=== PATIENT | male | born 1940 | race Caucasian/White ===

== ENCOUNTER 2016-05-17 08:47 | Outpatient (RCR) | payer MEDICARE, OTHER | END 2016-06-05 | disposition home or self-care (01) | LOC: ONC 08:47 | PROVIDERS: ATTEND Radiology Radiation Oncology | DX: Z51.0 Encounter for antineoplastic radiation therapy (principal); C61 Malignant neoplasm of prostate | CPT/HCPCS: 77300; 77301; 77307; 77334; 77336; 77338; 77385 ==

== ENCOUNTER 2016-06-28 05:38 | Outpatient (CLI) | payer MEDICARE, OTHER ==
[~2016-06-28] VITALS: Ht 175.3 cm; Wt 127.0 kg
--- OUTSIDE RECORDS SUMMARY | 2016-06-28 05:41 | XMS REPORT | Continuity of Care Document ---
Author Author [facility] Organization [facility] Address Unknown Phone Unavailable Allergies Active Description Code Type Severity Reaction Onset Reported/Identified Relationship to Patient Clinical Status Yes No Allergy Information Available [id number] Drug Allergy Unknown N/A 09/26/2015 Medications Problems Date Dx Coded Attending Type Code Diagnosis Diagnosed By 05/07/2011 Ot 414.00 CORON ATHEROSCLER NOS TYPE VESSEL, NATIV 05/07/2011 Ot V45.82 PERCUTANEOUS TRANSLUM CORON ANGIOPLASTY 05/07/2011 Ot V57.89 REHABILITATION PROC NEC 05/31/2011 Ot 414.01 CORONARY ATHEROSCLEROSIS OF [place] CORON 05/31/2011 Ot V45.82 PERCUTANEOUS TRANSLUM CORON ANGIOPLASTY 05/31/2011 Ot V57.89 REHABILITATION PROC NEC 06/20/2013 KELLY GREENE, NEELA Dixon Ot 789.09 ABDOMINAL PAIN, OTHER SPECIFIED SITE 03/28/2014 Ot 414.00 03/28/2014 Ot V45.82 03/28/2014 Ot V57.89 03/28/2014 KELLY GREENE, NEELA R Ot 441.4 03/28/2014 KELLY GREENE, NEELA R Ot 571.8 03/28/2014 KELLY GREENE, NEELA R Ot 356.9 03/28/2014 KELLY GREENE, NEELA R Ot 722.10 03/28/2014 Ot 789.09 04/27/2014 RICCI ZIMMER DO Ot 608.89 04/27/2014 RICCI ZIMMER DO Ot 788.41 04/27/2014 RICCI ZIMMER DO Ot 788.64 05/06/2014 RICCI ZIMMER DO Ot 608.89 05/06/2014 RICCI ZIMMER DO Ot 788.41 05/06/2014 RICCI ZIMMER DO Ot 788.64 09/26/2015 Ot 414.00 CORON ATHEROSCLER NOS TYPE VESSEL, NATIV 09/26/2015 Ot V45.82 PERCUTANEOUS TRANSLUM CORON ANGIOPLASTY 09/26/2015 Ot V57.89 REHABILITATION PROC NEC 09/26/2015 NEELA MENDOZA MD Ot 441.4 ABDOM AORTIC ANEURYSM 09/26/2015 NEELA MENDOZA MD Ot 571.8 CHRONIC LIVER DIS NEC 09/26/2015 NEELA MENDOZA MD Ot 356.9 IDIO PERIPH NEURPTHY NOS 09/26/2015 NEELA MENDOZA MD Ot 722.10 LUMBAR DISC DISPLACEMENT 09/26/2015 Ot 789.09 ABDOMINAL PAIN, OTHER SPECIFIED SITE 09/26/2015 RICCI ZIMMER DO Ot 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 09/26/2015 RICCI ZIMMER DO Ot 788.41 URINARY FREQUENCY 09/26/2015 RICCI ZIMMER DO Ot 788.64 URINARY HESITANCY 09/26/2015 Ot 414.00 CORON ATHEROSCLER NOS TYPE VESSEL, NATIV 09/26/2015 Ot V45.82 PERCUTANEOUS TRANSLUM CORON ANGIOPLASTY 09/26/2015 Ot V57.89 REHABILITATION PROC NEC 09/26/2015 Ot 789.09 ABDOMINAL PAIN, OTHER SPECIFIED SITE 09/27/2015 RAÚL GREENE, SHARIFA Edwards Ot C61 MALIGNANT NEOPLASM OF PROSTATE 10/02/2015 SHARIFA OLSEN MD A Ot C61 MALIGNANT NEOPLASM OF PROSTATE 10/20/2015 SHARIFA OLSEN MD A Ot C61 MALIGNANT NEOPLASM OF PROSTATE 10/20/2015 SHARIFA OLSEN MD A Ot C61 MALIGNANT NEOPLASM OF PROSTATE 11/16/2015 REMEDIOS LANDIN MD Ot C61 MALIGNANT NEOPLASM OF PROSTATE 11/21/2015 REMEDIOS LANDIN MD Ot C61 MALIGNANT NEOPLASM OF PROSTATE 01/23/2016 REMEDIOS LANDIN MD Ot C61 MALIGNANT NEOPLASM OF PROSTATE 03/08/2016 REMEDIOS LANDIN MD, Ot C61 MALIGNANT NEOPLASM OF PROSTATE 04/25/2016 REMEDIOS LANDIN MD, Ot C61 MALIGNANT NEOPLASM OF PROSTATE 04/25/2016 REMEDIOS LANDIN MD, Ot C61 MALIGNANT NEOPLASM OF PROSTATE 06/05/2016 REMEDIOS LANDIN MD Ot C61 MALIGNANT NEOPLASM OF PROSTATE 06/05/2016 REMEDIOS LANDIN MD Ot Z51.0 ENCOUNTER FOR ANTINEOPLASTIC RADIATION T 06/06/2016 REMEDIOS LANDIN MD, Ot C61 MALIGNANT NEOPLASM OF PROSTATE 06/06/2016 URAVSHI GREENE, REMEDIOS Elizabeth Ot Z51.0 ENCOUNTER FOR ANTINEOPLASTIC RADIATION T Procedures Results Encounters ACCT No. Visit Date/Time Discharge Status Pt. Type Provider Facility Loc./Unit Complaint [id number] 05/17/2016 08:47:00 2016 00:01:00 DIS Outpatient REMEDIOS LANDIN MD [facility] ONC [id number] 10/25/2015 12:42:00 2015 00:01:00 DIS Outpatient REMEDIOS LANDIN MD [facility] ONC [id number] 03/28/2014 09:58:00 2013 23:59:59 CLS Outpatient RICCI ZIMMER DO [facility] RAD [id number] 03/22/2013 10:48:00 2013 00:01:00 DIS Outpatient NEELA MENDOZA MD [facility] LAB [id number] 03/31/2013 08:02:00 2012 23:59:59 CLS Outpatient NEELA MENDOZA MD [facility] RAD [id number] 03/22/2013 14:16:00 2012 23:59:59 CLS Outpatient NEELA MENDOZA MD [facility] RAD [id number] 06/06/2016 00:10:00 PEN Preadmit REMEDIOS LANDIN MD [facility] ONC [id number] 09/26/2015 11:17:00 ACT Outpatient SHARIFA OLSEN MD [facility] RAD [id number] 06/21/2013 00:00:00 Document Registration [id number] 05/31/2011 12:51:00 Document Registration [id number] 05/08/2011 08:00:00 Document Registration [id number] 05/03/2011 11:07:00 Document Registration
[2016-06-28] MEDS ORDERED: ASPI-586 PO (12:46)
[2016-06-28] MEDS ORDERED: ATOR80TA76 PO (12:46)
[2016-06-28] MEDS ORDERED: ISM60TCR PO (12:46)
[2016-06-28] MEDS ORDERED: OMG1KC PO (12:46)
[2016-06-28] MEDS ORDERED: METF1000 PO (12:46)
[2016-06-28] MEDS ORDERED: CARV25TA PO (12:46)
[2016-06-28] MEDS ORDERED: HYDR-3816 PO (12:46)
[2016-06-28] MEDS ORDERED: TAMS0.4C98 PO (12:46)
[2016-06-28] MEDS ORDERED: LISI1TAB10 PO (12:46)
[2016-06-28] MEDS ORDERED: GLIP10TA13 PO (12:46)
[2016-06-28] MEDS ORDERED: INSU100V5 SQ (12:46)
== END 2016-06-28 12:48 ==
LOC: PREOP 05:38
PROVIDERS: ATTEND Urology
DX: Z01.818 Encounter for other preprocedural examination (principal); C61 Malignant neoplasm of prostate

== ENCOUNTER → 2016-06-28 | Outpatient (CLI) | payer MEDICARE, OTHER ==
[~2016-06-28] MED LIST: ASPI-586 PO; ATOR80TA76 PO; CARV25TA PO; CIPR-225 PO; GLIP10TA13 PO; HYDR-3816 PO; INSU100V5 SQ; ISM60TCR PO; LISI1TAB10 PO; METF1000 PO; OMG1KC PO; PHEN-640 PO; TAMS0.4C98 PO
--- OUTSIDE RECORDS SUMMARY | 2016-06-28 10:32 | XMS REPORT | Continuity of Care Document ---
Author Author [facility] Organization [facility] Address Unknown Phone Unavailable Allergies Active Description Code Type Severity Reaction Onset Reported/Identified Relationship to Patient Clinical Status Yes No Allergy Information Available [id number] Drug Allergy Unknown N/A 09/26/2015 Medications Problems Date Dx Coded Attending Type Code Diagnosis Diagnosed By 05/07/2011 Ot 414.00 CORON ATHEROSCLER NOS TYPE VESSEL, NATIV 05/07/2011 Ot V45.82 PERCUTANEOUS TRANSLUM CORON ANGIOPLASTY 05/07/2011 Ot V57.89 REHABILITATION PROC NEC 05/31/2011 Ot 414.01 CORONARY ATHEROSCLEROSIS OF [place] CORON 05/31/2011 Ot V45.82 PERCUTANEOUS TRANSLUM CORON [...] Ot V57.89 REHABILITATION PROC NEC 09/26/2015 NEELA EMNDOZA MD Ot 441.4 ABDOM AORTIC ANEURYSM 09/26/2015 [...] Ot C61 MALIGNANT NEOPLASM OF PROSTATE 06/06/2016 URVASHI GREENE, REMEDIOS Elizabeth Ot Z51.0 ENCOUNTER FOR ANTINEOPLASTIC RADIATION T Procedures Results Encounters ACCT No. Visit Date/Time Discharge Status Pt. Type Provider Facility Loc./Unit Complaint [id number] 05/17/2016 08:47:00 2016 00:01:00 DIS Outpatient REMEDIOS LANDIN MD [facility] ONC [id number] 10/25/2015 12:42:00 2015 00:01:00 DIS Outpatient REMEDIOS LANDIN MD [facility] ONC [id number] 03/28/2014 09:58:00 2013 23:59:59 CLS Outpatient RICCI ZIMMER DO [facility] RAD [id number] 03/22/2013 10:48:00 2013 00:01:00 DIS Outpatient NEELA MENDOZA MD [facility] LAB [id number] 03/31/2013 08:02:00 2012 23:59:59 CLS Outpatient NEELA MENDOZA MD [facility] RAD [id number] 03/22/2013 14:16:00 2012 23:59:59 CLS Outpatient NEELA MENDOZA MD [facility] RAD [id number] 06/06/2016 00:10:00 PEN Preadmit REMEDIOS LANDIN MD [facility] ONC [id number] 09/26/2015 11:17:00 ACT Outpatient SHARIFA OLSEN MD [facility] RAD [id number] 06/21/2013 00:00:00 Document Registration [id number] 05/31/2011 12:51:00 Document Registration [id number] 05/08/2011 08:00:00 Document Registration [id number] 05/03/2011 11:07:00 Document Registration
== END ==
LOC: ONC 10:28
PROVIDERS: ATTEND Radiology Radiation Oncology
DX: C61 Malignant neoplasm of prostate (principal)
CPT/HCPCS: 99213

== ENCOUNTER 2016-07-02 06:17 | Day surgery (SDC) | payer MEDICARE, OTHER ==
[~2016-07-02] VITALS: Ht 175.3 cm; Wt 127.0 kg
[~2016-07-02 06:17] MED LIST changes: -CIPR-225 PO; -PHEN-640 PO
--- OUTSIDE RECORDS SUMMARY | 2016-07-02 06:20 | XMS REPORT | Continuity of Care Document ---
Author Author [facility] Organization [facility] Address Unknown Phone Unavailable Care Team Providers Care Missile Inspector Name Role Phone NEELA MENDOZA MD PCP Insurance Providers Payer Name Policy Number Subscriber Name Relationship [employer] [id number] Abdulaziz Layton Self / Same As Patient [place] [id number] Abdulaziz Layton Self / Same As Patient Problems No problem information available. Medications Current Home Medications Medication Dose Units Route Directions Days/Qty Instructions Start Date Aspirin 81 Mg 81 Mg Oral 06/28/16 Atorvastatin Calcium 80 Mg 80 Mg Oral Daily 06/28/16 Carvedilol 25 Mg 25 Mg Oral Twice A Day 06/28/16 [place] 3 Polyunsat Fatty Acids 1,000 Mg 2,000 Mg Oral Daily 06/28/16 Glipizide 10 Mg 10 Mg Oral Daily 06/28/16 Isosorbide Mononitrate (Imdur) 60 Mg 60 Mg Oral Daily 06/28/16 Hydrocodone/Acetaminophen 1 Each 1 Each Oral As Needed as needed for Pain 06/28/16 Insulin Determir 1,000 Units/10 Ml 25 Units Sub-Q Twice A Day Metformin Hcl 1,000 Mg 1,000 Mg Oral Twice A Day 06/28/16 Lisinopril/Hydrochlorothiazide 1 Each 1 Each Oral Daily 06/28/16 Tamsulosin Hcl 0.4 Mg 0.4 Mg Oral Twice A Day 06/28/16 Social History Social History Problem Response Recorded Date/Time Recent Foreign Travel N [place] 06/28/2016 10:27am Hospital Discharge Instructions Current inpatient/outpatient. Discharge instructions are currently unavailable. Plan of Care Prescriptions Functional Status No functional status results. Allergies, Adverse Reactions, Alerts No known allergies. Immunizations No immunization records. Vital Signs Acute Vital Signs Vital Response Date/Time Height (Feet) 5 feet 06/28/2016 12:25pm Height (Inches) 9.00 inches 06/28/2016 12:25pm Height (Calculated Centimeters) 175.626073 cm 06/28/2016 12:25pm Weight (Pounds) 280 pounds 06/28/2016 12:25pm Weight (Ounces) 0.0 oz 06/28/2016 12:25pm Weight (Calculated Grams) 362854.87 gm 06/28/2016 12:25pm Weight (Calculated Kilograms) 127.404931 kilograms 06/28/2016 12:25pm Calculated BMI 41.4 06/28/2016 12:25pm Results No known relevant diagnostic tests, laboratory data and/or discharge summary. Procedures No known history of procedures. Encounters Encounter Location Arrival/Admit Date Discharge/Depart Date Attending Provider Registered Clinic [facility] 06/28/16 10:28am REMEDIOS LANDIN MD Departed Clinic [facility] 06/28/16 5:38am 06/28/16 12: 48pm SHARIFA OLSEN MD Discharged Recurring [facility] 03/07/16 10:13am 11:59pm REMEDIOS LANDIN MD
--- OUTSIDE RECORDS SUMMARY | 2016-07-02 06:21 | XMS REPORT | Continuity of Care Document ---
Author Author [facility] Organization [facility] Address Unknown Phone Unavailable Care Team Providers Care Virology Teacher Name Role Phone NEELA MENDOZA MD PCP Insurance Providers Payer Name Policy Number Subscriber Name Relationship [employer] [id number] Abdulaziz Layton Self / Same As Patient [place] [employer] [place] [id number] Abdulaziz Layton Self / Same As Patient Problems No problem information available. Medications Current Home Medications Medication Dose Units Route Directions Days/Qty Instructions Start Date Aspirin 81 Mg 81 Mg Oral 06/28/16 Atorvastatin Calcium 80 Mg 80 Mg Oral Daily 06/28/16 Carvedilol 25 Mg 25 Mg Oral Twice A Day 06/28/16 [place] 3 Polyunsat Fatty Acids 1,000 Mg 2,000 [...] 9.00 inches 06/28/2016 12:25pm Height (Calculated Centimeters) 175.594426 cm 06/28/2016 12:25pm Weight (Pounds) 280 pounds 06/28/2016 12:25pm Weight (Ounces) 0.0 oz 06/28/2016 12:25pm Weight (Calculated Grams) 094799.87 gm 06/28/2016 12:25pm Weight (Calculated Kilograms) 127.727007 kilograms 06/28/2016 12:25pm Calculated BMI 41.4 06/28/2016 12:25pm Results No known relevant diagnostic tests, laboratory data and/or discharge summary. Procedures No known history of procedures. Encounters Encounter Location Arrival/Admit Date Discharge/Depart Date Attending Provider Registered Clinic [facility] 06/28/16 10:28am REMEDIOS LANDIN MD Departed Clinic [facility] 06/28/16 5:38am 06/28/16 12: 48pm SHARIFA OLSEN MD Discharged Recurring [facility] 03/07/16 10:13am 11:59pm REMEDIOS LANDIN MD
--- NOTE | 2016-07-02 07:10 | Progress Note-Pre Operative ---
Pre-Operative Progress Note H&P Reviewed The H&P was reviewed, patient examined and no changes noted. Date H&P Reviewed: Jul 02, 2016 Time H&P Reviewed: 07:10 Pre-Operative Diagnosis: Ca Prostate with prostatism SHARIFA OLSEN MD Jul 02, 2016 7:10 am
--- NOTE | 2016-07-02 07:11 | Progress Note-Post Operative ---
Post-Operative Progess Note Pre-Operative Diagnosis Ca Prostate with prostatism Post-Operative Diagnosis SAME Post-Op Procedure Note Date of Procedure: Jul 02, 2016 Name of Procedure: UROLIFT IMPLANT Anesthesia Type GENERAL Estimated blood loss (mL): SHARIFA GARCIA MD Jul 02, 2016 7:11 am
--- NOTE | 2016-07-02 07:13 | Discharge Inst-Urology ---
Discharge Inst-Urology Discharge Medications New, Converted, or Re-newed RX: RX on Chart Patient Instructions/Follow Up Plan Please make appointment to been seen in office in 2 weeks. May resume ASA in one week if no bleeding Keep bowels, soft and moving Increase oral fluids for 48 hours and then as needed. Diet and Activity as tolerated. If questions or concerns contact your physician Or seek help at emergency department. SHARIFA OLSEN MD Jul 02, 2016 7:12 am
[2016-07-02] MEDS ORDERED: LEVOFLOXACIN 500 MG/D5W 100 ML (PRE-MIX) IV ONE (07:15)
[2016-07-02] MEDS ORDERED: LACTATED RINGERS 1,000 ML IV PRN ×2 (07:41)
[2016-07-02] MEDS ORDERED: LIDOCAINE PF 2% 10 ML (XYLOCAINE) AMP ONE (07:57)
[2016-07-02] MEDS ORDERED: proPOfol 200 MG/20 ML (DIPRIVAN) VIAL IV ONE (07:57)
[2016-07-02] MEDS ORDERED: ONDANSETRON 4 MG/2 ML (SDV) Z0FRAN ONE (07:57)
[2016-07-02] MEDS ORDERED: MIDAZOLAM 2 MG/2 ML (VERSED) VIAL ONE (07:57)
[2016-07-02] MEDS ORDERED: fentaNYL INJECTION 100 MCG/2 ML AMP ONE (07:57)
[2016-07-02 08:05] VITALS: BP 148/103
[2016-07-02] MEDS ORDERED: SEVOFLURANE (ULTANE) 15 ML INHAL SOLN ONE (08:41)
[2016-07-02] MEDS ORDERED: morphine INJ 10 MG/ML 1ML (SYR OR VIAL) IV PRN (09:00)
[2016-07-02] MEDS ORDERED: ONDANSETRON 4 MG/2 ML (SDV) Z0FRAN IV PRN (09:00)
[2016-07-02] MEDS ORDERED: PHEN-640 PO (09:40)
[2016-07-02] MEDS ORDERED: CIPR-225 PO (09:40)
[2016-07-02 09:55] VITALS: BP 153/90
[2016-07-02 10:25] VITALS: BP 158/86
[2016-07-02 10:55] VITALS: BP 167/101
[2016-07-02 12:15] VITALS: BP 167/101
--- NOTE | 2016-07-02 14:51 | OPERATIVE REPORT ---
PROCEDURE PHYSICIAN: SHARIFA OLSEN DATE OF PROCEDURE: 07/02/2016 PREOPERATIVE DIAGNOSIS: CA of the prostate with prostatism. POSTOPERATIVE DIAGNOSIS: CA of the prostate with prostatism. OPERATION: UroLift implant. SURGEON: Ida ANESTHESIA: General. COMPLICATIONS: None. PROCEDURE: Under satisfactory general anesthesia, the patient in lithotomy position, the genitalia were prepped and draped in usual sterile fashion. Cystoscope was first performed to confirm the enlargement of the prostate, mostly the left lobe of the patient, so we went ahead and put four UroLift implant using the described technique. Two on each side. There was still some bulging of the lobe on the left side so we put in a 5th implant there to really provide a good anterior channel there was minimal bleeding. The bladder was evacuated. The scope was removed. The patient tolerated the procedure and anesthesia well and was sent to recovery room in stable condition. Estimated blood loss negligible. Job ID: [id number] Dictated Date: 07/02/2016 09:07:34 Regulatory Administrator Date: 07/02/2016 14:44:47 / rosales
== END 2016-07-02 12:15 | disposition home or self-care (01) ==
LOC: SDC 06:17
PROVIDERS: ATTEND Urology
DX: C61 Malignant neoplasm of prostate (principal); N40.0 Benign prostatic hyperplasia without lower urinary tract symptoms; E11.9 Type 2 diabetes mellitus without complications; Z79.4 Long term (current) use of insulin
CPT/HCPCS: 82962; 87081

== ENCOUNTER → 2016-08-07 | Outpatient (CLI) | payer MEDICARE, OTHER ==
[~2016-08-07] MED LIST changes: +CIPR-225 PO; +PHEN-640 PO
== END ==
LOC: CARD 11:17
PROVIDERS: ATTEND Internal Medicine Cardiovascular Disease
DX: I49.3 Ventricular premature depolarization (principal); I49.9 Cardiac arrhythmia, unspecified
CPT/HCPCS: 93225; 93226

== ENCOUNTER → 2017-02-10 | Outpatient (CLI) | payer MEDICARE, OTHER ==
[~2017-02-10] MED LIST changes: +RT-ALBUTEROL SULF 2.5 MG/3 ML PRE-MIX VIAL ONE
== END ==
LOC: RT 14:02
PROVIDERS: ATTEND Internal Medicine Cardiovascular Disease
DX: R06.09 Other forms of dyspnea (principal); I25.5 Ischemic cardiomyopathy
CPT/HCPCS: 94060; 94726; 94729

== ENCOUNTER → 2017-02-10 | Outpatient (CLI) | payer MEDICARE, OTHER ==
[~2017-02-10] MED LIST changes: +RT-ALBUTEROL SULF 2.5 MG/3 ML PRE-MIX VIAL IH ONE; -RT-ALBUTEROL SULF 2.5 MG/3 ML PRE-MIX VIAL ONE
[2017-02-10 15:40] LABS: MEAN PLATELET VOLUME 8.8 FL (7.4-10.4); RED BLOOD COUNT 4.46 10^6/uL (4.35-5.85); RED CELL DISTRIBUTION WIDTH 13.2 % (10.0-14.5); WHITE BLOOD COUNT 6.8 10^3/uL (4.3-11.0)
[2017-02-10 16:03] LABS: CALCIUM 9.1 MG/DL (8.5-10.1); CREATININE SERUM 1.18 MG/DL (0.60-1.30); POTASSIUM 4.3 MMOL/L (3.6-5.0)
--- NOTE | 2017-02-10 16:17 | Diagnostic Imaging Report ---
PA and lateral views of the chest. INDICATION: COPD and hypertension. Shortness of breath. COMPARISON: No prior studies are available for comparison. FINDINGS: There is a minimal focal opacity along the lateral aspect of the left perihilar region. The right lung is clear. The heart size is moderately enlarged. There is pulmonary hyperinflation. The mediastinum and kolton appear unremarkable. IMPRESSION: 1. Cardiomegaly without overt failure. 2. Minimal opacity along the lateral aspect of the left perihilar region could relate to slight focal atelectasis or minimal pneumonitis. Dictated by: Dictated on workstation # [id number]
[2017-02-10 16:24] LABS: THYROID STIMULATING HORMONE 2.12 UIU/ML (0.35-4.94)
== END ==
LOC: RAD 14:05
PROVIDERS: ATTEND Internal Medicine Cardiovascular Disease
DX: I51.7 Cardiomegaly (principal); I10 Essential (primary) hypertension; R06.02 Shortness of breath; I42.9 Cardiomyopathy, unspecified; I25.10 Atherosclerotic heart disease of native coronary artery without angina pectoris
CPT/HCPCS: 36415; 71020; 80048; 83880; 84443; 85027; 94640

== ENCOUNTER → 2017-02-18 | Outpatient (CLI) | payer MEDICARE, OTHER ==
[~2017-02-18] MED LIST changes: -RT-ALBUTEROL SULF 2.5 MG/3 ML PRE-MIX VIAL IH ONE
[2017-02-18 12:25] LABS: ABG BASE EXCESS 2.1 MMOL/L (-2.5-2.5); ABG HCO3 27 MMOL/L (23-27); ABG OXYGEN SATURATION 93 % (94-100); ABG PCO2 43 MMHG (35-45); ABG PO2 60 MMHG (79-93); ABG TCO2 27.9 MMOL/L (21.0-31.0)
[2017-02-18 12:26] LABS: ALLENS TEST YES-POS
[2017-02-18 12:27] LABS: PATIENT TEMP 97.2
== END ==
LOC: LAB 11:42
PROVIDERS: ATTEND Nurse Practitioner Family
DX: G47.10 Hypersomnia, unspecified (principal); G47.50 Parasomnia, unspecified
CPT/HCPCS: 82805

== ENCOUNTER 2017-03-07 20:57 | Outpatient (CLI) | payer MEDICARE, OTHER | END 2017-03-08 05:28 | disposition home or self-care (01) | LOC: SLEEP 20:57 | PROVIDERS: ATTEND Nurse Practitioner Family | DX: G47.33 Obstructive sleep apnea (adult) (pediatric) (principal); G47.10 Hypersomnia, unspecified | CPT/HCPCS: 95810 ==

== ENCOUNTER 2017-05-03 20:45 | Outpatient (CLI) | payer MEDICARE, OTHER | END 2017-05-04 06:15 | disposition home or self-care (01) | LOC: SLEEP 20:45 | PROVIDERS: ATTEND Nurse Practitioner Family | DX: G47.33 Obstructive sleep apnea (adult) (pediatric) (principal); G47.34 Idiopathic sleep related nonobstructive alveolar hypoventilation; G47.50 Parasomnia, unspecified; R06.02 Shortness of breath | CPT/HCPCS: 95811 ==

== ENCOUNTER 2018-01-19 05:33 | Outpatient (CLI) | payer MEDICARE, OTHER ==
[~2018-01-19] VITALS: Ht 175.3 cm; Wt 122.5 kg
[~2018-01-19 05:33] MED LIST changes: +HYDR-34 PO; -HYDR-3816 PO; +METF-399 PO; -METF1000 PO
[2018-01-19] MEDS ORDERED: ASPI-999 PO (14:15)
[2018-01-19] MEDS ORDERED: FURO40TA4 PO (14:15)
[2018-01-19] MEDS ORDERED: POTA20TA8 PO (14:15)
[2018-01-19] MEDS ORDERED: INSU100V5 SQ (14:15)
[2018-01-19] MEDS ORDERED: GABA-488 PO (14:15)
== END 2018-01-19 14:25 | disposition home or self-care (01) ==
LOC: PREOP 05:33
PROVIDERS: ATTEND Specialist
DX: Z01.818 Encounter for other preprocedural examination (principal)

== ENCOUNTER 2018-01-21 07:48 | Day surgery (SDC) | payer MEDICARE, OTHER ==
[~2018-01-21] VITALS: Ht 175.3 cm; Wt 122.5 kg
[~2018-01-21 07:48] MED LIST changes: +ASPI-999 PO; +FURO40TA4 PO; +GABA-488 PO; +POTA20TA8 PO
--- OUTSIDE RECORDS SUMMARY | 2018-01-21 07:52 | XMS REPORT | Continuity of Care Document ---
Author Author [facility] Organization [facility] Address Unknown Phone Unavailable Allergies Active Description Code Type Severity Reaction Onset Reported/Identified Relationship to Patient Clinical Status Yes No Allergy Information Available [id number] Drug Allergy Unknown N/A 2015 Yes No Known Drug Allergies [id number] Drug Allergy Unknown N/A 01/19/2018 Medications There is no data. 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 09/26/2015 RICCI ZIMMER DO Hardik Ot 788.41 URINARY FREQUENCY 09/26/2015 MESHA CHRISTOPHER RICCI Dye Ot 788.64 URINARY HESITANCY 09/26/2015 Ot 414.00 CORON ATHEROSCLER NOS TYPE VESSEL, NATIV 09/26/2015 Ot V45.82 PERCUTANEOUS TRANSLUM CORON ANGIOPLASTY 09/26/2015 Ot V57.89 REHABILITATION PROC NEC 09/26/2015 Ot 789.09 ABDOMINAL PAIN, OTHER SPECIFIED SITE 09/27/2015 RAÚL GREENE, SHARIFA Edwards Ot C61 MALIGNANT NEOPLASM OF PROSTATE 10/02/2015 SHARIFA OLSEN MD A Ot C61 MALIGNANT NEOPLASM OF PROSTATE 10/20/2015 RAÚL GREENE, SHARIFA A Ot C61 MALIGNANT NEOPLASM OF PROSTATE 10/20/2015 SHARIFA OLSEN MD A Ot C61 MALIGNANT NEOPLASM OF PROSTATE 11/16/2015 REMEDIOS LANDIN MD Ot C61 MALIGNANT NEOPLASM OF PROSTATE 11/21/2015 REMEDIOS LANDIN MD Ot C61 MALIGNANT NEOPLASM OF PROSTATE 01/23/2016 REMEDIOS LANDIN MD Ot C61 MALIGNANT NEOPLASM OF PROSTATE 03/08/2016 REMEDIOS LANDIN MD Ot C61 MALIGNANT NEOPLASM OF PROSTATE 04/25/2016 REMEDIOS LANDIN MD Ot C61 MALIGNANT NEOPLASM OF PROSTATE 04/25/2016 REMEDIOS LANDIN MD Ot C61 MALIGNANT NEOPLASM OF PROSTATE 06/05/2016 REMEDIOS LANDIN MD Ot C61 MALIGNANT NEOPLASM OF PROSTATE 06/05/2016 LANDIN MD, REMEDIOS E Ot Z51.0 ENCOUNTER FOR ANTINEOPLASTIC RADIATION T 06/06/2016 URVASHI GREENE, REMEDIOS Elizabeth Ot C61 MALIGNANT NEOPLASM OF PROSTATE 06/06/2016 URVASHI GREENE, REMEDIOS Elizabeth Ot Z51.0 ENCOUNTER FOR ANTINEOPLASTIC RADIATION T 06/28/2016 Ot 414.00 CORON ATHEROSCLER NOS TYPE VESSEL, NATIV 06/28/2016 Ot V45.82 PERCUTANEOUS TRANSLUM CORON ANGIOPLASTY 06/28/2016 Ot V57.89 REHABILITATION PROC NEC 06/28/2016 Ot 789.09 ABDOMINAL PAIN, OTHER SPECIFIED SITE 06/28/2016 REMEDIOS LANDIN MD Ot C61 MALIGNANT NEOPLASM OF PROSTATE 06/28/2016 SHARIFA OLSEN MD Ot C61 MALIGNANT NEOPLASM OF PROSTATE 06/28/2016 SHARIFA OLSEN MD Ot Z01.818 ENCOUNTER FOR OTHER PREPROCEDURAL EXAMIN 07/01/2016 SHARIFA OLSEN MD, Ot C61 MALIGNANT NEOPLASM OF PROSTATE 07/01/2016 SHARIFA OLSEN MD Ot Z01.818 ENCOUNTER FOR OTHER PREPROCEDURAL EXAMIN 07/02/2016 Ot 414.00 CORON ATHEROSCLER NOS TYPE VESSEL, NATIV 07/02/2016 Ot V45.82 PERCUTANEOUS TRANSLUM CORON ANGIOPLASTY 07/02/2016 Ot V57.89 REHABILITATION PROC NEC 07/02/2016 KELLY GREENE, NEELA Dixon Ot 441.4 ABDOM AORTIC ANEURYSM 07/02/2016 KELLY GREENE, NEELA Dixon Ot 571.8 CHRONIC LIVER DIS NEC 07/02/2016 NEELA MENDOZA MD Ot 356.9 IDIO PERIPH NEURPTHY NOS 07/02/2016 NEELA MENDOZA MD Ot 722.10 LUMBAR DISC DISPLACEMENT 07/02/2016 Ot 789.09 ABDOMINAL PAIN, OTHER SPECIFIED SITE 07/02/2016 RICCI ZIMMER DO Ot 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 07/02/2016 RICCI ZIMMER DO Ot 788.41 URINARY FREQUENCY 07/02/2016 RICCI ZIMMER DO Ot 788.64 URINARY HESITANCY 07/02/2016 SHARIFA OLSEN MD Ot C61 MALIGNANT NEOPLASM OF PROSTATE 07/02/2016 REMEDIOS LANDIN MD Ot C61 MALIGNANT NEOPLASM OF PROSTATE 07/02/2016 SHARIFA OLSEN MD Ot C61 MALIGNANT NEOPLASM OF PROSTATE 07/02/2016 SHARIFA OLSEN MD Ot E11.9 TYPE 2 DIABETES MELLITUS WITHOUT COMPLIC 07/02/2016 SHARIFA OLSEN MD Ot N40.0 BENIGN PROSTATIC HYPERPLASIA WITHOUT LOW 07/02/2016 SHARIFA OLSEN MD, Ot Z79.4 FICTION WRITER (CURRENT) USE OF INSULIN 07/03/2016 SHARIFA OLSEN MD Ot C61 MALIGNANT NEOPLASM OF PROSTATE 07/03/2016 SHARIFA OLSEN MD, Ot E11.9 TYPE 2 DIABETES MELLITUS WITHOUT COMPLIC 07/03/2016 SHARIFA LOSEN MD, Ot N40.0 BENIGN PROSTATIC HYPERPLASIA WITHOUT LOW 07/03/2016 SHARIFA OLSEN MD, Ot Z79.4 PRISON (CURRENT) USE OF INSULIN 07/04/2016 SHARIFA OLSEN MD Ot C61 MALIGNANT NEOPLASM OF PROSTATE 07/04/2016 SHARIFA OLSEN MD, Ot Z01.818 ENCOUNTER FOR OTHER PREPROCEDURAL EXAMIN 07/04/2016 URVASHI GREENE, REMEDIOS Elizabeth Ot C61 MALIGNANT NEOPLASM OF PROSTATE 07/25/2016 REMEDIOS LANDIN MD Ot C61 MALIGNANT NEOPLASM OF PROSTATE 07/26/2016 REMEDIOS LANDIN MD Ot C61 MALIGNANT NEOPLASM OF PROSTATE 08/07/2016 NICOLETTE LAURA MD Ot I49.3 VENTRICULAR PREMATURE DEPOLARIZATION 08/07/2016 NICOLETTE LAURA MD Ot I49.3 VENTRICULAR PREMATURE DEPOLARIZATION 08/27/2016 NICOLETTE LAURA MD Ot I49.3 VENTRICULAR PREMATURE DEPOLARIZATION 08/27/2016 NICOLETTE LAURA MD Ot I49.9 CARDIAC ARRHYTHMIA, UNSPECIFIED 09/17/2016 NICOLETTE LAURA MD Ot I49.3 VENTRICULAR PREMATURE DEPOLARIZATION 09/17/2016 NICOLETTE LAURA MD Ot I49.9 CARDIAC ARRHYTHMIA, UNSPECIFIED 09/17/2016 NICOLETTE LAURA MD Ot I49.3 VENTRICULAR PREMATURE DEPOLARIZATION 09/17/2016 NICOLETTE LAURA MD Ot I49.9 CARDIAC ARRHYTHMIA, UNSPECIFIED 09/17/2016 NICOLETTE LAURA MD Ot I49.3 VENTRICULAR PREMATURE DEPOLARIZATION 09/17/2016 NICOLETTE LAURA MD Ot I49.9 CARDIAC ARRHYTHMIA, UNSPECIFIED 12/24/2016 SHARIFA OLSEN MD Ot C61 MALIGNANT NEOPLASM OF PROSTATE 12/24/2016 SHARIFA OLSEN MD Ot E11.9 TYPE 2 DIABETES MELLITUS WITHOUT COMPLIC 12/24/2016 SHARIFA OLSEN MD Ot N40.0 BENIGN PROSTATIC HYPERPLASIA WITHOUT LOW 12/24/2016 SAHRIFA OLSEN MD Ot Z79.4 PRISON (CURRENT) USE OF INSULIN 02/04/2017 KELLY GREENE, NEELA Dixon Ot 441.4 ABDOM AORTIC ANEURYSM 02/04/2017 KELLY GREENE, NEELA R Ot 571.8 CHRONIC LIVER DIS NEC 02/04/2017 KELLY GREENE, NEELA R Ot 356.9 IDIO PERIPH NEURPTHY NOS 02/04/2017 KELLY GREENE, NEELA R Ot 722.10 LUMBAR DISC DISPLACEMENT 02/04/2017 Ot 789.09 ABDOMINAL PAIN, OTHER SPECIFIED SITE 02/04/2017 MESHARICCI DE SOUZA DO Ot 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 02/04/2017 RICCI ZIMMER DO Ot 788.41 URINARY FREQUENCY 02/04/2017 GUNNER ZIMMER DOER Hardik Ot 788.64 URINARY HESITANCY 02/04/2017 RAÚL GREENE, SHARIFA Edwards Ot C61 MALIGNANT NEOPLASM OF PROSTATE 02/04/2017 REMEDIOS LANDIN MD Ot C61 MALIGNANT NEOPLASM OF PROSTATE 02/04/2017 REEMDIOS LANDIN MD Ot C61 MALIGNANT NEOPLASM OF PROSTATE 02/04/2017 NICOLETTE LAURA MD Ot I49.3 VENTRICULAR PREMATURE DEPOLARIZATION 02/04/2017 NICOLETTE LAURA MD Ot I49.9 CARDIAC ARRHYTHMIA, UNSPECIFIED 02/18/2017 CARIE ALAS APRN Ot G47.10 HYPERSOMNIA, UNSPECIFIED 03/05/2017 CARIE ALAS APRN Ot G47.10 HYPERSOMNIA, UNSPECIFIED 03/06/2017 NICOLETTE LAURA MD Ot I10 ESSENTIAL (PRIMARY) HYPERTENSION 03/06/2017 NICOLETTE LAURA MD Ot I25.10 ATHSCL HEART DISEASE OF TORRES MARTINEZ CORONARY 03/06/2017 NICOLETTE LAURA MD Ot I42.9 CARDIOMYOPATHY, UNSPECIFIED 03/06/2017 NICOLETTE LAURA MD Ot I51.7 CARDIOMEGALY 03/06/2017 NICOLETTE LAURA MD Ot R06.02 SHORTNESS OF BREATH 03/07/2017 CARIE ALAS APRN Ot G47.10 HYPERSOMNIA, UNSPECIFIED 03/08/2017 CARIE ALAS APRN Ot G47.10 HYPERSOMNIA, UNSPECIFIED 03/08/2017 CARIE ALAS SELECT BANKER Ot G47.33 OBSTRUCTIVE SLEEP APNEA (ADULT) (PEDIATR 03/10/2017 NICOLETTE LAURA MD Ot I25.5 ISCHEMIC CARDIOMYOPATHY 03/10/2017 NICOLETTE LAURA MD Ot R06.09 OTHER FORMS OF DYSPNEA 03/11/2017 CARIE ALAS [employer] B[employer]ER Ot G47.10 HYPERSOMNIA, UNSPECIFIED 03/11/2017 CARIE ALAS [employer] B[employer]ER Ot G47.33 OBSTRUCTIVE SLEEP APNEA (ADULT) (PEDIATR 03/11/2017 BISHOPCARIE WELLS SELECT BANKER Ot G47.10 HYPERSOMNIA, UNSPECIFIED 03/11/2017 CARIE ALAS SELECT B[employer]ER Ot G47.50 PARASOMNIA, UNSPECIFIED 03/12/2017 NICOLETTE LAURA MD Ot I10 ESSENTIAL (PRIMARY) HYPERTENSION 03/12/2017 NICOLETTE LAURA MD Ot I25.10 ATHSCL HEART DISEASE OF TORRES MARTINEZ CORONARY 03/12/2017 NICOLETTE LAURA MD Ot I42.9 CARDIOMYOPATHY, UNSPECIFIED 03/12/2017 NICOLETTE LAURA MD Ot I51.7 CARDIOMEGALY 03/12/2017 NICOLETTE LAURA MD Ot R06.02 SHORTNESS OF BREATH 03/13/2017 CARIE ALAS SELECT B[employer]ER Ot G47.10 HYPERSOMNIA, UNSPECIFIED 03/13/2017 CARIE ALAS [employer] B[employer]ER Ot G47.33 OBSTRUCTIVE SLEEP APNEA (ADULT) (PEDIATR 03/13/2017 NICOLETTE LAURA MD Ot I25.5 ISCHEMIC CARDIOMYOPATHY 03/13/2017 NICOLETTE LAURA MD Ot R06.09 OTHER FORMS OF DYSPNEA 05/02/2017 CARIE ALAS SELECT B[employer]ER Ot G47.33 OBSTRUCTIVE SLEEP APNEA (ADULT) (PEDIATR 05/02/2017 KELLY GREENE, NEELA Dixon Ot 441.4 ABDOM AORTIC ANEURYSM 05/02/2017 NEELA MENDOZA MD Ot 571.8 CHRONIC LIVER DIS NEC 05/02/2017 NEELA MENDOZA MD Ot 356.9 IDIO PERIPH NEURPTHY NOS 05/02/2017 NEELA MENDOZA MD Ot 722.10 LUMBAR DISC DISPLACEMENT 05/02/2017 Ot 789.09 ABDOMINAL PAIN, OTHER SPECIFIED SITE 05/02/2017 RICCI ZIMMER DO Ot 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09 OTHER FORMS OF DYSPNEA 05/02/2017 NICOLETTE LAURA MD Ot I10 ESSENTIAL (PRIMARY) HYPERTENSION 05/02/2017 NICOLETTE LAURA MD Ot I25.10 ATHSCL HEART DISEASE OF TORRES MARTINEZ CORONARY 05/02/2017 NICOLETTE LAURA MD Ot I42.9 CARDIOMYOPATHY, UNSPECIFIED 05/02/2017 NICOLETTE LAURA MD Ot I51.7 CARDIOMEGALY 05/02/2017 NICOLETTE LAURA MD Ot R06.02 SHORTNESS OF BREATH 05/02/2017 CARIE ALAS SELECT B[employer]ER Ot G47.10 HYPERSOMNIA, UNSPECIFIED 05/02/2017 ANJELICA ALASINE E SELECT B[employer]ER Ot G47.50 PARASOMNIA, UNSPECIFIED 05/02/2017 CARIE ALAS SELECT B[employer]ER Ot G47.33 OBSTRUCTIVE SLEEP APNEA (ADULT) (PEDIATR 05/04/2017 ANJELICA ALASINE E [employer] B[employer]ER Ot G47.33 OBSTRUCTIVE SLEEP APNEA (ADULT) (PEDIATR 05/04/2017 BISHOP CARIE E SELECT B[employer]ER Ot G47.33 OBSTRUCTIVE SLEEP APNEA (ADULT) (PEDIATR 05/04/2017 BISHOP CARIE E [employer] B[employer]ER Ot G47.34 IDIO SLEEP RELATED NONOBSTRUCTIVE ALVEOL 05/04/2017 CARIE ALAS E [employer] B[employer]ER Ot G47.50 PARASOMNIA, UNSPECIFIED 05/04/2017 ANJELICA ALASINE E SELECT B[employer]ER Ot R06.02 SHORTNESS OF BREATH 05/09/2017 ANJELICA ALASINE Clara SELECT BANKER Ot G47.33 OBSTRUCTIVE SLEEP APNEA (ADULT) (PEDIATR 05/09/2017 BISHOPCARIE WELLS APRN Ot G47.34 IDIO SLEEP RELATED NONOBSTRUCTIVE ALVEOL 05/09/2017 CARIE ALAS APRN Ot G47.50 PARASOMNIA, UNSPECIFIED 05/09/2017 CARIE ALAS APRN Ot R06.02 SHORTNESS OF BREATH 01/19/2018 Ot 789.09 ABDOMINAL PAIN, OTHER SPECIFIED SITE 01/19/2018 REMEDIOS LANDIN MD E Ot C61 MALIGNANT NEOPLASM OF PROSTATE Procedures There is no data. Results Test Result Range Capillary blood glucose measurement by glucometer (mass/volume) - 07/02/16 07: 18 Capillary blood glucose measurement by glucometer (mass/volume) 227 mg/dL 70-110 Methicillin resistant Staphylococcus aureus (MRSA) screening culture - 08:00 Methicillin resistant Staphylococcus aureus (MRSA) screening culture NEG NRG Automated blood complete blood count (hemogram) panel - 02/10/17 15:33 Blood leukocytes automated count (number/volume) 6.8 10*3/uL 4.3-11.0 Blood erythrocytes automated count (number/volume) 4.46 10*6/uL 4.35-5.85 Venous blood hemoglobin measurement (mass/volume) 13.6 g/dL 13.3-17.7 Blood hematocrit (volume fraction) 41 % 40-54 Automated erythrocyte mean corpuscular volume 93 [foz_us] 80-99 Automated erythrocyte mean corpuscular hemoglobin (mass per erythrocyte) 31 pg 25-34 Automated erythrocyte mean corpuscular hemoglobin concentration measurement ( mass/volume) 33 g/dL 32-36 Automated erythrocyte distribution width ratio 13.2 % 10.0-14.5 Automated blood platelet count (count/volume) 229 10*3/uL 130-400 Automated blood platelet mean volume measurement 8.8 [foz_us] 7.4-10.4 Whole blood basic metabolic panel - 02/10/17 15:33 Serum or plasma sodium measurement (moles/volume) 134 mmol/L 135-145 Serum or plasma potassium measurement (moles/volume) 4.3 mmol/L 3.6-5.0 Serum or plasma chloride measurement (moles/volume) 97 mmol/L 98-107 Carbon dioxide 27 mmol/L 21-32 Serum or plasma anion gap determination (moles/volume) 10 mmol/L 5-14 Serum or plasma urea nitrogen measurement (mass/volume) 16 mg/dL 7-18 Serum or plasma creatinine measurement (mass/volume) 1.18 mg/dL 0.60-1.30 Serum or plasma urea nitrogen/creatinine mass ratio 14 NRG Serum or plasma creatinine measurement with calculation of estimated glomerular filtration rate 60 NRG Serum or plasma glucose measurement (mass/volume) 271 mg/dL 70-105 Serum or plasma calcium measurement (mass/volume) 9.1 mg/dL 8.5-10.1 Serum or plasma lithium measurement (moles/volume) - 02/10/17 15:33 BNP level 338.0 pg/mL <100.0 THYROID STIMULATING HORMONE - 02/10/17 15:33 THYROID STIMULATING HORMONE 2.12 u[iU]/mL 0.35-4.94 Arterial blood gas measurement - 02/18/17 12:15 Blood pCO2 43 mm[Hg] 35-45 Blood pO2 60 mm[Hg] 79-93 Arterial blood bicarbonate measurement (moles/volume) 27 mmol/L 23-27 Arterial blood base excess by calculation 2.1 mmol/L -2.5 -2.5 Arterial blood oxygen saturation measurement 93 % 94-100 * Inhaled oxygen flow rate RA NRG Arterial blood pH measurement with patient temperature correction 7.40 7.37-7.43 Arterial blood carbon dioxide, total measurement (moles/volume) 27.9 mmol/L 21.0-31.0 Body site LRAD NRG Assessment of wrist artery patency prior to arterial puncture YES- POS NRG Setting of ventilation mode NO NRG Measurement of body temperature 97.2 NRG Encounters ACCT No. Visit Date/Time Discharge Status Pt. Type Provider Facility Loc./Unit Complaint [id number] 01/19/2018 05:33:00 01/19/2018 14:25:00 DIS Outpatient ANI ROY MD [facility] PREOP CATARACT [id number] 05/03/2017 20:45:00 05/04/2017 06:15:00 DIS Outpatient CARIE ALAS APRN [facility] SLEEP G47.33 OBSTRUCTIVE SLEEP APNEA [id number] 03/07/2017 20:57:00 03/08/2017 05:28:00 DIS Outpatient CARIE ALAS APRN [facility] SLEEP HYPERSOMNIA G47.10 [id number] 02/18/2017 11:42:00 02/18/2017 23:59:59 CLS Outpatient CARIE ALAS APRN [facility] LAB G47.50 G47.10 [id number] 02/10/2017 14:05:00 02/10/2017 23:59:59 CLS Outpatient NICOLETTE LAURA MD [facility] RAD I25.10,J44.9,I10,I42.9, R06.02 [id number] 02/10/2017 14:02:00 02/10/2017 23:59:59 CLS Outpatient NICOLETTE LAURA MD [facility] RT R06.09 [id number] 08/07/2016 11:17:00 08/07/2016 23:59:59 CLS Outpatient NICOLETTE LAURA MD [facility] CARD I49.9 [id number] 07/02/2016 06:17:00 07/02/2016 12:15:00 DIS Outpatient SHARIFA OLSEN MD [facility] SDC PROSTATE CA [id number] 06/28/2016 10:28:00 06/28/2016 23:59:59 CLS Outpatient REMEDIOS LANDIN MD [facility] ONC [id number] 06/28/2016 05:38:00 06/28/2016 12:48:00 DIS Outpatient SHARIFA OLSEN MD [facility] PREOP UROLIFT FOR PROSTATE CA [id number] 06/06/2016 00:10:00 06/06/2016 23:59:59 CLS Preadmit REMEDIOS LANDIN MD [facility] ONC [id number] 05/17/2016 08:47:00 06/05/2016 00:01:00 DIS Outpatient REMEDIOS LANDIN MD [facility] ONC [id number] 10/25/2015 12:42:00 01/23/2016 00:01:00 DIS Outpatient REMEDIOS LANDIN MD [facility] ONC [id number] 09/26/2015 11:17:00 09/26/2015 23:59:59 CLS Outpatient SHARIFA OLSEN MD [facility] RAD PROSTATE CANCER [id number] 03/28/2014 09:58:00 03/28/2014 23:59:59 CLS Outpatient MESHA RICCI CHRISTOPHER [facility] RAD LUMP ON RT TESTICLE, FREQUENCY,URGENCY, HX OF STONE [id number] 03/22/2013 10:48:00 06/20/2013 00:01:00 DIS Outpatient NEELA MENDOZA MD [facility] LAB STONES [id number] 03/31/2013 08:02:00 03/31/2013 23:59:59 CLS Outpatient NEELA MENDOZA MD [facility] RAD RADICULOPATHY,NERVE PAIN [id number] 03/22/2013 14:16:00 03/22/2013 23:59:59 CLS Outpatient NEELA MENDOZA MD [facility] RAD STONES [id number] 02/06/2018 08:15:00 PEN ANI Meneses MD [facility] CATARACT LEFT [id number] 01/21/2018 09:00:00 PEN ANI Meneses MD [facility] CATARACT [id number] 06/21/2013 00:00:00 Document Registration [id number] 05/31/2011 12:51:00 Document Registration [id number] 05/08/2011 08:00:00 Document Registration [id number] 05/03/2011 11:07:00 Document Registration [email or web address] 03/28/2014 09:58:42 ACT Document Registration
[2018-01-21 08:00] VITALS: BP 115/76
[2018-01-21] MEDS ORDERED: POVIDONE (BETADINE) OPHTH SOLN 5% 30 ML OP ONE (08:00)
[2018-01-21] MEDS ORDERED: MOXIFLOXACIN OPHTH SOLN 5 MG/ML 0.3 ML SYRINGE OP ONE (08:00)
[2018-01-21] MEDS ORDERED: EPINEPHrine INJECTION 1 MG/ML AMP INJ ONE (08:00)
[2018-01-21] MEDS ORDERED: LIDOCAINE PF 1% 2 ML AMP IR PRN (08:00)
[2018-01-21] MEDS ORDERED: TIMOLOL MALEATE 0.5% 5 ML (TIMOPTIC) BTL OU PRN (08:00)
[2018-01-21] MEDS ORDERED: MIDAZOLAM 2 MG/2 ML (VERSED) VIAL ONE (08:10)
[2018-01-21] MEDS: TETRACAINE 0.5% OPHTH SOLN 4 ML BTL (SINGLE DOSE ONLY) OU PRN ×4 (08:14→08:24)
[2018-01-21] MEDS: CYCLOPENTOLATE 1% (CYCLOGYL) 2 ML DROPS OP SCH ×3 (08:18→08:24)
[2018-01-21] MEDS: PHENYLEPHRINE 10% OPHTH (NEO-SYN) 5 ML BTL OU SCH ×3 (08:18→08:24)
--- NOTE | 2018-01-21 08:23 | Ophthalmologist Pre-Op Note ---
Pre-Operative Progress Note H&P Reviewed The H&P was reviewed, patient examined and no changes noted. Date H&P Reviewed: Jan 21, 2018 Time H&P Reviewed: 08:23 Pre-Op Dx Cataract, Right Eye ANI ROY MD Jan 21, 2018 08:23
--- NOTE | 2018-01-21 09:01 | Ophthalmology Operative Report ---
Cataract removal/placement IOL PREOPERATIVE DIAGNOSIS: Cataract Right Eye POSTOPERATIVE DIAGNOSIS: Cataract Right Eye PROCEDURE: Cataract removal and placement of posterior chamber implant, right eye SURGEON: Kendell Roy ANESTHESIA: Topical with sedation COMPLICATIONS: None ESTIMATED BLOOD LOSS: Minimal DESCRIPTION OF PROCEDURE: After proper informed consent was obtained, the patient, a 77 male, was taken to the Operating Room and the right eye was anesthetized with tetracaine. The right eye was then prepped and draped in the usual manner. A wire lid speculum was placed. A paracentesis was made at the left hand position. Preservative free lidocaine was injected into the anterior chamber followed by viscoelastic. A clear corneal incision was made in the temporal position. A capsulorrhexis was preformed and the central nuclear and cortical material were removed. The posterior capsule was polished and Pratik 24.0 AU00T0 IOL was placed into the capsular bag. The residual viscoelastic was aspirated and balanced saline solution was injected into the anterior chamber. Moxifloxacin was injected into the anterior chamber. The wound was checked and found to be water tight. The patient tolerated the procedure well without complications. KENDELL ROY MD Jan 21, 2018 09:01
[2018-01-21 09:15] VITALS: BP 115/67
--- NOTE | 2018-01-21 11:08 | Anesthesia-General Post-Op ---
MAC Patient Condition Mental Status/LOC: Same as Preop Cardiovascular: Satisfactory Nausea/Vomiting: Absent Respiratory: Satisfactory Pain: Controlled Complications: Absent Post Op Complications Complications None Follow Up Care/Instructions Patient Instructions None needed. Anesthesiology Discharge Order Discharge Order Patient is doing well, no complaints, stable vital signs, no apparent adverse anesthesia problems. No complications reported per nursing. TERRI SANTANA CRNA Jan 21, 2018 11:08
== END 2018-01-21 09:15 | disposition home or self-care (01) ==
LOC: SDC 07:48
PROVIDERS: ATTEND Specialist
DX: H26.9 Unspecified cataract (principal); I10 Essential (primary) hypertension; M19.91 Primary osteoarthritis, unspecified site; E11.36 Type 2 diabetes mellitus with diabetic cataract; E78.00 Pure hypercholesterolemia, unspecified; Z85.46 Personal history of malignant neoplasm of prostate; Z80.0 Family history of malignant neoplasm of digestive organs; E78.5 Hyperlipidemia, unspecified; E66.9 Obesity, unspecified; E11.40 Type 2 diabetes mellitus with diabetic neuropathy, unspecified; Z68.39 Body mass index [BMI] 39.0-39.9, adult; Z95.5 Presence of coronary angioplasty implant and graft; Z79.84 Long term (current) use of oral hypoglycemic drugs; Z79.899 Other long term (current) drug therapy; Z79.82 Long term (current) use of aspirin
CPT/HCPCS: 82962

== ENCOUNTER 2018-02-04 06:04 | Outpatient (CLI) | payer MEDICARE, OTHER ==
[~2018-02-04] VITALS: Ht 175.3 cm; Wt 122.5 kg
== END 2018-02-04 15:26 | disposition home or self-care (01) ==
LOC: PREOP 06:04
PROVIDERS: ATTEND Specialist
DX: Z01.818 Encounter for other preprocedural examination (principal)

== ENCOUNTER 2018-02-06 06:21 | Day surgery (SDC) | payer MEDICARE, OTHER ==
[~2018-02-06] VITALS: Ht 175.3 cm; Wt 122.5 kg
[2018-02-06] MEDS ORDERED: TIMOLOL MALEATE 0.5% 5 ML (TIMOPTIC) BTL OU PRN (06:30)
[2018-02-06] MEDS ORDERED: MOXIFLOXACIN OPHTH SOLN 5 MG/ML 0.3 ML SYRINGE OP ONE (06:30)
[2018-02-06] MEDS ORDERED: BSS 15 ML IR PRN (06:30)
[2018-02-06] MEDS ORDERED: POVIDONE (BETADINE) OPHTH SOLN 5% 30 ML OP ONE (06:30)
[2018-02-06] MEDS ORDERED: EPINEPHrine INJECTION 1 MG/ML AMP INJ ONE (06:30)
[2018-02-06] MEDS ORDERED: LIDOCAINE PF 1% 2 ML AMP IR PRN (06:30)
[2018-02-06] MEDS: TETRACAINE 0.5% OPHTH SOLN 4 ML BTL (SINGLE DOSE ONLY) OU PRN ×4 (06:35→06:53)
[2018-02-06 06:42] VITALS: BP 135/78
[2018-02-06] MEDS: CYCLOPENTOLATE 1% (CYCLOGYL) 2 ML DROPS OP SCH ×3 (06:44→06:54)
[2018-02-06] MEDS: PHENYLEPHRINE 10% OPHTH (NEO-SYN) 5 ML BTL OU SCH ×3 (06:44→06:54)
[2018-02-06] MEDS ORDERED: inSUlin (REGULAR) HUMAN 1 UNIT/0.01 ML (CHARGE PER UNIT) IV ONE (07:00)
--- NOTE | 2018-02-06 07:29 | Ophthalmologist Pre-Op Note ---
Pre-Operative Progress Note H&P Reviewed The H&P was reviewed, patient examined and no changes noted. Date H&P Reviewed: Feb 06, 2018 Time H&P Reviewed: 07:29 Pre-Op Dx Cataract, Left Eye ANI ROY MD Feb 06, 2018 07:29
[2018-02-06] MEDS ORDERED: acetaZOLAMIDE ER 500 MG CAP (DIAMOX SEQUELS) PO ONE (07:30)
[2018-02-06] MEDS ORDERED: MIDAZOLAM 2 MG/2 ML (VERSED) VIAL ONE (07:34)
--- NOTE | 2018-02-06 07:55 | Ophthalmology Operative Report ---
Cataract removal/placement IOL PREOPERATIVE DIAGNOSIS: Cataract Left Eye POSTOPERATIVE DIAGNOSIS: Cataract Left Eye PROCEDURE: Cataract removal and placement of posterior chamber implant, left eye SURGEON: Kendell Roy ANESTHESIA: Topical with sedation COMPLICATIONS: None ESTIMATED BLOOD LOSS: Minimal DESCRIPTION OF PROCEDURE: After proper informed consent was obtained, the patient, a 78 male, was taken to the Operating Room and the left eye was anesthetized with tetracaine. The left eye was then prepped and draped in the usual manner. A wire lid speculum was placed. A paracentesis was made at the left hand position. Preservative free lidocaine was injected into the anterior chamber followed by viscoelastic. A clear corneal incision was made in the temporal position. A capsulorrhexis was preformed and the central nuclear and cortical material were removed. The posterior capsule was polished and an Pratik 24.0 AU00T0 IOL was placed into the capsular bag. The residual viscoelastic was aspirated and balanced saline solution was injected into the anterior chamber. Moxifloxacin was injected into the anterior chamber. The wound was checked and found to be water tight. The patient tolerated the procedure well without complications. KENDELL ROY MD Feb 06, 2018 07:55
[2018-02-06 08:10] VITALS: BP 146/77
== END 2018-02-06 08:10 | disposition home or self-care (01) ==
LOC: SDC 06:21
PROVIDERS: ATTEND Specialist
DX: H25.12 Age-related nuclear cataract, left eye (principal); E11.36 Type 2 diabetes mellitus with diabetic cataract; E11.40 Type 2 diabetes mellitus with diabetic neuropathy, unspecified; I10 Essential (primary) hypertension; E66.9 Obesity, unspecified; Z68.39 Body mass index [BMI] 39.0-39.9, adult; Z95.5 Presence of coronary angioplasty implant and graft; Z79.4 Long term (current) use of insulin; Z79.899 Other long term (current) drug therapy
CPT/HCPCS: 82962

== ENCOUNTER → 2018-11-02 | Outpatient (CLI) | payer MEDICARE, OTHER ==
[2018-11-02 16:34] LABS: BASOPHILS % (AUTO) 0 % (0-10); EOSINOPHILS # (AUTO) 0.3 10^3/uL (0.0-0.3); EOSINOPHILS % (AUTO) 3 % (0-10); HEMATOCRIT 35 % (40-54); HEMOGLOBIN 11.4 G/DL (13.3-17.7); LYMPHOCYTES # (AUTO) 1.8 X 10^3 (1.0-4.0); LYMPHOCYTES % (AUTO) 18 % (12-44); MEAN CORPUSCULAR HEMOGLOBIN 30 PG (25-34); MEAN CORPUSCULAR HGB CONC 33 G/DL (32-36); MEAN CORPUSCULAR VOLUME 90 FL (80-99); MEAN PLATELET VOLUME 8.4 FL (7.4-10.4); MONOCYTES # (AUTO) 0.9 X 10^3 (0.0-1.0); MONOCYTES % (AUTO) 9 % (0-12); NEUTROPHILS # (AUTO) 6.9 X 10^3 (1.8-7.8); NEUTROPHILS % (AUTO) 70 % (42-75); PLATELET COUNT 278 10^3/uL (130-400); RED CELL DISTRIBUTION WIDTH 13.4 % (10.0-14.5); WHITE BLOOD COUNT 9.8 10^3/uL (4.3-11.0)
[2018-11-02 16:50] LABS: CREATININE SERUM 1.76 MG/DL (0.60-1.30); POTASSIUM 4.7 MMOL/L (3.6-5.0)
[2018-11-02 16:51] LABS: ALBUMIN 4.3 GM/DL (3.2-4.5); BILIRUBIN,TOTAL 0.6 MG/DL (0.1-1.0); CALCIUM 9.2 MG/DL (8.5-10.1); TOTAL PROTEIN 7.3 GM/DL (6.4-8.2)
--- NOTE | 2018-11-02 17:46 | Diagnostic Imaging Report ---
INDICATION: Dyspnea. COMPARISON STUDY: Chest from 02/10/2017. FINDINGS: Frontal and lateral views of the chest demonstrate stable mild cardiomegaly. Vascularity is slightly increased. A couple of Keo B-lines are present. IMPRESSION: There is mild congestive failure. Dictated by: Dictated on workstation # [id number]
== END ==
LOC: LAB 16:20
PROVIDERS: ATTEND Family Medicine
DX: I50.9 Heart failure, unspecified (principal)
CPT/HCPCS: 36415; 71046; 80053; 85025

== ENCOUNTER 2018-11-12 11:29 | Outpatient (RCR) | payer MEDICARE, OTHER ==
[2019-01-21] MEDS ORDERED: ATOR80TA76 PO (08:42)
[2019-01-21] MEDS ORDERED: ISM60TCR PO (08:44)
[2019-01-21] MEDS ORDERED: POTA-51 PO (08:49)
[2019-01-21] MEDS ORDERED: CHOL20002 PO (08:49)
[2019-01-21] MEDS ORDERED: ALLO100T PO (08:50)
[2019-01-21] MEDS ORDERED: LISI10TA2 PO (08:50)
[2019-01-21] MEDS ORDERED: APIX5TAB PO (08:50)
[2019-01-21] MEDS ORDERED: TAMS0.4C98 PO (08:51)
[2019-01-21] MEDS ORDERED: OMG1KC PO (08:51)
== END 2019-02-10 | disposition home or self-care (01) ==
LOC: CARD 11:29
PROVIDERS: ATTEND Internal Medicine Interventional Cardiology
DX: I25.5 Ischemic cardiomyopathy (principal); I50.41 Acute combined systolic (congestive) and diastolic (congestive) heart failure; I35.0 Nonrheumatic aortic (valve) stenosis; I48.91 Unspecified atrial fibrillation
CPT/HCPCS: 76775; 93306; 93880

== ENCOUNTER → 2018-12-17 | Outpatient (CLI) | payer MEDICARE, OTHER ==
[~2018-12-17] VITALS: Ht 175.3 cm; Wt 125.2 kg
[~2018-12-17] MED LIST changes: +CATHETER FLUSH 10 ML SYR IV PRN; +REGADENOSON 0.4 MG/5 ML SYR (LEXISCAN) IV ONE
[2018-12-18 10:48] VITALS: BP 128/95
--- NOTE | 2018-12-18 10:48 | Cardiology Stress Test Report ---
Stress Test Report Type of NM Stress Test: Test Type: LEXISCAN 0.4MG/5ML Date of Procedure/Referring: Date of Procedure: Dec 17, 2018 PCP Radha Guillen MD Admitting Physician Harris Carrasco MD Indications: CAD, ischemic cardiomyopathy Baseline Heart Rate: 80 Baseline Blood Pressure: Blood Pressure Systolic: 128 Blood Pressure Diastolic: 95 Baseline EKG: Baseline EKG: sinus rhythm with PVCs Summary & Conclusion: Summary: The patient was brought to the stress lab after informed consent was taken. Stress test was performed according to the Lexiscan protocol. 0.4 mg of IV Lexiscan was given. Low-grade exercise was performed. Baseline EKG showed sinus rhythm at 80 BPM. Initial blood pressure was 128/95 mmHg. Maximum heart rate was 79 bpm and blood pressure 155/95 mmHg. Patient did not have any chest pain, arrhythmias or ST segment changes during the stress test. Multiple PVCs during the stress test. 10.68 mCi of Myoview were given for rest imaging and 29.3 mCi of Myoview given for stress imaging. Transient ischemic dilatation score 1.03, EF 41 percent percent. Inferior hypokinesis. Intermediate sized fixed apical defect. Reversible moderate size inferior apical defect. Conclusion: Pharmacological stress test was negative for ischemia. Reduced LV systolic function with inferior hypokinesis.. 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 Coronary angiography is recommended. Radha GUILLEN MD Dec 18, 2018 10:48
== END ==
LOC: CARD 06:53
PROVIDERS: ATTEND Internal Medicine Interventional Cardiology
DX: I25.10 Atherosclerotic heart disease of native coronary artery without angina pectoris (principal); I50.41 Acute combined systolic (congestive) and diastolic (congestive) heart failure; I25.5 Ischemic cardiomyopathy; E11.22 Type 2 diabetes mellitus with diabetic chronic kidney disease; N18.3 Chronic kidney disease, stage 3 (moderate); E78.49 Other hyperlipidemia; I65.23 Occlusion and stenosis of bilateral carotid arteries; I71.4 Abdominal aortic aneurysm, without rupture; I73.9 Peripheral vascular disease, unspecified; I25.2 Old myocardial infarction
CPT/HCPCS: 78452; 93017

== ENCOUNTER → 2019-01-04 | Outpatient (CLI) | payer MEDICARE, OTHER ==
[~2019-01-04] MED LIST changes: +ALLO100T PO; +APIX5TAB PO; -CATHETER FLUSH 10 ML SYR IV PRN; +CHOL20002 PO; +LISI10TA2 PO; +POTA-51 PO; -REGADENOSON 0.4 MG/5 ML SYR (LEXISCAN) IV ONE
--- NOTE | 2019-02-02 15:25 | RADIOLOGY REPORT ---
NAME: GHASSAN LAYTON [facility] REC#: [id number] PT STATUS: REG RCR : 1940 PHYSICIAN: PALLAVI HERNANDEZ MD ADMIT DATE: 01/04/19 RAD CORRECTED Signed Date of Exam:01/04/19 US CAROTID ALOK COMPLETE [id number] PROCEDURE: US carotid duplex, bilateral. TECHNIQUE: Multiple real-time grayscale images were obtained over the carotid arteries in various projections, bilaterally. Additional spectral analysis and color Doppler duplex images were also obtained. INDICATION: Bilateral carotid artery stenosis. FINDINGS: Moderate plaquing is identified in both distal common carotid arteries and carotid bifurcations with plaque identified in the proximal internal and external carotid arteries. Velocities in the right carotid system are unremarkable. There is some velocity elevation identified in the left internal carotid arteries reaching 150 cm/s. This is consistent with approximately 60-79% diameter stenosis. The right vertebral artery shows antegrade flow. Left vertebral artery cannot be visualized. IMPRESSION: Moderate bilateral carotid plaque. Velocity measurements left internal carotid artery are consistent with 60-79% diameter stenosis. Parameters based on the consensus panel Peacock-Scale and Doppler ultrasound criteria published February 2003, Radiology, Volume 229. DOPPLER (peak systolic velocity M/S Right Left CCA .83 .87 ICA Proximal 1 1.5 ICA Mid 1.1 1 ICA Distal .5 1.4 RATIO 1.4 1.7 ECA 1.3 2.2 VERT .28 NOT SEEN Dictated by: Dictated on workstation # [id number] Dict: 01/04/19 1052 Trans: 01/04/19 1525 [facility] [id number] Interpreted by: SARAH BRAR MD Electronically signed by: SARAH BRAR MD 01/04/19 [facility]25 [facility]
--- NOTE | 2019-02-02 15:27 | RADIOLOGY REPORT ---
NAME: GHASSAN LAYTON [facility] REC#: [id number] PT STATUS: REG RCR : 1940 PHYSICIAN: PALLAVI HERNANDEZ MD ADMIT DATE: 01/04/19 RAD CORRECTED Signed Date of Exam:01/04/19 [place] [id number] Indication: Abdominal aortic aneurysm. Correlation is made with CT study from 09/26/2015. The study is compromised due to patient body habitus and overlying bowel gas. Proximal aorta is approximately 1.9 cm AP diameter by 2.6 transverse. Mid aorta is approximately 1.8 cm AP diameter by 3.4 cm transverse. Distal abdominal aorta is very difficult to visualize. AP dimensions of the sac do appear to be increased approximately 6.4 cm. Transverse dimension is 5.2 cm. These measurements do appear to be increased when compared with the CT study from 2016. Right iliac is 1.8 x 1.1 cm. Left iliac is 1.7 x 1.2 cm. Impression: Significantly compromised study due to patient body habitus. Infrarenal abdominal aortic aneurysm measurements appear increased when compared with the CT study from 2016. Dedicated CT aorta study with and without contrast would be useful for better characterization. Dictated by: Dictated on workstation # [id number] Dict: 01/04/19 1048 Trans: 01/04/19 1523 [facility] [id number] Interpreted by: SARAH BRAR MD Electronically signed by: SARAH BRAR MD 01/04/19 1523 [facility]
== END ==
LOC: RAD 07:48
PROVIDERS: ATTEND Internal Medicine Interventional Cardiology
DX: I65.23 Occlusion and stenosis of bilateral carotid arteries (principal); I71.4 Abdominal aortic aneurysm, without rupture
CPT/HCPCS: 76775; 93880

== ENCOUNTER → 2019-01-12 | Outpatient (CLI) | payer MEDICARE, OTHER ==
[~2019-01-12] MED LIST changes: -ALLO100T PO; -APIX5TAB PO; -CHOL20002 PO; -LISI10TA2 PO; -POTA-51 PO
--- NOTE | 2019-01-12 12:53 | Diagnostic Imaging Report ---
PROCEDURE: US Renal Bilateral. TECHNIQUE: Multiple real-time grayscale images were obtained over the kidneys in various projections bilaterally. INDICATION: Chronic kidney disease stage III. FINDINGS: Right kidney measures 16.0 x 7.3 x 5.9 cm and the left kidney measures 15.4 x 7.6 x 6.8 cm. Cortical echogenicity is normal. There is some mild cortical thinning involving the right kidney. Right kidney does contain an approximately 2.3 cm cyst. Left kidney contains a 1.6 cm cyst. No calculi or hydronephrosis is identified. Bladder is unremarkable. Left ureteral jet was visualized. Right ureteral jet was not visualized IMPRESSION: Mild cortical thinning right kidney. There are bilateral renal cysts. No calculi or hydronephrosis is detected. Dictated by: Dictated on workstation # [id number]
== END ==
LOC: RAD 10:47
PROVIDERS: ATTEND Internal Medicine Nephrology
DX: N18.3 Chronic kidney disease, stage 3 (moderate) (principal); N28.1 Cyst of kidney, acquired
CPT/HCPCS: 76770

== ENCOUNTER 2019-01-21 07:52 | Day surgery (SDC) | payer MEDICARE, OTHER ==
[~2019-01-21] VITALS: Ht 175.3 cm; Wt 123.4 kg
[2019-01-21] VITALS (10 sets, daily range): BP systolic 144–194; BP diastolic 70–151
[2019-01-21] MEDS ORDERED: NS IV 1000 ML 1,000 ML IV SCH ×2 (08:00→11:45)
[2019-01-21] MEDS ORDERED: LIDOCAINE 1% INJ 20 ML 20 ML VIAL ONE (08:01)
[2019-01-21] MEDS ORDERED: HEParin (CATH LAB) 2,000 ML IV ONE (08:01)
[2019-01-21] MEDS ORDERED: NS IV 1000 ML 1,000 ML ONE (08:01)
[2019-01-21 08:26] LABS: HEMOGLOBIN 11.6 G/DL (13.3-17.7); MEAN PLATELET VOLUME 8.5 FL (7.4-10.4); RED CELL DISTRIBUTION WIDTH 13.9 % (10.0-14.5); WHITE BLOOD COUNT 9.7 10^3/uL (4.3-11.0)
[2019-01-21] MEDS ORDERED: ATOR80TA76 PO (08:42)
[2019-01-21] MEDS ORDERED: ISM60TCR PO (08:44)
[2019-01-21 08:45] LABS: PROTHROMBIN TIME PATIENT 13.8 SEC (12.2-14.7)
[2019-01-21] MEDS ORDERED: POTA-51 PO (08:49)
[2019-01-21] MEDS ORDERED: CHOL20002 PO (08:49)
[2019-01-21] MEDS ORDERED: LISI10TA2 PO (08:50)
[2019-01-21] MEDS ORDERED: APIX5TAB PO (08:50)
[2019-01-21] MEDS ORDERED: ALLO100T PO (08:50)
[2019-01-21] MEDS ORDERED: TAMS0.4C98 PO (08:51)
[2019-01-21] MEDS ORDERED: OMG1KC PO (08:51)
--- NOTE | 2019-01-21 08:53 | NUR ---
Spoke to patient he brought in a medication list. Called [facility] to verify his medications. He did not have Metformin 1000mg BID on his list but pharmacy stated he got it filled 12/17/18 for a 90 day supply.
[2019-01-21 08:54] LABS: ALBUMIN 4.4 GM/DL (3.2-4.5); BILIRUBIN,TOTAL 0.5 MG/DL (0.1-1.0); CALCIUM 9.5 MG/DL (8.5-10.1); CREATININE SERUM 1.91 MG/DL (0.60-1.30); POTASSIUM 4.2 MMOL/L (3.6-5.0); TOTAL PROTEIN 8.1 GM/DL (6.4-8.2)
[2019-01-21] MEDS ORDERED: hydrALAZINE (APESOLINE) 20 MG/ML VIAL ONE (09:27)
[2019-01-21] MEDS ORDERED: MIDAZOLAM 5 MG/5 ML (VERSED) VIAL ONE (09:48)
[2019-01-21] MEDS ORDERED: fentaNYL INJECTION 100 MCG/2 ML AMP ONE (09:48)
[2019-01-21] MEDS ORDERED: ADENOSINE 3 MG/1 ML (ADENOSCAN) 30ML VIAL IV ONE ×2 (10:43)
[2019-01-21] MEDS ORDERED: HEParin 1000 UNIT/ML (10ML VIAL) FOR BOLUS ONE (10:46)
[2019-01-21] MEDS ORDERED: PATIENT MAY USE OWN MEDS, ALL PO SCH (11:45)
--- NOTE | 2019-01-21 11:45 | Cardiac Procedure Note-CS/ASA ---
Pre-Procedure Note Pre-Op Procedure Note H&P Reviewed The H&P was reviewed, patient examined and no changes noted. Date H&P Reviewed: Jan 21, 2019 Time H&P Reviewed: 09:00 Conscious Sedation Pre-Proced Time 09:00 ASA Score 3 For ASA 3 and 4: Consider anesthesia and medical clearance. Also, for patients with a history of failed moderate sedation consider anesthesia. Airway Lungs Heart ASA score ASA 1: a normal healthy patient ASA 2: a patient with a mild systemic disease (mid diabetes, controlled hypertension, obesity ASA 3: a patient with a severe systemic disease that limits activity (angina, COPD, prior Myocardial infarction) ASA 4: a patient with an incapacitating disease that is a constant threat to life (CHF, renal failure) ASA 5: a moribund patient not expected to survive 24 hrs. (ruptured aneurysm) ASA 6: a declared brain- patient whose organs are being harvested. For emergent operations, add the letter E after the classification Mallampati Classification Grade 1 Sedation Plan Analgesia, Amnesia, Plan communicated to team members, Discussed options with patient/fam, Discussed risks with patient/fam The patient is an appropriate candidate to undergo the planned procedure, sedation, and anesthesia. The patient immediately re-assessed prior to indication. Radha HERNANDEZ MD Jan 21, 2019 11:45
--- NOTE | 2019-01-21 11:45 | Coronary Angiography Report ---
Coronary Angiography Report DATE OF PROCEDURE: 01/21/19 INDICATION: Chest pain, CAD, PCI, abnormal nuclear stress test, claudication, abnormal MARIA DEL CARMEN. PREOPERATIVE DIAGNOSIS: Chest pain, CAD, PCI, abnormal nuclear stress test, claudication, abnormal MARIA DEL CARMEN. POSTOPERATIVE DIAGNOSIS: HISTORY: This is a 78-year-old gentleman with history of CAD, PCI, abnormal nuclear stress test, claudication, abnormal MARIA DEL CARMEN. Therefore, the patient was scheduled for coronary angiography. PROCEDURES PERFORMED: 1.Coronary angiography. 2.Left heart catheterization. 3. Abdominal aortogram with bilateral nonselective renal angiogram. 4. Selective angiogram of the left lower extremity, selective angiogram of the right lower extremity. 5. FFR of the ostial LAD. COMPLICATIONS: None. SPECIMENS: None. ESTIMATED BLOOD LOSS: 10 mL ANESTHESIA: Conscious sedation ANTICOAGULATION: IV heparin CONTRAST: 126 mL. FLUOROSCOPY: 13.21 minutes. FLOUROSCOPY DOSE:1620 mgy. PROCEDURE DETAILS: The patient is a 78 male and was brought to the paving and surfacing labourer after informed consent was taken. All the risks and complications were explained in detail; this included the risk of bleeding, vascular damage, stroke, [place] and even . The patient was draped and prepped in the usual sterile fashion. Access was gained in the right femoral artery with a 5 [place]an sheath. Coronary angiography and left heart catheterization was done with a JR4 and JL4 catheter. FINDINGS: 1.Left main: Short left main which is patent. 2.LAD: Moderate ostial LAD stenosis of 50 percent. Patent stent in the first diagonal artery. Possible stent in the proximal LAD which is patent. 3.Left circumflex artery: Calcified left circumflex artery with no severe stenosis. 4.RCA: Heavily calcified RCA with stents in the proximal mid and distal segment with mild in-stent restenosis. Ostium of a small PL branch has moderate to severe stenosis. A large PDA does not have any severe focal stenosis. 5.Left heart catheterization: LV pressure 167/19 mmHg. LVEDP 24 mmHg. Aortic pressure 163/92 mmHg. LV gram not done due to chronic renal insufficiency. 6. Abdominal aortogram showed mild diffuse disease with patent bilateral ostium of the renal arteries. There is a stent graft just below the renal arteries with no significant endoleak. 7. A rim catheter was used to place it in the ostium off the left common iliac artery. Left Lower extremity angiogram was done which did not show any severe stenosis in the left common iliac artery, external iliac artery. Moderate to severe calcified disease in the left mid and distal SFA. High-grade stenosis with calcification in the left distal popliteal artery. Single-vessel runoff with a posterior tibial artery. The rim catheter was then pulled back and selective angiogram of the right lower extremity was done which showed no significant stenosis in the right common iliac artery, external iliac artery. Moderate to severe diffusely calcified SFA, popliteal artery disease. Poor visualization below the knee however there is a reasonable flow in the posterior tibial artery as well as a deep peroneal artery. Recommendation: FFR to the ostial LAD is recommended. FFR details: FFR was done through the diagnostic catheter. FFR wire was placed just distal to the lesion in the mid LAD. Adenosine was given at 140 g per KG per minute. Lowest FFR was 0.94. This is acceptable therefore PCI was deferred. The FFR wire was taken out and post-angiographic did not show any complication. CONCLUSIONS: 1. Moderate ostial LAD stenosis with acceptable FFR. No severe focal stenosis is noted. 2. Diffuse abdominal disease with moderate to severe bilateral diffusely calcified SFA and popliteal artery with single-vessel runoff below the knee. 3. Patent distal abdominal and a graft with no endoleak. Kelsey Guillen MD, FACP, FACC, [facility] Interventional Cardiology Radha GUILLEN MD Jan 21, 2019 11:45
--- NOTE | 2019-01-21 11:50 | Discharge Inst-Post CATH ---
Discharge Inst-CATH/EP Problems Reviewed?: Yes Final Diagnosis Moderate CAD, Moderate to severe diffuse PAD. Post Cardiac Cath/EP D/C Inst Follow Up/Plan Follow-up with Dr. Guillen in 2-3 weeks. <b>CARDIAC CATH/EP PROCEDURE DISCHARGE INSTRUCTIONS</b> ACTIVITY * Go Home directly and rest. * Limit activity of the leg (or wrist if it was used) for 7 days including aerobics, swimming, jogging, bicycling, etc. * Restrict stair-climbing for 7 days if possible, if not, climb up with your non-cath leg, then bring together on the same step. * Avoid lifting, pushing, pulling or excessive movement of the affected extremity for 7 days. * Customary sexual activity may be resumed after 2 days-use caution not to use a position that strains or causes pain to the affected extremity. * No driving for 24 hours. * NO SMOKING. * Avoid straining for bowel movements for 7 days. * Gentle walking on level ground is allowed. * Returning to work will depend on the type of procedure and the results. Your doctor will discuss this with you. CALL YOUR DOCTOR FOR ANY OF THE FOLLOWING: *If bleeding from the puncture site occurs- Apply gentle pressure to site with clean cloth and call your doctor or EMS. * If a knot or lump forms under the skin, increases in size, or causes pain. * If bruising appears to be worsening or moving further down your leg instead of disappearing. * Temperature above 101 F. CARE OF YOUR GROIN INCISION; * Bruising or purple discoloration of the skin near the puncture site is common. * You may shower only, no bathtub bathing for 5 days. Be careful to avoid slipping as your leg may feel stiff. * If a closure device was used on your femoral artery, please see the attached guide regarding care of the device and your leg. * Leave dressing on FOR 24 hours. CARE OF YOUR WRIST INCISION; * Bruising or purple discoloration of the skin near the puncture site is common. * You may shower. * DO NOT submerge wrist. * Leave dressing on FOR 24 hours. Radha GUILLEN MD Jan 21, 2019 11:50
--- NOTE | 2019-01-21 11:57 | Cardiology Discharge Summary ---
Diagnosis/Chief Complaint Date of Admission 01/21/2019 Date of Discharge 01/21/2019 Admission Diagnosis CAD, abnormal nuclear stress test, claudication, abnormal MARIA DEL CARMEN Final/Discharge Diagnosis Moderate CAD, Moderate to severe diffuse PAD Chief Complaint/HPI Chief Complaint/HPI This is a 78-year-old gentleman with history of CAD, PCI, abnormal nuclear stress test, claudication, abnormal MARIA DEL CARMEN. Discharge Summary Procedures Coronary angiography showed moderate ostial LAD stenosis. FFR 0.94 which is acceptable therefore PCI deferred. Patent stent in the first diagonal artery and the RCA. Patent stent in the proximal LAD. Abdominal aortogram showed diffuse abdominal aortic disease with no severe renal artery stenosis. Peripheral angiogram on the left showed moderate/severe diffuse calcified disease in the SFA, severe stenosis in the distal SFA. Suboptimal visualization in the popliteal artery however likely severe distal popliteal stenosis. At least one vessel runoff below the knee with a posterior tibial artery. Small diffusely diseased deep peroneal as well as anterior tibial artery. Right lower extremity shows moderate diffuse calcified disease in the SFA in the popliteal artery. Two-vessel runoff with a posterior tibial as well as deep peroneal artery. Heavily diseased small anterior tibial artery. Discharge Physical Examination Unremarkable. Hospital Course Was the Problem List Reviewed?: Yes Stable. Pending Labs Laboratory Tests 01/21/19 08:20: White Blood Count 9.7, Red Blood Count 4.27, Hemoglobin 11.6, Hematocrit 37, Mean Corpuscular Volume 88, Mean Corpuscular Hemoglobin 27, Mean Corpuscular Hemoglobin Concent 31, Red Cell Distribution Width 13.9, Platelet Count 348, Mean Platelet Volume 8.5, Prothrombin Time 13.8, INR Comment 1.0, Activated Partial Thromboplast Time 31, Sodium Level 138, Potassium Level 4.2, Chloride Level 101, Carbon Dioxide Level 26, Anion Gap 11, Blood Urea Nitrogen 16, Creatinine 1.91, Estimat Glomerular Filtration Rate 34, BUN/Creatinine Ratio 8, Glucose Level 261, Calcium Level 9.5, Corrected Calcium 9.2, Total Bilirubin 0.5, Aspartate Amino Transf (AST/SGOT) 14, Alanine Aminotransferase (ALT/SGPT) 16, Alkaline Phosphatase 119, Total Protein 8.1, Albumin 4.4, Triglycerides Level 184, Cholesterol Level 116, LDL Cholesterol Direct 57, VLDL Cholesterol 37, HDL Cholesterol 32 Discussion & Recommendations Discussion Discharge instructions will be discussed with the patient. Follow up appt.: Dr. Guillen in 2-3 weeks. Dicharge Diet: Cardiac Diet Activity as Tolerated: Yes Home Medications Reviewed patient Home Medication Reconciliation performed by pharmacy medication reconciliations glass installer technician and/or nursing. Patients Allergies have been reviewed. Discharge Home Medications: Reviewed and agree with Discharge Medication list on patient's Discharge Instruction sheet Condition at discharge Stable. Instructions to patient/family Follow-up with Dr. Guillen in 2-3 weeks. Radha GUILLEN MD Jan 21, 2019 11:57
== END 2019-01-21 16:10 | disposition home or self-care (01) ==
LOC: CATH 07:52
PROVIDERS: ATTEND Internal Medicine Interventional Cardiology
DX: E11.51 Type 2 diabetes mellitus with diabetic peripheral angiopathy without gangrene (principal); E11.40 Type 2 diabetes mellitus with diabetic neuropathy, unspecified; I71.4 Abdominal aortic aneurysm, without rupture; I13.0 Hypertensive heart and chronic kidney disease with heart failure and stage 1 through stage 4 chronic kidney disease, or unspecified chronic kidney disease; I77.1 Stricture of artery; I35.0 Nonrheumatic aortic (valve) stenosis; I45.10 Unspecified right bundle-branch block; I20.9 Angina pectoris, unspecified; I50.9 Heart failure, unspecified; E11.22 Type 2 diabetes mellitus with diabetic chronic kidney disease; N18.3 Chronic kidney disease, stage 3 (moderate); E78.5 Hyperlipidemia, unspecified; G47.33 Obstructive sleep apnea (adult) (pediatric); M19.90 Unspecified osteoarthritis, unspecified site; Z79.01 Long term (current) use of anticoagulants; Z79.84 Long term (current) use of oral hypoglycemic drugs; Z80.9 Family history of malignant neoplasm, unspecified; Z84.1 Family history of disorders of kidney and ureter
CPT/HCPCS: 36415; 75625; 80053; 80061; 85027; 85610; 85730; 87081

== ENCOUNTER → 2019-03-30 | Outpatient (CLI) | payer MEDICARE, OTHER ==
[~2019-03-30] MED LIST changes: +ALLO100T PO; +APIX5TAB PO; +CHOL20002 PO; +LISI10TA2 PO; -LISI1TAB10 PO; +LISI1TAB26 PO; +POTA-51 PO; -TAMS0.4C98 PO; +TMSL.4C PO
--- NOTE | 2019-03-30 13:27 | Diagnostic Imaging Report ---
PROCEDURE: US Renal Bilateral. TECHNIQUE: Multiple real-time grayscale images were obtained over the kidneys in various projections bilaterally. INDICATION: Decreased renal function. COMPARISON: 01/12/2019. FINDINGS: Right kidney is 14.8 cm with a simple exophytic cyst off the lower pole measuring 2 cm. The left kidney measures 15.2 cm with a simple lower pole cyst measuring 1.5 cm. These findings are stable. The cortical thickness and echotexture are otherwise normal. The urinary bladder itself appears unremarkable. IMPRESSION: Simple bilateral renal cysts stable. Nonfocal bladder. No hydronephrosis. Dictated by: Dictated on workstation # [id number]
== END ==
LOC: RAD 11:39
PROVIDERS: ATTEND Urology
DX: N28.1 Cyst of kidney, acquired (principal)
CPT/HCPCS: 76770

== ENCOUNTER → 2019-12-28 | Outpatient (CLI) | payer MEDICARE, OTHER ==
[2019-12-28 12:27] LABS: CREATININE SERUM 1.7 MG/DL (0.60-1.30)
--- NOTE | 2019-12-28 15:24 | Diagnostic Imaging Report ---
PROCEDURE: CT abdomen without contrast. TECHNIQUE: Multiple contiguous axial images were obtained through the abdomen without the use of intravenous contrast due to elevated creatinine. Auto Exposure Controls were utilized during the CT exam to meet ALARA standards for radiation dose reduction. INDICATION: Abdominal aortic aneurysm repaired 4 years ago. COMPARISON: 09/26/2015. FINDINGS: There is cardiomegaly. There is extensive coronary artery calcification. There is some chronic appearing interstitial scarring in the lung bases. The liver is normal in size. The gallbladder is surgically absent. There are no focal liver lesions. The spleen is normal. The pancreas and adrenal glands are unremarkable. There is a stent graft in the infrarenal abdominal aorta. The maximum aortic sac diameter in the AP dimension is 4.6 cm. There are exophytic cysts of the kidneys bilaterally. Both kidneys demonstrate some renal cortical atrophy. The bowel gas pattern is nonspecific. There is no free air. There is no ascites. There are no focal inflammatory changes. There are degenerative changes in the spine. IMPRESSION: Cardiomegaly and coronary artery calcification with some interstitial scarring in the lung bases. Previously treated abdominal aortic aneurysm. The maximum sac diameter is 4.6 cm. This is essentially unchanged compared to the prior examination from 2016. Bilateral renal atrophy and bilateral renal cysts. No other acute abnormality in the abdomen. Dictated by: Dictated on workstation # [id number]
--- NOTE | 2019-12-28 18:31 | Diagnostic Imaging Report ---
PROCEDURE: US carotid duplex, bilateral. TECHNIQUE: Multiple real-time grayscale images were obtained over the carotid arteries in various projections, bilaterally. Additional spectral analysis and color Doppler duplex images were also obtained. INDICATION: History of carotid artery atherosclerotic disease, follow-up. CORRELATION STUDY: 01/04/2019 FINDINGS: Rather extensive, irregular distribution of atherosclerotic plaque throughout the bilateral common carotid arteries and carotid bifurcations, internal and external carotid arteries. 50% or slightly greater narrowing. On the right, there is significantly increased velocity in the right internal carotid artery at 191 cm/s with an elevated ICA/CCA ratio of 4.3. On the left, slightly elevated velocity of the ICA/CCA ratio at 2.2. The external carotid arteries are patent. Vertebral arteries ___ of flow. IMPRESSION: 1. Rather extensive atherosclerotic plaquing throughout the bilateral carotid arteries. On the right, there does appear to be abnormally elevated ICA/CCA ratio suggestive of likely greater than 70% stenosis. Velocity measurements would be suggested at approximately 50-69% narrowing. On the left, findings suggest a currently approximately 50-69% narrowing. Parameters based on the consensus panel Peacock-Scale and Doppler ultrasound criteria published February 2003, Radiology, Volume 229. DOPPLER (peak systolic velocity M/S Right Left CCA .44 .85 ICA Proximal 1.91 1.87 ICA Mid .55 1.82 ICA Distal .67 1.2 RATIO 4.3 2.2 ECA .78 2.10 VERT .30 1.1 Dictated on workstation # [id number]
== END ==
LOC: RAD 13:00
PROVIDERS: ATTEND Internal Medicine Interventional Cardiology
DX: I65.23 Occlusion and stenosis of bilateral carotid arteries (principal); I71.4 Abdominal aortic aneurysm, without rupture; I51.7 Cardiomegaly; J98.4 Other disorders of lung; N28.1 Cyst of kidney, acquired; N26.1 Atrophy of kidney (terminal)
CPT/HCPCS: 36415; 74150; 82565; 84520; 93880

== ENCOUNTER → 2020-01-18 | Outpatient (CLI) | payer MEDICARE, OTHER ==
[2020-01-18 08:50] LABS: ALBUMIN 3.9 GM/DL (3.2-4.5); BILIRUBIN,TOTAL 0.4 MG/DL (0.1-1.0); CALCIUM 8.7 MG/DL (8.5-10.1); CREATININE SERUM 1.9 MG/DL (0.60-1.30); TOTAL PROTEIN 7.5 GM/DL (6.4-8.2)
== END ==
LOC: RAD 09:15
PROVIDERS: ATTEND Internal Medicine Interventional Cardiology
DX: I65.23 Occlusion and stenosis of bilateral carotid arteries (principal)
CPT/HCPCS: 36415; 80053

== ENCOUNTER 2020-06-07 11:22 | Inpatient (IN) | payer MEDICARE, OTHER ==
[~2020-06-07] VITALS: Ht 175.3 cm; Wt 125.2 kg
[2020-06-07] VITALS (8 sets, daily range): BP systolic 111–141; BP diastolic 54–98
[~2020-06-07 11:22] MED LIST changes: +AMLO-250 PO; +CHOL10002 PO; +DOXY100T2 PO; +GABA-486 PO; +INSU100I29 SQ; -ISM60TCR PO; +ISOS60TA63 PO; -LISI10TA2 PO; +LISI10TA25 PO
--- NOTE | 2020-06-07 11:57 | ED General ---
General Chief Complaint: General Problems/Pain Stated Complaint: ABNORMAL LABS Nursing Triage Note: PT TO RM 7 WITH COMPLAINT OF LOW HGB. STATES HAD BLOOD DRAWN TODAY AND WAS TOLD TO COME TO ER FOR FURTHER EVALUATION. STATES HE WAS TOLD HIS HGB WAS 5. STATES HAS BEEN TRENDING DOWN OVER THE LAST MONTH, UNKNOWN BLOOD LOSS ORIGIN. PT DENIES PAIN. STATES HE HAS BEEN MORE SOA AND WEAK. Nursing Sepsis Screen: No Definite Risk Source of Information: Patient Exam Limitations: No Limitations History of Present Illness Date Seen by Provider: Jun 07, 2020 Time Seen by Provider: 11:54 Initial Comments To ER with reports of anemia. Had outpatient labs drawn today showing hemo globin of 5. He reports dyspnea on exertion and increasing weakness over the past few weeks. He had Covid back in February. History of CHFpEF, CAD, HTN, A. fib, T2 DM insulin-dependent, PAD, gout, CKD stage 3. He wears oxygen at 2 to 3 L/min at home. He is on aspirin and Eliquis. Denies any abdominal pain. Denies any chest pain. Denies any dark stools or bloody urine. Had an outpatient fecal occult blood test that was negative. Timing/Duration: Getting Worse Severity: Moderate Associated Systoms: No Chest Pain, No Fever/Chills; Malaise, Shortness of Air, Weakness Allergies and Home Medications Allergies Coded Allergies: No Known Drug Allergies (Unverified , 01/19/18) Home Medications Allopurinol 100 Mg Tablet, 100 MG PO DAILY, (Reported) Amlodipine Besylate 5 Mg Tablet, 5 MG PO 1300, (Reported) Apixaban 5 Mg Tablet, 5 MG PO 0700,1300, (Reported) Aspirin 81 Mg Tab.chew, 81 MG PO DAILY, (Reported) Atorvastatin Calcium 80 Mg Tablet, 80 MG PO HS, (Reported) Cholecalciferol (Vitamin D3) 25 Mcg Tablet, 25 MCG PO DAILY, (Reported) Doxycycline Hyclate 100 Mg Tablet, 100 MG PO BID, (Reported) FILLED 03-14-2020 #14/7 DAY SUPPLY Furosemide 40 Mg Tablet, 40 MG PO DAILY, (Reported) Gabapentin 100 Mg Capsule, 100 MG PO TID, (Reported) Glipizide 10 Mg Tablet, 10 MG PO BID, (Reported) Insulin Detemir 100 Unit/1 Ml Insuln.pen, 30 UNIT SQ BID, (Reported) Lisinopril 10 Mg Tablet, 10 MG PO DAILY, (Reported) [place] 3 Polyunsat Fatty Acids 1,000 Mg Cap, 2,000 MG PO HS, (Reported) Potassium Chloride 20 Meq Tablet.er, 20 MEQ PO DAILY, (Reported) LAST FILLED 10-15-2019 #90 Tamsulosin HCl 0.4 Mg Cap, 0.4 MG PO 1300, (Reported) Patient Home Medication List Home Medication List Reviewed: Yes Review of Systems Review of Systems Constitutional: see HPI; No chills, No fever; malaise, weakness EENTM: see HPI Respiratory: see HPI, dyspnea on exertion, short of breath Genitourinary: no symptoms reported Musculoskeletal: no symptoms reported Skin: no symptoms reported Psychiatric/Neurological: No Symptoms Reported Hematologic/Lymphatic: No Symptoms Reported Immunological/Allergic: no symptoms reported Past Xbddsrn-Gcubcl-Ywotmz Hx Patient Social History Alcohol Use: Past History Smoking Status: Former Smoker Type Used: Cigarettes Former Smoker, Quit: Jun 29, 2011 Recent Infectious Disease Expo: No Recent Hopitalizations: No Immunizations Up To Date Tetanus Booster (TDap): Unknown Date of Pneumonia Vaccine: Jan 27, 2020 Date of Influenza Vaccine: Jan 27, 2020 Seasonal Allergies Seasonal Allergies: No Past Medical History Surgeries: Yes (AORTIC PATCH, ) Coronary Stent, Gallbladder, Prostatectomy Respiratory: Yes (chronic hypoxia) Sleep Apnea Currently Using CPAP: Yes (WITH OXYGEN AT NIGHT) Cardiac: Yes Atrial Fibrillation, Coronary Artery Disease, Hypertension Neurological: No Reproductive Disorders: No Sexually Transmitted Disease: No HIV/AIDS: No Genitourinary: Yes Prostate Problems, Kidney Stones Gastrointestinal: No Musculoskeletal: Yes Degenerate Disk Disease, Arthritis, Chronic Back Pain Endocrine: Yes Diabetes, Insulin dep Loss of Vision: Bilateral Hearing Impairment: Denies Cancer: Yes Prostate Did You Recieve Any Treatments: Yes What Type of Treatment Did You: Chemotherapy, Surgical Intervention Psychosocial: No Integumentary: Yes (FROM RADIATION) Recent Skin Changes Blood Disorders: No Adverse Reaction/Blood Tranf: No (N/A) Physical Exam Vital Signs Vital Signs - First Documented 06/07/20 11:25 Pulse 83 Resp 16 B/P (MAP) 102/60 (74) Pulse Ox 100 O2 Delivery Nasal Cannula O2 Flow Rate 4.00 Capillary Refill : Less Than 3 Seconds Height, Weight, BMI Height: 5'9.00" Weight: 276lbs. 0.0oz. 125.745386za; 39.00 BMI Method: General Appearance: No Apparent Distress, WD/WN, Other (Alert and oriented very talkative. Vitals are stable heart rate 89 blood pressure 117/67. No pain.) Eyes: Bilateral Eye Normal Inspection, Bilateral Eye PERRL, Bilateral Eye EOMI Neck: Full Range of Motion, Normal Inspection Respiratory: Normal Breath Sounds, No Accessory Muscle Use, No Respiratory Distress Cardiovascular: Normal Peripheral Pulses, Irregularly Irregular Gastrointestinal: Normal Bowel Sounds, Soft Extremity: Pedal Edema (He will be admitted) Neurologic/Psychiatric: Alert, Oriented x3 Skin: Normal Color, Warm/Dry Comments His fecal occult blood test for me is negative Progress/Results/Core Measures Suspected Sepsis Recent Fever Within 48 Hours: No Infection Criteria Present: None New/Unexplained Altered Menta: No Sepsis Screen: No Definite Risk SIRS Temperature: Pulse: 83 Respiratory Rate: 16 Laboratory Tests 06/07/20 11:35: White Blood Count 8.6 Blood Pressure 102 /60 Mean: 74 Laboratory Tests 06/07/20 11:35: Creatinine 2.33H, Platelet Count 328, Total Bilirubin 0.3 Results/Orders Lab Results Laboratory Tests Test 06/07/20 11:35 Range/Units White Blood Count 8.6 4.3-11.0 10^3/uL Red Blood Count 2.43 L 4.30-5.52 10^6/uL Hemoglobin 5.3 *L 13.3-17.7 g/dL Hematocrit 19 *L 40-54 % Mean Corpuscular Volume 78 L 80-99 fL Mean Corpuscular Hemoglobin 22 L 25-34 pg Mean Corpuscular Hemoglobin Concent 28 L 32-36 g/dL Red Cell Distribution Width 17.2 H 10.0-14.5 % Platelet Count 328 130-400 10^3/uL Mean Platelet Volume 9.3 9.0-12.2 fL Immature Granulocyte % (Auto) 0 % Neutrophils (%) (Auto) 68 42-75 % Lymphocytes (%) (Auto) 21 12-44 % Monocytes (%) (Auto) 7 0-12 % Eosinophils (%) (Auto) 3 0-10 % Basophils (%) (Auto) 0 0-10 % Neutrophils # (Auto) 5.8 1.8-7.8 10^3/uL Lymphocytes # (Auto) 1.8 1.0-4.0 10^3/uL Monocytes # (Auto) 0.6 0.0-1.0 10^3/uL Eosinophils # (Auto) 0.3 0.0-0.3 10^3/uL Basophils # (Auto) 0.0 0.0-0.1 10^3/uL Immature Granulocyte # (Auto) 0.0 0.0-0.1 10^3/uL Percent Immature Platelet Fraction 1.9 0.0-7.6 % Absolute Reticulocyte Count 77 24-90 10e9/uL Percent Reticulocyte Count 3.17 H 0.50-2.40 % Sodium Level 132 L 135-145 MMOL/L Potassium Level 4.3 3.6-5.0 MMOL/L Chloride Level 94 L 98-107 MMOL/L Carbon Dioxide Level 25 21-32 MMOL/L Anion Gap 13 5-14 MMOL/L Blood Urea Nitrogen 46 H 7-18 MG/DL Creatinine 2.33 H 0.60-1.30 MG/DL Estimat Glomerular Filtration Rate 27 BUN/Creatinine Ratio 20 Glucose Level 166 H 70-105 MG/DL Calcium Level 7.9 L 8.5-10.1 MG/DL Corrected Calcium 8.2 L 8.5-10.1 MG/DL Total Bilirubin 0.3 0.1-1.0 MG/DL Aspartate Amino Transf (AST/SGOT) 19 5-34 U/L Alanine Aminotransferase (ALT/SGPT) 25 0-55 U/L Alkaline Phosphatase 104 40-136 U/L Total Protein 6.8 6.4-8.2 GM/DL Albumin 3.6 3.2-4.5 GM/DL My Orders Orders - DIANA MORRISON STRAIGHT PIN MAKING MACHINE OPERATOR Red Cells Leukocytes Reduced (06/07/20 11:51) BNP (06/07/20 11:51) Comprehensive Metabolic Panel (06/07/20 11:51) Ed Iv/Invasive Line Start (06/07/20 11:51) Chest 1 View, Ap/Pa Only (06/07/20 11:51) Type And Screen (06/07/20 11:51) Cbc And Manual Diff (06/07/20 11:35) Reticulocyte Count (06/07/20 11:35) Iron Tibc %Sat & Ferritin (06/07/20 12:24) Vital Signs/I&O 06/07/20 11:25 Pulse 83 Resp 16 B/P (MAP) 102/60 (74) Pulse Ox 100 O2 Delivery Nasal Cannula O2 Flow Rate 4.00 Capillary Refill : Less Than 3 Seconds Blood Pressure Mean: 74 Diagnostic Imaging Diagonstic Imaging: Xray Plain Films/CT/US/NM/MRI: chest Comments NAME: GHASSAN LAYTON MED REC#: [id number] PT STATUS: REG ER : 1940 PHYSICIAN: DIANA MORRISON APRN ADMIT DATE: 06/07/20/ER Draft Date of Exam:06/07/20 CHEST 1 VIEW, AP/PA ONLY INDICATION: Shortness of air. TIME OF EXAM: 12:26 PM. COMPARISON: Correlation is made with the prior chest from 03/17/2020. FINDINGS: The heart is enlarged. There is central congestion but no overt failure. No significant infiltrate, effusion, or pneumothorax is identified. IMPRESSION: Cardiomegaly with mild central congestion. Dictated on workstation # [id number] Dict: 06/07/20 1224 Trans: 06/07/20 1226 [id number] Interpreted by: SARAH BRAR MD Electronically signed by: Departure Communication (Admissions) I spoke with Dr. Andre. Will admit, consult surgery and cardiology. Give 3 uni ts of packed red cells and 40 mg of Lasix after the second unit. Impression Primary Impression: Symptomatic anemia Additional Impressions: CHF (congestive heart failure) Afib CKD (chronic kidney disease) Disposition: ADMITTED INPATIENT Condition: Stable Admissions Decision to Admit Reason: Admit from ER (General) Decision to Admit/Date: Jun 07, 2020 Time/Decision to Admit Time: 12:55 Departure-Patient Inst. Referrals: HEATHER ZAIDI (PCP/Family) Primary Care Physician DIANA MORRISON APRN Jun 07, 2020 11:57
[2020-06-07 12:04] LABS: ALBUMIN 3.6 GM/DL (3.2-4.5); POTASSIUM 4.3 MMOL/L (3.6-5.0)
[2020-06-07 12:05] LABS: CALCIUM 7.9 MG/DL (8.5-10.1)
[2020-06-07 12:07] LABS: TOTAL PROTEIN 6.8 GM/DL (6.4-8.2)
[2020-06-07 12:08] LABS: BILIRUBIN,TOTAL 0.3 MG/DL (0.1-1.0)
[2020-06-07 12:10] LABS: CREATININE SERUM 2.33 MG/DL (0.60-1.30)
[2020-06-07 12:13] LABS: ABSOLUTE RETIC # 77 10e9/uL (24-90); BASOPHILS % (AUTO) 0 % (0-10); EOSINOPHILS # (AUTO) 0.3 10^3/uL (0.0-0.3); EOSINOPHILS % (AUTO) 3 % (0-10); LYMPHOCYTES # (AUTO) 1.8 10^3/uL (1.0-4.0); LYMPHOCYTES % (AUTO) 21 % (12-44); MEAN CORPUSCULAR HEMOGLOBIN 22 pg (25-34); MEAN CORPUSCULAR HGB CONC 28 g/dL (32-36); MEAN CORPUSCULAR VOLUME 78 fL (80-99); MEAN PLATELET VOLUME 9.3 fL (9.0-12.2); MONOCYTES # (AUTO) 0.6 10^3/uL (0.0-1.0); MONOCYTES % (AUTO) 7 % (0-12); NEUTROPHILS # (AUTO) 5.8 10^3/uL (1.8-7.8); NEUTROPHILS % (AUTO) 68 % (42-75); PLATELET COUNT 328 10^3/uL (130-400); RETICULOCYTE % 3.17 % (0.50-2.40); WHITE BLOOD COUNT 8.6 10^3/uL (4.3-11.0)
[2020-06-07 12:15] LABS: HEMATOCRIT 19 % (40-54); HEMOGLOBIN 5.3 g/dL (13.3-17.7)
--- NOTE | 2020-06-07 12:26 | Diagnostic Imaging Report ---
INDICATION: Shortness of air. TIME OF EXAM: 12:26 PM. COMPARISON: Correlation is made with the prior chest from 03/17/2020. FINDINGS: The heart is enlarged. There is central congestion but no overt failure. No significant infiltrate, effusion, or pneumothorax is identified. IMPRESSION: Cardiomegaly with mild central congestion. Dictated by: Dictated on workstation # [id number]
[2020-06-07 12:52] LABS: BASOPHILS % (MANUAL) 0 %; EOSINOPHILS % (MANUAL) 3 %; LYMPHOCYTES % (MANUAL) 19 %; MONOCYTES % (MANUAL) 7 %; NEUTROPHILS % (MANUAL) 71 %
[2020-06-07 12:55] LABS: HYPOCHROMASIA SLIGHT; NUCLEATED RED BLOOD CELLS 1; POLYCHROMASIA SLIGHT
[2020-06-07 12:56] LABS: ANISOCYTOSIS SLIGHT; ELLIPT/OVALOCYTES SLIGHT; MICROCYTOSIS SLIGHT; POIKILOCYTOSIS SLIGHT; TEAR DROP CELLS SLIGHT
--- NOTE | 2020-06-07 13:58 | History & Physical-Hospitalist ---
History of Present Illness HPI/Chief Complaint Pt is a 80Cm with a PMH of CKD Stage 3, HTN, HLD, CAD, CHF who presented to the ER due to abnormal labs. He states that he had COVID back in February and ever since then he has not felt well but has been improving with therapy. He describes his symptoms as SOB and fatigue. He was able to walk with a walker but lately has not even been able to stand long enough to shave and has to have a barstool to help. He had blood work done today which showed a hemoglobin in the 5s and he was referred to the ER. His daughter reports that he has been more pale in nature. He states that occasionally he has noted dark stools but they are mostly a light brown color. Source: patient Date Seen 06/07/20 Time Seen by a Provider: 13:58 Attending Physician Gabe Melgoza MD PCP Anny Kemp Referring Physician Date of Admission Jun 07, 2020 at 12:46 Home Medications & Allergies Home Medications Reviewed patient Home Medication Reconciliation performed by pharmacy medication reconciliations hydro plant technician and/or nursing. Patients Allergies have been reviewed. Allergies Allergies Coded Allergies No Known Drug Allergies (Unverified01/19/18) Past Szicjqt-Gfnpbh-Bhoqig Hx Past Med/Social Hx: Reviewed Nursing Past Med/Soc Hx Patient Social History Employed/Student: retired Alcohol Use: Past History Recreational Drug Use: No Smoking Status: Former Smoker Former Smoker, Quit: Jun 29, 2011 Type Used: Cigarettes Recent Foreign Travel: No Contact w/other who traveled: No Recent Hopitalizations: No Recent Infectious Disease Expo: No Immunizations Up To Date Tetanus Booster (TDap): Unknown Date of Pneumonia Vaccine: Jan 27, 2020 Date of Influenza Vaccine: Jan 27, 2020 Seasonal Allergies Seasonal Allergies: No Past Medical History Surgeries: Coronary Stent, Gallbladder, Prostatectomy Respiratory: COPD Currently Using CPAP: Yes (WITH OXYGEN AT NIGHT) Cardiac: Atrial Fibrillation, Coronary Artery Disease, Hypertension Reproductive: No Sexually Transmitted Disease: No HIV/AIDS: No Genitourinary: Prostate Problems, Kidney Stones Musculoskeletal: Degenerate Disk Disease, Arthritis, Chronic Back Pain Endocrine: Diabetes, Insulin dep Loss of Vision: Bilateral Hearing Impairment: Denies Cancer: Prostate Did You Recieve Any Treatments: Yes What Type of Treatment Did You: Chemotherapy, Surgical Intervention Skin/Integumentary: Recent Skin Changes History of Blood Disorders: No Adverse Reaction to Blood Howard: No (N/A) Family History Reviewed Nursing Family Hx No Pertinent Family Hx Review of Systems Constitutional: No chills, No fever; malaise, weakness EENTM: no symptoms reported Respiratory: dyspnea on exertion, short of breath Cardiovascular: No chest pain, No edema Gastrointestinal: No abdominal pain, No constipation, No diarrhea, No loss of appetite; melena (see HPI); No nausea, No vomiting Genitourinary: No discharge, No dysuria Musculoskeletal: see HPI Skin: change in color (pale) Psychiatric/Neurological: No Symptoms Reported Physical Exam Physical Exam Vital Signs Vital Signs - First Documented 06/07/20 11:25 Pulse 83 Resp 16 B/P (MAP) 102/60 (74) Pulse Ox 100 O2 Delivery Nasal Cannula O2 Flow Rate 4.00 Capillary Refill : Less Than 3 Seconds Height, Weight, BMI Height: 5'9.00" Weight: 276lbs. 0.0oz. 125.518319bv; 39.00 BMI Method: General Appearance: No Apparent Distress, Chronically ill, Obese HEENT: PERRL/EOMI, Moist Mucous Membranes; No Scleral Icterus (L), No Scleral Icterus (R) Neck: Normal Inspection, Supple Respiratory: Lungs Clear, No Accessory Muscle Use, Other (on 2lpm NC) Cardiovascular: Regular Rate, Rhythm, No JVD, No Murmur Gastrointestinal: Normal Bowel Sounds, Non Tender, Soft Extremity: Normal Capillary Refill, No Calf Tenderness, No Pedal Edema Neurologic/Psychiatric: Alert, Oriented x3, Normal Mood/Affect Skin: Normal Color, Warm/Dry, Other (venous stasis dermatitis on b/l LE) Results Results/Procedures Labs Laboratory Tests 06/07/20 11:35 Patient resulted labs reviewed. Imaging: Reviewed Imaging Report Imaging [facility] [place], [place] NAME: GHASSAN LAYTON MED REC#: [id number] PT STATUS: REG ER : 1940 PHYSICIAN: DIANA MORRISON APRN ADMIT DATE: 06/07/20/ER Draft Date of Exam:06/07/20 CHEST 1 VIEW, AP/PA ONLY INDICATION: Shortness of air. TIME OF EXAM: 12:26 PM. COMPARISON: Correlation is made with the prior chest from 03/17/2020. FINDINGS: The heart is enlarged. There is central congestion but no overt failure. No significant infiltrate, effusion, or pneumothorax is identified. IMPRESSION: Cardiomegaly with mild central congestion. Dictated on workstation # [id number] Dict: 06/07/20 1224 Trans: 06/07/20 1226 [id number] Interpreted by: SARAH BRAR MD Electronically signed by: Assessment/Plan Admission Diagnosis symptomatic anemia Admission Status: Inpatient Order (span 2 midnights) Reason for Inpatient Admission: see below Assessment and Plan Symptomatic anemia Hgb 5.9 Unclear etiology Last Hgb per his PCP was 8.4 1 month ago transfusion ordered in the ER Goal > 8 due to heart disease Check iron studies CHF, acutely decompensated paroxysmal Atrial fibrillation lasix to be given with blood transfusion Cardiology consulted, appreciate recs Continue home meds when able Continue home oxygen supplementation CAD HTN HLD Continue home meds Hold any anticoagulation due to anemia IDDMII Continue home insulin BPH Continue Flomax DVT ppx: SCDs only due to anemia Diagnosis/Problems Diagnosis/Problems (1) Insulin dependent diabetes mellitus (2) HLD (hyperlipidemia) (3) Essential (primary) hypertension (4) CAD (coronary artery disease) (5) Chronic respiratory failure (6) BPH (benign prostatic hyperplasia) (7) Symptomatic anemia Status: Acute (8) Afib Status: Acute (9) CKD (chronic kidney disease) Status: Acute (10) CHF (congestive heart failure) Status: Acute (11) Generalized weakness Status: Acute GABE MELGOZA MD Jun 07, 2020 13:58
[2020-06-07] MEDS ORDERED: NS IV 1000 ML 1,000 ML IV SCH (14:30)
[2020-06-07] MEDS ORDERED: FUROSEMIDE 40 MG/4 ML INJ (LASIX) IVP ONE (14:30)
[2020-06-07] MEDS ORDERED: NS IV 500 ML 500 ML IV SCH (14:30)
[2020-06-07] MEDS ORDERED: LIDOCAINE UROJET 2% GEL 10 ML PKG ONE (14:48)
--- NOTE | 2020-06-07 14:50 | CONSULTATION REPORT ---
DATE OF SERVICE: 06/07/2020 ATTENDING PRIMARY CARE PHYSICIAN: Dr. Thony Dubon. ADMITTING PHYSICIAN: Dr. Jacy Melgoza. HISTORY OF PRESENT ILLNESS: The patient is a 80-year-old male, who has had shortness of breath as well as weakness since 02/2020. He reports that he did contract SARS CoV-2 at that time; however, he did not have major respiratory issues requiring an admission. He did have an episode of exacerbation of congestive heart failure requiring admission as well as diuretics. He presented today to the emergency department for profound weakness and shortness of breath and was seen by his physician, where lab work was done and his hemoglobin was low at 5.3. He does not report any classic symptoms of gastroesophageal reflux disease nor peptic ulcer disease. He also does not report any red blood per rectum nor any dark tarry stools. He has not had a colonoscopy up to this point in his life. He also does have a first-degree relative with history of colon cancer with his brother having the disease and also does have a personal history of prostate cancer. He is also on Eliquis for atrial fibrillation and coronary artery disease. PAST MEDICAL HISTORY: Hypertension, hypercholesterolemia, peripheral vascular disease, coronary artery disease, sleep apnea, degenerative joint disease, history of prostate cancer, history of nephrolithiasis, and diabetes. PAST SURGICAL HISTORY: Endovascular stent placement 15' and laparoscopic cholecystectomy. ALLERGIES: No known drug allergies. MEDICATIONS: Allopurinol 100 mg daily, amlodipine 5 mg daily, apixaban 5 mg b.i.d., aspirin 81 mg daily, atorvastatin 80 mg daily, doxycycline 100 mg b.i.d., furosemide 40 mg daily, gabapentin 100 mg t.i.d., glipizide 10 mg b.i.d., detemir insulin 30 units b.i.d., lisinopril 10 mg daily, potassium 20 mEq daily, and tamsulosin 0.4 mg daily. SOCIAL HISTORY: Previous smoker, quit 2011. Negative alcohol. FAMILY HISTORY: Mother oropharyngeal cancer. Father, leukemia. Brother, colon cancer. REVIEW OF SYSTEMS: Well-nourished male currently in no acute distress. He is not experiencing any shortness of breath or difficulty in breathing. No chest pain, palpitations or diaphoresis. No nausea, vomiting, no diarrhea, constipation, no red blood per rectum, and no dark tarry stools. No fever, chills, and no recent inadvertent weight loss. All other review of systems negative. PHYSICAL EXAMINATION: VITAL SIGNS: Blood pressure 114/62, pulse 81, respirations 12, pulse ox 99% on 4 liters nasal cannula. CHEST: Scattered wheezes and rhonchi bilaterally. HEART: Regular, no murmurs. EXTREMITIES: +1/3 bilateral lower extremity edema, negative Homans sign. HEENT: No scleral icterus. NECK: No cervical lymphadenopathy. ABDOMEN: Obese and nondistended. No abdominal pain. No hernias. SKIN: Warm and dry. LABORATORY DATA: WBC 8.6, hemoglobin 5.3, hematocrit 19, and platelets 328. BUN 46 and creatinine 2.33. ASSESSMENT AND PLAN: A 80-year-old male with significant symptomatic anemia. He is on anticoagulation with Eliquis for atrial fibrillation as well as coronary artery disease and peripheral vascular disease. He has not had any previous endoscopy done before and also does have a first-degree family history of colon cancer with his brother having the disease. On this admission, we will proceed within an EGD and colonoscopy. Job ID: [id number] DocumentID: [id number] Dictated Date: 06/07/2020 14:36:27 Maintenance Team Member Date: 06/07/2020 14:48:26 Dictated By: MADELIN COX MD [facility]
[2020-06-07] MEDS ORDERED: MELATONIN 3 MG TABLET PO PRN (15:15)
[2020-06-07] MEDS ORDERED: ANTACID SUSP 30 ML UDC (MYLANTA) PO PRN (15:15)
[2020-06-07] MEDS ORDERED: ACETAMINOPHEN 325 MG TABLET PO PRN (15:15)
[2020-06-07] MEDS ORDERED: ONDANSETRON 4 MG/2 ML (SDV) Z0FRAN IV PRN (15:15)
[2020-06-07] MEDS ORDERED: MILK OF MAGNESIA 400 MG/5 ML 30 ML UDC PO PRN (15:15)
[2020-06-07] MEDS ORDERED: BENZONATATE 100 MG (TESSALON) CAPSULE PO PRN (15:15)
[2020-06-07] MEDS: MAGNESIUM CITRATE 300 ML BTL PO ONE ×2 (15:31→15:32)
--- NOTE | 2020-06-07 16:33 | Consultation-Cardiology ---
HPI-Cardiology Cardiology Consultation: Date of Consultation 06/07/20 Time Seen by a Provider: 16:45 Date of Admission 06-07-20 Attending Physician Jacy Melgoza MD Admitting Physician Anny Kemp Consulting Physician Jose R Hall MD HPI: Chief Complaint: Chronic a-fib Anemia Mr. Layton is a 80 yr old male admitted to [facility] from the ED with increasing SOB and profound anemia. He states over the last few weeks he has had progressive dyspnea with even minimal exertion. No c/o CP, palpitations, syncope or near syncope. He reports chronic bilat LE swelling, which has been better recently. He denies any blood in his stools or urine. His son is at the bedside. Review of Systems-Cardiology Review of Systems Constitutional: No chills, No fever; malaise, tiredness Eyes: No vision change Ears/Nose/Throat: No epistaxis, No recent hearing loss Respiratory: As described under HPI Cardiovascular: As described under HPI Gastrointestinal: No constipation, No diarrhea, No nausea, No vomiting Genitourinary: No dysuria, No hematuria Musculoskeletal: no symptoms reported Skin: No rash on exposed areas, No ulcerations on exposed areas Psychiatric/Neurological: No anxiety, No depression, No seizure, No focal weakness, No syncope Hematologic: No bleeding abnormalities PMT-Zyhfah-Fnwveq Hx Patient Social History Employed/Student: retired Smoking Status: Former Smoker Have you traveled recently?: No Alcohol Use?: No Pt feels they are or have been: No Immunizations Up To Date Tetanus Booster (TDap): Unknown Date of Pneumonia Vaccine: Jan 27, 2020 Date of Influenza Vaccine: Jan 27, 2020 Past Medical History PMH As described under Assessment. Allergies and Home Medications Allergies Coded Allergies: No Known Drug Allergies (Unverified , 01/19/18) Home Medications Allopurinol 100 Mg Tablet, 100 MG PO DAILY, (Reported) Amlodipine Besylate 5 Mg Tablet, 5 MG PO 1300, (Reported) Apixaban 5 Mg Tablet, 5 MG PO 0700,1300, (Reported) Aspirin 81 Mg Tab.chew, 81 MG PO DAILY, (Reported) Atorvastatin Calcium 80 Mg Tablet, 80 MG PO HS, (Reported) Cholecalciferol (Vitamin D3) 25 Mcg Tablet, 25 MCG PO DAILY, (Reported) Doxycycline Hyclate 100 Mg Tablet, 100 MG PO BID, (Reported) FILLED 03-14-2020 #14/7 DAY SUPPLY Furosemide 40 Mg Tablet, 40 MG PO DAILY, (Reported) Gabapentin 100 Mg Capsule, 100 MG PO TID, (Reported) Glipizide 10 Mg Tablet, 10 MG PO BID, (Reported) Insulin Detemir 100 Unit/1 Ml Insuln.pen, 30 UNIT SQ BID, (Reported) Lisinopril 10 Mg Tablet, 10 MG PO DAILY, (Reported) [place] 3 Polyunsat Fatty Acids 1,000 Mg Cap, 2,000 MG PO HS, (Reported) Potassium Chloride 20 Meq Tablet.er, 20 MEQ PO DAILY, (Reported) LAST FILLED 10-15-2019 #90 Tamsulosin HCl 0.4 Mg Cap, 0.4 MG PO 1300, (Reported) Physical Exam-Cardiology Physical Exam Vital Signs/I&O 06/07/20 06/08/20 06/08/20 06/08/20 23:00 00:00 01:00 04:00 Temp 36.8 36.4 Pulse 98 96 90 Resp 15 13 B/P (MAP) 141/78 (99) 115/64 (81) Pulse Ox 98 100 O2 Delivery NIV CPAP NIV CPAP Nasal Cannula O2 Flow Rate 2.00 2.00 2.00 06/08/20 06/08/20 06/08/20 07:00 07:45 08:00 Temp 36.5 Pulse 99 100 Resp 12 B/P (MAP) 105/40 (61) Pulse Ox 94 95 O2 Delivery Nasal Cannula Nasal Cannula O2 Flow Rate 2.00 2.00 06/08/20 00:00 Intake Total 300 ml Output Total 950 ml Balance -650 ml Capillary Refill : Less Than 3 Seconds Constitutional: AAO x 3, well-developed, well-nourished HEENT: PERRL, hearing is well preserved, oral hygience is good Neck: No carotid bruit; carotid pulses are 2 + bilaterally Respiratory: No accessory muscle use, No respiratory distress; chest expansion is symmetric, chest is bilaterally symmetric, lungs clear to auscultation, other (dyspneic with conversation) Cardiovascular: irregularly irregular; No JVD; S1 and S2, systolic murmur Gastrointestinal: No tender; round, audible bowel sounds Extremities: no lower extremity edema bilateral Neurologic/Psychiatric: grossly intact (moves all extremities) Skin: No rash on exposed areas, No ulcerations on exposed areas Data Review Labs Laboratory Tests 06/07/20 11:35: White Blood Count 8.6, Red Blood Count 2.43L, Hemoglobin 5.3*L, Hematocrit 19*L, Mean Corpuscular Volume 78L, Mean Corpuscular Hemoglobin 22L, Mean Corpuscular Hemoglobin Concent 28L, Red Cell Distribution Width 17.2H, Platelet Count 328, Mean Platelet Volume 9.3, Immature Granulocyte % (Auto) 0, Neutrophils (%) (Auto) 68, Lymphocytes (%) (Auto) 21, Monocytes (%) (Auto) 7, Eosinophils (%) (Auto) 3, Basophils (%) (Auto) 0, Neutrophils # (Auto) 5.8, Lymphocytes # (Auto) 1.8, Monocytes # (Auto) 0.6, Eosinophils # (Auto) 0.3, Basophils # (Auto) 0.0, Immature Granulocyte # (Auto) 0.0, Neutrophils % (Manual) 71, Lymphocytes % (Manual) 19, Monocytes % (Manual) 7, Eosinophils % (Manual) 3, Basophils % (Manual) 0, Nucleated Red Blood Cells 1, Percent Immature Platelet Fraction 1.9, Polychromasia SLIGHT, Hypochromasia SLIGHT, Poikilocytosis SLIGHT, Basophilic Stippling SLIGHT, Anisocytosis SLIGHT, Microcytosis SLIGHT, Tear Drop Cells SLIGHT, Elliptocytes SLIGHT, Absolute Reticulocyte Count 77, Percent Reticulocyte Count 3.17H, Sodium Level 132L, Potassium Level 4.3, Chloride Level 94L, Carbon Dioxide Level 25, Anion Gap 13, Blood Urea Nitrogen 46H, Creatinine 2.33H, Estimat Glomerular Filtration Rate 27, BUN/Creatinine Ratio 20, Glucose Level 166H, Calcium Level 7.9L, Corrected Calcium 8.2L, Iron Level 21L, Total Iron Binding Capacity 436H, Unsaturated Iron Binding Capacity 415, Transferrin % Saturation 5L, Ferritin 20.3L, Total Bilirubin 0.3, Aspartate Amino Transf (AST/SGOT) 19, Alanine Aminotransferase (ALT/SGPT) 25, Alkaline Phosphatase 104, B-Type Natriuretic Peptide 197.3H, Total Protein 6.8, Albumin 3.6 06/08/20 03:10: White Blood Count 10.8, Red Blood Count 2.99L, Hemoglobin 7.2#L, Hematocrit 24L, Mean Corpuscular Volume 79L, Mean Corpuscular Hemoglobin 24L, Mean Corpuscular Hemoglobin Concent 31L, Red Cell Distribution Width 17.0H, Platelet Count 276, Mean Platelet Volume 9.2, Immature Granulocyte % (Auto) 0, Neutrophils (%) (Auto) 70, Lymphocytes (%) (Auto) 19, Monocytes (%) (Auto) 7, Eosinophils (%) (Auto) 2, Basophils (%) (Auto) 0, Neutrophils # (Auto) 7.6, Lymphocytes # (Auto) 2.1, Monocytes # (Auto) 0.8, Eosinophils # (Auto) 0.3, Basophils # (Auto) 0.0, Immature Granulocyte # (Auto) 0.0, Sodium Level 133L, Potassium Level 4.0, Chloride Level 95L, Carbon Dioxide Level 24, Anion Gap 14, Blood Urea Nitrogen 45H, Creatinine 2.28H, Estimat Glomerular Filtration Rate 28, BUN/Creatinine Ratio 20, Glucose Level 172H, Calcium Level 8.0L, Corrected Calcium 8.4L, Total Bilirubin 0.6, Aspartate Amino Transf (AST/SGOT) 18, Alanine Aminotransferase (ALT/SGPT) 23, Alkaline Phosphatase 100, Total Protein 6.9, Albumin 3.5 Radiology NAME: GHASSAN LAYTON [facility] REC#: [id number] PT STATUS: REG ER : 1940 PHYSICIAN: DIANA MORRISON APRN ADMIT DATE: 06/07/20/ER Draft Date of Exam:06/07/20 CHEST 1 VIEW, AP/PA ONLY INDICATION: Shortness of air. TIME OF EXAM: 12:26 PM. COMPARISON: Correlation is made with the prior chest from 03/17/2020. FINDINGS: The heart is enlarged. There is central congestion but no overt failure. No significant infiltrate, effusion, or pneumothorax is identified. IMPRESSION: Cardiomegaly with mild central congestion. Dictated on workstation # [id number] Dict: 06/07/20 1224 Trans: 06/07/20 1226 [id number] Interpreted by: SARAH BRAR MD Electronically signed by: ECG Impression ECG Initial ECG Impression: Atrial Fibrillation A/P-Cardiology Assessment/Admission Diagnosis Anemia of undetermined etiology Acute on chronic systolic and diastolic CHF - Echocardiogram of Mar 17, [address] Guillen showed concentric hypertrophy. LVEF 45-50%. Mild to MR and AoR. PASP 25-30mmHg CAD - according to the patient his first PTCA was 30 years ago. Likely to the RCA and left circumflex artery. 25 years ago he had laser treatment. In 2010 the patient had 6 stents due to an [place]. In 2011. Further 2 stents due to chest pain but there was no NJ. 12/07/2010 proximal circumflex artery was treated with Promus 4 x 12, mid circumflex with Promus 3.0 x 15, mid RCA 4 x 28 Promus, mid RCA Promus 4 x 12, proximal RCA Promus 4 x 23, proximal RCA Promus 4 x 23. 11/04/2011 proximal RCA treated with Promus element 3.5 x 28 mm stent, mid first diagonal artery treated with Promus element 2.25 x 24 mm stent - Most recent coronary angiography of Dec [address] Guillen: showed moderate ostial LAD stenosis. FFR 0.94 which is acceptable therefore PCI deferred. Patent stent in the first diagonal artery and the RCA. Patent stent in the proximal LAD. PAD - Peripheral angiogram of Dec [address] Guillen: showed on the left showed moderate/severe diffuse calcified disease in the SFA, severe stenosis in the distal SFA. Suboptimal visualization in the popliteal artery however likely severe distal popliteal stenosis. At least one vessel runoff below the knee with a posterior tibial artery. Small diffusely diseased deep peroneal as well as anterior tibial artery. Right lower extremity shows moderate diffuse calcified disease in the SFA in the popliteal artery. Two-vessel runoff with a posterior tibial as well as deep peroneal artery. Heavily diseased small anterior tibial artery. - AAA Repair: 08/10/[address] Stallworth at [place], [place] - Previously treated abdominal aortic aneurysm. The maximum sac diameter is 4.6 cm. This is essentially unchanged compared to the prior examination from [address] of the abdomen without contrast on Dec 28, 2019 Chronic kidney disease stage IV - follows with Dr. Leeann Guillen of nephrology Persistent atrial fibrillation - OAC with Eliquis Carotid arterial dz: On the right, there does appear to be abnormally elevated ICA/CCA ratio suggestive of likely greater than 70% stenosis. Velocity measurements would be suggested at approximately 50-69% narrowing. On the left, findings suggest a currently approximately 50-69% narrowing. per carotid u/s on Dec 28, 2019 HTN HLD VILMA Chronic RBBB DM 2 BPH and chronic dysuria and hesitancy Discussion and Recomendations Profound anemia of undetermined etiology Receiving transfusions with lasix b/t units We advise evaluation for cause of anemia and treatment. If there is no active bleed suspected then we advise resumption of the Eliquis, d/t risk of CVA d/t chronic a-fib. We will leave this decision up to medical/surgical services Monitor lab closely Continue other home medications Replace electrolytes if indicated Further recs will be based on his hospital course We would like to thank Dr. Melgoza for this consult We have discussed plan of care with pt and his son at the bedside DEANNE GUEVARA Jun 07, 2020 16:33
--- NOTE | 2020-06-07 18:34 | Consultation-Cardiology ---
HPI-Cardiology Cardiology Consultation: Date of Consultation 06/07/20 Time Seen by a Provider: 18:00 Date of Admission Attending Physician Jacy Melgoza MD Admitting Physician Anny Kemp Consulting Physician MATT GUPTA MD, MA, FACP, FACC, FSCAI, CCDS HPI: Chief Complaint: Reason for Cardiology consultation: Chronic a-fib, Anemia Physician requesting consult: Dr Melgoza HPI Mr. Cronin is a 80 yr old male admitted to [facility] from the ED with increasing SOB and profound anemia. He states over the last few weeks he has had progressive dyspnea with even minimal exertion. No c/o CP, palpitations, syncope or near syncope. He reports chronic bilat LE swelling, which has been better recently. He denies any blood in his stools or urine. His son is at the bedside. Review of Systems-Cardiology Review of Systems Constitutional: No chills, No fever; malaise, tiredness Eyes: No vision change Ears/Nose/Throat: No epistaxis, No recent hearing loss Respiratory: As described under HPI Cardiovascular: As described under HPI Gastrointestinal: No constipation, No diarrhea, No nausea, No vomiting Genitourinary: No dysuria, No hematuria Musculoskeletal: no symptoms reported Skin: No rash on exposed areas, No ulcerations on exposed areas Psychiatric/Neurological: No anxiety, No depression, No seizure, No focal weakness, No syncope Hematologic: No bleeding abnormalities OVD-[id number]-Cvzptb Hx Patient Social History Employed/Student: retired Smoking Status: Former Smoker Have you traveled recently?: No Alcohol Use?: No Pt feels they are or have been: No Immunizations Up To Date Tetanus Booster (TDap): Unknown Date of Pneumonia Vaccine: Jan 27, 2020 Date of Influenza Vaccine: Jan 27, 2020 Past Medical History PMH As described under Assessment. Allergies and Home Medications Allergies Coded Allergies: No Known Drug Allergies (Unverified , 01/19/18) Home Medications Allopurinol 100 Mg Tablet, 100 MG PO DAILY, (Reported) Amlodipine Besylate 5 Mg Tablet, 5 MG PO 1300, (Reported) Apixaban 5 Mg Tablet, 5 MG PO 0700,1300, (Reported) Aspirin 81 Mg Tab.chew, 81 MG PO DAILY, (Reported) Atorvastatin Calcium 80 Mg Tablet, 80 MG PO HS, (Reported) Cholecalciferol (Vitamin D3) 25 Mcg Tablet, 25 MCG PO DAILY, (Reported) Doxycycline Hyclate 100 Mg Tablet, 100 MG PO BID, (Reported) FILLED 03-14-2020 #14/7 DAY SUPPLY Furosemide 40 Mg Tablet, 40 MG PO DAILY, (Reported) Gabapentin 100 Mg Capsule, 100 MG PO TID, (Reported) Glipizide 10 Mg Tablet, 10 MG PO BID, (Reported) Insulin Detemir 100 Unit/1 Ml Insuln.pen, 30 UNIT SQ BID, (Reported) Lisinopril 10 Mg Tablet, 10 MG PO DAILY, (Reported) [place] 3 Polyunsat Fatty Acids 1,000 Mg Cap, 2,000 MG PO HS, (Reported) Potassium Chloride 20 Meq Tablet.er, 20 MEQ PO DAILY, (Reported) LAST FILLED 10-15-2019 #90 Tamsulosin HCl 0.4 Mg Cap, 0.4 MG PO 1300, (Reported) Patient Home Medication List Home Medication List Reviewed: Yes Physical Exam-Cardiology Physical Exam Vital Signs/I&O 06/07/20 06/07/20 06/07/20 06/07/20 11:25 13:45 14:30 15:11 Temp 36.4 Pulse 83 81 78 80 Resp 16 12 22 B/P (MAP) 102/60 (74) 114/62 160/85 (110) Pulse Ox 100 99 93 O2 Delivery Nasal Cannula Nasal Cannula Nasal Cannula O2 Flow Rate 4.00 4.00 4.00 06/07/20 06/07/20 06/07/20 06/07/20 16:15 16:20 16:25 16:30 Temp 36.1 36.1 36.0 36.1 Pulse 82 84 85 78 Resp 18 20 18 18 B/P (MAP) 122/75 141/81 127/94 124/98 Pulse Ox 96 96 97 96 O2 Delivery Nasal Cannula Nasal Cannula Nasal Cannula Nasal Cannula O2 Flow Rate 2.00 2.00 2.00 2.00 06/07/20 06/07/20 06/07/20 06/07/20 18:10 18:15 18:20 18:25 Temp 36.4 36.4 36.1 36.2 Pulse 87 82 85 85 Resp 18 20 18 20 B/P (MAP) 123/87 136/67 111/54 117/91 Pulse Ox 91 92 92 95 O2 Delivery Nasal Cannula Nasal Cannula Nasal Cannula O2 Flow Rate 2.00 2.00 2.00 2.00 Capillary Refill : Less Than 3 Seconds Constitutional: AAO x 3, well-developed, well-nourished HEENT: PERRL, hearing is well preserved, oral hygience is good Neck: No carotid bruit; carotid pulses are 2 + bilaterally Respiratory: No accessory muscle use, No respiratory distress; chest expansion is symmetric, chest is bilaterally symmetric, lungs clear to auscultation, other (dyspneic with conversation) Cardiovascular: irregularly irregular; No JVD; S1 and S2, systolic murmur Gastrointestinal: No tender; round, audible bowel sounds Extremities: no lower extremity edema bilateral Neurologic/Psychiatric: grossly intact (moves all extremities) Skin: No rash on exposed areas, No ulcerations on exposed areas Data Review Labs Laboratory Tests 06/07/20 11:35: White Blood Count 8.6, Red Blood Count 2.43L, Hemoglobin 5.3*L, Hematocrit 19*L, Mean Corpuscular Volume 78L, Mean Corpuscular Hemoglobin 22L, Mean Corpuscular Hemoglobin Concent 28L, Red Cell Distribution Width 17.2H, Platelet Count 328, Mean Platelet Volume 9.3, Immature Granulocyte % (Auto) 0, Neutrophils (%) (Auto) 68, Lymphocytes (%) (Auto) 21, Monocytes (%) (Auto) 7, Eosinophils (%) (Auto) 3, Basophils (%) (Auto) 0, Neutrophils # (Auto) 5.8, Lymphocytes # (Auto) 1.8, Monocytes # (Auto) 0.6, Eosinophils # (Auto) 0.3, Basophils # (Auto) 0.0, Immature Granulocyte # (Auto) 0.0, Neutrophils % (Manual) 71, Lymphocytes % (Ma nual) 19, Monocytes % (Manual) 7, Eosinophils % (Manual) 3, Basophils % (Manual) 0, Nucleated Red Blood Cells 1, Percent Immature Platelet Fraction 1.9, Polychromasia SLIGHT, Hypochromasia SLIGHT, Poikilocytosis SLIGHT, Basophilic Stippling SLIGHT, Anisocytosis SLIGHT, Microcytosis SLIGHT, Tear Drop Cells SLIGHT, Elliptocytes SLIGHT, Absolute Reticulocyte Count 77, Percent Reticulocyte Count 3.17H, Sodium Level 132L, Potassium Level 4.3, Chloride Level 94L, Carbon Dioxide Level 25, Anion Gap 13, Blood Urea Nitrogen 46H, Creatinine 2.33H, Estimat Glomerular Filtration Rate 27, BUN/Creatinine Ratio 20, Glucose Level 166H, Calcium Level 7.9L, Corrected Calcium 8.2L, Total Bilirubin 0.3, Aspartate Amino Transf (AST/SGOT) 19, Alanine Aminotransferase (ALT/SGPT) 25, Alkaline Phosphatase 104, B-Type Natriuretic Peptide 197.3H, Total Protein 6.8, Albumin 3.6 A/P-Cardiology Assessment/Admission Diagnosis Anemia of undetermined etiology Acute on chronic systolic and diastolic CHF - Echocardiogram of Mar 17, [address] Guillen showed concentric hypertrophy. LVEF 45-50%. Mild to MR and AoR. PASP 25-30mmHg CAD - according to the patient his first PTCA was 30 years ago. Likely to the RCA and left circumflex artery. 25 years ago he had laser treatment. In 2010 the patient had 6 stents due to an [place]. In 2011. Further 2 stents due to chest pain but there was no OR. 12/07/2010 proximal circumflex artery was treated with Promus 4 x 12, mid circumflex with Promus 3.0 x 15, mid RCA 4 x 28 Promus, mid RCA Promus 4 x 12, proximal RCA Promus 4 x 23, proximal RCA Promus 4 x 23. 11/04/2011 proximal RCA treated with Promus element 3.5 x 28 mm stent, mid first diagonal artery treated with Promus element 2.25 x 24 mm stent - Most recent coronary angiography of Dec [address] Guillen: showed moderate ostial LAD stenosis with FFR 0.94, which shows non-obstructive disease. Patent stent in the first diagonal artery and the RCA. Patent stent in the proximal LAD. PAD - Peripheral angiogram of Dec [address] Guillen: showed on the left showed moderate/severe diffuse calcified disease in the SFA, severe stenosis in the distal SFA. Suboptimal visualization in the popliteal artery however likely severe distal popliteal stenosis. At least one vessel runoff below the knee with a posterior tibial artery. Small diffusely diseased deep peroneal as well as anterior tibial artery. Right lower extremity shows moderate diffuse calcified disease in the SFA in the popliteal artery. Two-vessel runoff with a posterior tibial as well as deep peroneal artery. Heavily diseased small anterior tibial artery. - AAA Repair: 08/10/[address] Stallworth at [facility] [place] - CT of the abdomen without contrast on Dec 28, 2019: Previously treated abdominal aortic aneurysm. The maximum sac diameter is 4.6 cm. This is essentially unchanged compared to the prior examination from 2016 per Chronic kidney disease stage IV - follows with Dr. Leeann Guillen of nephrology Persistent atrial fibrillation - OAC with Eliquis Carotid arterial dz: On the right, there does appear to be abnormally elevated ICA/CCA ratio suggestive of likely greater than 70% stenosis. Velocity measurements would be suggested at approximately 50-69% narrowing. On the left, findings suggest a currently approximately 50-69% narrowing. per carotid u/s on Dec 28, 2019 HTN HLD VILMA Chronic RBBB DM 2 BPH and chronic dysuria and hesitancy Discussion and Recomendations * Please investigate and treat the source of anemia * Resume Eliquis if no active bleeding is suspected MATT GUPTA MD FACP FAC CCDS Jun 07, 2020 18:34
[2020-06-07] MEDS ORDERED: FUROSEMIDE 40 MG/4 ML INJ (LASIX) ONE (20:03)
[2020-06-07] MEDS: PANTOPRAZOLE 40 MG (PROTONIX) TAB PO SCH (21:09)
[2020-06-08 03:31] LABS: BASOPHILS % (AUTO) 0 % (0-10); EOSINOPHILS # (AUTO) 0.3 10^3/uL (0.0-0.3); EOSINOPHILS % (AUTO) 2 % (0-10); HEMATOCRIT 24 % (40-54); HEMOGLOBIN 7.2 g/dL (13.3-17.7); LYMPHOCYTES # (AUTO) 2.1 10^3/uL (1.0-4.0); LYMPHOCYTES % (AUTO) 19 % (12-44); MEAN CORPUSCULAR HEMOGLOBIN 24 pg (25-34); MEAN CORPUSCULAR HGB CONC 31 g/dL (32-36); MEAN CORPUSCULAR VOLUME 79 fL (80-99); MEAN PLATELET VOLUME 9.2 fL (9.0-12.2); MONOCYTES # (AUTO) 0.8 10^3/uL (0.0-1.0); MONOCYTES % (AUTO) 7 % (0-12); NEUTROPHILS # (AUTO) 7.6 10^3/uL (1.8-7.8); NEUTROPHILS % (AUTO) 70 % (42-75); PLATELET COUNT 276 10^3/uL (130-400); WHITE BLOOD COUNT 10.8 10^3/uL (4.3-11.0)
[2020-06-08 03:56] LABS: ALBUMIN 3.5 GM/DL (3.2-4.5)
[2020-06-08 03:59] LABS: TOTAL PROTEIN 6.9 GM/DL (6.4-8.2)
[2020-06-08 04:01] LABS: BILIRUBIN,TOTAL 0.6 MG/DL (0.1-1.0)
[2020-06-08 04:02] LABS: CREATININE SERUM 2.28 MG/DL (0.60-1.30)
[2020-06-08] MEDS: PANTOPRAZOLE 40 MG (PROTONIX) TAB PO SCH ×2 (08:22→20:56)
[2020-06-08] MEDS ORDERED: NS IV 500 ML 500 ML IV SCH (08:45)
--- NOTE | 2020-06-08 09:21 | Progress Note - Cardiology ---
Cardiology SOAP Progress Note Subjective: States he feels better this morning No c/o CP or palpitations SOB improved Objective: I&O/Vital Signs 06/08/20 06/09/20 06/09/20 06/09/20 23:46 00:55 01:00 03:53 Temp 36.2 36.3 Pulse 69 85 86 Resp 18 18 B/P (MAP) 156/84 (108) 106/60 (75) Pulse Ox 95 98 96 O2 Delivery Nasal Cannula Nasal Cannula Nasal Cannula O2 Flow Rate 2.00 2.00 2.00 06/09/20 07:00 Pulse 83 06/09/20 00:00 Intake Total 1200 ml Output Total 2350 ml Balance -1150 ml Weight (Pounds): 276 Weight (Ounces): 0.0 Weight (Calculated Kilograms): 125.063544 Constitutional: AAO x 3, well-developed, well-nourished Respiratory: No accessory muscle use, No respiratory distress; chest expansion is symmetric, chest is bilaterally symmetric, lungs clear to auscultation, other (dyspneic with conversation) Cardiovascular: irregularly irregular; No JVD; S1 and S2, systolic murmur Gastrointestional: No tender; round, audible bowel sounds Extremities: no lower extremity edema bilateral Neurologic/Psychiatric: grossly intact (moves all extremities) Skin: No rash on exposed areas, No ulcerations on exposed areas Results/Procedures: Labs Laboratory Tests 06/08/20 19:54: Glucometer 326H 06/09/20 08:00: White Blood Count 10.7, Red Blood Count 3.44L, Hemoglobin 8.3L, Hematocrit 27L, Mean Corpuscular Volume 79L, Mean Corpuscular Hemoglobin 24L, Mean Corpuscular Hemoglobin Concent 31L, Red Cell Distribution Width 17.1H, Platelet Count 267, Mean Platelet Volume 9.4, Sodium Level 131L, Potassium Level 3.9, Chloride Level 91L, Carbon Dioxide Level 26, Anion Gap 14, Blood Urea Nitrogen 33H, Creatinine 1.85H, Estimat Glomerular Filtration Rate 35, BUN/Creatinine Ratio 18, Glucose L evel 220H, Calcium Level 8.5 A/P: Assessment: Anemia of undetermined etiology Acute on chronic systolic and diastolic CHF - Echocardiogram of Mar 17, [address] Guillen showed concentric hypertrophy. LVEF 45-50%. Mild to MR and AoR. PASP 25-30mmHg CAD - according to the patient his first PTCA was 30 years ago. Likely to the RCA and left circumflex artery. 25 years ago he had laser treatment. In 2010 the patient had 6 stents due to an TN. In 2011. Further 2 stents due to chest pain but there was no TN. 12/07/2010 proximal circumflex artery was treated with Promus 4 x 12, mid circumflex with Promus 3.0 x 15, mid RCA 4 x 28 Promus, mid RCA Promus 4 x 12, proximal RCA Promus 4 x 23, proximal RCA Promus 4 x 23. 11/04/2011 proximal RCA treated with Promus element 3.5 x 28 mm stent, mid first diagonal artery treated with Promus element 2.25 x 24 mm stent - Most recent coronary angiography of Dec [address] Guillen: showed moderate ostial LAD stenosis with FFR 0.94, which shows non-obstructive disease. Patent stent in the first diagonal artery and the RCA. Patent stent in the proximal LAD. PAD - Peripheral angiogram of Dec [address] Guillen: showed on the left showed moderate/severe diffuse calcified disease in the SFA, severe stenosis in the distal SFA. Suboptimal visualization in the popliteal artery however likely severe distal popliteal stenosis. At least one vessel runoff below the knee with a posterior tibial artery. Small diffusely diseased deep peroneal as well as anterior tibial artery. Right lower extremity shows moderate diffuse calcified disease in the SFA in the popliteal artery. Two-vessel runoff with a posterior tibial as well as deep peroneal artery. Heavily diseased small anterior tibial artery. - AAA Repair: 08/10/[address] Stallworth at [place], [place] - CT of the abdomen without contrast on Dec 28, 2019: Previously treated abdominal aortic aneurysm. The maximum sac diameter is 4.6 cm. This is essentially unchanged compared to the prior examination from 2016 per Chronic kidney disease stage IV - follows with Dr. Leeann Guillen of nephrology Persistent atrial fibrillation - OAC with Eliquis Carotid arterial dz: On the right, there does appear to be abnormally elevated ICA/CCA ratio suggestive of likely greater than 70% stenosis. Velocity measurements would be suggested at approximately 50-69% narrowing. On the left, findings suggest a currently approximately 50-69% narrowing. per carotid u/s on Dec 28, 2019 HTN HLD VILMA Chronic RBBB DM 2 BPH and chronic dysuria and hesitancy Plan: * Please investigate and treat the source of anemia * Resume Eliquis if no active bleeding is suspected * Advise low dose ASA d/t known h/o CAD if ok with surgical/medical services * Receiving transfusion today * Give IV Lasix following transfusion * Monitor lab closely * Plan is for endoscopy tomorrow * Spoke with Dr. Melgoza this morning DEANNE GUEVARA Jun 08, 2020 09:21
[2020-06-08] MEDS ORDERED: FUROSEMIDE 40 MG/4 ML INJ (LASIX) IVP NR (09:30)
[2020-06-08] MEDS ORDERED: MAGNESIUM CITRATE 300 ML BTL PO ONE (10:00)
[2020-06-08 10:15] VITALS: BP 120/78
[2020-06-08 10:30] VITALS: BP 106/89
--- NOTE | 2020-06-08 11:25 | Physical Therapy Evaluation ---
PT Evaluation-General Medical Diagnosis Admission Date Jun 07, 2020 at 12:46 Medical Diagnosis: anemia/CHF/A-fib Onset Date: Jun 07, 2020 Therapy Diagnosis Therapy Diagnosis: generalized weakness/debility Height/Weight Height (Feet): 5 Height (Inches): 9.00 Weight (Pounds): 276 Weight (Ounces): 0.0 Precautions Precautions/Isolations: Fall Prevention, Standard Precautions Referral Physician: Rhona Reason for Referral: Evaluation/Treatment Medical History Pertinent Medical History: Atrial Fib, CAD, DM, Heart Failure, HTN, Renal Insufficiency Current History ER secondary decreased Hgb/weakness Reviewed History: Yes Social History Home: Single Level Prior Prior Level of Function SCALE: Activities may be completed with or without assistive devices. 7-Dsrtaraifk-nbfulih completes the activity by him/herself with no assistance from a helper. 5-Set-up or Clean-up Assistance-helper sets up or cleans up; patient completes activity. [place] assists only prior to or following the activity. 4-Supervision or Touching Assistance-helper provides verbal cues and/or touching/steadying and/or contact guard assistance as patient completes activity. Assistance may be provided throughout the activity or intermittently. 3-Partial/Moderate Assistance-helper does LESS THAN HALF the effort. [place] lifts, holds or supports trunk or limbs, but provides less than half the effort. 2-Substantial/Maximal Assistance-helper does MORE THAN HALF the effort. [place] lifts or holds trunk or limbs and provides more than half the effort. 5-Mtzwotrkd-llyebq does ALL the effort. Patient does none of the effort to complete the activity. Or, the assistance of 2 or more helpers is required for the patient to complete the activity. If activity was not attempted, code reason: 7-Patient Refused. 9-Not Applicable-not attempted and the patient did not perform the activity before the current illness, exacerbation or injury. 10-Not Attempted due to Environmental Limitations-(lack of equipment, weather restraints, etc.). 88-Not Attempted due to Medical Conditions or Safety Concerns. Bed Mobility: 6 Transfers (B,C,W/C): 6 Gait: 6 Indoor Mobility (Ambulation): Independent Stairs: Not Applicalbe Prior Devices Use: Walker Prior Device Use: 4WW PT Evaluation-Current Subjective Patient agrees to PT. Family present. Objective Patient Orientation: Normal For Age Attachments: Oxygen, Crabtree Catheter ROM/Strength ROM Lower Extremities bilateral LE WFL Strength Lower Extremities 4-/5 grossly bilateral LE Integumentary/Posture Integumentary refer to nursing notes Bladder Incontinence: Crabtree Cath Posture WFL Neuromuscular (Tone, Coordination, Reflexes) grossly intact Sensory Vision: Wears Glasses Hearing: Impaired Transfers Roll Left to Right (QC): 4 Sit to Lying (QC): 4 Lying to Sitting/Side of Bed(Q: 4 Sit to Stand (QC): 4 Chair/Ewk-vs-Tvdgy Xfer(QC): 4 Gait Does the Patient Walk?: Yes Mode of Locomotion: Walk Anticipated Mode of Locomotion: Walk Walk 10 feet (QC): 4 Walk 50 ft with 2 Turns(QC): 4 Walk 150 ft (QC): 4 Distance: 175' Gait Assistive Device: Walker 4 Wheeled Comments/Gait Description safe and functional gait sequence with increase in fatigue Balance Sitting Static: Normal Sitting Dynamic: Normal Standing Static: Fair Standing Dynamic: Fair Picking up an Object (QC): 4 Assessment/Needs 80 y.o. male, will benefit from skilled PT to address functional strength and mobility to improve current LOF to safely return to home with good family support and home health. Rehab Potential: Fair PT Family Resource Management Professor Goals Alf Goals PT Alf Goals Time Frame: Jun 17, 2020 Roll Left & Right (QC): 5 Sit to Lying (QC): 5 Lying-Sitting on Side/Bed(QC): 5 Sit to Stand (QC): 5 Chair/Exc-kg-Uqfxp Xfer(QC): 5 Toilet Transfer (QC): 5 Car Transfer (QC): 5 Does the Patient Walk: Yes Walk 10 feet (QC): 5 Walk 50ft with 2 Turns (QC): 5 Walk 150 ft (QC): 5 PT Plan Problem List Problem List: Activity Tolerance, Functional Strength, Safety, Balance, Gait, Transfer, Bed Mobility Treatment/Plan Treatment Plan: Continue Plan of Care Treatment Plan: Bed Mobility, Education, Functional Activity Jean-Pierre, Functional Strength, Gait, Safety, Therapeutic Exercise, Transfers Treatment Duration: Jun 17, 2020 Frequency: 6 times per week Estimated Hrs Per Day: .25 hour per day Patient and/or Family Agrees t: Yes Discharge Recommendations Therapy Discharge Recommendati: Home & Family Time/GCodes Time In: 940 Time Out: 958 Total Billed Treatment Time: 18 Total Billed Treatment 1 visit EVModC 18 min YASMANI MEAD PT Jun 08, 2020 11:25
[2020-06-08] MEDS ORDERED: SERT50TA2 PO (11:53)
[2020-06-08] MEDS ORDERED: POTA10CA43 PO (11:53)
[2020-06-08] MEDS ORDERED: ATOR40TA70 PO (11:53)
[2020-06-08] MEDS ORDERED: GLIP10TA13 PO (11:53)
[2020-06-08] MEDS ORDERED: METO2.5T PO (11:53)
[2020-06-08] MEDS ORDERED: ASPI-1238 PO (12:11)
[2020-06-08] MEDS ORDERED: GUAI-977 PO (12:14)
[2020-06-08] MEDS ORDERED: MECL-149 PO (12:14)
--- NOTE | 2020-06-08 12:41 | Progress Note - Hospitalist ---
Subjective HPI/CC On Admission Date Seen by Provider: Jun 08, 2020 Time Seen by Provider: 12:36 Pt is a 80Cm with a PMH of CKD Stage 3, HTN, HLD, CAD, CHF who presented to the ER due to abnormal labs. He states that he had COVID back in February and ever since then he has not felt well but has been improving with therapy. He descri bes his symptoms as SOB and fatigue. He was able to walk with a walker but lately has not even been able to stand long enough to shave and has to have a barstool to help. He had blood work done today which showed a hemoglobin in the 5s and he was referred to the ER. His daughter reports that he has been more pale in nature. He states that occasionally he has noted dark stools but they are mostly a light brown color. Subjective/Events-last exam Pt reports feeling better. Was able to walk with therapy and was less winded but still somewhat short of breath with exertion. Plan for EGD/colonoscopy tomorrow. Objective Exam Vital Signs Vital Signs Date Time Temp Pulse Resp B/P (MAP) Pulse Ox O2 Delivery O2 Flow Rate FiO2 06/08/20 11:38 Nasal Cannula 2.00 06/08/20 11:36 36.6 96 21 119/100 (106) 96 Capillary Refill : Less Than 3 Seconds General Appearance: No Apparent Distress, Chronically ill, Obese Respiratory: Lungs Clear, No Respiratory Distress Cardiovascular: Regular Rate, Rhythm, No Murmur Gastrointestinal: Normal Bowel Sounds, Non Tender, Soft Neurologic/Psychiatric: Alert, Oriented x3 Results/Procedures Lab Laboratory Tests 06/08/20 03:10 Patient resulted labs reviewed. Imaging: Reviewed Imaging Report Assessment/Plan Assessment and Plan Assess & Plan/Chief Complaint Symptomatic anemia Hgb up to 7.2 today, transfuse 1 more unit to get to 8 Unclear etiology Last Hgb per his PCP was 8.4 1 month ago Pending iron studies surgery consulted, plans for EGD, colonoscopy tomorrow CHF, acutely decompensated paroxysmal Atrial fibrillation Cardiology consulted, appreciate recs Continue home meds Continue home oxygen supplementation CAD HTN HLD Continue home meds Hold any anticoagulation due to anemia IDDMII Continue home insulin, hold glipizide for now BPH Continue Flomax DVT ppx: SCDs only due to anemia Diagnosis/Problems Diagnosis/Problems (1) Insulin dependent diabetes mellitus (2) HLD (hyperlipidemia) (3) Essential (primary) hypertension (4) CAD (coronary artery disease) (5) Chronic respiratory failure (6) BPH (benign prostatic hyperplasia) (7) Symptomatic anemia Status: Acute (8) Afib Status: Acute (9) CKD (chronic kidney disease) Status: Acute (10) CHF (congestive heart failure) Status: Acute (11) Generalized weakness Status: Acute GABE GUADALUPE MD Jun 08, 2020 12:41
[2020-06-08 12:43] VITALS: BP 154/107
[2020-06-08] MEDS ORDERED: KCL 10 MEQ TAB (MICRO K) PO SCH (12:45)
[2020-06-08] MEDS ORDERED: MECLIZINE 25 MG (ANTIVERT) TAB PO PRN (12:45)
[2020-06-08] MEDS ORDERED: guaiFENesin (MUCINEX) 600 MG TAB PO PRN (12:45)
[2020-06-08] MEDS ORDERED: amLODIPine 5 MG (NORVASC) TAB PO SCH (13:00)
[2020-06-08] MEDS ORDERED: METOLAZONE 2.5 MG (ZAROXOLYN) TAB PO SCH (13:00)
[2020-06-08] MEDS ORDERED: amLODIPine 5 MG (NORVASC) TAB ONE (13:29)
[2020-06-08] MEDS ORDERED: GABAPENTIN 100 MG (NEURONTIN) CAP ONE (13:29)
[2020-06-08] MEDS ORDERED: KCL 10 MEQ TAB (MICRO K) PO ONE (13:29)
--- NOTE | 2020-06-08 13:46 | Progress Note - Cardiology ---
Cardiology SOAP Progress Note Subjective: Gen weakness, modest improvement No cp or palp or syncope Shortness of breath with activity No n/v/d Objective: I&O/Vital Signs 06/08/20 06/08/20 06/08/20 06/08/20 04:00 07:00 07:45 08:00 Temp 36.4 36.5 Pulse 90 99 100 Resp 13 12 B/P (MAP) 115/64 (81) 105/40 (61) Pulse Ox 100 94 95 O2 Delivery Nasal Cannula Nasal Cannula Nasal Cannula O2 Flow Rate 2.00 2.00 2.00 06/08/20 06/08/20 06/08/20 06/08/20 10:15 10:30 11:36 11:38 Temp 36.5 36.4 36.6 Pulse 98 101 96 Resp 20 18 21 B/P (MAP) 120/78 106/89 119/100 (106) Pulse Ox 95 96 96 O2 Delivery Nasal Cannula Nasal Cannula Nasal Cannula O2 Flow Rate 2.00 2.00 2.00 2.00 06/08/20 12:43 Temp 36.6 Pulse 95 Resp 22 B/P (MAP) 154/107 Pulse Ox 95 O2 Delivery Nasal Cannula O2 Flow Rate 2.00 06/08/20 00:00 Intake Total 300 ml Output Total 950 ml Balance -650 ml Weight (Pounds): 276 Weight (Ounces): 0.0 Weight (Calculated Kilograms): 125.001706 Constitutional: AAO x 3, well-developed, well-nourished Respiratory: No accessory muscle use, No respiratory distress; chest expansion is symmetric, chest is bilaterally symmetric, lungs clear to auscultation, other (dyspneic with conversation) Cardiovascular: irregularly irregular; No JVD; S1 and S2, systolic murmur Gastrointestional: No tender; round, audible bowel sounds Extremities: no lower extremity edema bilateral Neurologic/Psychiatric: grossly intact (moves all extremities) Skin: No rash on exposed areas, No ulcerations on exposed areas Results/Procedures: Labs Laboratory Tests 06/08/20 03:10: White Blood Count 10.8, Red Blood Count 2.99L, Hemoglobin 7.2#L, Hematocrit 24L, Mean Corpuscular Volume 79L, Mean Corpuscular Hemoglobin 24L, Mean Corpuscular Hemoglobin Concent 31L, Red Cell Distribution Width 17.0H, Platelet Count 276, Mean Platelet Volume 9.2, Immature Granulocyte % (Auto) 0, Neutrophils (%) (Auto) 70, Lymphocytes (%) (Auto) 19, Monocytes (%) (Auto) 7, Eosinophils (%) (Auto) 2, Basophils (%) (Auto) 0, Neutrophils # (Auto) 7.6, Lymphocytes # (Auto) 2.1, Monocytes # (Auto) 0.8, Eosinophils # (Auto) 0.3, Basophils # (Auto) 0.0, Immature Granulocyte # (Auto) 0.0, Sodium Level 133L, Potassium Level 4.0, Chloride Level 95L, Carbon Dioxide Level 24, Anion Gap 14, Blood Urea Nitrogen 45H, Creatinine 2.28H, Estimat Glomerular Filtration Rate 28, BUN/Creatinine Ratio 20, Glucose Level 172H, Calcium Level 8.0L, Corrected Calcium 8.4L, Total Bilirubin 0.6, Aspartate Amino Transf (AST/SGOT) 18, Alanine Aminotransferase (ALT/SGPT) 23, Alkaline Phosphatase 100, Total Protein 6.9, Albumin 3.5 Laboratory Tests 06/07/20 11:35 06/08/20 03:10 A/P: Assessment: Anemia of undetermined etiology Acute on chronic systolic and diastolic CHF - Echocardiogram of Mar 17, [address] Guillen showed concentric hypertrophy. LVEF 45-50%. Mild to MR and AoR. PASP 25-30mmHg CAD - according to the patient his first PTCA was 30 years ago. Likely to the RCA and left circumflex artery. 25 years ago he had laser treatment. In 2010 the patient had 6 stents due to an DC. In 2011. Further 2 stents due to chest pain but there was no DC. 12/07/2010 proximal circumflex artery was treated with Promus 4 x 12, mid circumflex with Promus 3.0 x 15, mid RCA 4 x 28 Promus, mid RCA Promus 4 x 12, proximal RCA Promus 4 x 23, proximal RCA Promus 4 x 23. 11/04/2011 proximal RCA treated with Promus element 3.5 x 28 mm stent, mid first diagonal artery treated with Promus element 2.25 x 24 mm stent - Most recent coronary angiography of Dec [address] Guillen: showed moderate ostial LAD stenosis with FFR 0.94, which shows non-obstructive disease. Patent stent in the first diagonal artery and the RCA. Patent stent in the proximal LAD. PAD - Peripheral angiogram of Dec [address] Guillen: showed on the left showed moderate/severe diffuse calcified disease in the SFA, severe stenosis in the distal SFA. Suboptimal visualization in the popliteal artery however likely severe distal popliteal stenosis. At least one vessel runoff below the knee with a posterior tibial artery. Small diffusely diseased deep peroneal as well as anterior tibial artery. Right lower extremity shows moderate diffuse calcified disease in the SFA in the popliteal artery. Two-vessel runoff with a posterior tibial as well as deep peroneal artery. Heavily diseased small anterior tibial artery. - AAA Repair: 08/10/[address] Stallworth at [place], [place] - CT of the abdomen without contrast on Dec 28, 2019: Previously treated abdominal aortic aneurysm. The maximum sac diameter is 4.6 cm. This is essentially unchanged compared to the prior examination from 2016 per Chronic kidney disease stage IV - follows with Dr. Leeann Guillen of nephrology Persistent atrial fibrillation - OAC with Eliquis Carotid arterial dz: On the right, there does appear to be abnormally elevated ICA/CCA ratio suggestive of likely greater than 70% stenosis. Velocity measurements would be suggested at approximately 50-69% narrowing. On the left, findings suggest a currently approximately 50-69% narrowing. per carotid u/s on Dec 28, 2019 HTN HLD VILMA Chronic RBBB DM 2 BPH and chronic dysuria and hesitancy Plan: * Please investigate and treat the source of anemia * Resume Eliquis if no active bleeding is suspected * Advise low dose ASA d/t known h/o CAD if ok with surgical/medical services * Receiving transfusion today. Give IV Lasix following transfusion * Monitor lab closely MATT GUPTA MD FACP FAC CCDS Jun 08, 2020 13:46
[2020-06-08] MEDS: GABAPENTIN 100 MG (NEURONTIN) CAP PO SCH ×2 (13:47→22:44)
--- NOTE | 2020-06-08 14:09 | Occupational Therapy Eval ---
OT Evaluation-General/PLF Medical Diagnosis Admission Date Jun 07, 2020 at 12:46 Medical Diagnosis: anemia/CHF/A-fib Onset Date: Jun 07, 2020 Therapy Diagnosis Therapy Diagnosis: Weakness Height/Weight Height (Feet): 5 Height (Inches): 9.00 Weight (Pounds): 276 Weight (Ounces): 0.0 Precautions Precautions/Isolations: Fall Prevention, Standard Precautions Weight Bear Status Weight Bearing Restriction: Weight Bearing/Tolerated Referral Physician: Rhona Referral Reason: Activity Tolerance, Self Care, Evaluation/Treatment, Strengthening/ROM Medical History Pertinent Medical History: Atrial Fib, CAD, DM, Heart Failure, HTN, Renal Insufficiency Reviewed History: Yes Social History Home: Single Level Current Living Status: Children Entry Into Home: Stairs With Railing Steps Into Home: 2 ADL-Prior Level of Function SCALE: Activities may be completed with or without assistive devices. 4-Iaqnioxcad-yuqadsp completes the activity by him/herself with no assistance from a helper. 5-Set-up or Clean-up Assistance-helper sets up or cleans up; patient completes activity. [place] assists only prior to or following the activity. 4-Supervision or Touching Assistance-helper provides verbal cues and/or touching/steadying and/or contact guard assistance as patient completes activity. Assistance may be provided throughout the activity or intermittently. 3-Partial/Moderate Assistance-helper does LESS THAN HALF the effort. [place] lifts, holds or supports trunk or limbs, but provides less than half the effort. 2-Substantial/Maximal Assistance-helper does MORE THAN HALF the effort. [place] lifts or holds trunk or limbs and provides more than half the effort. 5-Zjqgeylpv-spfnmm does ALL the effort. Patient does none of the effort to complete the activity. Or, the assistance of 2 or more helpers is required for the patient to complete the activity. If activity was not attempted, code reason: 7-Patient Refused. 9-Not Applicable-not attempted and the patient did not perform the activity before the current illness, exacerbation or injury. 10-Not Attempted due to Environmental Limitations-(lack of equipment, weather restraints, etc.). 88-Not Attempted due to Medical Conditions or Safety Concerns. ADL PLOF Comments Pt.'s daughter and 14 year old grandson lives with him. He is able to clean himself up and dress while sitting on side of bed. His daughter cooks and cleans. He does not get into his shower because he is afraid of falling. Self Care: Needed Some Help Functional Cognition: Unknown DME/Equipment: Tub/Shower DME/Equipment Comments Pt. has several [address] Self: Yes OT Current Status Subjective No pain reported. Pt. does state that he has just been "wore out." Appearance Pt. up in chair. Daughter in room. Mental Status/Objective Patient Orientation: Person, Place, Time, Situation Attachments: Crabtree Catheter, IV, Oxygen, Telemetry ADL-Treatment Eating (QC): 5 (Liquid diet) On/Off Footwear (QC): 2 (Pt. explains how he is able to do this sitting on side of bed. In current sitting situation, (on seat of walker), pt. is unable to reach feet.) Toileting Hygiene (QC): 3 (Per pt, he only needed "a little help" on toilet.) Other Treatments Pt. stands with min assist due to multiple lines and because of sitting on rolling walker. Pt. requires cues to stay on task at times. Pt. stood with min assist and turns around to stand at walker. Transfers to bed with CGA. All needs met. Education OT Patient Education: Correct positioning, Modified ADL techniques, Progress toward Goal/Update tx plan, Purpose of tx/functional activities, Reviewed precautions, Rehab process, Transfer techniques Teaching Recipient: Patient Teaching Methods: Demonstration, Discussion Response to Teaching: Verbalize Understanding, Return Demonstration OT Short Term Goals Short Term Goals Time Frame: Jun 15, 2020 Eatin Oral hygiene: 4 Toileting hygiene: 3 Shower/bathe self: 3 Upper body dressin Lower body dressin Putting on/taking off footwear: 3 OT [facility] Goals Car Detailer Goals Time Frame: Jun 22, 2020 Eating (QC): 6 Oral Hygiene (QC): 5 Toileting Hygiene (QC): 6 Shower/Bathe Self (QC): 4 Upper Body Dressing (QC): 5 Lower Body Dressing (QC): 4 On/Off Footwear (QC): 4 Additional Goals: 1-Demonstrate ADL Tasks, 2-Verbalize Understanding, 3- ImproveStrength/Jean-Pierre 1=Demonstrate adherence to instructed precautions during ADL tasks. 2=Patient will verbalize/demonstrate understanding of assistive devices/modifications for ADL. 3=Patient will improve strength/tolerance for activity to enable patient to perform ADL's. OT Education/Plan Problem List/Assessment Assessment: Decreased Activ Tolerance, Dependent Transfers, Impaired Funct Ba marge, Impaired I ADL's, Impaired Self-Care Skills Discharge Recommendations Plan/Recommendations: Continue POC Therapy Discharge Recommendati: Post Acute OT Treatment Plan/Plan of Care Treatment,Training & Education: Yes Patient would benefit from OT for education, treatment and training to promote independence in ADL's, mobility, safety and/or upper extremity function for ADL's. Plan of Care: ADL Retraining, Functional Mobility, UE Funct Exercise/Act Treatment Duration: Jun 22, 2020 Frequency: 5 times per week Estimated Hrs Per Day: .25 hour per day Agreement: Yes Rehab Potential: Fair Time/GCodes Start Time: 13:30 Stop Time: 14:00 Total Time Billed (hr/min): 30 Billed Treatment Time 1, EVH x 15minutes, FA x 15minutes FAZAL ARIAS OT Jun 08, 2020 14:09
[2020-06-08] MEDS ORDERED: MAGNESIUM CITRATE 300 ML BTL PO NR (14:30)
--- NOTE | 2020-06-08 14:59 | Progress Note ---
Subjective Date Seen by a Provider: Jun 08, 2020 Time Seen by a Provider: 14:30 Subjective/Events-last exam doing well. no signs clinical bleed. hb elevation appropriate per PRBC. Objective Exam Vital Signs Date Time Temp Pulse Resp B/P (MAP) Pulse Ox O2 Delivery O2 Flow Rate FiO2 06/08/20 13:00 96 06/08/20 12:43 36.6 95 22 154/107 95 Nasal Cannula 2.00 06/08/20 11:38 Nasal Cannula 2.00 06/08/20 11:36 36.6 96 21 119/100 (106) 96 Nasal Cannula 2.00 06/08/20 10:30 36.4 101 18 106/89 96 2.00 06/08/20 10:15 36.5 98 20 120/78 95 Nasal Cannula 2.00 06/08/20 08:00 95 Nasal Cannula 2.00 06/08/20 07:45 36.5 100 12 105/40 (61) 94 Nasal Cannula 2.00 06/08/20 07:00 99 06/08/20 04:00 36.4 90 13 115/64 (81) 100 Nasal Cannula 2.00 06/08/20 01:00 96 06/08/20 00:00 36.8 98 15 141/78 (99) 98 NIV CPAP 2.00 06/07/20 23:00 NIV CPAP 2.00 06/07/20 21:00 95 Nasal Cannula 2.00 06/07/20 20:00 36.7 87 18 174/76 (108) 93 Nasal Cannula 2.00 06/07/20 19:00 Nasal Cannula 2.00 06/07/20 19:00 82 06/07/20 18:25 36.2 85 20 117/91 95 Nasal Cannula 2.00 06/07/20 18:20 36.1 85 18 111/54 92 Nasal Cannula 2.00 06/07/20 18:15 36.4 82 20 136/67 92 Nasal Cannula 2.00 06/07/20 18:10 36.4 87 18 123/87 91 2.00 06/07/20 16:30 36.1 78 18 124/98 96 Nasal Cannula 2.00 06/07/20 16:25 36.0 85 18 127/94 97 Nasal Cannula 2.00 06/07/20 16:20 36.1 84 20 141/81 96 Nasal Cannula 2.00 06/07/20 16:15 36.1 82 18 122/75 96 Nasal Cannula 2.00 06/07/20 15:30 Nasal Cannula 2.00 06/07/20 15:11 80 I & O 06/08/20 07:00 Intake Total 675 ml Output Total 2850 ml Balance -2175 ml Capillary Refill : Less Than 3 Seconds General Appearance: No Apparent Distress HEENT: PERRL/EOMI Neck: Full Range of Motion Respiratory: Chest Non Tender, Decreased Breath Sounds, Wheezing Cardiovascular: Regular Rate, Rhythm Gastrointestinal: normal bowel sounds, non tender, soft Extremity: Normal Capillary Refill Neurologic/Psychiatric: Alert, Oriented x3 Skin: Normal Color Lymphatic: No Adenopathy Results Lab Laboratory Tests 06/08/20 03:10: White Blood Count 10.8, Red Blood Count 2.99L, Hemoglobin 7.2#L, Hematocrit 24L, Mean Corpuscular Volume 79L, Mean Corpuscular Hemoglobin 24L, Mean Corpuscular Hemoglobin Concent 31L, Red Cell Distribution Width 17.0H, Platelet Count 276, Mean Platelet Volume 9.2, Immature Granulocyte % (Auto) 0, Neutrophils (%) (Auto) 70, Lymphocytes (%) (Auto) 19, Monocytes (%) (Auto) 7, Eosinophils (%) (Auto) 2, Basophils (%) (Auto) 0, Neutrophils # (Auto) 7.6, Lymphocytes # (Auto) 2.1, Monocytes # (Auto) 0.8, Eosinophils # (Auto) 0.3, Basophils # (Auto) 0.0, Immature Granulocyte # (Auto) 0.0, Sodium Level 133L, Potassium Level 4.0, Chloride Level 95L, Carbon Dioxide Level 24, Anion Gap 14, Blood Urea Nitrogen 45H, Creatinine 2.28H, Estimat Glomerular Filtration Rate 28, BUN/Creatinine Ratio 20, Glucose Level 172H, Calcium Level 8.0L, Corrected Calcium 8.4L, Total Bilirubin 0.6, Aspartate Amino Transf (AST/SGOT) 18, Alanine Aminotransferase (ALT/SGPT) 23, Alkaline Phosphatase 100, Total Protein 6.9, Albumin 3.5 Assessment/Plan Assessment/Plan Assess & Plan/Chief Complaint sx anemia with hx GERD. scheduled for EGD and colonoscopy in am. MADELIN COX MD Jun 08, 2020 14:59
--- NOTE | 2020-06-08 15:01 | Progress Note-Pre Operative ---
Pre-Operative Progress Note H&P Reviewed The H&P was reviewed, patient examined and no changes noted. Date Seen by Provider: Jun 08, 2020 Time Seen by Provider: 15:00 Date H&P Reviewed: Jun 08, 2020 Time H&P Reviewed: 15:00 Pre-Operative Diagnosis: sx anemia with hx GERD and family hx colon ca MADELIN COX MD Jun 08, 2020 15:01
[2020-06-08] MEDS: TAMSULOSIN 0.4 MG (FLOMAX) CAP PO SCH (20:56)
[2020-06-08] MEDS ORDERED: SERTRALINE 50 MG (ZOLOFT) TABLET PO SCH (21:00)
[2020-06-09] MEDS: GABAPENTIN 100 MG (NEURONTIN) CAP PO SCH (05:38)
--- NOTE | 2020-06-09 08:41 | Progress Note - Hospitalist ---
Subjective HPI/CC On Admission Date Seen by Provider: Jun 09, 2020 Time Seen by Provider: 08:36 Pt is a 80Cm with a PMH of CKD Stage 3, HTN, HLD, CAD, CHF who presented to the ER due to abnormal labs. He states that he had COVID back in February and ever since then he has not felt well but has been improving with therapy. He describes his symptoms as SOB and fatigue. He was able to walk with a walker but lately has not even been able to stand long enough to shave and has to have a barstool to help. He had blood work done today which showed a hemoglobin in the 5s and he was referred to the ER. His daughter reports that he has been more pale in nature. He states that occasionally he has noted dark stools but they are mostly a light brown color. Subjective/Events-last exam Pt reports doing well. Still sleeping and CPAP in place but not complaints. Daughter at bedside. Plan for colonoscopy and EGD today too. Objective Exam Vital Signs Vital Signs Date Time Temp Pulse Resp B/P (MAP) Pulse Ox O2 Delivery O2 Flow Rate FiO2 06/09/20 07:00 83 06/09/20 03:53 36.3 18 106/60 (75) 96 Nasal Cannula 2.00 Capillary Refill : Less Than 3 Seconds General Appearance: No Apparent Distress, Chronically ill, Obese Respiratory: Lungs Clear, No Respiratory Distress Cardiovascular: Regular Rate, Rhythm, No Murmur Gastrointestinal: Non Tender, Soft Neurologic/Psychiatric: Alert, Oriented x3 Results/Procedures Lab Patient resulted labs reviewed. Imaging: Reviewed Imaging Report Assessment/Plan Assessment and Plan Assess & Plan/Chief Complaint Symptomatic anemia Hgb pending today, s/p 3 units of pRBCs Last Hgb per his PCP was 8.4 1 month ago Pending iron studies surgery consulted, plans for EGD, colonoscopy today CHF, acutely decompensated paroxysmal Atrial fibrillation Cardiology consulted, appreciate recs Continue home meds Continue home oxygen supplementation CAD HTN HLD Continue home meds Hold any anticoagulation due to anemia IDDMII Continue home insulin, hold glipizide for now BPH Continue Flomax DVT ppx: SCDs only due to anemia Diagnosis/Problems Diagnosis/Problems (1) Insulin dependent diabetes mellitus (2) HLD (hyperlipidemia) (3) Essential (primary) hypertension (4) CAD (coronary artery disease) (5) Chronic respiratory failure (6) BPH (benign prostatic hyperplasia) (7) Symptomatic anemia Status: Acute (8) Afib Status: Acute (9) CKD (chronic kidney disease) Status: Acute (10) CHF (congestive heart failure) Status: Acute (11) Generalized weakness Status: Acute GABE GUADALUPE MD Jun 09, 2020 08:41
[2020-06-09] MEDS ORDERED: LIDOCAINE JELLY 2% 6 ML SYRINGE ONE (08:53)
[2020-06-09] MEDS ORDERED: LACTATED RINGERS 1,000 ML IV ONE (08:54)
[2020-06-09] MEDS: PANTOPRAZOLE 40 MG (PROTONIX) TAB PO SCH (09:00)
[2020-06-09] MEDS ORDERED: VITAMIN D3 25 MCG (1,000 UNITS) TABLET PO SCH (09:00)
[2020-06-09] MEDS: TAMSULOSIN 0.4 MG (FLOMAX) CAP PO SCH (09:00)
[2020-06-09] MEDS ORDERED: ALLOPURINOL 100 MG (ZYLOPRIM) TAB PO SCH (09:00)
[2020-06-09] MEDS ORDERED: FUROSEMIDE 40 MG (LASIX) TAB PO SCH (09:00)
[2020-06-09 09:04] LABS: HEMOGLOBIN 8.3 g/dL (13.3-17.7); MEAN PLATELET VOLUME 9.4 fL (9.0-12.2); WHITE BLOOD COUNT 10.7 10^3/uL (4.3-11.0)
[2020-06-09 09:19] LABS: CALCIUM 8.5 MG/DL (8.5-10.1); CREATININE SERUM 1.85 MG/DL (0.60-1.30); POTASSIUM 3.9 MMOL/L (3.6-5.0)
[2020-06-09] MEDS ORDERED: proPOfol 200 MG/20 ML (DIPRIVAN) VIAL IV ONE (09:54)
[2020-06-09] MEDS ORDERED: MAGNESIUM CITRATE 300 ML BTL PO NR (10:00)
[2020-06-09] MEDS ORDERED: LACTATED RINGERS 1,000 ML IV STA (10:08)
[2020-06-09] MEDS ORDERED: HURRICAINE EXT TUBE (BENZOCAINE) XX PRN (10:15)
[2020-06-09] MEDS ORDERED: LIDOCAINE JELLY 2% 6 ML SYRINGE MM PRN (10:15)
[2020-06-09 10:40] VITALS: BP 153/70
[2020-06-09 10:45] VITALS: BP 144/79
--- NOTE | 2020-06-09 11:07 | Anesthesia-General Post-Op ---
MAC Patient Condition Mental Status/LOC: Same as Preop Cardiovascular: Satisfactory Nausea/Vomiting: Absent Respiratory: Satisfactory Pain: Controlled Complications: Absent Post Op Complications Complications None Follow Up Care/Instructions Patient Instructions None needed. Anesthesiology Discharge Order Discharge Order Patient is doing well, no complaints, stable vital signs, no apparent adverse anesthesia problems. ROBERTO WALL DO Jun 09, 2020 11:07
--- NOTE | 2020-06-09 11:49 | Physical Therapy Progress Note ---
Therapy Progress Note Patient having procedure on this date. PT to resume in YASMANI Merino PT Jun 09, 2020 11:49
--- NOTE | 2020-06-09 11:50 | Discharge Summary ---
Diagnosis/Chief Complaint Date of Admission Jun 07, 2020 at 12:46 Date of Discharge Admission Diagnosis symptomatic anemia Primary Care Heather Kemp Discharge Diagnosis (1) Insulin dependent diabetes mellitus (2) HLD (hyperlipidemia) (3) Essential (primary) hypertension (4) CAD (coronary artery disease) (5) Chronic respiratory failure (6) BPH (benign prostatic hyperplasia) (7) Symptomatic anemia Status: Acute (8) Afib Status: Acute (9) CKD (chronic kidney disease) Status: Acute (10) CHF (congestive heart failure) Status: Acute (11) Generalized weakness Status: Acute Discharge Summary Procedures/Consulations Dr. Hall- Cardiology Dr Rushing- Surgery Discharge Physical Exam Allergies: Coded Allergies: No Known Drug Allergies (Unverified , 01/19/18) Vitals & I&Os Vital Signs Date Time Temp Pulse Resp B/P (MAP) Pulse Ox O2 Delivery O2 Flow Rate FiO2 06/09/20 13:34 06/09/20 13:08 Nasal Cannula 2.00 06/09/20 12:00 36.3 81 18 96 General Appearance: No Apparent Distress, WD/WN Respiratory: Lungs Clear, No Respiratory Distress Cardiovascular: Regular Rate, Rhythm, No Murmur Neurologic/Psychiatric: Alert, Oriented x3 Hospital Course Pt was admitted to the hospital for symptomatic anemia. He was found to have a Hgb of 5.3 on arrival down from ~8.5 around 1 month ago. He was transfused 3 units total and felt much better. He underwent EGD and colonoscopy and was found to have reflux esophagitis and gastritis on EGD and sigmoid diverticulosis and a polyp on colonoscopy that was removed. His hemoglobin remained stable and he was discharged home at his request in stable condition to follow up with KENA Randolph with Dr Dubon his PCP. I did call and update Heather on this hospitalization and she will have lab work done next week to ensure he's doing well still. Labs (last 24 hrs) Patient resulted labs reviewed. Pending Labs Imaging: Reviewed Imaging Report Discussion & Recommendations Discharge Planning: >30 minutes discharge planning Discharge Home Medications: Active Scripts Active Pantoprazole Sodium 40 Mg Tablet. 40 Mg PO BID Reported Mucus Relief (Guaifenesin) 600 Mg Tab.er.12h 600 Mg PO Q12H PRN Meclizine HCl 25 Mg Tablet 25 Mg PO Q6H PRN Aspirin EC (Aspirin) 81 Mg Tablet.dr 81 Mg PO DAILY Zoloft (Sertraline HCl) 50 Mg Tablet 50 Mg PO HS Atorvastatin Calcium 40 Mg Tablet 40 Mg PO HS Metolazone 2.5 Mg Tablet 2.5 Mg PO 1300 Glipizide 10 Mg Tablet 5 Mg PO HS TAKES OF A 10MG Potassium Chloride 10 Meq Capsule.er 10 Meq PO Q48H Amlodipine Besylate 5 Mg Tablet 5 Mg PO 1300 Gabapentin 100 Mg Capsule 100 Mg PO 0700,1300,2300 Levemir Flextouch (Insulin Detemir) 100 Unit/1 Ml Insuln.pen 42 Unit SQ BID Vitamin D3 (Cholecalciferol (Vitamin D3)) 25 Mcg Tablet 25 Mcg PO DAILY Fish Oil 1,000 mg Capsule ([place] 3 Polyunsat Fatty Acids) 1,000 Mg Cap 2,000 Mg PO HS Flomax (Tamsulosin HCl) 0.4 Mg Cap 0.4 Mg PO BID Eliquis (Apixaban) 5 Mg Tablet 5 Mg PO 0700,1300 Lisinopril 10 Mg Tablet 10 Mg PO DAILY Allopurinol 100 Mg Tablet 100 Mg PO DAILY Furosemide 40 Mg Tablet 40 Mg PO DAILY Glipizide 10 Mg Tablet 10 Mg PO DAILY Instructions to patient/family Please see electronic discharge instructions given to patient. Copy Copies To 1: HEATHER KEMP KATELYN M MD Jun 09, 2020 11:50
[2020-06-09] MEDS ORDERED: PANT40TA52 PO (11:52)
--- NOTE | 2020-06-09 11:58 | Progress Note-Post Operative ---
Post-Operative Progess Note Surgeon (s)/Engineer Technical Staff (s) Surgeon MADELIN COX MD Engineer Technical Staff: none Pre-Operative Diagnosis sx anemia with hx GERD and family hx colon ca Post-Operative Diagnosis reflux eosphagitis(stage 2-3), small HH(2.5cm), mild-mod gastritis. chronic stage 2 ext and int hemorrhoids, mild sigmoid diverticulosis, small transvere polyp Procedure & Operative Findings Date of Procedure 06/09/20 Procedure Performed/Findings EGD with bx. Colonoscopy with bx. Anesthesia Type mac Estimated Blood Loss Estimated blood loss (mL): minimal Specimens/Packing Specimens Removed ge jxn, antrum, polyp colon MADELIN COX MD Jun 09, 2020 11:57
--- NOTE | 2020-06-09 11:59 | D/C HH Face to Face Order ---
D/C Face to Face Orders Instructions for Patient Via [facility], Patient Instructions/FollowUp: Please continue Physician to follow Patient: Anny Kemp Discharge Diet for Home: Cardiac Diet Patient Data-Allergies,Ht & Wt Patient Allergies: Coded Allergies: No Known Drug Allergies (Unverified , 01/19/18) Height (Feet): 5 Height (Inches): 9.00 Weight (Pounds): 276 Weight (Ounces): 0.0 Home Health Need/Face to Face Date of Face to Face: Jun 09, 2020 Clinical Findings: Generalized weakness and fatigue, Shortness of breath I have seen Pt [id number]: Yes Discharged To: Home Diagnosis/Conditions: Heart disease, Anemia Patient is Homebound due to: Sheryl fall risk due to instabilty, Shortness of breath/distress Homebound Status Due to the above stated illness, injury or surgical procedure (medical condition or diagnosis) and associated clinical findings, the patient is homebound because of his/her inability to leave home except with aid of a supportive device and/or person AND leaving the home requires a considerable and taxing effort or is medically contraindicated. Pt req the following assistanc: Aid of another person, Walker Home Health Nursing Orders Home Health Services Order: Nursing Services, Lead Retail Sales Associate-Evaluate & Treat, Physical Therapy-Evaluate & Treat Home Health Infusion Therapy Line Start Date: Jun 07, 2020 Therapy Orders Therapy Orders: OT (must have SN or PT order), Physical Therapy Therapy Specific Orders: Eval assistive deivces, Teach enviro modifications/safety, Increase strength/endurance Certify Stmt I certify that this patient is under my care and that I, a nurse practitioner or a physician; a ssn/ssbn assistant navigator working with me, had a face to face encounter that - meets the physician face to face encounter requirements with this patient as dated. GABE GUADALUPE MD Jun 09, 2020 11:58
--- NOTE | 2020-06-09 16:38 | OPERATIVE REPORT ---
DATE OF SERVICE: 06/09/2020 ATTENDING PRIMARY CARE PHYSICIAN: Dr. Thony Dubon. ADMITTING PHYSICIAN: Dr. Melgoza. PREOPERATIVE DIAGNOSIS: Symptomatic anemia with gastrointestinal bleed. POSTOPERATIVE DIAGNOSES: Reflux esophagitis between stage II and III. A small to moderate size hiatal hernia approximately 2.5 cm in size, moderate gastritis. No formal ulcerations or any active bleeding. Chronic stage II external and internal hemorrhoids, mild sigmoid diverticulosis. Transverse colonic polyp approximately 3 mm in size. PROCEDURE: EGD with biopsy, colonoscopy with biopsy. SURGEON: Madelin Rushing MD ANESTHESIA: Monitored anesthesia care. ESTIMATED BLOOD LOSS: Minimal. FINDINGS: Reflux esophagitis between stage II and III. A small to moderate size hiatal hernia approximately 2.5 cm in size, moderate gastritis. No formal ulcerations or any active bleeding. Chronic stage II external and internal hemorrhoids, mild sigmoid diverticulosis. Transverse colonic polyp approximately 3 mm in size. DISPOSITION: The patient tolerated the procedure well. INDICATIONS: The patient is a 80-year-old male who presented with weakness and shortness of breath and was found to be profoundly anemic with a hemoglobin in the 5 range. He has had 3 units of packed red blood cells transfusion and his hemoglobin has increased appropriately. He reports having dark tarry stools on an intermittent basis for the past few weeks. He also has never had a colonoscopy up to this point in his life. DESCRIPTION OF PROCEDURE: The patient was brought to the endoscopy suite, laid in the left lateral decubitus position. After adequate IV pain and sedative medications and monitored anesthesia care, the mouthpiece was applied. The endoscope was placed in the mouth, visualizing the pharynx and hypopharyngeal region. Vocal cords, epiglottis and vallecula identified and appeared to be normal. Endoscope was then intubated into the esophageal opening and esophagus insufflated. The endoscope was then advanced through the first, second and third portions of esophagus at the level of the GE junction, a reflux esophagitis between stage II and III identified. There were no ulcers or any bleeding identified. A biopsy was taken with forceps with visualization of good hemostasis. The endoscope was then advanced into the stomach and endoscope retroflexed, visualizing a small to moderate size hiatal hernia approximately 2.5 cm in size. There was a moderate severity gastritis. No formal ulcerations, polyps, or any neoplasms as well as no active bleeding. A biopsy was taken of the antrum to rule out H. pylori with visualization of good hemostasis. The endoscope was then advanced to the pylorus and the first and second portion of the duodenum, which appeared normal with no ulcerations. The endoscope was then slowly withdrawn while taking a second look and suctioning of residual air with no additional findings. We then proceeded with the colonoscopy and a digital rectal examination was performed, which revealed chronic stage II external and internal hemorrhoids, not actively edematous nor inflamed and no bleeding. Normal sphincter tone was felt and there were no palpable masses. Prostate gland was palpable and appeared normal. The endoscope was then intubated to the anus and rectum gently insufflated. The endoscope was then advanced to the valves of [place] of the rectum with no polyps or any neoplasms identified. Through the sigmoid colon, mild sigmoid diverticulosis identified with no signs of active bleeding. The endoscope was then advanced through the descending colon to the distal transverse colon where a small polyp approximately 3 mm in size was identified. This was biopsied and destroyed using forceps and electrocautery with visualization of good hemostasis. The endoscope was then advanced through the remainder of the transverse and ascending colon to the cecum. These segments were normal. No active bleeding sources identified. The endoscope was then slowly withdrawn while taking a second look and suctioning of residual air with no additional findings. The patient tolerated the procedure well. We feel that he likely had an upper gastrointestinal bleed from reflux esophagitis as well as a hiatal hernia along with being on anticoagulation with Eliquis. At this time, he does not appear to have any signs of ongoing bleeding and we will continue with medical management with a PPI acid logistics management specialist as well as Carafate and monitoring his hemoglobin. If he is stable and does not have any signs of gastrointestinal bleeding and tolerating a regular diet, he may be discharged home. We will recommend continue PPI acid logistics management specialist as well as Carafate q.i.d. for 2 weeks then p.r.n. Job ID: [id number] DocumentID: [id number] Dictated Date: 06/09/2020 10:51:23 Kitchen Food Assembler Date: 06/09/2020 16:36:46 Dictated By: MADELIN RUSHING MD
== END 2020-06-09 13:34 | disposition home or self-care (01) | DRG 368 ==
LOC: EDUNIT# 11:22 → ER 11:23 → CSD 12:46
PROVIDERS: ADMIT Family Medicine; ATTEND Family Medicine
PROC: 0DBL8ZZ Excision of Transverse Colon, Via Natural or Artificial Opening Endoscopic (ICD-10-PCS; 2020-06-09)
PROC: 0DB48ZX Excision of Esophagogastric Junction, Via Natural or Artificial Opening Endoscopic, Diagnostic (ICD-10-PCS; principal; 2020-06-09 10:01)
PROC: 0DB68ZX Excision of Stomach, Via Natural or Artificial Opening Endoscopic, Diagnostic (ICD-10-PCS; 2020-06-09 10:01)
DX: K21.01 Gastro-esophageal reflux disease with esophagitis, with bleeding (principal); K29.71 Gastritis, unspecified, with bleeding; K57.31 Diverticulosis of large intestine without perforation or abscess with bleeding; I50.43 Acute on chronic combined systolic (congestive) and diastolic (congestive) heart failure; I13.0 Hypertensive heart and chronic kidney disease with heart failure and stage 1 through stage 4 chronic kidney disease, or unspecified chronic kidney disease; N18.4 Chronic kidney disease, stage 4 (severe); I48.19 Other persistent atrial fibrillation; E11.51 Type 2 diabetes mellitus with diabetic peripheral angiopathy without gangrene; M10.9 Gout, unspecified; Z87.891 Personal history of nicotine dependence; I25.10 Atherosclerotic heart disease of native coronary artery without angina pectoris; M19.90 Unspecified osteoarthritis, unspecified site; G89.29 Other chronic pain; M54.9 Dorsalgia, unspecified; I48.0 Paroxysmal atrial fibrillation; E78.00 Pure hypercholesterolemia, unspecified; K64.4 Residual hemorrhoidal skin tags; K63.5 Polyp of colon; N40.1 Benign prostatic hyperplasia with lower urinary tract symptoms; R39.11 Hesitancy of micturition; G47.33 Obstructive sleep apnea (adult) (pediatric); Z79.01 Long term (current) use of anticoagulants; D64.9 Anemia, unspecified; Z79.82 Long term (current) use of aspirin
CPT/HCPCS: 36415; 71045; 80048; 80053; 82274; 82728; 82962; 83540; 83880; 85007; 85025; 85027; 85045; 85055; 86850; 86900; 86901; 86920; 93005

== ENCOUNTER → 2021-01-25 | Outpatient (CLI) | payer MEDICARE, OTHER ==
[~2021-01-25] MED LIST changes: +ASPI-1238 PO; +ATOR40TA70 PO; +CHOL-34 PO; -CHOL10002 PO; +GUAI-977 PO; +MECL-149 PO; +METO2.5T PO; +PANT40TA52 PO; +POTA10CA43 PO; +SERT50TA2 PO
--- NOTE | 2021-01-25 16:34 | Diagnostic Imaging Report ---
PROCEDURE: US Renal Bilateral. TECHNIQUE: Multiple real-time grayscale images were obtained over the kidneys in various projections bilaterally. INDICATION: Chronic kidney disease and proteinuria. Right kidney measures 12.8 x 4 0.3 to 6.9 cm and left kidney measures 15.6 x 7.1 x 7.7 cm. Right kidney does show some cortical thinning. There is a cyst upper pole right kidney measuring approximately 2 cm in size. No calculi or hydronephrosis is seen. Left kidney does show fairly normal cortical thickness and echogenicity. There is a cyst measuring approximately 15 mm. No hydronephrosis or calculi are identified. Images of the urinary bladder unremarkable. Right ureteral jet was not visualized. IMPRESSION: Cortical thinning on the right. There is bilateral renal cyst. No calculi or hydronephrosis is detected. Dictated by: Dictated on workstation # [id number]
== END ==
LOC: RAD 12:41
PROVIDERS: ATTEND Internal Medicine Nephrology
DX: I12.9 Hypertensive chronic kidney disease with stage 1 through stage 4 chronic kidney disease, or unspecified chronic kidney disease (principal); N18.32 Chronic kidney disease, stage 3b; D63.1 Anemia in chronic kidney disease; E11.65 Type 2 diabetes mellitus with hyperglycemia; E11.22 Type 2 diabetes mellitus with diabetic chronic kidney disease; E21.1 Secondary hyperparathyroidism, not elsewhere classified; N17.8 Other acute kidney failure; R60.0 Localized edema; N28.1 Cyst of kidney, acquired
CPT/HCPCS: 76770

== ENCOUNTER → 2021-03-19 | Outpatient (CLI) | payer MEDICARE, OTHER ==
--- NOTE | 2021-03-19 08:51 | Diagnostic Imaging Report ---
INDICATION: Surveillance of known abdominal aortic aneurysm. Comparison with 12/28/2019. The proximal and mid aorta were visualized measuring just under 3 cm in diameter. The distal aorta and iliac arteries are not seen due to considerable bowel gas and body habitus. The endoluminal stent graft is not well visualized due to body habitus. IMPRESSION: Quite limited exam. No evidence of aneurysm in the mid and apical aorta. Would consider followup CT scan for further evaluation. Dictated by: Dictated on workstation # [id number]
== END ==
LOC: RAD 08:15
PROVIDERS: ATTEND Internal Medicine Cardiovascular Disease
DX: I71.4 Abdominal aortic aneurysm, without rupture (principal)
CPT/HCPCS: 76775

== ENCOUNTER → 2021-07-10 | Outpatient (CLI) | payer MEDICARE, OTHER ==
[~2021-07-10] MED LIST changes: -LISI1TAB26 PO; +LISI1TAB48 PO; +POTA-169 PO; -POTA20TA8 PO
--- NOTE | 2021-07-10 16:13 | Diagnostic Imaging Report ---
EXAMINATION: CHEST (PA AND LATERAL). CLINICAL INDICATION: 81-year-old male, cough, shortness of breath. COMPARISON: November 02, 2018. FINDINGS: The heart size and mediastinal contours are unchanged. There is no identified pneumothorax. There are small bilateral pleural effusions. There are interstitial opacities which are an interval change. There is graft material at the level of the abdomen. IMPRESSION: 1. Small bilateral pleural effusions. 2. Bilateral predominantly interstitial opacities, most likely relating to interstitial edema. Atypical infectious etiology and pneumonitis are also considered. Dictated by: Dictated on workstation # [id number]
== END ==
LOC: RAD 15:29
PROVIDERS: ATTEND Nurse Practitioner Family
DX: J90 Pleural effusion, not elsewhere classified (principal); R91.8 Other nonspecific abnormal finding of lung field
CPT/HCPCS: 71046

== ENCOUNTER 2022-01-23 07:41 | Inpatient (IN) | payer MEDICARE, OTHER ==
[~2022-01-23] VITALS: Ht 175 cm; Wt 125.6 kg
[2022-01-23] MEDS ORDERED: ONDANSETRON 4 MG/2 ML (SDV) Z0FRAN ONE (07:45)
[2022-01-23 08:00] LABS: BASOPHILS % (AUTO) 0 % (0-10); EOSINOPHILS # (AUTO) 0.3 10^3/uL (0.0-0.3); EOSINOPHILS % (AUTO) 2 % (0-10); HEMATOCRIT 47 % (40-54); HEMOGLOBIN 14.8 g/dL (13.3-17.7); LYMPHOCYTES # (AUTO) 1.7 10^3/uL (1.0-4.0); LYMPHOCYTES % (AUTO) 16 % (12-44); MEAN CORPUSCULAR HEMOGLOBIN 30 pg (25-34); MEAN CORPUSCULAR HGB CONC 31 g/dL (32-36); MEAN CORPUSCULAR VOLUME 95 fL (80-99); MEAN PLATELET VOLUME 9.6 fL (9.0-12.2); MONOCYTES # (AUTO) 0.7 10^3/uL (0.0-1.0); MONOCYTES % (AUTO) 7 % (0-12); NEUTROPHILS # (AUTO) 8.2 10^3/uL (1.8-7.8); NEUTROPHILS % (AUTO) 75 % (42-75); PLATELET COUNT 254 10^3/uL (130-400)
[2022-01-23] MEDS ORDERED: AMIODARONE FOR BOLUS 150 MG in NS (IVPB) 100 ML IV ONE (08:00)
[2022-01-23] MEDS ORDERED: AMIODARONE 150 MG/3 ML (CORDARONE) VIAL IV ONE (08:01)
[2022-01-23 08:09] LABS: ALBUMIN 3.6 GM/DL (3.2-4.5); POTASSIUM 4.2 MMOL/L (3.6-5.0)
[2022-01-23 08:11] LABS: CALCIUM 9.9 MG/DL (8.5-10.1)
[2022-01-23 08:12] LABS: TOTAL PROTEIN 7.3 GM/DL (6.4-8.2)
[2022-01-23 08:14] LABS: BILIRUBIN,TOTAL 0.8 MG/DL (0.1-1.0)
[2022-01-23 08:15] LABS: CREATININE SERUM 2.32 MG/DL (0.60-1.30)
[2022-01-23 08:16] LABS: INR 1.1 (0.8-1.4); PROTHROMBIN TIME PATIENT 15.1 SEC (12.2-14.7)
[2022-01-23 08:18] LABS: MAGNESIUM 1.6 MG/DL (1.6-2.4)
--- NOTE | 2022-01-23 08:24 | Diagnostic Imaging Report ---
INDICATION: Chest pain Portable chest 8:19 AM Heart size and pulmonary vascularity are within normal limits. There are no infiltrates, effusions or pneumothoraces. IMPRESSION: No acute abnormalities in the chest Dictated by: Dictated on workstation # [id number]
[2022-01-23] MEDS: AMIODARONE INJECTION 450 MG in NORMAL SALINE 250 ML IV SCH ×2 (08:44→16:14)
--- NOTE | 2022-01-23 08:46 | ED Cardiac General ---
History of Present Illness General Chief Complaint: Cardiac/General Problems Stated Complaint: IRR HEART RATE Nursing Triage Note: brought in by [facility] for stable vtach. 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 Source: patient Exam Limitations: no limitations History of Present Illness Date Seen by Provider: Jan 23, 2022 Time Seen by Provider: 07:42 Initial Comments This 81-year-old gentleman presents to the emergency room via EMS from home where he was found on the floor by his daughter this morning. EMS reports he was in sustained ventricular tachycardia. This converted to atrial fibrillation upon arrival to the emergency room before patient was roomed. Patient denied any chest pain or increased shortness of breath. He does have significant health history including chronic atrial fibrillation, coronary artery disease with stenting, recent left carotid endarterectomy, AAA with graft repair, CKD, CHF, and diabetes. He is anticoagulated on Eliquis. He has not taken any of his medications yet this morning. During initial assessments he was noted to have brief runs of ventricular tachycardia including 1 run of sustained ventricular tachycardia. Patient reports suspected loss of consciousness at home although he has been alert ever since being found by his daughter including during the sustained ventricular tachycardia observed by both EMS and nursing staff. He is quite nauseous on arrival to the ER. Allergies and Home Medications Allergies Coded Allergies: No Known Drug Allergies (Unverified , 01/19/18) Patient Home Medication List Home Medication List Reviewed: Yes Allopurinol (Allopurinol) 100 Mg Tablet, 100 MG PO DAILY, (Reported) Entered as Reported by: TAB LOPEZ on 01/21/19 0850 Amlodipine Besylate (Amlodipine Besylate) 5 Mg Tablet, 5 MG PO 1300, (Reported) Entered as Reported by: LIZBETH MUIR on 03/17/20 1444 Apixaban (Eliquis) 5 Mg Tablet, 5 MG PO 0700,1300, (Reported) Entered as Reported by: TAB LOPEZ on 01/21/19 0850 Aspirin (Aspirin EC) 81 Mg Tablet.dr, 81 MG PO DAILY, (Reported) Entered as Reported by: LIZBETH MUIR on 06/08/20 1211 Atorvastatin Calcium (Atorvastatin Calcium) 40 Mg Tablet, 40 MG PO HS, (Reported) Entered as Reported by: LIZBETH MUIR on 06/08/20 1153 Cholecalciferol (Vitamin D3) (Vitamin D3) 25 Mcg Tablet, 25 MCG PO DAILY, (Reported) Entered as Reported by: LIZBETH MUIR on 03/17/20 1444 Furosemide (Furosemide) 40 Mg Tablet, 40 MG PO DAILY, (Reported) Entered as Reported by: RULA CRAMER on 01/19/18 1415 Gabapentin (Gabapentin) 100 Mg Capsule, 100 MG PO 0700,1300,2300, (Reported) Entered as Reported by: LIZBETH MUIR on 03/17/20 1444 Glipizide (Glipizide) 10 Mg Tablet, 10 MG PO DAILY, (Reported) Entered as Reported by: RULA CRAMER on 06/28/16 1246 Glipizide (Glipizide) 10 Mg Tablet, 5 MG PO HS, (Reported) Entered as Reported by: LIZBETH MUIR on 06/08/20 1153 Guaifenesin (Mucus Relief) 600 Mg Tab.er.12h, 600 MG PO Q12H PRN for CONGESTION, (Reported) Entered as Reported by: LIZBETH MUIR on 06/08/20 1214 Insulin Detemir (Levemir Flextouch) 100 Unit/1 Ml Insuln.pen, 42 UNIT SQ BID, (Reported) Entered as Reported by: LIZBETH MUIR on 03/17/20 1444 Lisinopril (Lisinopril) 10 Mg Tablet, 10 MG PO DAILY, (Reported) Entered as Reported by: TAB LOPEZ on 01/21/19 0850 Meclizine HCl (Meclizine HCl) 25 Mg Tablet, 25 MG PO Q6H PRN for BLURRY VISION/DIZZINESS, (Reported) Entered as Reported by: LIZBETH MUIR on 06/08/20 1214 Metolazone (Metolazone) 2.5 Mg Tablet, 2.5 MG PO 1300, (Reported) Entered as Reported by: LIZBETH MUIR on 06/08/20 1153 [place] 3 Polyunsat Fatty Acids (Fish Oil 1,000 mg Capsule) 1,000 Mg Cap, 2,000 MG PO HS, (Reported) Entered as Reported by: TAB LOPEZ on 01/21/19 0851 Pantoprazole Sodium (Pantoprazole Sodium) 40 Mg Tablet.dr, 40 MG PO BID Prescribed by: GABE GUADALUPE on 06/09/20 1152 Potassium Chloride (Potassium Chloride) 10 Meq Capsule.er, 10 MEQ PO Q48H, (Reported) Entered as Reported by: LIZBETH MUIR on 06/08/20 1153 Sertraline HCl (Zoloft) 50 Mg Tablet, 50 MG PO HS, (Reported) Entered as Reported by: LIZBETH MUIR on 06/08/20 1153 Tamsulosin HCl (Flomax) 0.4 Mg Cap, 0.4 MG PO BID, (Reported) Entered as Reported by: TAB LOPEZ on 01/21/19 0851 Review of Systems Review of Systems Constitutional: no symptoms reported EENTM: No Symptoms Reported Respiratory: No Symptoms Reported Cardiovascular: See HPI Gastrointestinal: See HPI Genitourinary: No Symptoms Reported Musculoskeletal: no symptoms reported Skin: no symptoms reported Psychiatric/Neurological: No Symptoms Reported Endocrine: No Symptoms Reported Hematologic/Lymphatic: No Symptoms Reported Past Sldbmts-Ngboea-Floegq Hx Patient Social History Tobacco Use?: No Smoking Status: Former Smoker Substance use?: No Alcohol Use?: No Pt feels they are or have been: No Immunizations Up To Date Tetanus Booster (TDap): Unknown First/Initial COVID19 Vaccinat: na Seasonal Allergies Seasonal Allergies: No Past Medical History Surgery/Hospitalization HX: cardiac stent, cholecystectomy, prostatectomy, ckd st 3, copd, afib, cad, htn, iddm, prostate ca, cardiomyopathy. Surgeries: Yes (AORTIC PATCH, ) Coronary Stent, Gallbladder, Prostatectomy, Vascular Surgery (AAA graft repair and left carotid endarterectomy) Respiratory: Yes (chronic hypoxia) Sleep Apnea, COPD Currently Using CPAP: Yes (WITH OXYGEN AT NIGHT) Cardiac: Yes Atrial Fibrillation, Coronary Artery Disease, High Cholesterol, Hypertension, Peripheral Vascular Neurological: Yes Neuropathy Reproductive Disorders: No Sexually Transmitted Disease: No HIV/AIDS: No Genitourinary: Yes Prostate Problems, Kidney Stones, Renal Failure (Chronic kidney disease) Gastrointestinal: No Musculoskeletal: Yes Degenerate Disk Disease, Arthritis, Chronic Back Pain Endocrine: Yes Diabetes, Insulin dep Loss of Vision: Bilateral Hearing Impairment: Denies Cancer: Yes Prostate Did You Recieve Any Treatments: Yes What Type of Treatment Did You: Chemotherapy, Surgical Intervention Psychosocial: No Integumentary: Yes (FROM RADIATION) Recent Skin Changes Blood Disorders: No Adverse Reaction/Blood Tranf: No (N/A) Family Medical History No Pertinent Family Hx Physical Exam Vital Signs Vital Signs - First Documented 01/23/22 07:41 Temp 36.5 Pulse 92 Resp 19 B/P (MAP) 115/66 (82) Pulse Ox 85 O2 Delivery Nasal Cannula O2 Flow Rate 5.00 Capillary Refill : Less Than 3 Seconds Height, Weight, BMI Height: 5'9.00" Weight: 276lbs. 0.0oz. 125.755472ws; 40.00 BMI Method: General Appearance: WD/WN, Mild Distress (From nausea) HEENT: PERRL/EOMI, Normal ENT Inspection Neck: Normal Inspection Respiratory: Lungs Clear, Normal Breath Sounds, No Accessory Muscle Use Cardiovascular: No Murmur, Irregularly Irregular Gastrointestinal: Non Tender, Soft Extremity: Non Tender, Pedal Edema, Other (Chronic skin sores and skin changes) Neurologic/Psychiatric: Alert, Oriented x3, No Motor/Sensory Deficits, Normal Mood/Affect Skin: Normal Color, Warm/Dry, Other (Chronic skin changes to lower extremities) Progress/Results/Core Measures Results/Orders Lab Results Laboratory Tests Test 01/23/22 07:45 01/23/22 08:29 Range/Units White Blood Count 11.0 4.3-11.0 10^3/uL Red Blood Count 4.97 4.30-5.52 10^6/uL Hemoglobin 14.8 13.3-17.7 g/dL Hematocrit 47 40-54 % Mean Corpuscular Volume 95 80-99 fL Mean Corpuscular Hemoglobin 30 25-34 pg Mean Corpuscular Hemoglobin Concent 31 L 32-36 g/dL Red Cell Distribution Width 15.6 H 10.0-14.5 % Platelet Count 254 130-400 10^3/uL Mean Platelet Volume 9.6 9.0-12.2 fL Immature Granulocyte % (Auto) 0 % Neutrophils (%) (Auto) 75 42-75 % Lymphocytes (%) (Auto) 16 12-44 % Monocytes (%) (Auto) 7 0-12 % Eosinophils (%) (Auto) 2 0-10 % Basophils (%) (Auto) 0 0-10 % Neutrophils # (Auto) 8.2 H 1.8-7.8 10^3/uL Lymphocytes # (Auto) 1.7 1.0-4.0 10^3/uL Monocytes # (Auto) 0.7 0.0-1.0 10^3/uL Eosinophils # (Auto) 0.3 0.0-0.3 10^3/uL Basophils # (Auto) 0.0 0.0-0.1 10^3/uL Immature Granulocyte # (Auto) 0.0 0.0-0.1 10^3/uL Prothrombin Time 15.1 H 12.2-14.7 SEC INR Comment 1.1 0.8-1.4 Activated Partial Thromboplast Time 34 24-35 SEC Sodium Level 138 135-145 MMOL/L Potassium Level 4.2 3.6-5.0 MMOL/L Chloride Level 89 L 98-107 MMOL/L Carbon Dioxide Level 33 H 21-32 MMOL/L Anion Gap 16 H 5-14 MMOL/L Blood Urea Nitrogen 44 H 7-18 MG/DL Creatinine 2.32 H 0.60-1.30 MG/DL Estimat Glomerular Filtration Rate 28 BUN/Creatinine Ratio 19 Glucose Level 376 H 70-105 MG/DL Calcium Level 9.9 8.5-10.1 MG/DL Corrected Calcium 10.2 H 8.5-10.1 MG/DL Magnesium Level 1.6 1.6-2.4 MG/DL Total Bilirubin 0.8 0.1-1.0 MG/DL Aspartate Amino Transf (AST/SGOT) 20 5-34 U/L Alanine Aminotransferase (ALT/SGPT) 16 0-55 U/L Alkaline Phosphatase 152 H 40-136 U/L Myoglobin 223.9 H 10.0-92.0 NG/ML Troponin I 0.052 H <0.028 NG/ML B-Type Natriuretic Peptide 626.5 H <100.0 PG/ML Total Protein 7.3 6.4-8.2 GM/DL Albumin 3.6 3.2-4.5 GM/DL Blood Gas Puncture Site R WRIST Blood Gas Patient Temperature 36.5 Arterial Blood pH 7.36 L 7.37-7.43 Arterial Blood Partial Pressure CO2 63 H 35-45 MMHG Arterial Blood Partial Pressure O2 114 H 79-93 MMHG Arterial Blood HCO3 35 H 23-27 MMOL/L Arterial Blood Total CO2 37.2 H 21.0-31.0 MMOL/L Arterial Blood Oxygen Saturation 98 94-100 % Arterial Blood Base Excess 9.5 H -2.5-2.5 MMOL/L Dat Test YES-POS Blood Gas Ventilator Setting NO Blood Gas Inspired Oxygen 10L My Orders Orders - ALEX ALFRED MD Ondansetron Injection (Zofran Injectio (01/23/22 07:45) Cbc With Automated Diff (01/23/22 07:49) Magnesium (01/23/22 07:49) Chest 1 View, Ap/Pa Only (01/23/22 07:49) Ekg Tracing (01/23/22 07:49) Comprehensive Metabolic Panel (01/23/22 07:49) Myoglobin Serum (01/23/22 07:49) Protime With Inr (01/23/22 07:49) Partial Thromboplastin Time (01/23/22 07:49) O2 (01/23/22 07:49) Monitor-Rhythm Ecg Trace Only (01/23/22 07:49) Lipid Panel (01/24/22 06:00) Ed Iv/Invasive Line Start (01/23/22 07:49) Bnp [place] (01/23/22 07:49) Troponin I [place] (01/23/22 07:49) Amiodarone For Bolus (Cordarone Bolus) (01/23/22 08:00) Amiodarone Injection (Cordarone Injectio (01/23/22 08:00) Ekg Tracing (01/23/22 08:01) Code/Resuscitation (01/23/22 09:05) Arterial Blood Gas (01/23/22 09:05) Apixaban Tablet (Eliquis Tablet) (01/23/22 09:15) Medications Given in ED Current Medications Medications Dose Ordered Sig/Rajendra Route Start Time Stop Time Status Last Admin Dose Admin Amiodarone HCl 150 mg/Sodium Chloride 103 ml @ 600 mls/hr ONCE ONCE IV 01/23/22 08:00 01/23/22 08:10 DC 01/23/22 08:24 600 MLS/HR Ondansetron HCl 4 mg STK-MED ONCE .ROUTE 01/23/22 07:45 01/23/22 07:49 DC 01/23/22 07:50 8 MG Vital Signs/I&O 01/23/22 01/23/22 07:41 08:24 Temp 36.5 Pulse 92 80 Resp 19 B/P (MAP) 115/66 (82) 134/86 Pulse Ox 85 O2 Delivery Nasal Cannula O2 Flow Rate 5.00 Blood Pressure Mean: 102 Progress Progress Note : Time: 09:07 Progress Note Patient converted to atrial fibrillation with lidocaine administered by EMS. He did subsequently have at least 1 run of sustained ventricular tachycardia prior to receiving the amiodarone bolus. This was captured on telemetry and will be scanned in the chart. Amiodarone bolus was administered and drip is now infusing. Dr. Tapia was initially consulted and consult was later transferred to Dr. Hall as the primary rehab rn. Case was discussed with Dr. Berumen who accepts admission. He will be placed in the ICU to complete his amiodarone infusion and be monitored closely. I had a very specific and clear discussion with patient and his daughter, Lynn, about his CODE STATUS. Patient does not want any resuscitation efforts that include intubation, defibrillator shock, or chest compressions. Rhythm controlling medications such as the amiodarone may be administered. If he has a sustained unstable arrhythmia, he does not want to be shocked or receive chest compressions. Daughter was witness to this conversation and did not contest his wishes. Patient designates his daughter, Lynn, as his surrogate decision-maker if he becomes incapacitated. Patient additionally received Zofran 8 mg IV for his nausea and a liter of IV fluid as his blood pressures were soft. He also received his morning dose of Eliquis before admission. EKG #1: EKG Time: 07:36 Rate: 91 Rhythm: A Fib/Flutter Comment Atrial fibrillation with no ST elevation or depression to suggest acute ischemia. Right bundle branch block. No axis deviation. EKG #2: EKG Time: 07:48 Rate: 116 Rhythm: A Fib/Flutter ECG Impression: Atrial Fibrillation w/RVR Comment Atrial fibrillation with mild tachycardia. Nonsustained run of 5 beats of ventricular tachycardia. Subtle ST changes. Right bundle branch block. No axis deviation. Diagnostic Imaging Diagonstic Imaging: Xray Plain Films/CT/US/NM/MRI: chest Comments NAME: GHASSAN LAYTON MED REC#: [id number] PT STATUS: REG ER : 1940 PHYSICIAN: ALEX ALFRED MD ADMIT DATE: 01/23/22/ER Signed Date of Exam:01/23/22 CHEST 1 VIEW, AP/PA ONLY INDICATION: Chest pain Portable chest 8:19 AM Heart size and pulmonary vascularity are within normal limits. There are no infiltrates, effusions or pneumothoraces. IMPRESSION: No acute abnormalities in the chest Dictated by: Dictated on workstation # [id number] Dict: 01/23/22 0820 Trans: 01/23/22 0850 [facility] [id number] Interpreted by: MICKIE BEASLEY MD Electronically signed by: MICKIE BEASLEY MD 01/23/22 0850 Departure Communication (Admissions) Time/Spoke to Admitting Phy: 08:55 Dr. Berumen Time/Spoke to Consulting Phy: 08:02 Initial cardiology consult to Dr. Tapia as rehab rn on-call. This will transition to Dr. Hall as the primary rehab rn. I spoke with Dr. Hall at 0900. Impression Primary Impression: Ventricular tachycardia Additional Impressions: Atrial fibrillation Qualified Codes: I48.19 - Other persistent atrial fibrillation Elevated troponin Disposition: ADMITTED INPATIENT Condition: Improved Admissions Decision to Admit Reason: Admit from ER (General) Decision to Admit/Date: Jan 23, 2022 Time/Decision to Admit Time: 08:02 Departure-Patient Inst. Referrals: HEATHER ZAIDI (PCP/Family) Primary Care Physician Copy Copies To 1: LORENA VILLARREAL MD Copies To 2: [facility] ALEX ALFRED MD Jan 23, 2022 08:46
[2022-01-23 09:10] LABS: ABG BASE EXCESS 9.5 MMOL/L (-2.5-2.5); ABG OXYGEN SATURATION 98 % (94-100); ABG PCO2 63 MMHG (35-45); ABG PH 7.36 (7.37-7.43); ABG PO2 114 MMHG (79-93); ABG TCO2 37.2 MMOL/L (21.0-31.0)
[2022-01-23 09:11] LABS: ALLENS TEST YES-POS; INSPIRED O2 10L; PATIENT TEMP 36.5; VENTILATOR NO
[2022-01-23] MEDS ORDERED: APIXABAN 2.5 MG (ELIQUIS) TABLET PO ONE (09:15)
--- NOTE | 2022-01-23 09:37 | Consultation-Cardiology ---
HPI-Cardiology Cardiology Consultation: Date of Consultation 01/23/22 Time Seen by a Provider: 10:45 Date of Admission 01-23-22 Attending Physician Anny Kemp Admitting Physician Admitting Physician: Catarina Berumen MD Attending Physician: Catarina Berumen MD Consulting Physician Jose R Hall MD HPI: Chief Complaint: NSVT Mr. Layton is an 81 yr old male admitted to ICU 7 from the ED. He reports he was restless at home overnight. He states around 4 a.m. he woke up and went to sit in his lift chair. He reports after a few minutes he felt the urge to urinate and went to the BR. He reports the next thing he recalls he had passed out and was on the floor with his daughter beside him (she lives with him). He reports he was unable to get up on his own. He reports feeling nauseated after he came to. He does not know how long he was out for. He does not report any palpitations, CP or change in his chronic SOB prior to the event. He states his daughter convinced him to let her call EMS. He reports when they arrived he still felt nauseated and weak, but denies any other symptoms. He reports he was awake and alert when EMS arrived. He states he feels "good" at this time. He has chronic bilat LE swelling with multiple skin abrasion and scabbing wounds. He denies any fever or chills. No c/o diarrhea. Review of Systems-Cardiology Review of Systems Constitutional: As described under HPI, chills, fever Eyes: No vision change Ears/Nose/Throat: No epistaxis, No recent hearing loss Respiratory: As described under HPI Cardiovascular: As described under HPI Gastrointestinal: As described under HPI Genitourinary: No dysuria, No hematuria Musculoskeletal: no symptoms reported Skin: As described under HPI Psychiatric/Neurological: As described under HPI, syncope; No anxiety, No depression, No seizure Hematologic: No bleeding abnormalities OEX-Jrdpsa-Knugqv Hx Patient Social History Smoking Status: Former Smoker Have you traveled recently?: No Alcohol Use?: No Pt feels they are or have been: No Immunizations Up To Date Tetanus Booster (TDap): Unknown Date of Pneumonia Vaccine: Jan 27, 2020 Date of Influenza Vaccine: Jan 27, 2020 Past Medical History PMH As described under Assessment. Family Medical History Family Medical History: No reported family h/o CAD Allergies and Home Medications Allergies Coded Allergies: No Known Drug Allergies (Unverified , 01/19/18) Patient Home Medication List Allopurinol (Allopurinol) 100 Mg Tablet, 100 MG PO DAILY, (Reported) Entered as Reported by: TAB LOPEZ on 01/21/19 0850 Last Action: Reviewed Apixaban (Eliquis) 5 Mg Tablet, 5 MG PO BID, (Reported) Entered as Reported by: TAB LOPEZ on 01/21/19 0850 Last Action: Reviewed Aspirin (Aspirin EC) 81 Mg Tablet.dr, 81 MG PO DAILY, (Reported) Entered as Reported by: LIZBETH MUIR on 06/08/20 1211 Last Action: Reviewed Atorvastatin Calcium (Atorvastatin Calcium) 40 Mg Tablet, 40 MG PO HS, (Reported) Entered as Reported by: LIZBETH MUIR on 06/08/20 1153 Last Action: Reviewed Calcitriol (Calcitriol) 0.25 Mcg Capsule, 0.25 MCG PO DAILY, (Reported) Entered as Reported by: LIZBETH MUIR on 01/23/22 1411 Last Action: Reviewed Carvedilol (Carvedilol) 12.5 Mg Tablet, 12.5 MG PO BID, (Reported) Entered as Reported by: LIZBETH MUIR on 01/23/22 141 Last Action: Reviewed Cholecalciferol (Vitamin D3) (Vitamin D3) 25 Mcg Tablet, 25 MCG PO DAILY, (Reported) Entered as Reported by: LIZBETH MUIR on 03/17/20 1444 Last Action: Reviewed Ferrous Sulfate (Ferrous Sulfate) 325 Mg (65 Mg Iron) Tablet, 325 MG PO DAILY, (Reported) Entered as Reported by: LIZBETH MUIR on 01/23/22 1411 Last Action: Reviewed Furosemide (Furosemide) 40 Mg Tablet, 80 MG PO DAILY, (Reported) Entered as Reported by: RULA CRAMER on 01/19/18 1415 Last Action: Reviewed Gabapentin (Gabapentin) 100 Mg Capsule, 300 MG PO BID, (Reported) Entered as Reported by: LIZBETH MUIR on 03/17/20 1444 Last Action: Reviewed Glipizide (Glipizide) 10 Mg Tablet, 10 MG PO DAILY, (Reported) Entered as Reported by: RULA CRAMER on 06/28/16 1246 Last Action: Reviewed Glipizide (Glipizide) 10 Mg Tablet, 5 MG PO HS, (Reported) Entered as Reported by: LIZBETH MUIR on 06/08/20 1153 Last Action: Reviewed Insulin Aspart (Novolog) 100 Unit/Ml Cartridge, UNITS SQ AC PRN for HYPERGLYCEMIA, (Reported) Entered as Reported by: LIZBETH MUIR on 01/23/22 1418 Last Action: Reviewed Insulin Detemir (Levemir Flextouch) 100 Unit/Ml (3 Ml) Insuln.pen, 50 UNIT SQ BID, (Reported) Entered as Reported by: LIZBETH MUIR on 03/17/20 1444 Last Action: Reviewed Metolazone (Metolazone) 5 Mg Tablet, 5 MG PO MO,WE,FR, (Reported) Entered as Reported by: LIZBETH MUIR on 01/23/22 1411 Last Action: Reviewed [place] 3 Polyunsat Fatty Acids (Fish Oil 1,000 mg Capsule) 1,000 Mg Cap, 2,000 MG PO HS, (Reported) Entered as Reported by: TAB LOPEZ on 01/21/19 0851 Last Action: Reviewed Potassium Chloride (Potassium Chloride) 20 Meq Tablet.er, 20 MEQ PO DAILY, (Reported) Entered as Reported by: LIZBETH MUIR on 01/23/22 1411 Last Action: Reviewed Tamsulosin HCl (Flomax) 0.4 Mg Cap, 0.4 MG PO BID, (Reported) Entered as Reported by: TAB LOPEZ on 01/21/19 0851 Last Action: Reviewed Discontinued Medications Amlodipine Besylate (Amlodipine Besylate) 5 Mg Tablet, 5 MG PO 1300, (Reported) Discontinued Reason: No Longer Taking Entered as Reported by: LIZBETH MUIR on 03/17/20 1444 Last Action: Discontinued Guaifenesin (Mucus Relief) 600 Mg Tab.er.12h, 600 MG PO Q12H PRN for CONGESTION, (Reported) Discontinued Reason: No Longer Taking Entered as Reported by: LIZBETH MUIR on 06/08/20 1214 Last Action: Discontinued Lisinopril (Lisinopril) 10 Mg Tablet, 10 MG PO DAILY, (Reported) Discontinued Reason: No Longer Taking Entered as Reported by: TAB LOPEZ on 01/21/19 0850 Last Action: Discontinued Meclizine HCl (Meclizine HCl) 25 Mg Tablet, 25 MG PO Q6H PRN for BLURRY VISION/DIZZINESS, (Reported) Discontinued Reason: No Longer Taking Entered as Reported by: LIZBETH MUIR on 06/08/20 1214 Last Action: Discontinued Metolazone (Metolazone) 2.5 Mg Tablet, 2.5 MG PO 1300, (Reported) Discontinued Reason: Duplicate Order Entered as Reported by: LIZBETH MUIR on 06/08/20 1153 Last Action: Discontinued Pantoprazole Sodium (Pantoprazole Sodium) 40 Mg Tablet.dr, 40 MG PO BID Discontinued Reason: No Longer Taking Prescribed by: GABE GUADALUPE on 06/09/20 1152 Last Action: Discontinued Pantoprazole Sodium (Pantoprazole Sodium) 40 Mg Tablet.dr, 40 MG PO DAILY, (Reported) Discontinued Reason: No Longer Taking Entered as Reported by: LIZBETH MUIR on 01/23/22 1411 Last Action: Discontinued Potassium Chloride (Potassium Chloride) 10 Meq Capsule.er, 10 MEQ PO Q48H, (Reported) Discontinued Reason: Prescription changed Entered as Reported by: LIZBETH MUIR on 06/08/20 1153 Sertraline HCl (Zoloft) 50 Mg Tablet, 50 MG PO HS, (Reported) Discontinued Reason: No Longer Taking Entered as Reported by: LIZBETH MUIR on 06/08/20 1153 Last Action: Discontinued Physical Exam-Cardiology Physical Exam Vital Signs/I&O 01/23/22 01/23/22 01/23/22 01/23/22 07:41 08:24 08:44 09:45 Temp 36.5 Pulse 92 80 72 75 Resp 19 18 B/P (MAP) 115/66 (82) 134/86 135/88 120/93 (102) Pulse Ox 85 O2 Delivery Nasal Cannula OxyMask O2 Flow Rate 5.00 10.00 01/23/22 01/23/22 01/23/22 01/23/22 09:54 10:01 10:16 10:30 Pulse 81 78 73 Resp 18 17 B/P (MAP) 160/88 106/73 (84) Pulse Ox 95 95 96 O2 Delivery OxyMask Simple Mask OxyMask O2 Flow Rate 10.00 10.00 10.00 01/23/22 01/23/22 01/23/22 01/23/22 10:45 11:00 11:15 12:00 Pulse 76 74 68 Resp 19 7 10 B/P (MAP) 130/81 (97) 139/82 (101) 150/86 (107) Pulse Ox 92 95 96 95 O2 Delivery OxyMask OxyMask High Flow N/C High Flow N/C O2 Flow Rate 10.00 10.00 10.00 10.00 01/23/22 01/23/22 01/23/22 01/23/22 12:00 12:00 12:26 13:00 Temp 36.0 Pulse 73 79 70 Resp 26 12 B/P (MAP) 130/100 (110) 127/91 (103) Pulse Ox 95 92 O2 Delivery High Flow N/C High Flow N/C O2 Flow Rate 10.00 10.00 01/23/22 01/23/22 01/23/22 01/23/22 14:00 15:00 15:35 16:00 Temp 36.2 Pulse 65 70 81 Resp 13 17 13 B/P (MAP) 134/93 (107) 114/81 (92) 124/71 (88) Pulse Ox 100 90 100 O2 Delivery High Flow N/C High Flow N/C High Flow N/C O2 Flow Rate 10.00 10.00 10.00 Capillary Refill : Less Than 3 Seconds Constitutional: AAO x 3, well-developed, well-nourished HEENT: PERRL, hearing is well preserved, oral hygience is good Neck: No carotid bruit; carotid pulses are 2 + bilaterally Respiratory: No accessory muscle use, No respiratory distress; chest expansion is symmetric, chest is bilaterally symmetric, lungs clear to auscultation Cardiovascular: irregularly irregular; No JVD; S1 and S2 Gastrointestinal: No tender; soft, round, audible bowel sounds Extremities: other (mod bilat LE swelling) Neurologic/Psychiatric: grossly intact (moves all extremities) Skin: other (multiple abrasions to LE bilat, some abrasions to toes and legs with scabbing) Data Review Labs Laboratory Tests 01/23/22 07:45: White Blood Count 11.0, Red Blood Count 4.97, Hemoglobin 14.8, Hematocrit 47, Mean Corpuscular Volume 95, Mean Corpuscular Hemoglobin 30, Mean Corpuscular Hemoglobin Concent 31L, Red Cell Distribution Width 15.6H, Platelet Count 254, Mean Platelet Volume 9.6, Immature Granulocyte % (Auto) 0, Neutrophils (%) (Auto) 75, Lymphocytes (%) (Auto) 16, Monocytes (%) (Auto) 7, Eosinophils (%) (Auto) 2, Basophils (%) (Auto) 0, Neutrophils # (Auto) 8.2H, Lymphocytes # (Auto) 1.7, Monocytes # (Auto) 0.7, Eosinophils # (Auto) 0.3, Basophils # (Auto) 0.0, Immature Granulocyte # (Auto) 0.0, Prothrombin Time 15.1H, INR Comment 1.1, Activated Partial Thromboplast Time 34, Sodium Level 138, Potassium Level 4.2, Chloride Level 89L, Carbon Dioxide Level 33H, Anion Gap 16H, Blood Urea Nitrogen 44H, Creatinine 2.32H, Estimat Glomerular Filtration Rate 28, BUN/Creatinine Ratio 19, Glucose Level 376H, Calcium Level 9.9, Corrected Calcium 10.2H, Magnesium Level 1.6, Total Bilirubin 0.8, Aspartate Amino Transf (AST/SGOT) 20, Alanine Aminotransferase (ALT/SGPT) 16, Alkaline Phosphatase 152H, Myoglobin 223.9H, Troponin I 0.052H, B-Type Natriuretic Peptide 626.5H, Total Protein 7.3, Albumin 3.6 01/23/22 08:29: Blood Gas Puncture Site R WRIST, Blood Gas Patient Temperature 36.5, Arterial Blood pH 7.36L, Arterial Blood Partial Pressure CO2 63H, Arterial Blood Partial Pressure O2 114H, Arterial Blood HCO3 35H, Arterial Blood Total CO2 37.2H, Arterial Blood Oxygen Saturation 98, Arterial Blood Base Excess 9.5H, Dat Test YES-POS, Blood Gas Ventilator Setting NO, Blood Gas Inspired Oxygen 10L 01/23/22 15:14: Glucometer 289H Radiology NAME: [facility] REC#: [id number] PT STATUS: REG ER : 1940 PHYSICIAN: ALEX ALFRED MD ADMIT DATE: 01/23/22/ER Signed Date of Exam:01/23/22 CHEST 1 VIEW, AP/PA ONLY INDICATION: Chest pain Portable chest 8:19 AM Heart size and pulmonary vascularity are within normal limits. There are no infiltrates, effusions or pneumothoraces. IMPRESSION: No acute abnormalities in the chest Dictated by: Dictated on workstation # [id number] Dict: 01/23/22819 Trans: 01/23/22 0850 ELVIS [id number] Interpreted by: MICKIE BEASLEY MD Electronically signed by: MICKIE BEASLEY MD 01/23/22 0850 ECG Impression ECG Initial ECG Impression: Atrial Fibrillation A/P-Cardiology Assessment/Admission Diagnosis Syncope - likely d/t NSVT Reported NSVT by EMS which was treated with Lidocaine - No strips available - Episode of 4 beat run of WCT seen on ECG in the ED on 01-23-22 at 0748 - Amiodarone initiated Chronic systolic and diastolic CHF, NYHA Class III - Echocardiogram of Mar 17, [address] Guillen showed concentric hypertrophy. LVEF 45-50%. Mild to MR and AoR. PASP 25-30mmHg CAD - Report coronary PCI beginning in the (doesn't know details). 12/07/2010: proximal circumflex artery was treated with Promus 4 x 12, mid circumflex with Promus 3.0 x 15, mid RCA 4 x 28 Promus, mid RCA Promus 4 x 12, proximal RCA Prom us 4 x 23, proximal RCA Promus 4 x 23. 11/04/2011: proximal RCA treated with Promus element 3.5 x 28 mm stent, mid first diagonal artery treated with Promus element 2.25 x 24 mm stent. - Most recent coronary angiography of Dec [address] Guillen: showed moderate ostial LAD stenosis with FFR 0.94, which shows non-obstructive disease. Patent stent in the first diagonal artery and the RCA. Patent stent in the proximal LAD. PAD - Peripheral angiogram of Dec [address] Guillen: showed on the left showed moderate/severe diffuse calcified disease in the SFA, severe stenosis in the distal SFA. Suboptimal visualization in the popliteal artery however likely severe distal popliteal stenosis. At least one vessel runoff below the knee with a posterior tibial artery. Small diffusely diseased deep peroneal as well as anterior tibial artery. Right lower extremity shows moderate diffuse calcified d isease in the SFA in the popliteal artery. Two-vessel runoff with a posterior tibial as well as deep peroneal artery. Heavily diseased small anterior tibial artery. - AAA Repair: 08/10/[address] Stallworth at [facility] [place] - CT of the abdomen without contrast on Dec 28, 2019: Previously treated abdominal aortic aneurysm. The maximum sac diameter is 4.6 cm. This is essentially unchanged compared to the prior examination from 2016 per Chronic kidney disease stage IV - follows with [place] [facility] Intolerant to RENU-inhib/ARB due to hypotension Persistent atrial fibrillation - OAC with Eliquis Carotid arterial dz: - s/p L CEA in October [address] Reddy at [facility]. Carotid art disease is being followed at the same office HTN - controlled HLD - statin - managed by PCP VILMA Abnormal ECG - Chronic RBBB DM 2 - managed by PCP BPH and chronic dysuria and hesitancy H/O GI bleed and acute anemia in early 2020 - s/p endoscopy by Dr. Rushing (May 2020) - GERD, gastritis, hiatal hernia, internal/external hemorrhoids - followed by Dr Dubon and Dr Rushing Pt requests DNR status Discussion and Recomendations Syncope likely d/t NSVT - continue Amiodarone infusion, then change to oral NSTEMI with NSVT - patient desire conservative and empiric tx at this time, seems reasonable d/t CKD 3 - start BB - start Plavix d/t CAD with NSTEMI and recent L CEA Chronic a-fib - continue OAC with Eliquis for stroke prophylaxis Monitor lab closely - replace electrolytes as indicated Further recs will be based on his hospital course We would like to thank medical services for this consult DEANNE GUEVARA Jan 23, 2022 09:37
[2022-01-23 10:01] VITALS: BP 160/88
--- NOTE | 2022-01-23 10:08 | Tele-ICU Progress Note ---
Subjective Date Seen by a Provider: Jan 23, 2022 Subjective/Events-last exam This virtual visit was conducted using real time audio/video. Thank you for asking us to see this patient for respiratory insufficiency due toCOPD. Admitted w v tach w a pulse. Repeat v tach in ER documented. PMH: CAD/stents, AAA repair, CEA, CHF, chronic Afib SH: smoking history: former FH: Non-contributory ROS: as in HPI. PE: VSS. O2 sat 94% on 10 L Oxymask. HEENT: Comfortable on camera. No obvious masses, adenopathy or JVD. Chest: clear to auscultation. CV: Irreg. S1 S2 No murmur or added sounds. Abd: Non-tender. Bowel sounds Y. : Unremarkable. [place] [employer]/psychiatric: Grossly intact. No obvious focal findings. Extremities: 1-2+ edema. Capillary refill < 3 seconds. Skin: unremarkable. Results: Elevated BUN 44, Creat 2.32, Trop 0.052, BNP 626.5. B.36/63/114 on 10 LPM. CXR: Hyperinflated, clear.. Available chart/ vitals / labs / images reviewed. Video assessment done using teleICU camera, rest of exam as per RN. A/P: Respiratory insufficiency: Continue present management with Oxy mask Monitor for increasing oxygenation needs. Refuses intubation. Critical Care: critically ill patient. Cont.amiodarone per Cardiology Discussed with RN Jante and ER .. Asked RN to reach out to eICU if any questions or concerns later. Time spent with patient/coordination of care with other health professionals (mins): 30 Sepsis Event Evaluation Height, Weight, BMI Height: 5'9.00" Weight: 276lbs. 0.0oz. 125.573571qw; 40.00 BMI Method: Exam Exam Patient acknowledged, consented, and participated in this virtual visit which was conducted using real time audio/video Vital Signs Date Time Temp Pulse Resp B/P (MAP) Pulse Ox O2 Delivery O2 Flow Rate FiO2 01/23/22 09:54 81 01/23/22 09:45 75 18 120/93 (102) High Flow N/C 10.00 01/23/22 08:44 72 135/88 01/23/22 08:24 80 134/86 01/23/22 07:41 36.5 92 19 115/66 (82) 85 Nasal Cannula 5.00 Height & Weight Height: 5'9.00" Weight: 276lbs. 0.0oz. 125.202120ha; 40.00 BMI Method: General Appearance: WD/WN, Mild Distress (From nausea) HEENT: PERRL/EOMI, Normal ENT Inspection Neck: Normal Inspection Respiratory: Lungs Clear, Normal Breath Sounds, No Accessory Muscle Use Cardiovascular: No Murmur, Irregularly Irregular Capillary Refill: Less Than 3 Seconds Extremity: Non Tender, Pedal Edema, Other (Chronic skin sores and skin changes) Neurologic/Psychiatric: Alert, Oriented x3, No Motor/Sensory Deficits, Normal Mood/Affect Skin: Normal Color, Warm/Dry, Other (Chronic skin changes to lower extremities) Results Lab Laboratory Tests 01/23/22 07:45 Assessment/Plan Assessment/Plan See free text. Critical Care: Critically Ill Patient CADEN CASTRO MD Jan 23, 2022 10:08
[2022-01-23] MEDS ORDERED: ONDANSETRON 4 MG/2 ML (SDV) Z0FRAN IVP PRN (11:00)
[2022-01-23] MEDS ORDERED: CLOPIDOGREL 75 MG (PLAVIX) TABLET PO NR (11:30)
--- NOTE | 2022-01-23 13:33 | Consultation-Cardiology ---
HPI-Cardiology Cardiology Consultation: Date of Consultation 01/23/22 Time Seen by a Provider: 11:30 Date of Admission Attending Physician Anny Kemp Admitting Physician Admitting Physician: Catarina Berumen MD Attending Physician: Catarina Berumen MD Consulting Physician MATT GUPTA MD, MA, FACP, FACC, [facility] [place], CCDS HPI: Chief Complaint: NSVT Mr. Cronin is an 81 yr old male admitted to ICU 7 from the ED. He reports he was restless at home overnight. He states around 4 a.m. he woke up and went to sit in his lift chair. He reports after a few minutes he felt the urge to urinate and went to the BR. He reports the next thing he recalls he had passed out and was on the floor with his daughter beside him (she lives with him). He reports he was unable to get up on his own. He reports feeling nauseated after he came to. He does not know how long he was out for. He does not report any palpitations, CP or change in his chronic SOB prior to the event. He states his daughter convinced him to let her call EMS. He reports when they arrived he still felt nauseated and weak, but denies any other symptoms. He reports he was awake and alert when EMS arrived. He states he feels "good" at this time. He has chronic bilat LE swelling with multiple skin abrasion and scabbing wounds. He denies any fever or chills. No c/o diarrhea. Review of Systems-Cardiology Review of Systems Constitutional: As described under HPI, chills, fever Eyes: No vision change Ears/Nose/Throat: No epistaxis, No recent hearing loss Respiratory: As described under HPI Cardiovascular: As described under HPI Gastrointestinal: As described under HPI Genitourinary: No dysuria, No hematuria Musculoskeletal: no symptoms reported Skin: As described under HPI Psychiatric/Neurological: As described under HPI, syncope; No anxiety, No depression, No seizure Hematologic: No bleeding abnormalities GSG-[id number]-[id number] Hx Patient Social History Smoking Status: Former Smoker Have you traveled recently?: No Alcohol Use?: No Pt feels they are or have been: No Immunizations Up To Date Tetanus Booster (TDap): Unknown Date of Pneumonia Vaccine: Jan 27, 2020 Date of Influenza Vaccine: Jan 27, 2020 Past Medical History PMH As described under Assessment. Family Medical History Family Medical History: No reported family h/o CAD Allergies and Home Medications Allergies Coded Allergies: No Known Drug Allergies (Unverified , 01/19/18) Patient Home Medication List Home Medication List Reviewed: Yes Allopurinol (Allopurinol) 100 Mg Tablet, 100 MG PO DAILY, (Reported) Entered as Reported by: TAB LOPEZ on 01/21/19 0850 Amlodipine Besylate (Amlodipine Besylate) 5 Mg Tablet, 5 MG PO 1300, (Reported) Entered as Reported by: LIZBETH MUIR on 03/17/20 1444 Apixaban (Eliquis) 5 Mg Tablet, 5 MG PO 0700,1300, (Reported) Entered as Reported by: TAB LOPEZ on 01/21/19 0850 Aspirin (Aspirin EC) 81 Mg Tablet.dr, 81 MG PO DAILY, (Reported) Entered as Reported by: LIZBETH MUIR on 06/08/20 1211 Atorvastatin Calcium (Atorvastatin Calcium) 40 Mg Tablet, 40 MG PO HS, (Reported) Entered as Reported by: LIZBETH MUIR on 06/08/20 1153 Cholecalciferol (Vitamin D3) (Vitamin D3) 25 Mcg Tablet, 25 MCG PO DAILY, (Reported) Entered as Reported by: LIZBETH MUIR on 03/17/20 1444 Furosemide (Furosemide) 40 Mg Tablet, 40 MG PO DAILY, (Reported) Entered as Reported by: RULA CRAMER on 01/19/18 1415 Gabapentin (Gabapentin) 100 Mg Capsule, 100 MG PO 0700,1300,2300, (Reported) Entered as Reported by: LIZBETH MUIR on 03/17/20 1444 Glipizide (Glipizide) 10 Mg Tablet, 10 MG PO DAILY, (Reported) Entered as Reported by: RULA CRAMER on 06/28/16 1246 Glipizide (Glipizide) 10 Mg Tablet, 5 MG PO HS, (Reported) Entered as Reported by: LIZBETH MUIR on 06/08/20 1153 Guaifenesin (Mucus Relief) 600 Mg Tab.er.12h, 600 MG PO Q12H PRN for CONGESTION, (Reported) Entered as Reported by: LIZBETH MUIR on 06/08/20 1214 Insulin Detemir (Levemir Flextouch) 100 Unit/1 Ml Insuln.pen, 42 UNIT SQ BID, (Reported) Entered as Reported by: LIZBETH MUIR on 03/17/20 1444 Lisinopril (Lisinopril) 10 Mg Tablet, 10 MG PO DAILY, (Reported) Entered as Reported by: TAB LOPEZ on 01/21/19 0850 Meclizine HCl (Meclizine HCl) 25 Mg Tablet, 25 MG PO Q6H PRN for BLURRY VISION/DIZZINESS, (Reported) Entered as Reported by: LIZBETH MUIR on 06/08/20 1214 Metolazone (Metolazone) 2.5 Mg Tablet, 2.5 MG PO 1300, (Reported) Entered as Reported by: LIZBETH MUIR on 06/08/20 1153 Springer 3 Polyunsat Fatty Acids (Fish Oil 1,000 mg Capsule) 1,000 Mg Cap, 2,000 MG PO HS, (Reported) Entered as Reported by: TAB LOPEZ on 01/21/19 0851 Pantoprazole Sodium (Pantoprazole Sodium) 40 Mg Tablet.dr, 40 MG PO BID Prescribed by: GABE GUADALUPE on 06/09/20 1152 Potassium Chloride (Potassium Chloride) 10 Meq Capsule.er, 10 MEQ PO Q48H, (Reported) Entered as Reported by: LIZBETH MUIR on 06/08/20 1153 Sertraline HCl (Zoloft) 50 Mg Tablet, 50 MG PO HS, (Reported) Entered as Reported by: LIZBETH MUIR on 06/08/20 1153 Tamsulosin HCl (Flomax) 0.4 Mg Cap, 0.4 MG PO BID, (Reported) Entered as Reported by: TAB LOPEZ on 01/21/19 0851 Physical Exam-Cardiology Physical Exam Vital Signs/I&O 01/23/22 01/23/22 01/23/22 01/23/22 07:41 08:24 08:44 09:45 Temp 36.5 Pulse 92 80 72 75 Resp 19 18 B/P (MAP) 115/66 (82) 134/86 135/88 120/93 (102) Pulse Ox 85 O2 Delivery Nasal Cannula OxyMask O2 Flow Rate 5.00 10.00 9/28/01/23/22 01/23/22 01/23/22 09:54 10:01 10:16 10:30 Pulse 81 78 73 Resp 18 17 B/P (MAP) 160/88 106/73 (84) Pulse Ox 95 95 96 O2 Delivery OxyMask Simple Mask OxyMask O2 Flow Rate 10.00 10.00 10.00 01/23/22 01/23/22 01/23/22 01/23/22 10:45 11:00 11:15 12:00 Pulse 76 74 68 73 Resp 19 7 10 26 B/P (MAP) 130/81 (97) 139/82 (101) 150/86 (107) 130/100 (110) Pulse Ox 92 95 96 95 O2 Delivery OxyMask OxyMask High Flow N/C High Flow N/C O2 Flow Rate 10.00 10.00 10.00 10.00 01/23/22 01/23/22 01/23/22 12:00 12:26 13:00 Temp 36.0 Pulse 79 70 Resp 12 B/P (MAP) 127/91 (103) Pulse Ox 92 O2 Delivery High Flow N/C O2 Flow Rate 10.00 Capillary Refill : Less Than 3 Seconds Constitutional: AAO x 3, well-developed, well-nourished HEENT: PERRL, hearing is well preserved, oral hygience is good Neck: No carotid bruit; carotid pulses are 2 + bilaterally Respiratory: No accessory muscle use, No respiratory distress; chest expansion is symmetric, chest is bilaterally symmetric, lungs clear to auscultation Cardiovascular: irregularly irregular; No JVD; S1 and S2 Gastrointestinal: No tender; soft, round, audible bowel sounds Extremities: other (mod bilat LE swelling) Neurologic/Psychiatric: grossly intact (moves all extremities) Skin: other (multiple abrasions to LE bilat, some abrasions to toes and legs with scabbing) Data Review Labs Laboratory Tests 01/23/22 07:45: White Blood Count 11.0, Red Blood Count 4.97, Hemoglobin 14.8, Hematocrit 47, Mean Corpuscular Volume 95, Mean Corpuscular Hemoglobin 30, Mean Corpuscular Hemoglobin Concent 31L, Red Cell Distribution Width 15.6H, Platelet Count 254, Mean Platelet Volume 9.6, Immature Granulocyte % (Auto) 0, Neutrophils (%) (Auto) 75, Lymphocytes (%) (Auto) 16, Monocytes (%) (Auto) 7, Eosinophils (%) (Auto) 2, Basophils (%) (Auto) 0, Neutrophils # (Auto) 8.2H, Lymphocytes # (Auto) 1.7, Monocytes # (Auto) 0.7, Eosinophils # (Auto) 0.3, Basophils # (Auto) 0.0, Immature Granulocyte # (Auto) 0.0, Prothrombin Time 15.1H, INR Comment 1.1, Activated Partial Thromboplast Time 34, Sodium Level 138, Potassium Level 4.2, Chloride Level 89L, Carbon Dioxide Level 33H, Anion Gap 16H, Blood Urea Nitrogen 44H, Creatinine 2.32H, Estimat Glomerular Filtration Rate 28, BUN/Creatinine Ratio 19, Glucose Level 376H, Calcium Level 9.9, Corrected Calcium 10.2H, Magnesium Level 1.6, Total Bilirubin 0.8, Aspartate Amino Transf (AST/SGOT) 20, Alanine Aminotransferase (ALT/SGPT) 16, Alkaline Phosphatase 152H, Myoglobin 223.9H, Troponin I 0.052H, B-Type Natriuretic Peptide 626.5H, Total Protein 7.3, Albumin 3.6 01/23/22 08:29: Blood Gas Puncture Site R WRIST, Blood Gas Patient Temperature 36.5, Arterial Blood pH 7.36L, Arterial Blood Partial Pressure CO2 63H, Arterial Blood Partial Pressure O2 114H, Arterial Blood HCO3 35H, Arterial Blood Total CO2 37.2H, Arterial Blood Oxygen Saturation 98, Arterial Blood Base Excess 9.5H, Dat Test YES-POS, Blood Gas Ventilator Setting NO, Blood Gas Inspired Oxygen 10L A/P-Cardiology Assessment/Admission Diagnosis Syncope - likely d/t NSVT Reported NSVT by EMS which was treated with Lidocaine - No strips available - Episode of 4 beat run of WCT seen on ECG in the ED on 01-23-22 at 0748 - Amiodarone initiated Chronic systolic and diastolic CHF, NYHA Class III - Echocardiogram of Mar 17, [address] Guillen showed concentric hypertrophy. LVEF 45-50%. Mild to MR and AoR. PASP 25-30mmHg CAD - Report coronary PCI beginning in the 90s (doesn't know details). 12/07/2010: proximal circumflex artery was treated with Promus 4 x 12, mid circumflex with Promus 3.0 x 15, mid RCA 4 x 28 Promus, mid RCA Promus 4 x 12, proximal RCA Promus 4 x 23, proximal RCA Promus 4 x 23. 11/04/2011: proximal RCA treated with Promus element 3.5 x 28 mm stent, mid first diagonal artery treated with Promus element 2.25 x 24 mm stent. - Most recent coronary angiography of Dec [address] Guillen: showed moderate ostial LAD stenosis with FFR 0.94, which shows non-obstructive disease. Patent stent in the first diagonal artery and the RCA. Patent stent in the proximal LAD. PAD - Peripheral angiogram of Dec [address] Guillen: showed on the left showed moderate/severe diffuse calcified disease in the SFA, severe stenosis in the distal SFA. Suboptimal visualization in the popliteal artery however likely severe distal popliteal stenosis. At least one vessel runoff below the knee with a posterior tibial artery. Small diffusely diseased deep peroneal as well as anterior tibial artery. Right lower extremity shows moderate diffuse calcified disease in the SFA in the popliteal artery. Two-vessel runoff with a posterior tibial as well as deep peroneal artery. Heavily diseased small anterior tibial artery. - AAA Repair: 08/10/[address] Stallworth at [facility], [place] - CT of the abdomen without contrast on Dec 28, 2019: Previously treated abdominal aortic aneurysm. The maximum sac diameter is 4.6 cm. This is essentially unchanged compared to the prior examination from 2016 per Chronic kidney disease stage IV - follows with [place] [facility] Intolerant to RENU-inhib/ARB due to hypotension Persistent atrial fibrillation - OAC with Eliquis Carotid arterial dz: - s/p L CEA in October [address] Reddy at [facility]. Carotid art disease is being followed at the same office HTN - controlled HLD - statin - managed by PCP VILMA Abnormal ECG - Chronic RBBB DM 2 - managed by PCP BPH and chronic dysuria and hesitancy H/O GI bleed and acute anemia in early 2020 - s/p endoscopy by Dr. Rushing (May 2020) - GERD, gastritis, hiatal hernia, i nternal/external hemorrhoids - followed by Dr Dubon and Dr Rushing Pt requests DNR status Discussion and Recomendations Complex management. I have discussed his CV issues with him and his daughter. He wishes to be managed conservatively only (appears reasonable, given multiple comorbidities including CKD-4) Syncope likely d/t NSVT - continue Amiodarone infusion, then change to oral NSTEMI with NSVT - conservative management per patient request - start BB - start Plavix d/t CAD with NSTEMI and recent L CEA Chronic a-fib - continue OAC with Eliquis for stroke prophylaxis Monitor lab closely - replace electrolytes as indicated Further recs will be based on his hospital course We would like to thank Medical services for this consult MATT GUPTA MD FACP FACC CCDS Jan 23, 2022 13:33
[2022-01-23] MEDS ORDERED: CALC0.253 PO (14:11)
[2022-01-23] MEDS ORDERED: METO5TAB6 PO (14:11)
[2022-01-23] MEDS ORDERED: POTA-51 PO (14:11)
[2022-01-23] MEDS ORDERED: FERR-74 PO (14:11)
[2022-01-23] MEDS ORDERED: CARV12.53 PO (14:11)
[2022-01-23] MEDS ORDERED: PANT40TA52 PO (14:11)
[2022-01-23] MEDS ORDERED: INSU100C3 SQ (14:18)
[2022-01-23] MEDS: inSUlin ASPART (NovoLOG) 1 UNIT/0.01 ML (CHARGE PER UNIT) SC SCH ×2 (15:50→21:10)
[2022-01-23] MEDS: TAMSULOSIN 0.4 MG (FLOMAX) CAP PO SCH (17:48)
--- NOTE | 2022-01-23 18:09 | History & Physical-Hospitalist ---
History of Present Illness HPI/Chief Complaint Nicole Cronin is an 81 year old male with PMH HTN, T2DM, HLD, CAD, PAD, carotid stenosis s/p recent CEA, AFib, CKD 4, HFpEF, BPH, VILMA, morbid obesity, who presented after a syncopal episode. He had gotten up in the night to go to the bathroom and was found on the ground by his daughter. He does not remember what happened. He had nausea. He denies chest pain and palpitations. He denies shortness of breath and cough. He denies fevers and chills. He denies abdominal pain and diarrhea. He is a former smoker but quit many years ago. Source: patient Exam Limitations: no limitations Date Seen 01/23/22 Time Seen by a Provider: 10:00 Attending Physician Anny Kemp PCP Admitting Physician: Blake Russell MD Attending Physician: Blake Russell MD Referring Physician Date of Admission Jan 23, 2022 at 09:09 Home Medications & Allergies Home Medications Reviewed patient Home Medication Reconciliation performed by pharmacy medication reconciliations medical supply technician and/or nursing. Patients Allergies have been reviewed. Allergies Allergies Coded Allergies No Known Drug Allergies (Unverified01/19/18) Past Umdiwlu-Tohiyd-Cvufxe Hx Patient Social History Tobacco Use?: No Smoking Status: Former Smoker Smokeless Tobacco Frequency: Never a User Use of E-Cig and/or Vaping dev: No Substance use?: No Alcohol Use?: No Pt feels they are or have been: No Immunizations Up To Date Date of Influenza Vaccine: Jan 27, 2020 First/Initial COVID19 Vaccinat: na Tetanus Booster (TDap): Unknown Hepatitis A: No Hepatitis B: No Date of Pneumonia Vaccine: Jan 27, 2020 Seasonal Allergies Seasonal Allergies: No Current Status Advance Directives: No Advance Directive Location: dnr per pt Communicates: Verbally Primary Language: Slovak Preferred Spoken Language: Slovak Is interpretation needed?: No Past Medical History Surgeries: Coronary Stent, Gallbladder, Prostatectomy, Vascular Surgery (AAA graft repair and left carotid endarterectomy) Sleep Apnea, COPD Currently Using CPAP: Yes (WITH OXYGEN AT NIGHT) Atrial Fibrillation, Coronary Artery Disease, High Cholesterol, Hypertension, Peripheral Vascular Neuropathy Sexually Transmitted Disease: No HIV/AIDS: No Prostate Problems, Kidney Stones, Renal Failure (Chronic kidney disease) Degenerate Disk Disease, Arthritis, Chronic Back Pain Diabetes, Insulin dep Loss of Vision: Bilateral Hearing Impairment: Denies Prostate Did You Recieve Any Treatments: Yes What Type of Treatment Did You: Chemotherapy, Surgical Intervention Recent Skin Changes Blood Disorders: No Adverse Reaction/Blood Tranf: No (N/A) Family Medical History No Pertinent Family Hx Review of Systems Constitutional: see HPI Respiratory: no symptoms reported Cardiovascular: no symptoms reported Gastrointestinal: no symptoms reported Physical Exam Physical Exam Vital Signs Vital Signs - First Documented 01/23/22 07:41 Temp 36.5 Pulse 92 Resp 19 B/P (MAP) 115/66 (82) Pulse Ox 85 O2 Delivery Nasal Cannula O2 Flow Rate 5.00 Capillary Refill : Less Than 3 Seconds Height, Weight, BMI Height: 5'9.00" Weight: 276lbs. 0.0oz. 125.565279gm; 40.81 BMI Method: General Appearance: No Apparent Distress, Obese HEENT: PERRL/EOMI, Pharynx Normal Neck: Normal Inspection, Supple Respiratory: No Respiratory Distress, Decreased Breath Sounds Cardiovascular: No Murmur, Irregularly Irregular Gastrointestinal: Normal Bowel Sounds, Non Tender, Soft, Distended Extremity: Non Tender, Inflammation, Pedal Edema Neurologic/Psychiatric: Alert, Normal Mood/Affect Skin: Warm/Dry, Erythema (bilateral lower extremities, venous stasis dermatitis) Results Results/Procedures Labs Laboratory Tests 01/23/22 07:45 Patient resulted labs reviewed. Imaging: Reviewed Imaging Films, Reviewed Imaging Report Assessment/Plan Admission Diagnosis Ventricular tachycardia Admission Status: Inpatient Order (span 2 midnights) Reason for Inpatient Admission: NSTEMI AHRF Assessment and Plan Ventricular tachycardia NSTEMI Acute on chronic HFpEF Acute respiratory failure with hypoxia Given Lidocaine by EMS and converted to AFib Had short runs of NSVT in ER and was started on Amiodarone Cardiology consulted Continue Eliquis Supplemental oxygen as needed TeleICU consulted Consider Lasix CKD 4 Near baseline Monitor T2DM Decreased dose Levemir Sliding scale insulin HTN HLD CAD PAD Carotid stenosis AFib BPH VILMA Continue home meds as able Critical Care Critically Ill Patient Diagnosis/Problems Diagnosis/Problems (1) Ventricular tachycardia Status: Acute (2) Acute respiratory failure with hypoxia Status: Acute (3) CKD (chronic kidney disease) Status: Chronic Qualifiers: Chronic kidney disease stage: stage 4 (severe) Qualified Codes: N18.4 - Chronic kidney disease, stage 4 (severe) (4) Atrial fibrillation Status: Chronic Qualifiers: Atrial fibrillation type: persistent (not longstanding) Qualified Codes: I48.19 - Other persistent atrial fibrillation (5) Insulin dependent diabetes mellitus Status: Chronic BLAKE RUSSELL MD Jan 23, 2022 18:09
[2022-01-23] MEDS ORDERED: METOLAZONE 5 MG (ZAROXOLYN) TAB PO NR (18:30)
[2022-01-23] MEDS: APIXABAN 2.5 MG (ELIQUIS) TABLET PO SCH (21:09)
[2022-01-23] MEDS: GABAPENTIN 300 MG (NEURONTIN) CAP PO SCH (21:09)
[2022-01-24 05:18] LABS: BASOPHILS % (AUTO) 1 % (0-10); EOSINOPHILS # (AUTO) 0.3 10^3/uL (0.0-0.3); EOSINOPHILS % (AUTO) 3 % (0-10); HEMATOCRIT 43 % (40-54); HEMOGLOBIN 13.7 g/dL (13.3-17.7); LYMPHOCYTES # (AUTO) 1.7 10^3/uL (1.0-4.0); LYMPHOCYTES % (AUTO) 19 % (12-44); MEAN CORPUSCULAR HEMOGLOBIN 30 pg (25-34); MEAN CORPUSCULAR HGB CONC 32 g/dL (32-36); MEAN CORPUSCULAR VOLUME 95 fL (80-99); MEAN PLATELET VOLUME 9.4 fL (9.0-12.2); MONOCYTES # (AUTO) 0.7 10^3/uL (0.0-1.0); MONOCYTES % (AUTO) 7 % (0-12); NEUTROPHILS # (AUTO) 6.1 10^3/uL (1.8-7.8); NEUTROPHILS % (AUTO) 69 % (42-75); PLATELET COUNT 220 10^3/uL (130-400); WHITE BLOOD COUNT 8.8 10^3/uL (4.3-11.0)
[2022-01-24 05:28] LABS: POTASSIUM 3.5 MMOL/L (3.6-5.0); TRIGLYCERIDES 117 MG/DL (<150)
[2022-01-24 05:29] LABS: VLDL CHOLESTEROL 23 MG/DL (5-40)
[2022-01-24 05:30] LABS: CALCIUM 9.3 MG/DL (8.5-10.1)
[2022-01-24 05:34] LABS: CHOLESTEROL 112 MG/DL (< 200); CREATININE SERUM 2.3 MG/DL (0.60-1.30); HDL CHOLESTEROL 29 MG/DL (40-60)
[2022-01-24 05:36] LABS: MAGNESIUM 1.6 MG/DL (1.6-2.4)
[2022-01-24] MEDS ORDERED: KCL 20 MEQ TAB (K-DUR) PO SCH (06:00)
[2022-01-24] MEDS ORDERED: MAGNESIUM 1 GM/100 ML IVPB 100 ML IV SCH (06:00)
[2022-01-24] MEDS ORDERED: POTASSIUM CL 10MEQ/50ML IVPB 50 ML IV SCH (06:00)
[2022-01-24] MEDS ORDERED: NS IV 500 ML 500 ML IV PRN (06:15)
[2022-01-24] MEDS ORDERED: KCL 20 MEQ TAB (K-DUR) PO ONE (06:30)
[2022-01-24] MEDS ORDERED: NS IV 500 ML 500 ML IV SCH (06:30)
[2022-01-24] MEDS ORDERED: MAGNESIUM 1 GM/100 ML IVPB 300 ML IV ONE (06:56)
[2022-01-24] MEDS: inSUlin ASPART (NovoLOG) 1 UNIT/0.01 ML (CHARGE PER UNIT) SC SCH ×4 (06:58→21:00)
[2022-01-24] MEDS: MAGNESIUM 1 GM/100 ML IVPB 100 ML IV SCH ×3 (06:59→09:19)
[2022-01-24] MEDS ORDERED: KCL 20 MEQ TAB (K-DUR) PO NR (07:00)
--- NOTE | 2022-01-24 08:37 | Progress Note - Cardiology ---
Cardiology SOAP Progress Note Subjective: Sitting up on the side of the bed States he feels "good" No c/o CP, palpitations, syncope, near syncope No c/o n/v/d Reports chronic SOB, but feels he's at his baseline Reports chronic bilat LE swelling which is unchanged from his baselin Objective: I&O/Vital Signs 01/24/22 01/24/22 01/24/22 01/24/22 05:00 06:00 07:00 07:00 Pulse 56 64 60 68 Resp 13 28 14 B/P (MAP) 112/60 (77) 121/99 (106) 119/75 (90) Pulse Ox 94 95 94 O2 Delivery High Flow N/C High Flow N/C High Flow N/C O2 Flow Rate 10.00 10.00 10.00 01/24/22 01/24/22 01/24/22 01/24/22 07:41 08:00 08:00 08:30 Temp 35.8 Pulse 58 Resp 10 B/P (MAP) 120/74 (89) Pulse Ox 100 100 O2 Delivery High Flow N/C High Flow N/C High Flow N/C O2 Flow Rate 8.00 10.00 8.00 01/24/22 01/24/22 01/24/22 01/24/22 09:00 09:25 09:33 10:00 Pulse 61 56 Resp 12 22 B/P (MAP) 88/76 (80) 110/68 (82) Pulse Ox 96 95 O2 Delivery High Flow N/C High Flow N/C High Flow N/C High Flow N/C O2 Flow Rate 8.00 4.00 2.00 2.00 01/24/22 01/24/22 01/24/22 01/24/22 11:00 12:00 12:00 12:03 Temp 35.6 Pulse 64 65 Resp 16 19 B/P (MAP) 119/83 (95) 139/93 (108) Pulse Ox 90 100 O2 Delivery High Flow N/C High Flow N/C High Flow N/C O2 Flow Rate 2.00 8.00 2.00 01/24/22 01/24/22 01/24/22 01/24/22 13:00 13:00 14:00 15:00 Pulse 63 65 61 65 Resp 24 21 12 B/P (MAP) 125/86 (99) 143/76 (98) 113/70 (84) O2 Delivery High Flow N/C High Flow N/C High Flow N/C O2 Flow Rate 2.00 2.00 2.00 01/24/22 16:00 Temp 35.9 01/24/22 00:00 Intake Total 1030 ml Output Total 175 ml Balance 855 ml Weight (Pounds): 276 Weight (Ounces): 0.0 Weight (Calculated Kilograms): 125.740087 Constitutional: AAO x 3, well-developed, well-nourished Respiratory: No accessory muscle use, No respiratory distress; chest expansion is symmetric, chest is bilaterally symmetric, lungs clear to auscultation Cardiovascular: irregularly irregular; No JVD; S1 and S2 Gastrointestional: No tender; soft, round, audible bowel sounds Extremities: other (mod bilat LE swelling) Neurologic/Psychiatric: grossly intact (moves all extremities) Skin: other (multiple abrasions to LE bilat, some abrasions to toes and legs with scabbing) Results/Procedures: Labs Laboratory Tests 01/23/22 20:09: Glucometer 309H 01/24/22 04:50: White Blood Count 8.8, Red Blood Count 4.56, Hemoglobin 13.7, Hematocrit 43, Mean Corpuscular Volume 95, Mean Corpuscular Hemoglobin 30, Mean Corpuscular Hemoglobin Concent 32, Red Cell Distribution Width 15.4H, Platelet Count 220, Mean Platelet Volume 9.4, Immature Granulocyte % (Auto) 1, Neutrophils (%) (Auto) 69, Lymphocytes (%) (Auto) 19, Monocytes (%) (Auto) 7, Eosinophils (%) (Auto) 3, Basophils (%) (Auto) 1, Neutrophils # (Auto) 6.1, Lymphocytes # (Auto) 1.7, Monocytes # (Auto) 0.7, Eosinophils # (Auto) 0.3, Basophils # (Auto) 0.0, Immature Granulocyte # (Auto) 0.0, Sodium Level 139, Potassium Level 3.5L, Chloride Level 94L, Carbon Dioxide Level 28, Anion Gap 17H, Blood Urea Nitrogen 51H, Creatinine 2.30H, Estimat Glomerular Filtration Rate 28, BUN/Creatinine Ratio 22, Glucose Level 233H, Calcium Level 9.3, Magnesium Level 1.6, Triglycerides Level 117, Cholesterol Level 112, LDL Cholesterol Direct 59, VLDL Cholesterol 23, HDL Cholesterol 29L, Thyroid Stimulating Hormone (TSH) 0.14L 01/24/22 10:40: Glucometer 239H 01/24/22 15:33: Glucometer 222H Microbiology 01/23/22 MRSA Screen - Final, Complete MRSA not isolated A/P: Assessment: Syncope - likely d/t NSVT Reported NSVT by EMS which was treated with Lidocaine - No strips available - Episode of 4 beat run of WCT seen on ECG in the ED on 01-23-22 at 0748 - Amiodarone initiated NSTEMI - He wishes to be managed conservatively only (appears reasonable, given multiple comorbidities including CKD-4) Chronic systolic and diastolic CHF, NYHA Class III - Echocardiogram of Mar 17, [address] Guillen showed concentric hypertrophy. LVEF 45-50%. Mild to MR and AoR. PASP 25-30mmHg CAD - Report coronary PCI beginning in the (doesn't know details). 12/07/2010: proximal circumflex artery was treated with Promus 4 x 12, mid circumflex with Promus 3.0 x 15, mid RCA 4 x 28 Promus, mid RCA Promus 4 x 12, proximal RCA Promus 4 x 23, proximal RCA Promus 4 x 23. 11/04/2011: proximal RCA treated with Promus element 3.5 x 28 mm stent, mid first diagonal artery treated with Promus element 2.25 x 24 mm stent. - Most recent coronary angiography of Dec [address] Guillen: showed moderate ostial LAD stenosis with FFR 0.94, which shows non-obstructive disease. Patent stent in the first diagonal artery and the RCA. Patent stent in the proximal LAD. PAD - Peripheral angiogram of Dec [address] Guillen: showed on the left showed moderate/severe diffuse calcified disease in the SFA, severe stenosis in the distal SFA. Suboptimal visualization in the popliteal artery however likely severe distal popliteal stenosis. At least one vessel runoff below the knee with a posterior tibial artery. Small diffusely diseased deep peroneal as well as anterior tibial artery. Right lower extremity shows moderate diffuse calcified disease in the SFA in the popliteal artery. Two-vessel runoff with a posterior tibial as well as deep peroneal artery. Heavily diseased small anterior tibial artery. - AAA Repair: 08/10/[address] Stallworth at [facility] - CT of the abdomen without contrast on Dec 28, 2019: Previously treated abdominal aortic aneurysm. The maximum sac diameter is 4.6 cm. This is essenti ally unchanged compared to the prior examination from 2016 per Chronic kidney disease stage IV - follows with [place] [facility] Intolerant to RENU-inhib/ARB due to hypotension Persistent atrial fibrillation - OAC with Eliquis Carotid arterial dz: - s/p L CEA in October [address] Reddy at [facility]. Carotid art disease is being followed at the same office HTN - controlled HLD - statin - managed by PCP VILMA Abnormal ECG - Chronic RBBB DM 2 - managed by PCP BPH and chronic dysuria and hesitancy H/O GI bleed and acute anemia in early 2020 - s/p endoscopy by Dr. Rushing (May 2020) - GERD, gastritis, hiatal hernia, internal/external hemorrhoids - followed by Dr Dubon and Dr Rushing Pt requests DNR status Plan: Complex management. Echocardiogram today Syncope likely d/t NSVT - IV Amiodarone completed this morning - start oral NSTEMI with NSVT - continue conservative management per patient request - continue BB - continue Plavix d/t CAD with NSTEMI and recent L CEA Chronic a-fib - continue OAC with Eliquis for stroke prophylaxis Monitor lab closely - replace electrolytes as indicated We have discussed his CV issues with him and his daughter. DEANNE GUEVARA Jan 24, 2022 08:37
--- NOTE | 2022-01-24 08:58 | Tele-ICU Progress Note ---
Subjective Date Seen by a Provider: Jan 24, 2022 Time Seen by a Provider: 08:52 Subjective/Events-last exam eICU progress note 81 yo M with AECOPD-on high lucila oxgyen-was on 10 lpm, now 8. Not c/o SOB with SpO2 100 5 Admiited also for V tach with a pulse, started on amiadarone, was on IV, now on po, Hx of CAD with stents, on DPT, AAA repair, CEA, CHF, A fib on Eliquis, Lasix- will hold lasix due to rising Cr I reviewed CXR shows enlarged heart and mild congestion Sepsis Event Evaluation Height, Weight, BMI Height: 5'9.00" Weight: 276lbs. 0.0oz. [id number]; 40.81 BMI Method: Exam Exam Patient acknowledged, consented, and participated in this virtual visit which was conducted using real time audio/video Vital Signs Date Time Temp Pulse Resp B/P (MAP) Pulse Ox O2 Delivery O2 Flow Rate FiO2 01/24/22 08:00 58 10 120/74 (89) 100 High Flow N/C 10.00 01/24/22 07:41 35.8 01/24/22 07:00 68 01/24/22 07:00 60 14 119/75 (90) 94 High Flow N/C 10.00 01/24/22 06:00 64 28 121/99 (106) 95 High Flow N/C 10.00 01/24/22 05:00 56 13 112/60 (77) 94 High Flow N/C 10.00 01/24/22 04:06 94 High Flow N/C 10.00 01/24/22 04:00 57 10 101/55 (70) 92 High Flow N/C 10.00 01/24/22 03:59 35.9 01/24/22 03:00 62 13 101/75 (84) 96 High Flow N/C 10.00 01/24/22 02:00 63 13 110/67 (81) 95 High Flow N/C 10.00 01/24/22 01:00 75 14 119/70 (86) 92 High Flow N/C 10.00 01/24/22 00:56 64 01/24/22 00:07 35.6 01/24/22 00:02 95 High Flow N/C 10.00 01/24/22 00:00 65 11 122/77 (92) 94 High Flow N/C 10.00 01/23/22 23:00 70 11 125/72 (89) 96 High Flow N/C 10.00 01/23/22 22:00 67 22 120/75 (90) 96 High Flow N/C 10.00 01/23/22 21:00 64 30 121/106 (111) 100 High Flow N/C 10.00 01/23/22 20:00 71 15 135/93 (107) High Flow N/C 10.00 01/23/22 20:00 98 High Flow N/C 10.00 01/23/22 19:51 36.1 01/23/22 19:00 79 27 132/109 (117) 83 High Flow N/C 10.00 01/23/22 18:35 76 01/23/22 18:00 66 17 123/99 (107) 91 High Flow N/C 10.00 01/23/22 17:00 67 15 120/90 (100) 99 High Flow N/C 10.00 01/23/22 16:00 100 High Flow N/C 10.00 01/23/22 16:00 81 13 124/71 (88) 100 High Flow N/C 10.00 01/23/22 15:35 36.2 01/23/22 15:00 70 17 114/81 (92) 90 High Flow N/C 10.00 01/23/22 14:00 65 13 134/93 (107) 100 High Flow N/C 10.00 01/23/22 13:00 70 12 127/91 (103) 92 High Flow N/C 10.00 01/23/22 12:26 79 01/23/22 12:00 36.0 01/23/22 12:00 73 26 130/100 (110) 95 High Flow N/C 10.00 01/23/22 12:00 95 High Flow N/C 10.00 01/23/22 11:15 68 10 150/86 (107) 96 High Flow N/C 10.00 01/23/22 11:00 74 7 139/82 (101) 95 OxyMask 10.00 01/23/22 10:45 76 19 130/81 (97) 92 OxyMask 10.00 01/23/22 10:30 73 17 106/73 (84) 96 OxyMask 10.00 01/23/22 10:16 95 Simple Mask 10.00 01/23/22 10:01 78 18 160/88 95 OxyMask 10.00 01/23/22 09:54 81 01/23/22 09:45 75 18 120/93 (102) OxyMask 10.00 I & O 01/24/22 07:00 Intake Total 1483 ml Output Total 225 ml Balance 1258 ml Height & Weight Height: 5'9.00" Weight: 276lbs. 0.0oz. [id number]; 40.81 BMI Method: General Appearance: No Apparent Distress, Obese HEENT: PERRL/EOMI, Pharynx Normal Neck: Normal Inspection, Supple Respiratory: No Respiratory Distress, Decreased Breath Sounds, Other (some crackles at both base) Cardiovascular: No Murmur, Irregularly Irregular, Other (chornic a fib) Capillary Refill: Less Than 3 Seconds Gastrointestinal: normal bowel sounds, non tender, soft Extremity: Non Tender, Inflammation, Pedal Edema, Other (+1 bilteral leg edema) Neurologic/Psychiatric: Alert, Normal Mood/Affect Skin: Warm/Dry, Erythema (bilateral lower extremities, venous stasis dermatitis) Results Lab Laboratory Tests 01/23/22 07:45 01/24/22 04:50 Assessment/Plan Assessment/Plan AECOPD, continue BD's, oxygen, now @ 8, will continue on amiodarone po, might go home tomorrow if no further NSVT Pt is DNR/DNI Critical Care: Critically Ill Patient Time spent with patient (mins): 30 TIARRA VARGAS MD Jan 24, 2022 08:58
[2022-01-24] MEDS ORDERED: FUROSEMIDE 40 MG (LASIX) TAB PO SCH (09:00)
[2022-01-24] MEDS: KCL 20 MEQ TAB (K-DUR) PO SCH (09:18)
[2022-01-24] MEDS: APIXABAN 2.5 MG (ELIQUIS) TABLET PO SCH ×2 (09:18→20:50)
[2022-01-24] MEDS: CLOPIDOGREL 75 MG (PLAVIX) TABLET PO SCH (09:18)
[2022-01-24] MEDS: AMIODARONE 200 MG (CORDARONE) TAB PO SCH ×2 (09:18→20:50)
[2022-01-24] MEDS: GABAPENTIN 300 MG (NEURONTIN) CAP PO SCH ×2 (09:18→20:50)
--- NOTE | 2022-01-24 11:55 | Progress Note - Cardiology ---
Cardiology SOAP Progress Note Subjective: No cp or palp or syncope No shortness of breath at rest No n/v/d No gen weakness Objective: I&O/Vital Signs 01/24/22 01/24/22 01/24/22 01/24/22 00:00 00:02 00:07 00:56 Temp 35.6 Pulse 65 64 Resp 11 B/P (MAP) 122/77 (92) Pulse Ox 94 95 O2 Delivery High Flow N/C High Flow N/C O2 Flow Rate 10.00 10.00 01/24/22 01/24/22 01/24/22 01/24/22 01:00 02:00 03:00 03:59 Temp 35.9 Pulse 75 63 62 Resp 14 13 13 B/P (MAP) 119/70 (86) 110/67 (81) 101/75 (84) Pulse Ox 92 95 96 O2 Delivery High Flow N/C High Flow N/C High Flow N/C O2 Flow Rate 10.00 10.00 10.00 01/24/22 01/24/22 01/24/22 01/24/22 04:00 04:06 05:00 06:00 Pulse 57 56 64 Resp 10 13 28 B/P (MAP) 101/55 (70) 112/60 (77) 121/99 (106) Pulse Ox 92 94 94 95 O2 Delivery High Flow N/C High Flow N/C High Flow N/C High Flow N/C O2 Flow Rate 10.00 10.00 10.00 10.00 01/24/22 01/24/22 01/24/22 01/24/22 07:00 07:00 07:41 08:00 Temp 35.8 Pulse 60 68 Resp 14 B/P (MAP) 119/75 (90) Pulse Ox 94 O2 Delivery High Flow N/C High Flow N/C O2 Flow Rate 10.00 8.00 01/24/22 01/24/22 01/24/22 01/24/22 08:00 08:30 09:00 09:25 Pulse 58 61 Resp 10 12 B/P (MAP) 120/74 (89) 88/76 (80) Pulse Ox 100 100 96 O2 Delivery High Flow N/C High Flow N/C High Flow N/C High Flow N/C O2 Flow Rate 10.00 8.00 8.00 4.00 01/24/22 01/24/22 09:33 10:00 Pulse 56 Resp 22 B/P (MAP) 110/68 (82) Pulse Ox 95 O2 Delivery High Flow N/C High Flow N/C O2 Flow Rate 2.00 2.00 01/24/22 00:00 Intake Total 1030 ml Output Total 175 ml Balance 855 ml Weight (Pounds): 276 Weight (Ounces): 0.0 Weight (Calculated Kilograms): 125.329269 Constitutional: AAO x 3, well-developed, well-nourished Respiratory: No accessory muscle use, No respiratory distress; chest expansion is symmetric, chest is bilaterally symmetric, lungs clear to auscultation Cardiovascular: irregularly irregular; No JVD; S1 and S2 Gastrointestional: No tender; soft, round, audible bowel sounds Extremities: other (mod bilat LE swelling) Neurologic/Psychiatric: grossly intact (moves all extremities) Skin: other (multiple abrasions to LE bilat, some abrasions to toes and legs with scabbing) Results/Procedures: Labs Laboratory Tests 01/23/22 15:14: Glucometer 289H 01/23/22 20:09: Glucometer 309H 01/24/22 04:50: White Blood Count 8.8, Red Blood Count 4.56, Hemoglobin 13.7, Hematocrit 43, Mean Corpuscular Volume 95, Mean Corpuscular Hemoglobin 30, Mean Corpuscular Hemoglobin Concent 32, Red Cell Distribution Width 15.4H, Platelet Count 220, Mean Platelet Volume 9.4, Immature Granulocyte % (Auto) 1, Neutrophils (%) (Auto) 69, Lymphocytes (%) (Auto) 19, Monocytes (%) (Auto) 7, Eosinophils (%) (Auto) 3, Basophils (%) (Auto) 1, Neutrophils # (Auto) 6.1, Lymphocytes # (Auto) 1.7, Monocytes # (Auto) 0.7, Eosinophils # (Auto) 0.3, Basophils # (Auto) 0.0, Immature Granulocyte # (Auto) 0.0, Sodium Level 139, Potassium Level 3.5L, Chloride Level 94L, Carbon Dioxide Level 28, Anion Gap 17H, Blood Urea Nitrogen 51H, Creatinine 2.30H, Estimat Glomerular Filtration Rate 28, BUN/Creatinine Ratio 22, Glucose Level 233H, Calcium Level 9.3, Magnesium Level 1.6, Triglycerides Level 117, Cholesterol Level 112, LDL Cholesterol Direct 59, VLDL Cholesterol 23, HDL Cholesterol 29L, Thyroid Stimulating Hormone (TSH) 0.14L 01/24/22 10:40: Glucometer 239H Microbiology 01/23/22 MRSA Screen - Final, Complete MRSA not isolated Laboratory Tests 01/23/22 07:45 01/24/22 04:50 A/P: Assessment: Syncope - likely d/t NSVT Reported NSVT by EMS which was treated with Lidocaine - No strips available - Episode of 4 beat run of WCT seen on ECG in the ED on 01-23-22 at 0748 - Amiodarone initiated NSTEMI - He wishes to be managed conservatively only (appears reasonable, given multiple comorbidities including CKD-4) Chronic systolic and diastolic CHF, NYHA Class III - Echocardiogram of Mar 17, [address] Guillen showed concentric hypertrophy. LVEF 45-50%. Mild to MR and AoR. PASP 25-30mmHg CAD - Report coronary PCI beginning in the (doesn't know details). 12/07/2010: proximal circumflex artery was treated with Promus 4 x 12, mid circumflex with Promus 3.0 x 15, mid RCA 4 x 28 Promus, mid RCA Promus 4 x 12, proximal RCA Promus 4 x 23, proximal RCA Promus 4 x 23. 11/04/2011: proximal RCA treated with Promus element 3.5 x 28 mm stent, mid first diagonal artery treated with Promus element 2.25 x 24 mm stent. - Most recent coronary angiography of Dec [address] Guillen: showed moderate ostial LAD stenosis with FFR 0.94, which shows non-obstructive disease. Patent stent in the first diagonal artery and the RCA. Patent stent in the proximal LAD. PAD - Peripheral angiogram of Dec [address] Guillen: showed on the left showed moderate/severe diffuse calcified disease in the SFA, severe stenosis in the distal SFA. Suboptimal visualization in the popliteal artery however likely s evere distal popliteal stenosis. At least one vessel runoff below the knee with a posterior tibial artery. Small diffusely diseased deep peroneal as well as anterior tibial artery. Right lower extremity shows moderate diffuse calcified disease in the SFA in the popliteal artery. Two-vessel runoff with a posterior tibial as well as deep peroneal artery. Heavily diseased small anterior tibial artery. - AAA Repair: 08/10/[address] Stallworth at [facility] - CT of the abdomen without contrast on Dec 28, 2019: Previously treated abdominal aortic aneurysm. The maximum sac diameter is 4.6 cm. This is essentially unchanged compared to the prior examination from 2016 per Chronic kidney disease stage IV - follows with [place] nephrology Intolerant to RENU-inhib/ARB due to hypotension Persistent atrial fibrillation - OAC with Eliquis Carotid arterial dz: - s/p L CEA in October [address] eRddy at [facility]. Carotid art disease is being followed at the same office HTN - controlled HLD - statin - managed by PCP VILMA Abnormal ECG - Chronic RBBB DM 2 - managed by PCP BPH and chronic dysuria and hesitancy H/O GI bleed and acute anemia in early 2020 - s/p endoscopy by Dr. Rushing (May 2020) - GERD, gastritis, hiatal hernia, internal/external hemorrhoids - followed by Dr Dubon and Dr Rushing Pt requests DNR status Plan: Complex management. Echocardiogram today Syncope likely d/t NSVT - IV Amiodarone completed this morning - start oral NSTEMI with NSVT - continue conservative management per patient request - continue BB - continue Plavix d/t CAD with NSTEMI and recent L CEA Chronic a-fib - continue OAC with Eliquis for stroke prophylaxis Monitor lab closely - replace electrolytes as indicated Reduce diuretics MATT GUPTA MD FACP FAC CCDS Jan 24, 2022 11:55
[2022-01-24] MEDS: TAMSULOSIN 0.4 MG (FLOMAX) CAP PO SCH (17:57)
--- NOTE | 2022-01-24 18:26 | Progress Note - Hospitalist ---
Subjective HPI/CC On Admission Date Seen by Provider: Jan 24, 2022 Time Seen by Provider: 09:25 Nicole Cronin is an 81 year old male with PMH HTN, T2DM, HLD, CAD, PAD, carotid stenosis s/p recent CEA, AFib, CKD 4, HFpEF, BPH, VILMA, morbid obesity, who presented after a syncopal episode. He had gotten up in the night to go to the bathroom and was found on the ground by his daughter. He does not remember what happened. He had nausea. He denies chest pain and palpitations. He denies shortness of breath and cough. He denies fevers and chills. He denies abdominal pain and diarrhea. He is a former smoker but quit many years ago. Subjective/Events-last exam He is feeling well. He denies chest pain and palpitations. He has no complaints. Objective Exam Vital Signs Vital Signs Date Time Temp Pulse Resp B/P (MAP) Pulse Ox O2 Delivery O2 Flow Rate FiO2 01/24/22 16:00 35.9 01/24/22 16:00 100 High Flow N/C 8.00 01/24/22 15:00 65 12 113/70 (84) Capillary Refill : Less Than 3 Seconds General Appearance: No Apparent Distress, Obese Respiratory: Lungs Clear, No Respiratory Distress Cardiovascular: No Murmur, Irregularly Irregular Gastrointestinal: Normal Bowel Sounds, Soft Extremity: Normal Inspection, Pedal Edema Neurologic/Psychiatric: Alert, Normal Mood/Affect Skin: Normal Color, Warm/Dry Results/Procedures Lab Laboratory Tests 01/24/22 04:50 Patient resulted labs reviewed. Imaging: Reviewed Imaging Films, Reviewed Imaging Report Assessment/Plan Assessment and Plan Assess & Plan/Chief Complaint Ventricular tachycardia NSTEMI Acute on chronic HFpEF Acute respiratory failure with hypoxia Cardiology following Transitioned to oral Amiodarone Continue Coreg Continue Eliquis Supplemental oxygen as needed, weaning as able TeleICU following CKD 4 Near baseline Monitor T2DM Decreased dose Levemir Sliding scale insulin HTN HLD CAD PAD Carotid stenosis AFib BPH VILMA Continue home meds as able Diagnosis/Problems Diagnosis/Problems (1) Ventricular tachycardia Status: Acute (2) Acute respiratory failure with hypoxia Status: Acute (3) CKD (chronic kidney disease) Status: Chronic Qualifiers: Chronic kidney disease stage: stage 4 (severe) Qualified Codes: N18.4 - Chronic kidney disease, stage 4 (severe) (4) Atrial fibrillation Status: Chronic Qualifiers: Atrial fibrillation type: persistent (not longstanding) Qualified Codes: I48.19 - Other persistent atrial fibrillation (5) Insulin dependent diabetes mellitus Status: Chronic BLAKE RUSSELL MD Jan 24, 2022 18:26
[2022-01-25 05:25] LABS: CALCIUM 9.2 MG/DL (8.5-10.1); CREATININE SERUM 2.05 MG/DL (0.60-1.30); MAGNESIUM 2.1 MG/DL (1.6-2.4); POTASSIUM 3.8 MMOL/L (3.6-5.0)
[2022-01-25] MEDS ORDERED: MAGNESIUM 1 GM/100 ML IVPB 100 ML IV SCH (06:00)
[2022-01-25] MEDS ORDERED: POTASSIUM CL 10MEQ/50ML IVPB 50 ML IV SCH (06:00)
[2022-01-25] MEDS ORDERED: KCL 20 MEQ TAB (K-DUR) PO SCH (06:00)
[2022-01-25] MEDS: KCL 20 MEQ TAB (K-DUR) PO SCH (06:19)
[2022-01-25] MEDS: inSUlin ASPART (NovoLOG) 1 UNIT/0.01 ML (CHARGE PER UNIT) SC SCH ×2 (06:25→11:22)
[2022-01-25] MEDS: APIXABAN 2.5 MG (ELIQUIS) TABLET PO SCH (08:09)
[2022-01-25] MEDS: AMIODARONE 200 MG (CORDARONE) TAB PO SCH (08:09)
[2022-01-25] MEDS: GABAPENTIN 300 MG (NEURONTIN) CAP PO SCH (08:09)
[2022-01-25] MEDS: CLOPIDOGREL 75 MG (PLAVIX) TABLET PO SCH (08:10)
--- NOTE | 2022-01-25 08:20 | Progress Note - Cardiology ---
Cardiology SOAP Progress Note Subjective: Sitting up in recliner at the bedside States he feels good today and wants to go home No c/o CP, SOB, palpitations, syncope or near syncope No c/o n/v/d Chronic mild exertional dyspnea which is unchanged Objective: I&O/Vital Signs 01/25/22 01/25/22 01/25/22 01/25/22 04:00 04:00 07:00 07:15 Pulse 62 66 Resp 14 B/P (MAP) 139/91 (107) Pulse Ox 94 94 O2 Delivery High Flow N/C High Flow N/C Nasal Cannula O2 Flow Rate 2.00 2.00 2.00 01/25/22 01/25/22 01/25/22 01/25/22 07:56 08:00 11:57 12:26 Temp 35.7 35.9 Pulse 63 Resp 14 B/P (MAP) 102/78 (86) Pulse Ox 95 97 94 O2 Delivery High Flow N/C High Flow N/C O2 Flow Rate 2.00 2.00 01/25/22 00:00 Intake Total 1150 ml Output Total 1025 ml Balance 125 ml Weight (Pounds): 276 Weight (Ounces): 0.0 Weight (Calculated Kilograms): 125.574734 Constitutional: AAO x 3, well-developed, well-nourished Respiratory: No accessory muscle use, No respiratory distress; chest expansion is symmetric, chest is bilaterally symmetric, lungs clear to auscultation Cardiovascular: irregularly irregular; No JVD; S1 and S2 Gastrointestional: No tender; soft, round, audible bowel sounds Extremities: other (mod bilat LE swelling) Neurologic/Psychiatric: grossly intact (moves all extremities) Skin: other (multiple abrasions to LE bilat, some abrasions to toes and legs with scabbing) Results/Procedures: Labs Laboratory Tests 01/24/22 15:33: Glucometer 222H 01/24/22 20:49: Glucometer 277H 01/25/22 04:50: Sodium Level 137, Potassium Level 3.8, Chloride Level 95L, Carbon Dioxide Level 27, Anion Gap 15H, Blood Urea Nitrogen 54H, Creatinine 2.05H, Estimat Glomerular Filtration Rate 32, BUN/Creatinine Ratio 26, Glucose Level 207H, Calcium Level 9.2, Magnesium Level 2.1 01/25/22 06:21: Glucometer 188H 01/25/22 10:46: Glucometer 232H Microbiology 01/23/22 MRSA Screen - Final, Complete MRSA not isolated A/P: Assessment: Syncope - likely d/t NSVT Reported NSVT by EMS which was treated with Lidocaine - No strips available - Episode of 4 beat run of WCT seen on ECG in the ED on 01-23-22 at 0748 - Amiodarone initiated NSTEMI - He wishes to be managed conservatively only (appears reasonable, given multiple comorbidities including CKD-4) Chronic systolic and diastolic CHF, NYHA Class III - Echocardiogram of Mar 17, [address] Guillen showed concentric hypertrophy. LVEF 45-50%. Mild to MR and AoR. PASP 25-30mmHg CAD - Report coronary PCI beginning in the (doesn't know details). 12/07/2010: proximal circumflex artery was treated with Promus 4 x 12, mid circumflex with Promus 3.0 x 15, mid RCA 4 x 28 Promus, mid RCA Promus 4 x 12, proximal RCA Promus 4 x 23, proximal RCA Promus 4 x 23. 11/04/2011: proximal RCA treated with Promus element 3.5 x 28 mm stent, mid first diagonal artery treated with Promus element 2.25 x 24 mm stent. - Most recent coronary angiography of Dec [address] Guillen: showed moderate ostial LAD stenosis with FFR 0.94, which shows non-obstructive disease. Patent stent in the first diagonal artery and the RCA. Patent stent in the proximal LAD. PAD - Peripheral angiogram of Dec [address] Guillen: showed on the left showed mo derate/severe diffuse calcified disease in the SFA, severe stenosis in the distal SFA. Suboptimal visualization in the popliteal artery however likely severe distal popliteal stenosis. At least one vessel runoff below the knee with a posterior tibial artery. Small diffusely diseased deep peroneal as well as anterior tibial artery. Right lower extremity shows moderate diffuse calcified disease in the SFA in the popliteal artery. Two-vessel runoff with a posterior tibial as well as deep peroneal artery. Heavily diseased small anterior tibial artery. - AAA Repair: 08/10/[address] Stallworth at [facility] [place], [place] - CT of the abdomen without contrast on Dec 28, 2019: Previously treated abdominal aortic aneurysm. The maximum sac diameter is 4.6 cm. This is essentially unchanged compared to the prior examination from 2016 per Chronic kidney disease stage IV - follows with [place] nephrology Intolerant to RENU-inhib/ARB due to hypotension Persistent atrial fibrillation - OAC with Eliquis Carotid arterial dz: - s/p L CEA in October [address] Reddy at [facility]. Carotid art disease is being followed at the same office HTN - controlled HLD - statin - managed by PCP VILMA Abnormal ECG - Chronic RBBB DM 2 - managed by PCP BPH and chronic dysuria and hesitancy H/O GI bleed and acute anemia in early 2020 - s/p endoscopy by Dr. Rushing (May 2020) - GERD, gastritis, hiatal hernia, internal/external hemorrhoids - followed by Dr Dubon and Dr Rushing Pt requests DNR status Plan: Complex management. Syncope likely d/t NSVT No further episodes of NSVT - continue oral amiodarone NSTEMI with NSVT - continue conservative management per patient request - continue current medication regimen including, Plavix and BB Chronic a-fib - continue OAC with Eliquis for stroke prophylaxis (reduced dose d/t CKD 4) Monitor lab closely - replace electrolytes as indicated Cr improved with reduction in diuretic regimen DEANNE GUEVARA Jan 25, 2022 08:20
[2022-01-25] MEDS ORDERED: FUROSEMIDE 40 MG (LASIX) TAB PO SCH (09:00)
[2022-01-25] MEDS ORDERED: FURO40TA4 PO (10:22)
[2022-01-25] MEDS ORDERED: APIX2.5T PO (10:22)
[2022-01-25] MEDS ORDERED: AMIO400T5 PO (10:22)
[2022-01-25] MEDS ORDERED: CLOP75TA28 PO (10:22)
[2022-01-25] MEDS ORDERED: RIVA15TA PO (11:58)
--- NOTE | 2022-01-25 12:55 | Progress Note - Cardiology ---
Cardiology SOAP Progress Note Subjective: He says he feels great and does not wish to be in the hospital ("caged") any longer Wishes to be managed conservatively only Denies cp or palp or shortness of breath No syncope since admission No n/v/d Objective: I&O/Vital Signs 01/25/22 01/25/22 01/25/22 01/25/22 01:00 04:00 04:00 07:00 Pulse 62 62 66 Resp 14 B/P (MAP) 139/91 (107) Pulse Ox 94 O2 Delivery High Flow N/C High Flow N/C O2 Flow Rate 2.00 2.00 01/25/22 01/25/22 01/25/22 01/25/22 07:15 07:56 08:00 11:57 Temp 35.7 35.9 Pulse 63 Resp 14 B/P (MAP) 102/78 (86) Pulse Ox 94 95 97 O2 Delivery Nasal Cannula High Flow N/C O2 Flow Rate 2.00 2.00 01/25/22 12:26 Pulse Ox 94 O2 Delivery High Flow N/C O2 Flow Rate 2.00 01/25/22 00:00 Intake Total 1150 ml Output Total 1025 ml Balance 125 ml Weight (Pounds): 276 Weight (Ounces): 0.0 Weight (Calculated Kilograms): 125.715938 Constitutional: AAO x 3, well-developed, well-nourished Respiratory: No accessory muscle use, No respiratory distress; chest expansion is symmetric, chest is bilaterally symmetric, lungs clear to auscultation Cardiovascular: irregularly irregular; No JVD; S1 and S2 Gastrointestional: No tender; soft, round, audible bowel sounds Extremities: other (mod bilat LE swelling) Neurologic/Psychiatric: grossly intact (moves all extremities) Skin: other (multiple abrasions to LE bilat, some abrasions to toes and legs with scabbing) Results/Procedures: Labs Laboratory Tests 01/24/22 15:33: Glucometer 222H 01/24/22 20:49: Glucometer 277H 01/25/22 04:50: Sodium Level 137, Potassium Level 3.8, Chloride Level 95L, Carbon Dioxide Level 27, Anion Gap 15H, Blood Urea Nitrogen 54H, Creatinine 2.05H, Estimat Glomerular Filtration Rate 32, BUN/Creatinine Ratio 26, Glucose Level 207H, Calcium Level 9.2, Magnesium Level 2.1 01/25/22 06:21: Glucometer 188H 01/25/22 10:46: Glucometer 232H Microbiology 01/23/22 MRSA Screen - Final, Complete MRSA not isolated Laboratory Tests 01/24/22 04:50 01/25/22 04:50 A/P: Assessment: Syncope - likely d/t NSVT (documented during this admission) for which he wishes to be treated conservativley nly NSTEMI - He wishes to be managed conservatively only Chronic systolic and diastolic CHF, NYHA Class III - Echo of 01/24/22: moderate concentric LVH, mod to sev diff hypokinesis, LVEF 30-35%, grade 3 arango dysfunction, mod biatrial enlargement, mild MR, mild AI, PASP 50-55 mmHg - pt wishes to be managed conservatively only CAD - Report coronary PCI beginning in the (doesn't know details). 12/07/2010: proximal circumflex artery was treated with Promus 4 x 12, mid circumflex with Promus 3.0 x 15, mid RCA 4 x 28 Promus, mid RCA Promus 4 x 12, proximal RCA Promus 4 x 23, proximal RCA Promus 4 x 23. 11/04/2011: proximal RCA treated with Promus element 3.5 x 28 mm stent, mid first diagonal artery treated with Promus element 2.25 x 24 mm stent. - Most recent coronary angiography of Dec [address] Guillen: showed moderate ostial LAD stenosis with FFR 0.94, which shows non-obstructive disease. Patent stent in the first diagonal artery and the RCA. Patent stent in the proximal LAD. PAD - Peripheral angiogram of Dec [address] Guillen: showed on the left showed moderate/severe diffuse calcified disease in the SFA, severe stenosis in the distal SFA. Suboptimal visualization in the popliteal artery however likely severe distal popliteal stenosis. At least one vessel runoff below the knee with a posterior tibial artery. Small diffusely diseased deep peroneal as well as anterior tibial artery. Right lower extremity shows moderate diffuse calcified disease in the SFA in the popliteal artery. Two-vessel runoff with a posterior tibial as well as deep peroneal artery. Heavily diseased small anterior tibial artery. - AAA Repair: 08/10/[address] Stallworth at [facility] - CT of the abdomen without contrast on Dec 28, 2019: Previously treated abdominal aortic aneurysm. The maximum sac diameter is 4.6 cm. This is essentially unchanged compared to the prior examination from 2016 per Chronic kidney disease stage IV - follows with [place] nephrology Intolerant to RENU-inhib/ARB due to hypotension Persistent atrial fibrillation - OAC with Eliquis Carotid arterial dz: - s/p L CEA in October [address] Reddy at [facility]. Carotid art disease is being followed at the same office HTN - controlled HLD - statin - managed by PCP VILMA Abnormal ECG - Chronic RBBB DM 2 - managed by PCP BPH and chronic dysuria and hesitancy H/O GI bleed and acute anemia in early 2020 - s/p endoscopy by Dr. Rushing (May 2020) - GERD, gastritis, hiatal hernia, internal/external hemorrhoids - followed by Dr Dubon and Dr Rushing Pt requests DNR status Plan: * Complex management due to multiple comorbidities (see above) * He is adamant that he wishes to be managed conservatively and empirically only . Refuses any invasive procedures. Does not wish to stay in the hosp any longer * No recurrence of VT in greater than 24 hrs. Amiodarone appears to have resolved VT. Continue amiodarone * Advised not to drive or operate machinery. Advised to avoid any situations were syncope may result in injury to self or others. He understands and states he will comply * Outpt f/u advised. Questions answered MATT GUPTA MD FACP FAC CCDS Jan 25, 2022 12:54
--- NOTE | 2022-01-25 14:16 | D/C HH Face to Face Order ---
D/C Face to Face Orders Reconcile Patient Problems Problems Reviewed?: Yes Instructions for Patient Via Radha Zakada, Patient Instructions/FollowUp: See instructions Physician to follow Patient: Justo Discharge Diet for Home: ADA Diet, Low Sodium Diet Patient Data-Allergies,Ht & Wt Patient Allergies: Coded Allergies: No Known Drug Allergies (Unverified , 01/19/18) Height (Feet): 5 Height (Inches): 9.00 Weight (Pounds): 276 Weight (Ounces): 0.0 Home Health Need/Face to Face Date of Face to Face: Jan 25, 2022 Clinical Findings: Generalized weakness and fatigue, Instability, Muscle weakness, Shortness of breath, Unsteady gait I have seen Pt [id number]: Yes Discharged To: Home Diagnosis/Conditions: Ventricular tachycardia Atrial fibrillation CAD HTN T2DM Morbid obesity Problems/Diagnosis/Condition: (1) Ventricular tachycardia (2) Afib (3) CAD (coronary artery disease) (4) Essential (primary) hypertension (5) Insulin dependent diabetes mellitus (6) Morbid obesity Patient is Homebound due to: Sheryl fall risk due to instabilty, Muscle weakness, Shortness of breath/distress Homebound Status Due to the above stated illness, injury or surgical procedure (medical condition or diagnosis) and associated clinical findings, the patient is homebound because of his/her inability to leave home except with aid of a supportive device and/or person AND leaving the home requires a considerable and taxing effort or is medically contraindicated. Pt req the following assistanc: Aid of another person, Walker Home Health Nursing Orders Home Health Services Order: Nursing Services, Engagement Engineer-Evaluate & Treat, Physical Therapy-Evaluate & Treat Therapy Orders Therapy Orders: OT (must have SN or PT order), Physical Therapy Therapy Specific Orders: Eval assistive deivces, Teach enviro modifications/safety, Gait training, Increase strength/endurance Certify Stmt I certify that this patient is under my care and that I, a nurse practitioner or a physician; a event sales assistant working with me, had a face to face encounter that - meets the physician face to face encounter requirements with this patient as dated. BLAKE RUSSELL MD Jan 25, 2022 14:16
--- NOTE | 2022-01-25 14:18 | Physical Therapy Evaluation ---
PT Evaluation-General Medical Diagnosis Admission Date Jan 23, 2022 at 09:09 Medical Diagnosis: syncope Onset Date: Feb 01, 2022 Therapy Diagnosis Therapy Diagnosis: impaired mobility Height/Weight Height (Feet): 5 Height (Inches): 9.00 Weight (Pounds): 276 Weight (Ounces): 0.0 Precautions Precautions/Isolations: Fall Prevention, Standard Precautions Referral Physician: Ata Reason for Referral: Evaluation/Treatment Medical History Pertinent Medical History: Atrial Fib, CAD, DM, Heart Failure, HTN, Renal Insufficiency History of Falls (past yr): Unknown Prior Surgery (last 100 days): Unknown Additional Medical History Past Medical History Surgeries: Coronary Stent, Gallbladder, Prostatectomy, Vascular Surgery (AAA graft repair and left carotid endarterectomy) Sleep Apnea, COPD Currently Using CPAP: Yes (WITH OXYGEN AT NIGHT) Atrial Fibrillation, Coronary Artery Disease, High Cholesterol, Hypertension, Peripheral Vascular Neuropathy Sexually Transmitted Disease: No HIV/AIDS: No Prostate Problems, Kidney Stones, Renal Failure (Chronic kidney disease) Degenerate Disk Disease, Arthritis, Chronic Back Pain Diabetes, Insulin dep Loss of Vision: Bilateral Hearing Impairment: Denies Prostate Did You Recieve Any Treatments: Yes What Type of Treatment Did You: Chemotherapy, Surgical Intervention Recent Skin Changes Blood Disorders: No Adverse Reaction/Blood Tranf: No (N/A) Social History Current Living Status: Children Prior Prior Level of Function SCALE: Activities may be completed with or without assistive devices. 8-Wqpgmoocvq-esaojwb completes the activity by him/herself with no assistance from a helper. 5-Set-up or Clean-up Assistance-helper sets up or cleans up; patient completes activity. [place] assists only prior to or following the activity. 4-Supervision or Touching Assistance-helper provides verbal cues and/or touching/steadying and/or contact guard assistance as patient completes activity. Assistance may be provided throughout the activity or intermittently. 3-Partial/Moderate Assistance-helper does LESS THAN HALF the effort. [place] lifts, holds or supports trunk or limbs, but provides less than half the effort. 2-Substantial/Maximal Assistance-helper does MORE THAN HALF the effort. [place] lifts or holds trunk or limbs and provides more than half the effort. 8-Hxrriagog-ytabqw does ALL the effort. Patient does none of the effort to complete the activity. Or, the assistance of 2 or more helpers is required for the patient to complete the activity. If activity was not attempted, code reason: 7-Patient Refused. 9-Not Applicable-not attempted and the patient did not perform the activity before the current illness, exacerbation or injury. 10-Not Attempted due to Environmental Limitations-(lack of equipment, weather restraints, etc.). 88-Not Attempted due to Medical Conditions or Safety Concerns. Bed Mobility: 6 Transfers (B,C,W/C): 6 Gait: 6 Stairs: 6 Indoor Mobility (Ambulation): Independent Stairs: Independent Prior Devices Use: Walker PT Evaluation-Current Subjective Patient in recliner pre tx, agrees to PT, has no complaints of pain. Pt/Family Goals to be independent at home Objective Patient Orientation: Person, Place, Situation Attachments: Oxygen ROM/Strength ROM Lower Extremities WNL Strength Lower Extremities BLE grossly 4+/5 Sensory Vision: Functional Hearing: Functional Sensation Right Lower Extremit: Impaired Sensation Left Lower Extremity: Impaired Transfers Sit to Stand (QC): 4 Chair/Cyi-pv-Bpbfv Xfer(QC): 4 CGA, some unsteadiness immediately upon standing, recovers after a few seconds Gait Does the Patient Walk?: Yes Mode of Locomotion: Walk Anticipated Mode of Locomotion: Walk Walk 10 feet (QC): 4 Distance: 120' Gait Assistive Device: FWW Comments/Gait Description Patient slightly unsteady but no LOB, patient is very fatigued after ambulating this length but is not SOB, couldn't get a reading on O2 sats but he was not SOB or in any distress Balance Sitting Static: Normal Sitting Dynamic: Normal Standing Static: Fair Standing Dynamic: Fair Treatment BLE seated exercises x20 (AP, LAQ) Assessment/Needs Patient in recliner post tx with nurse call, phone, tray, all needs met. Rehab Potential: Fair PT Mcfp Goals [place] Operator Goals PT Mcfp Goals Time Frame: Feb 01, 2022 Roll Left & Right (QC): 4 Sit to Lying (QC): 4 Lying-Sitting on Side/Bed(QC): 4 (SBA) Sit to Stand (QC): 4 (SBA) Chair/Mmp-nv-Iivrl Xfer(QC): 4 (SBA) Walk 10 feet (QC): 4 (SBA) Walk 50ft with 2 Turns (QC): 4 (SBA) Walk 150 ft (QC): 4 (SBA) PT Plan Problem List Problem List: Activity Tolerance, Functional Strength, Safety, Balance, Gait, Transfer, Bed Mobility, ROM Treatment/Plan Treatment Plan: Continue Plan of Care Treatment Plan: Bed Mobility, Education, Functional Activity Jean-Pierre, Functional Strength, Gait, Safety, Therapeutic Exercise, Transfers Treatment Duration: Feb 01, 2022 Frequency: 6 times per week Estimated Hrs Per Day: .25 hour per day Patient and/or Family Agrees t: Yes Safety Risks/Education Patient Education: Gait Training, Transfer Techniques, Correct Positioning, Saf ety Issues Teaching Recipient: Patient Teaching Methods: Demonstration, Discussion Response to Teaching: Reinforcement Needed Discharge Recommendations Plan Patient will perform bed mobility and transfer training, balance and endurance training, functional strengthening, stair training, gait training, and education, to improve functional mobility and independence at home. Therapy Discharge Recommendati: Scheduled Assistance, Home & Family, Post Acute PT Time/GCodes Time In: 1342 Time Out: 1355 Total Billed Treatment Time: 13 Total Billed Treatment 1 visit EFRAIN MIRANDA PT Jan 25, 2022 14:18
--- NOTE | 2022-01-25 17:51 | Discharge Summary ---
Discharge Summary Hospital Course Was the Problem List Reviewed?: Yes Problems/Dx: (1) Ventricular tachycardia Status: Acute (2) Acute respiratory failure with hypoxia Status: Acute (3) CKD (chronic kidney disease) Status: Chronic Qualifiers: Qualified Codes: N18.4 - Chronic kidney disease, stage 4 (severe) (4) Atrial fibrillation Status: Chronic Qualifiers: Qualified Codes: I48.19 - Other persistent atrial fibrillation (5) Insulin dependent diabetes mellitus Status: Chronic (6) Debility Status: Acute (7) Respiratory failure with hypoxia Status: Acute (8) NSTEMI (non-ST elevated myocardial infarction) Status: Acute (9) Morbid obesity Hospital Course Date of Admission: Jan 23, 2022 at 09:09 Admission Diagnosis : Ventricular tachycardia Family Physician/Provider: Heather Kemp Date of Discharge: 01/25/22 Discharge Diagnosis: Ventricular tachycardia Hospital Course: Nicole Cronin is an 81 year old male with PMH HTN, T2DM, HLD, CAD, PAD, carotid stenosis, AFib, CKD, VILMA, BPH, morbid obesity, who presented with syncope and was admitted with ventricular tachycardia. He was given Lidocaine en route and converted to AFib. He had ongoing runs of NSVT and was started on Amiodarone gtt and then transitioned to oral Amiodarone. He also had an elevated troponin and was thought to have a type II NSTEMI. Cardiology was consulted and assisted with his care. They recommended conservative management. He did not want to pursue a defibrillator. He was requiring some supplemental oxygen and was set up with home oxygen 3 L continuously. He was also set up with home health care. He was discharged home in stable condition. He should follow up with his PCP and Cardiology as scheduled. Labs and Pending Lab Test: Laboratory Tests 01/24/22 20:49: Glucometer 277H 01/25/22 04:50: Sodium Level 137, Potassium Level 3.8, Chloride Level 95L, Carbon Dioxide Level 27, Anion Gap 15H, Blood Urea Nitrogen 54H, Creatinine 2.05H, Estimat Glomerular Filtration Rate 32, BUN/Creatinine Ratio 26, Glucose Level 207H, Calcium Level 9.2, Magnesium Level 2.1 01/25/22 06:21: Glucometer 188H 01/25/22 10:46: Glucometer 232H Microbiology 01/23/22 MRSA Screen - Final, Complete MRSA not isolated Home Meds Active Xarelto (Rivaroxaban) 15 Mg Tablet 15 Mg PO DAILY 340 B Program Furosemide 40 Mg Tablet 40 Mg PO DAILY Amiodarone HCl 400 Mg Tablet 400 Mg PO BID Clopidogrel (Clopidogrel Bisulfate) 75 Mg Tablet 75 Mg PO DAILY Reported Novolog (Insulin Aspart) 100 Unit/Ml Cartridge Units SQ AC PRN USES PER SLIDING SCALE Ferrous Sulfate 325 Mg (65 Mg Iron) Tablet 325 Mg PO DAILY Calcitriol 0.25 Mcg Capsule 0.25 Mcg PO DAILY Carvedilol 12.5 Mg Tablet 12.5 Mg PO BID Metolazone 5 Mg Tablet 5 Mg PO MO,WE,FR Potassium Chloride 20 Meq Tablet.er 20 Meq PO DAILY Atorvastatin Calcium 40 Mg Tablet 40 Mg PO HS Glipizide 10 Mg Tablet 5 Mg PO HS TAKES OF A 10MG Gabapentin 100 Mg Capsule 300 Mg PO BID TAKES 3 (100MG) CAPS Levemir Flextouch (Insulin Detemir) 100 Unit/Ml (3 Ml) Insuln.pen 50 Unit SQ BID Vitamin D3 (Cholecalciferol (Vitamin D3)) 25 Mcg Tablet 25 Mcg PO DAILY Fish Oil 1,000 mg Capsule ([place] 3 Polyunsat Fatty Acids) 1,000 Mg Cap 2,000 Mg PO HS Flomax (Tamsulosin HCl) 0.4 Mg Cap 0.4 Mg PO BID Allopurinol 100 Mg Tablet 100 Mg PO DAILY Glipizide 10 Mg Tablet 10 Mg PO DAILY Assessment/Pt Instructions See instructions Discharge Planning: >30 minutes discharge planning Discharge Instructions Discharge Diet: Low Sodium Diet Activity as Tolerated: Yes Consultations Cardiology Discharge Physical Examination Vital Signs Vital Signs Date Time Temp Pulse Resp B/P (MAP) Pulse Ox O2 Delivery O2 Flow Rate FiO2 01/25/22 12:26 94 High Flow N/C 2.00 01/25/22 11:57 35.9 63 14 102/78 (86) Allergies: Coded Allergies: No Known Drug Allergies (Unverified , 01/19/18) Copy Copies To 1: HEATHER KEMP Discharge Summary Date of Admission Jan 23, 2022 at 09:09 Date of Discharge Jan 25, 2022 at 14:45 Discharge Date: Jan 25, 2022 Discharge Time: 14:45 Admission Diagnosis Ventricular tachycardia Consults/Procedures Consulations Cardiology Discharge Diagnosis Ventricular tachycardia NSTEMI Acute on chronic HFpEF Acute respiratory failure with hypoxia CKD 4 T2DM HTN HLD CAD PAD Carotid stenosis AFib BPH VILMA (1) Ventricular tachycardia Status: Acute (2) Acute respiratory failure with hypoxia Status: Acute (3) CKD (chronic kidney disease) Status: Chronic Qualifiers: Qualified Codes: N18.4 - Chronic kidney disease, stage 4 (severe) (4) Atrial fibrillation Status: Chronic Qualifiers: Qualified Codes: I48.19 - Other persistent atrial fibrillation (5) Insulin dependent diabetes mellitus Status: Chronic BLAKE RUSSELL MD Jan 25, 2022 17:50
== END 2022-01-25 14:45 | disposition home or self-care (01) | DRG 280 ==
LOC: EDUNIT# 07:41 → ER 07:42 → ICU 09:09
PROVIDERS: ADMIT Internal Medicine; ATTEND Internal Medicine
PROC: 5A0935A Assistance with Respiratory Ventilation, Less than 24 Consecutive Hours, High Flow/Velocity Cannula (ICD-10-PCS; principal; 2022-01-23)
DX: I47.2 Ventricular tachycardia (principal); J96.01 Acute respiratory failure with hypoxia; I21.A1 Myocardial infarction type 2; I50.33 Acute on chronic diastolic (congestive) heart failure; N18.4 Chronic kidney disease, stage 4 (severe); J44.1 Chronic obstructive pulmonary disease with (acute) exacerbation; I13.0 Hypertensive heart and chronic kidney disease with heart failure and stage 1 through stage 4 chronic kidney disease, or unspecified chronic kidney disease; I42.9 Cardiomyopathy, unspecified; Z68.41 Body mass index [BMI] 40.0-44.9, adult; I48.19 Other persistent atrial fibrillation; E11.22 Type 2 diabetes mellitus with diabetic chronic kidney disease; R53.81 Other malaise; E66.01 Morbid (severe) obesity due to excess calories; E11.51 Type 2 diabetes mellitus with diabetic peripheral angiopathy without gangrene; I25.10 Atherosclerotic heart disease of native coronary artery without angina pectoris; I65.29 Occlusion and stenosis of unspecified carotid artery; G47.33 Obstructive sleep apnea (adult) (pediatric); Z66 Do not resuscitate; Z79.82 Long term (current) use of aspirin; Z79.4 Long term (current) use of insulin; Z79.899 Other long term (current) drug therapy; Z87.891 Personal history of nicotine dependence; Z95.5 Presence of coronary angioplasty implant and graft; Z90.79 Acquired absence of other genital organ(s); E78.00 Pure hypercholesterolemia, unspecified; E11.40 Type 2 diabetes mellitus with diabetic neuropathy, unspecified; M19.90 Unspecified osteoarthritis, unspecified site; G89.29 Other chronic pain; M54.9 Dorsalgia, unspecified; Z85.46 Personal history of malignant neoplasm of prostate; Z92.21 Personal history of antineoplastic chemotherapy; N40.1 Benign prostatic hyperplasia with lower urinary tract symptoms; R39.11 Hesitancy of micturition; I95.9 Hypotension, unspecified
CPT/HCPCS: 36415; 71045; 80048; 80053; 80061; 82805; 82947; 83735; 83874; 83880; 84443; 84484; 85025; 85610; 85730; 87081; 93005; 93041; 93306; 94761; 99291

== ENCOUNTER → 2022-02-08 | Outpatient (CLI) | payer MEDICARE, OTHER ==
[~2022-02-08] MED LIST changes: +AMIO400T5 PO; +APIX2.5T PO; +CALC0.253 PO; +CARV12.53 PO; +CLOP75TA28 PO; +FERR-74 PO; +INSU100C3 SQ; +METO5TAB6 PO; +RIVA15TA PO
--- NOTE | 2022-02-08 11:09 | Diagnostic Imaging Report ---
INDICATION: Fall. Back pain. COMPARISON: None FINDINGS: Frontal and lateral views of the lumbar spine were obtained. Alignment and vertebral heights are maintained. There is no fracture or destructive process. Moderate multilevel degenerative disease is noted in the lumbar spine. Limited views of the abdomen demonstrate nonobstructive bowel gas pattern. IMPRESSION: 1. No acute fracture or dislocation of the lumbar spine. 2. Moderate multilevel degenerative changes. Dictated by: Dictated on workstation # [id number]
--- NOTE | 2022-02-08 11:19 | Diagnostic Imaging Report ---
INDICATION: Fall. Hip pain. COMPARISON: None. FINDINGS: AP view of the pelvis and 2 dedicated radiographic views of the left hip were obtained. There is no fracture, dislocation, bone destruction, or radiopaque foreign body. The visualized pelvic osseous structures and the SI joints demonstrate no acute fracture or dislocation. There is no bone destruction or radiopaque foreign body. The surrounding soft tissue structures are unremarkable. Advanced calcified atherosclerotic disease is noted IMPRESSION: 1. No acute fracture or dislocation in the pelvis or left hip. Dictated by: Dictated on workstation # [id number]
== END ==
LOC: RAD 09:44
PROVIDERS: ATTEND Physician Assistant
DX: M47.816 Spondylosis without myelopathy or radiculopathy, lumbar region (principal)
CPT/HCPCS: 72100

== ENCOUNTER 2022-02-13 12:07 | Inpatient (IN) | payer MEDICARE, OTHER ==
[~2022-02-13] VITALS: Ht 175.3 cm; Wt 122.4 kg
[2022-02-13] MEDS ORDERED: NITROGLYCERIN 2% OINT 1 GM UNIT DOSE PACKET TOP ONE (12:30)
--- NOTE | 2022-02-13 12:35 | ED Chest Pain ---
General Chief Complaint: Chest Pain Stated Complaint: CHEST PAIN Nursing Triage Note: PT TO RM 6 BY WC WITH COMPLAINT OF CP AND SOA. STATES STARTED DURING THE NIGHT. PT WAS ADMITTED TO HOSPITAL END OF DEC. PT STATES HE TOOK NITRO THIS MORNING THAT IMPROVED HIS CP. IS NOT HAVING CP AT TIME OF TRIAGE. Source: patient, family, old records Exam Limitations: no limitations History of Present Illness Date Seen by Provider: Feb 13, 2022 Time Seen by Provider: 12:25 Initial Comments This is a 82 yo male with history of DM, CHF, CKD, A-fib who presented to the ER with daughter for c/o intermittent chest pain and shortness of breath. Has history of Angina, but symptoms will typically resolve with Nitro tab. Since 0100 this morning he has taken 4-5 nitro tabs through the night. Describes as pressure sensation, center of chest, will radiate into left arm. He is oxygen dependent on 3 LPM via [place]. Allergies and Home Medications Allergies Coded Allergies: No Known Drug Allergies (Unverified , 01/19/18) Patient Home Medication List Home Medication List Reviewed: Yes Allopurinol (Allopurinol) 100 Mg Tablet, 100 MG PO DAILY, (Reported) Entered as Reported by: TAB LOPEZ on 01/21/19 0850 Last Action: Continued Amiodarone HCl (Amiodarone HCl) 400 Mg Tablet, 400 MG PO DAILY Prescribed by: DEANNE GUEVARA on 02/15/22 1020 Last Action: Held Atorvastatin Calcium (Atorvastatin Calcium) 40 Mg Tablet, 40 MG PO HS, (Reported) Entered as Reported by: LIZBETH MUIR on 06/08/20 1153 Last Action: Continued Calcitriol (Calcitriol) 0.25 Mcg Capsule, 0.25 MCG PO DAILY, (Reported) Entered as Reported by: LIZBETH MUIR on 01/23/22 1411 Last Action: Continued Carvedilol (Carvedilol) 12.5 Mg Tablet, 12.5 MG PO BID, (Reported) Entered as Reported by: LIZBETH MUIR on 01/23/22 1411 Last Action: Continued Cholecalciferol (Vitamin D3) (Vitamin D3) 25 Mcg Tablet, 25 MCG PO DAILY, (Reported) Entered as Reported by: LIZBETH MUIR on 03/17/20 1444 Last Action: Continued Clopidogrel Bisulfate (Clopidogrel) 75 Mg Tablet, 75 MG PO DAILY, (Reported) Entered as Reported by: LIZBETH MUIR on 02/14/22 1515 Last Action: Continued Ferrous Sulfate (Ferrous Sulfate) 325 Mg (65 Mg Iron) Tablet, 325 MG PO DAILY, (Reported) Entered as Reported by: LIZBETH MUIR on 01/23/22 1411 Last Action: Continued Furosemide (Lasix) 80 Mg Tablet, 80 MG PO DAILY Prescribed by: DEANNE GUEVARA on 02/15/22 1020 Last Action: Held Gabapentin (Gabapentin) 100 Mg Capsule, 300 MG PO BID, (Reported) Entered as Reported by: LIZBETH MIUR on 03/17/20 144 Last Action: Continued Insulin Aspart (Insulin Aspart) 100 Unit/Ml Vial, UNIT SQ AC PRN for HYPERGLYCEMIA, (Reported) Entered as Reported by: LIZBETH MUIR on 02/14/22 151 Last Action: Held Insulin Detemir (Levemir Flextouch) 100 Unit/Ml (3 Ml) Insuln.pen, 50 UNIT SQ BID, (Reported) Entered as Reported by: LIZBETH MUIR on 03/17/20 144 Last Action: Converted Magnesium Oxide (Magnesium Oxide) 400 Mg Magnesium Tablet, 400 MG PO DAILY, (Reported) Entered as Reported by: LIZBETH MUIR on 02/14/22 152 Last Action: Converted Metolazone (Metolazone) 5 Mg Tablet, 5 MG PO DAILY Prescribed by: DEANNE GUEVARA on 02/15/22 1020 Last Action: Held Knifley-3 Fatty Acids/Fish Oil (Knifley 3 1,000 mg Softgel) 300 Mg-1,000 Mg Capsule, 2 EACH PO HS, (Reported) Entered as Reported by: LIZBETH MUIR on 02/14/22 151 Last Action: Held Potassium Chloride (Potassium Chloride) 20 Meq Tablet.er, 20 MEQ PO TID Prescribed by: DEANNE GUEVARA on 02/15/22 1020 Last Action: Held Rivaroxaban (Xarelto) 15 Mg Tablet, 15 MG PO DAILY, (Reported) Entered as Reported by: LIZBETH MUIR on 02/14/22 151 Last Action: Held Tamsulosin HCl (Flomax) 0.4 Mg Cap, 0.4 MG PO BID, (Reported) Entered as Reported by: TAB LOPEZ on 01/21/19 0851 Last Action: Continued Discontinued Medications Amiodarone HCl (Amiodarone HCl) 400 Mg Tablet, 400 MG PO BID Discontinued Reason: Duplicate Order Prescribed by: DEANNE GUEVARA on 01/25/22 1022 Last Action: Discontinued Amiodarone HCl (Amiodarone HCl) 200 Mg Tablet, 400 MG PO BID, (Reported) Entered as Reported by: LIZBETH MUIR on 02/14/22 1515 Last Action: Held Clopidogrel Bisulfate (Clopidogrel) 75 Mg Tablet, 75 MG PO DAILY Discontinued Reason: Duplicate Order Prescribed by: DEANNE GUEVARA on 01/25/22 1022 Last Action: Discontinued Furosemide (Furosemide) 40 Mg Tablet, 40 MG PO DAILY Discontinued Reason: Duplicate Order Prescribed by: DEANNE GUEVARA on 01/25/22 102 Last Action: Discontinued Furosemide (Furosemide) 40 Mg Tablet, 40 MG PO DAILY, (Reported) Entered as Reported by: LIZBETH MUIR on 02/14/22 1515 Last Action: Held Glipizide (Glipizide) 10 Mg Tablet, 10 MG PO DAILY, (Reported) Entered as Reported by: RULA CRAMER on 06/28/16 1246 Last Action: Held Glipizide (Glipizide) 10 Mg Tablet, 5 MG PO HS, (Reported) Entered as Reported by: LIZBETH MUIR on 06/08/20 1153 Last Action: Held Insulin Aspart (Novolog) 100 Unit/Ml Cartridge, UNITS SQ AC PRN for HYPERGLYCEMIA, (Reported) Discontinued Reason: Prescription changed Entered as Reported by: LIZBETH MUIR on 01/23/22 1418 Last Action: Last Taken Edited Metolazone (Metolazone) 5 Mg Tablet, 5 MG PO MO,WE,FR,SA, (Reported) Entered as Reported by: LIZBETH MUIR on 01/23/22 141 Last Action: Continued Knifley 3 Polyunsat Fatty Acids (Fish Oil 1,000 mg Capsule) 1,000 Mg Cap, 2,000 MG PO HS, (Reported) Discontinued Reason: Prescription changed Entered as Reported by: TAB LOPEZ on 01/21/19 0851 Potassium Chloride (Potassium Chloride) 20 Meq Tablet.er, 20 MEQ PO DAILY, (Reported) Entered as Reported by: LIZBETH MUIR on 01/23/22 141 Last Action: Held Rivaroxaban (Xarelto) 15 Mg Tablet, 15 MG PO DAILY Discontinued Reason: Duplicate Order Prescribed by: DEANNE GUEVARA on 01/25/22 1158 Last Action: Discontinued Review of Systems Review of Systems Constitutional: see HPI Past Oaizdla-Qpzugo-Jvrotw Hx Patient Social History Tobacco Use?: No Use of E-Cig and/or Vaping dev: No Substance use?: No Alcohol Use?: No Pt feels they are or have been: No Immunizations Up To Date Tetanus Booster (TDap): Unknown First/Initial COVID19 Vaccinat: na Second COVID19 Vaccination Edward: na Third COVID19 Vaccination Date: na Seasonal Allergies Seasonal Allergies: No Past Medical History Surgery/Hospitalization HX: cardiac stent, cholecystectomy, prostatectomy, ckd st 3, copd, afib, cad, htn, iddm, prostate ca, cardiomyopathy. Surgeries: Yes (AORTIC PATCH, ) Coronary Stent, Gallbladder, Prostatectomy, Vascular Surgery Respiratory: Yes (chronic hypoxia) Sleep Apnea, COPD Currently Using CPAP: Yes (WITH OXYGEN AT NIGHT) Cardiac: Yes Atrial Fibrillation, Coronary Artery Disease, High Cholesterol, Hypertension, Peripheral Vascular Neurological: Yes Neuropathy Reproductive Disorders: No Sexually Transmitted Disease: No HIV/AIDS: No Genitourinary: Yes Prostate Problems, Kidney Stones, Renal Failure Gastrointestinal: No Musculoskeletal: Yes Degenerate Disk Disease, Arthritis, Chronic Back Pain Endocrine: Yes Diabetes, Insulin dep Loss of Vision: Bilateral Hearing Impairment: Denies Cancer: Yes Prostate Did You Recieve Any Treatments: Yes What Type of Treatment Did You: Chemotherapy, Surgical Intervention Psychosocial: No Integumentary: Yes (FROM RADIATION) Recent Skin Changes Blood Disorders: No Adverse Reaction/Blood Tranf: No (N/A) Family Medical History No Pertinent Family Hx Physical Exam Vital Signs Vital Signs - First Documented 02/13/22 12:07 Temp 36.7 Pulse 62 Resp 20 B/P (MAP) 158/130 (139) Pulse Ox 92 O2 Delivery Nasal Cannula O2 Flow Rate 3.00 Capillary Refill : Less Than 3 Seconds Height, Weight, BMI Height: 5'9.00" Weight: 276lbs. 0.0oz. 125.382217dv; BMI Method: General Appearance: No Apparent Distress, WD/WN, Chronically ill HEENT: PERRL/EOMI, Normal ENT Inspection, Moist Mucous Membranes Neck: Full Range of Motion, Normal Inspection, Supple Respiratory: Chest Non Tender, No Accessory Muscle Use, No Respiratory Distress Cardiovascular: Systolic Murmur, Irregularly Irregular Extremity: Normal Capillary Refill, Normal Inspection, Normal Range of Motion Neurologic/Psychiatric: Alert, Oriented x3, No Motor/Sensory Deficits, Normal Mood/Affect Skin: Normal Color, Warm/Dry Progress/Results/Core Measures Results/Orders Lab Results Laboratory Tests Test 02/13/22 12:12 02/13/22 13:05 02/13/22 14:16 Range/Units White Blood Count 9.1 4.3-11.0 10^3/uL Red Blood Count 4.59 4.30-5.52 10^6/uL Hemoglobin 13.9 13.3-17.7 g/dL Hematocrit 44 40-54 % Mean Corpuscular Volume 97 80-99 fL Mean Corpuscular Hemoglobin 30 25-34 pg Mean Corpuscular Hemoglobin Concent 31 L 32-36 g/dL Red Cell Distribution Width 15.9 H 10.0-14.5 % Platelet Count 198 130-400 10^3/uL Mean Platelet Volume 9.4 9.0-12.2 fL Immature Granulocyte % (Auto) 0 % Neutrophils (%) (Auto) 75 42-75 % Lymphocytes (%) (Auto) 15 12-44 % Monocytes (%) (Auto) 7 0-12 % Eosinophils (%) (Auto) 3 0-10 % Basophils (%) (Auto) 0 0-10 % Neutrophils # (Auto) 6.8 1.8-7.8 10^3/uL Lymphocytes # (Auto) 1.4 1.0-4.0 10^3/uL Monocytes # (Auto) 0.6 0.0-1.0 10^3/uL Eosinophils # (Auto) 0.3 0.0-0.3 10^3/uL Basophils # (Auto) 0.0 0.0-0.1 10^3/uL Immature Granulocyte # (Auto) 0.0 0.0-0.1 10^3/uL Prothrombin Time 30.9 H 12.2-14.7 SEC INR Comment 2.9 H 0.8-1.4 Activated Partial Thromboplast Time 51 H 24-35 SEC Sodium Level 139 135-145 MMOL/L Potassium Level 3.7 3.6-5.0 MMOL/L Chloride Level 94 L 98-107 MMOL/L Carbon Dioxide Level 35 H 21-32 MMOL/L Anion Gap 10 5-14 MMOL/L Blood Urea Nitrogen 36 H 7-18 MG/DL Creatinine 1.81 H 0.60-1.30 MG/DL Estimat Glomerular Filtration Rate 37 BUN/Creatinine Ratio 20 Glucose Level 139 H 70-105 MG/DL Calcium Level 9.2 8.5-10.1 MG/DL Corrected Calcium 9.6 8.5-10.1 MG/DL Magnesium Level 1.7 1.6-2.4 MG/DL Total Bilirubin 0.8 0.1-1.0 MG/DL Aspartate Amino Transf (AST/SGOT) 16 5-34 U/L Alanine Aminotransferase (ALT/SGPT) 16 0-55 U/L Alkaline Phosphatase 124 40-136 U/L Total Creatine Kinase 70 30-200 U/L Creatine Kinase MB 2.5 <6.6 NG/ML Myoglobin 174.9 H 10.0-92.0 NG/ML Troponin I < 0.028 <0.028 NG/ML B-Type Natriuretic Peptide 471.0 H <100.0 PG/ML Total Protein 7.1 6.4-8.2 GM/DL Albumin 3.5 3.2-4.5 GM/DL Lipase 19 8-78 U/L Influenza Type A (RT-PCR) Not Detected Not Detecte Influenza Type B (RT-PCR) Not Detected Not Detecte SARS-CoV-2 RNA (RT-PCR) Not Detected Not Detecte Blood Gas Puncture Site R WRIST Blood Gas Patient Temperature 35.6 Arterial Blood pH 7.38 7.37-7.43 Arterial Blood Partial Pressure CO2 69 H 35-45 MMHG Arterial Blood Partial Pressure O2 47 L 79-93 MMHG Arterial Blood HCO3 41 *H 23-27 MMOL/L Arterial Blood Total CO2 42.9 *H 21.0-31.0 MMOL/L Arterial Blood Oxygen Saturation 79 L 94-100 % Arterial Blood Base Excess 14.7 H -2.5-2.5 MMOL/L Dat Test YES-POS Blood Gas Ventilator Setting NO Blood Gas Inspired Oxygen 31 L My Orders Orders - TEREZA LOBO APRN Nitroglycerin Ointment (Nitrobid Ointme (02/13/22 12:30) Cbc With Automated Diff (02/13/22 12:28) Magnesium (02/13/22 12:28) Chest 1 View, Ap/Pa Only (02/13/22 12:28) Comprehensive Metabolic Panel (02/13/22 12:28) Myoglobin Serum (02/13/22 12:28) Protime With Inr (02/13/22 12:28) Partial Thromboplastin Time (02/13/22 12:28) O2 (02/13/22 12:28) Monitor-Rhythm Ecg Trace Only (02/13/22 12:28) Ed Iv/Invasive Line Start (02/13/22 12:28) Creatine Kinase (02/13/22 12:28) Creatine Kinase Mb (02/13/22 12:28) Lipase (02/13/22 12:28) Bnp Adalid (02/13/22 12:28) Troponin I Adalid (02/13/22 12:28) [place] Cath (02/13/22 13:05) Covid 19 Inhouse Test (02/13/22 13:05) Influenza A And B By Pcr (02/13/22 13:05) Lidocaine 2% (Urojet) (Xylocaine Urojet) (02/13/22 13:45) Arterial Blood Gas (02/13/22 14:20) Furosemide Injection (Lasix Injection) (02/13/22 14:24) Arterial Blood Draw - Obtain (02/13/22 ) Furosemide Injection (Lasix Injection) (02/13/22 14:30) Medications Given in ED Vital Signs/I&O 02/13/22 12:07 Temp 36.7 Pulse 62 Resp 20 B/P (MAP) 158/130 (139) Pulse Ox 92 O2 Delivery Nasal Cannula O2 Flow Rate 3.00 Blood Pressure Mean: 139 Progress Progress Note : Progress Note Placed nitro paste 1' to chest, improvement of CP and SOA. No acute ischemic changes on EKG or cardiac enzymes. Reviewed case with Dr. Hall with cardiology, will admit for IV lasix and acute on chronic CHG. Case reviewed with Dr. Barber, CRIS pending. Will admit inpatient medical. Plan discussed with patient and daughter, they are agreeable with plan. Initial ECG Impression Date: Feb 13, 2022 Initial ECG Impression Time: 12:17 Initial ECG Rate: 61 Initial ECG Rhythm: A Fib/Flutter Initial ECG Impression: Atrial Fibrillation Diagnostic Imaging Diagonstic Imaging: Xray Plain Films/CT/US/NM/MRI: chest Comments [facility], [facility]. [place], [place] NAME: GHASSAN LAYTON [facility] REC#: [id number] PT STATUS: ADM IN : 1940 PHYSICIAN: TEREZA LOBO ARBOR PRESS OPERATOR ADMIT DATE: 02/13/22/ICU Signed Date of Exam:02/13/22 CHEST 1 VIEW, AP/PA ONLY Indication: Chest pain, shortness of air Cardiomegaly, vascular congestion and probable pulmonary edema have progressed . There is left greater than right pleural effusions increased. IMPRESSION: Findings suggest worsened failure pattern when compared to 01/23/2022. Dictated by: Dictated on workstation # [id number] Dict: 02/13/22 1237 Trans: 02/13/224 [facility] [id number] Interpreted by: NICOLETTE MORA Electronically signed by: NICOLETTE MORA 02/13/224 Departure Communication (Admissions) Time/Spoke to Admitting Phy: 14:12 Dr. Barber Time/Spoke to Consulting Phy: 14:08 Dr. Hall Impression Primary Impression: Acute on chronic heart failure Disposition: ADMITTED INPATIENT Condition: Stable Admissions Decision to Admit Reason: Admit from ER (General) Decision to Admit/Date: Feb 13, 2022 Time/Decision to Admit Time: 13:07 Departure-Patient Inst. Referrals: HEATHER ZAIDI (PCP/Family) Primary Care Physician Scripts Potassium Chloride (Potassium Chloride) 20 Meq Tablet.er 20 MEQ PO TID, #90 TAB 3 Refills Prov: DEANNE GUEVARA [employer] 02/15/22 Amiodarone HCl (Amiodarone HCl) 400 Mg Tablet 400 MG PO DAILY, #30 TAB 3 Refills Prov: DEANNE GUEVARA [employer] FARMER 02/15/22 Furosemide (Lasix) 80 Mg Tablet 80 MG PO DAILY, #30 TAB Prov: DEANNE GUEVARA G[employer] B[employer] FARMER 02/15/22 Metolazone (Metolazone) 5 Mg Tablet 5 MG PO DAILY, #30 TAB 5 Refills Prov: DEANNE GUEVARA G[employer] FARMER 02/15/22 TEREZA LOBO ARBOR PRESS OPERATOR Feb 13, 2022 12:35
[2022-02-13 12:42] LABS: ALBUMIN 3.5 GM/DL (3.2-4.5); POTASSIUM 3.7 MMOL/L (3.6-5.0)
--- NOTE | 2022-02-13 12:42 | Diagnostic Imaging Report ---
Indication: Chest pain, shortness of air Cardiomegaly, vascular congestion and probable pulmonary edema have progressed . There is left greater than right pleural effusions increased. IMPRESSION: Findings suggest worsened failure pattern when compared to 01/23/2022. Dictated by: Dictated on workstation # [id number]
[2022-02-13 12:43] LABS: BASOPHILS % (AUTO) 0 % (0-10); CALCIUM 9.2 MG/DL (8.5-10.1); EOSINOPHILS # (AUTO) 0.3 10^3/uL (0.0-0.3); EOSINOPHILS % (AUTO) 3 % (0-10); HEMATOCRIT 44 % (40-54); HEMOGLOBIN 13.9 g/dL (13.3-17.7); LYMPHOCYTES # (AUTO) 1.4 10^3/uL (1.0-4.0); LYMPHOCYTES % (AUTO) 15 % (12-44); MEAN CORPUSCULAR HEMOGLOBIN 30 pg (25-34); MEAN CORPUSCULAR HGB CONC 31 g/dL (32-36); MEAN CORPUSCULAR VOLUME 97 fL (80-99); MEAN PLATELET VOLUME 9.4 fL (9.0-12.2); MONOCYTES # (AUTO) 0.6 10^3/uL (0.0-1.0); MONOCYTES % (AUTO) 7 % (0-12); NEUTROPHILS # (AUTO) 6.8 10^3/uL (1.8-7.8); NEUTROPHILS % (AUTO) 75 % (42-75); PLATELET COUNT 198 10^3/uL (130-400); WHITE BLOOD COUNT 9.1 10^3/uL (4.3-11.0)
[2022-02-13 12:45] LABS: TOTAL PROTEIN 7.1 GM/DL (6.4-8.2)
[2022-02-13 12:46] LABS: BILIRUBIN,TOTAL 0.8 MG/DL (0.1-1.0)
[2022-02-13 12:47] LABS: INR 2.9 (0.8-1.4); PROTHROMBIN TIME PATIENT 30.9 SEC (12.2-14.7)
[2022-02-13 12:48] LABS: CREATININE SERUM 1.81 MG/DL (0.60-1.30)
[2022-02-13 12:51] LABS: MAGNESIUM 1.7 MG/DL (1.6-2.4)
[2022-02-13 13:00] LABS: CREATINE KINASE MB 2.5 NG/ML (<6.6)
[2022-02-13] MEDS ORDERED: LIDOCAINE UROJET 2% GEL 10 ML PKG TOP ONE ×2 (13:45→15:15)
--- NOTE | 2022-02-13 14:02 | Consultation-Cardiology ---
HPI-Cardiology Cardiology Consultation: Date of Consultation 02/13/22 Time Seen by a Provider: 14:30 Date of Admission 02-13-22 Attending Physician Anny Kemp Admitting Physician Admitting Physician: Attending Physician: Consulting Physician Jose R Hall MD HPI: Chief Complaint: Acute on chronic systolic CHF Mr. Layton is an 82 yr old male who is being admitted to [facility] from the ED. I have seen him in the ED. He is accompanied by his daughter. He reports he has had had increasing SOB and LE swelling for the last few days. He reports he was awakened from sleep at approx 1:00 this morning with L ACW pain radiating under his arm and into his left shoulder. He reports increasing SOB and weakness this morning. He states he would take a nitro sublingual which would ease the chest pain, but would not make it go away completely. He reports he has taken approx 4 nitro this morning. He reports a feeling of fullness in his chest. He repor ts he feels he could not eat or drink this morning d/t feeling full in his chest. He reports he has had a few episodes of palpitations, but they have been short lived and not r/t activity. He reports open weeping wounds to his lower legs bilat. He reports he has had constipation. No fever or chills. Review of Systems-Cardiology Review of Systems Constitutional: No chills, No fever; malaise Eyes: No vision change Ears/Nose/Throat: No epistaxis, No recent hearing loss Respiratory: As described under HPI Cardiovascular: As described under HPI Gastrointestinal: As described under HPI Genitourinary: No dysuria, No hematuria Skin: other (open wounds to legs bilat with blistering) Psychiatric/Neurological: No anxiety, No depression, No seizure, No focal weakness, No syncope Hematologic: No bleeding abnormalities LLN-Fmbiah-Minsee Hx Patient Social History Have you traveled recently?: No Alcohol Use?: No Pt feels they are or have been: No Immunizations Up To Date Tetanus Booster (TDap): Unknown Date of Pneumonia Vaccine: Jan 27, 2020 Date of Influenza Vaccine: Jan 27, 2020 Past Medical History PMH As described under Assessment. Family Medical History Family Medical History: No reported family h/o CAD Allergies and Home Medications Allergies Coded Allergies: No Known Drug Allergies (Unverified , 01/19/18) Patient Home Medication List Allopurinol (Allopurinol) 100 Mg Tablet, 100 MG PO DAILY, (Reported) Entered as Reported by: TAB LOPEZ on 01/21/19 0850 Amiodarone HCl (Amiodarone HCl) 400 Mg Tablet, 400 MG PO BID Prescribed by: DEANNE GUEVARA on 01/25/22 1022 Atorvastatin Calcium (Atorvastatin Calcium) 40 Mg Tablet, 40 MG PO HS, (Report ed) Entered as Reported by: LIZBETH MUIR on 06/08/20 1153 Calcitriol (Calcitriol) 0.25 Mcg Capsule, 0.25 MCG PO DAILY, (Reported) Entered as Reported by: LIZBETH MUIR on 01/23/22 1411 Carvedilol (Carvedilol) 12.5 Mg Tablet, 12.5 MG PO BID, (Reported) Entered as Reported by: LIZBETH MUIR on 01/23/22 1411 Cholecalciferol (Vitamin D3) (Vitamin D3) 25 Mcg Tablet, 25 MCG PO DAILY, (Reported) Entered as Reported by: LIZBETH MUIR on 03/17/20 1444 Clopidogrel Bisulfate (Clopidogrel) 75 Mg Tablet, 75 MG PO DAILY Prescribed by: DEANNE GUEVARA on 01/25/22 1022 Ferrous Sulfate (Ferrous Sulfate) 325 Mg (65 Mg Iron) Tablet, 325 MG PO DAILY, (Reported) Entered as Reported by: LIZBETH MUIR on 01/23/22 1411 Furosemide (Furosemide) 40 Mg Tablet, 40 MG PO DAILY Prescribed by: DEANNE GUEVARA on 01/25/22 1022 Gabapentin (Gabapentin) 100 Mg Capsule, 300 MG PO BID, (Reported) Entered as Reported by: LIZBETH MUIR on 03/17/20 1444 Glipizide (Glipizide) 10 Mg Tablet, 10 MG PO DAILY, (Reported) Entered as Reported by: RULA CRAMER on 06/28/16 1246 Glipizide (Glipizide) 10 Mg Tablet, 5 MG PO HS, (Reported) Entered as Reported by: LIZBETH MUIR on 06/08/20 1153 Insulin Aspart (Novolog) 100 Unit/Ml Cartridge, UNITS SQ AC PRN for HYPERGLYCEMIA, (Reported) Entered as Reported by: LIZBETH MUIR on 01/23/22 1418 Insulin Detemir (Levemir Flextouch) 100 Unit/Ml (3 Ml) Insuln.pen, 50 UNIT SQ BID, (Reported) Entered as Reported by: LIZBETH MUIR on 03/17/20 1444 Metolazone (Metolazone) 5 Mg Tablet, 5 MG PO MO,WE,FR, (Reported) Entered as Reported by: LIZBETH MUIR on 01/23/22 1411 [place] 3 Polyunsat Fatty Acids (Fish Oil 1,000 mg Capsule) 1,000 Mg Cap, 2,000 MG PO HS, (Reported) Entered as Reported by: TAB LOPEZ on 01/21/19 0851 Potassium Chloride (Potassium Chloride) 20 Meq Tablet.er, 20 MEQ PO DAILY, (Reported) Entered as Reported by: LIZBETH MUIR on 01/23/22 1411 Rivaroxaban (Xarelto) 15 Mg Tablet, 15 MG PO DAILY Prescribed by: DEANNE GUEVARA on 01/25/22 1158 Tamsulosin HCl (Flomax) 0.4 Mg Cap, 0.4 MG PO BID, (Reported) Entered as Reported by: TAB LOPEZ on 01/21/19 0851 Physical Exam-Cardiology Physical Exam Vital Signs/I&O 02/13/22 02/13/22 02/13/22 02/13/22 20:00 20:00 20:06 20:52 Temp 36.2 Pulse 67 Resp 17 B/P (MAP) 160/100 (120) Pulse Ox 93 95 O2 Delivery Nasal Cannula NIV Bilevel NIV Bilevel O2 Flow Rate 3.00 50.00 FiO2 50 02/13/22 02/13/22 02/13/22 02/13/22 21:00 21:34 22:00 23:00 Pulse 73 112 67 70 Resp 15 15 33 12 B/P (MAP) 160/93 (115) 140/89 (106) 146/104 (118) Pulse Ox 99 99 100 99 O2 Delivery NIV Bilevel NIV Bilevel NIV Bilevel O2 Flow Rate 50.00 50.00 50.00 50.00 3.00 02/14/22 02/14/22 02/14/22 02/14/22 00:00 00:00 00:23 01:00 Temp 36.6 Pulse 73 55 Resp 17 B/P (MAP) 150/78 (102) Pulse Ox 99 99 O2 Delivery NIV Bilevel NIV Bilevel O2 Flow Rate 50.00 FiO2 50 02/14/22 02/14/22 02/14/22 02/14/22 01:00 02:00 02:50 02:54 Pulse 71 71 79 Resp 16 16 20 B/P (MAP) 147/89 (108) 147/89 (108) Pulse Ox 98 98 100 O2 Delivery NIV Bilevel NIV Bilevel NIV Bilevel O2 Flow Rate 50.00 50.00 40.00 40.00 3.00 02/14/22 02/14/22 02/14/22 02/14/22 03:00 04:00 04:00 04:13 Temp 37.1 Pulse 75 79 Resp 21 54 B/P (MAP) 140/85 (103) 153/82 (105) Pulse Ox 92 100 98 O2 Delivery NIV Bilevel NIV Bilevel NIV Bilevel O2 Flow Rate 40.00 40.00 FiO2 40 02/14/22 02/14/22 02/14/22 02/14/22 04:36 05:00 06:00 06:44 Temp 36.8 Pulse 71 73 Resp 14 24 B/P (MAP) 152/92 (112) 148/91 (110) Pulse Ox 99 96 O2 Delivery NIV Bilevel NIV Bilevel Nasal Cannula O2 Flow Rate 40.00 40.00 3.00 02/14/22 07:14 Pulse Ox 100 O2 Delivery Nasal Cannula O2 Flow Rate 3.50 02/14/22 00:00 Intake Total 375 ml Output Total 1750 ml Balance -1375 ml Capillary Refill : Less Than 3 Seconds Constitutional: AAO x 3, well-developed, well-nourished HEENT: PERRL, hearing is well preserved, oral hygience is good Neck: No carotid bruit; carotid pulses are 2 + bilaterally Respiratory: No accessory muscle use, No respiratory distress; chest expansion is symmetric, chest is bilaterally symmetric, other (diminished lower lobes shereen at) Cardiovascular: regular rate-rhythm; No JVD; S1 and S2, systolic murmur Gastrointestinal: No tender; soft, distended, audible bowel sounds Extremities: other (bilat pitting LE swelling toes to hips) Neurologic/Psychiatric: grossly intact (moves all extremities) Skin: other (dressings to bilat LE in place) Data Review Labs Laboratory Tests 02/13/22 12:12: White Blood Count 9.1, Red Blood Count 4.59, Hemoglobin 13.9, Hematocrit 44, Mean Corpuscular Volume 97, Mean Corpuscular Hemoglobin 30, Mean Corpuscular Hemoglobin Concent 31L, Red Cell Distribution Width 15.9H, Platelet Count 198, Mean Platelet Volume 9.4, Immature Granulocyte % (Auto) 0, Neutrophils (%) (Auto) 75, Lymphocytes (%) (Auto) 15, Monocytes (%) (Auto) 7, Eosinophils (%) (Auto) 3, Basophils (%) (Auto) 0, Neutrophils # (Auto) 6.8, Lymphocytes # (Auto) 1.4, Monocytes # (Auto) 0.6, Eosinophils # (Auto) 0.3, Basophils # (Auto) 0.0, Immature Granulocyte # (Auto) 0.0, Prothrombin Time 30.9H, INR Comment 2.9H, Activated Partial Thromboplast Time 51H, Sodium Level 139, Potassium Level 3.7, Chloride Level 94L, Carbon Dioxide Level 35H, Anion Gap 10, Blood Urea Nitrogen 36H, Creatinine 1.81H, Estimat Glomerular Filtration Rate 37, BUN/Creatinine Ratio 20, Glucose Level 139H, Calcium Level 9.2, Corrected Calcium 9.6, Magne sium Level 1.7, Total Bilirubin 0.8, Aspartate Amino Transf (AST/SGOT) 16, Alanine Aminotransferase (ALT/SGPT) 16, Alkaline Phosphatase 124, Total Creatine Kinase 70, Creatine Kinase MB 2.5, Myoglobin 174.9H, Troponin I < 0.028, B-Type Natriuretic Peptide 471.0H, Total Protein 7.1, Albumin 3.5, Lipase 19 02/13/22 13:05: Influenza Type A (RT-PCR) Not Detected, Influenza Type B (RT-PCR) Not Detected, SARS-CoV-2 RNA (RT-PCR) Not Detected 02/13/22 14:16: Blood Gas Puncture Site R WRIST, Blood Gas Patient Temperature 35.6, Arterial Blood pH 7.38, Arterial Blood Partial Pressure CO2 69H, Arterial Blood Partial Pressure O2 47L, Arterial Blood HCO3 41*H, Arterial Blood Total CO2 42.9*H, Arterial Blood Oxygen Saturation 79L, Arterial Blood Base Excess 14.7H, Dat Test YES-POS, Blood Gas Ventilator Setting NO, Blood Gas Inspired Oxygen 31 L 02/13/22 16:49: Glucometer 116H 10/19/22 20:33: Glucometer 170H 02/14/22 04:10: Blood Gas Puncture Site RT RADIAL, Blood Gas Patient Temperature 36.8, Arterial Blood pH 7.40, Arterial Blood Partial Pressure CO2 70H, Arterial Blood Partial Pressure O2 44L, Arterial Blood HCO3 43*H, Arterial Blood Total CO2 45.4*H, Arterial Blood Oxygen Saturation 76L, Arterial Blood Base Excess 17.3H, Dat Test YES-POS, Blood Gas Ventilator Setting NO, Blood Gas Inspired Oxygen 40%BIPAP 02/14/22 05:05: White Blood Count 8.4, Red Blood Count 4.17L, Hemoglobin 12.4L, Hematocrit 41, Mean Corpuscular Volume 98, Mean Corpuscular Hemoglobin 30, Mean Corpuscular Hemoglobin Concent 31L, Red Cell Distribution Width 15.8H, Platelet Count 176, Mean Platelet Volume 9.5, Immature Granulocyte % (Auto) 1, Neutrophils (%) (Auto) 74, Lymphocytes (%) (Auto) 15, Monocytes (%) (Auto) 7, Eosinophils (%) (Auto) 3, Basophils (%) (Auto) 0, Neutrophils # (Auto) 6.3, Lymphocytes # (Auto) 1.3, Monocytes # (Auto) 0.6, Eosinophils # (Auto) 0.2, Basophils # (Auto) 0.0, Immature Granulocyte # (Auto) 0.0, Sodium Level 142, Potassium Level 3.7, Chloride Level 95L, Carbon Dioxide Level 32, Anion Gap 15H, Blood Urea Nitrogen 36H, Creatinine 1.91H, Estimat Glomerular Filtration Rate 35, BUN/Creatinine Ratio 19, Glucose Level 145H, Calcium Level 9.2, Corrected Calcium 9.8, Phosphorus Level 3.5, Magnesium Level 1.5L, Total Bilirubin 1.0, Aspartate Amino Transf (AST/SGOT) 18, Alanine Aminotransferase (ALT/SGPT) 17, Alkaline Phosphatase 133, Total Protein 6.7, Albumin 3.2 Radiology NAME: GHASSAN LAYTON MED REC#: [id number] PT STATUS: REG ER : 1940 PHYSICIAN: TEREZA LOBO APRN ADMIT DATE: 02/13/22/ER Draft Date of Exam:02/13/22 CHEST 1 VIEW, AP/PA ONLY Indication: Chest pain, shortness of air Cardiomegaly, vascular congestion and probable pulmonary edema have progressed . There is left greater than right pleural effusions increased. IMPRESSION: Findings suggest worsened failure pattern when compared to 01/23/2022. Dictated on workstation # [id number] Dict: 02/13/22 1237 Trans: 02/13/22 1241 [facility] [id number] Interpreted by: NICOLETTE MORA Electronically signed by: ECG Impression ECG Initial ECG Rhythm: Normal Sinus Comment A-fib with RBBB A/P-Cardiology Assessment/Admission Diagnosis Chest pain - no evidence of ACS thus far Acute on chronic systolic and diastolic CHF, NYHA Class III - Echo of 01/24/22: moderate concentric LVH, mod to sev diff hypokinesis, LVEF 30-35%, grade 3 arango dysfunction, mod biatrial enlargement, mild MR, mild AI, PASP 50-55 mmHg - pt has wished to be managed conservatively only H/O Syncope in late December 2021 - which was likely d/t NSVT (documented during admission of December 2021) for which he requested to be treated conservatively H/O NSTEMI in late December 2021 - He desired to be managed conservatively only CAD - Report coronary PCI beginning in the (doesn't know details). 12/07/2010: proximal circumflex artery was treated with Promus 4 x 12, mid circumflex with Promus 3.0 x 15, mid RCA 4 x 28 Promus, mid RCA Promus 4 x 12, proximal RCA Promus 4 x 23, proximal RCA Promus 4 x 23. 11/04/2011: proximal RCA treated with Promus element 3.5 x 28 mm stent, mid first diagonal artery treated with Promus element 2.25 x 24 mm stent. - Most recent coronary angiography of Dec [address] Guillen: showed moderate ostial LAD stenosis with FFR 0.94, which shows non-obstructive disease. Patent stent in the first diagonal artery and the RCA. Patent stent in the proximal LAD. PAD - Peripheral angiogram of Dec [address] Guillen: showed on the left showed moderate/severe diffuse calcified disease in the SFA, severe stenosis in the distal SFA. Suboptimal visualization in the popliteal artery however likely severe distal popliteal stenosis. At least one vessel runoff below the knee with a posterior tibial artery. Small diffusely diseased deep peroneal as well as anterior tibial artery. Right lower extremity shows moderate diffuse calcified disease in the SFA in the popliteal artery. Two-vessel runoff with a posterior tibial as well as deep peroneal artery. Heavily diseased small anterior tibial artery. - AAA Repair: 08/10/[address] Stallworth at [place], [place] - CT of the abdomen without contrast on Dec 28, 2019: Previously treated abdominal aortic aneurysm. The maximum sac diameter is 4.6 cm. This is essentially unchanged compared to the prior examination from 2016 per Chronic kidney disease stage IV - follows with [place] [facility] Intolerant to RENU-inhib/ARB due to hypotension Persistent atrial fibrillation - OAC with Eliquis Carotid arterial dz: - s/p L CEA in October [address] Reddy at [facility]. Carotid art disease is being followed at the same office HTN - controlled HLD - statin - managed by PCP VILMA Abnormal ECG - Chronic RBBB DM 2 - managed by PCP BPH and chronic dysuria and hesitancy H/O GI bleed and acute anemia in early 2020 - s/p endoscopy by Dr. Rushing (May 2020) - GERD, gastritis, hiatal hernia, internal/external hemorrhoids - followed by Dr Dubon and Dr Rushing Discussion and Recomendations Complex management issue d/t multiple issues as noted above Acute on chronic systolic/diastolic CHF - treat with diuretics - monitor lab closely CKD 3-4 - monitor lab Continue home medications including Amiodarone and Coreg - not a suitable candidate for RENU or ARB d/t CKD 3-4 with worsening renal function in the past on these agents Further recs will be based on his hospital course We would like to thank medical services for this consult DEANNE GUEVARA Feb 13, 2022 14:02
[2022-02-13] MEDS ORDERED: FUROSEMIDE 40 MG/4 ML INJ (LASIX) ONE (14:24)
[2022-02-13 14:26] LABS: ABG BASE EXCESS 14.7 MMOL/L (-2.5-2.5); ABG OXYGEN SATURATION 79 % (94-100); ABG PCO2 69 MMHG (35-45); ABG PH 7.38 (7.37-7.43); ABG PO2 47 MMHG (79-93)
[2022-02-13 14:27] LABS: ABG TCO2 42.9 MMOL/L (21.0-31.0); ALLENS TEST YES-POS; INSPIRED O2 31 L; PATIENT TEMP 35.6; VENTILATOR NO
[2022-02-13] MEDS ORDERED: FUROSEMIDE 40 MG/4 ML INJ (LASIX) IVP ONE (14:30)
[2022-02-13 15:00] VITALS: BP 164/94
[2022-02-13 15:15] VITALS: BP 147/90
[2022-02-13] MEDS ORDERED: morphine IMMEDIATE RELEASE 15 MG TABLET PO PRN (15:15)
[2022-02-13] MEDS ORDERED: ONDANSETRON 4 MG (ZOFRAN) ORAL DISSOLVE TAB PO PRN (15:15)
[2022-02-13] MEDS ORDERED: ONDANSETRON 4 MG/2 ML (SDV) Z0FRAN IV PRN (15:15)
[2022-02-13] MEDS ORDERED: MELATONIN 3 MG TABLET PO PRN (15:15)
[2022-02-13] MEDS ORDERED: diphenhydrAMINE 50 MG/ML INJ (BENADRYL) IVP PRN (15:15)
[2022-02-13] MEDS ORDERED: polyethylene glycoL POWDER 17 GM (MIRALAX) PACK PO PRN (15:15)
[2022-02-13] MEDS ORDERED: diphenhydrAMINE 25 MG TAB (BENADRYL) PO PRN (15:15)
[2022-02-13] MEDS ORDERED: ACETAMINOPHEN 325 MG TABLET PO PRN (15:15)
[2022-02-13] MEDS ORDERED: BISACODYL 10 MG SUPP (DULCOLAX) PR PRN (15:15)
[2022-02-13] MEDS ORDERED: LORazepam 0.5 MG (ATIVAN) TABLET PO PRN (15:15)
[2022-02-13] MEDS ORDERED: cloNIDine 0.1 MG (CATAPRES) TAB PO PRN (15:15)
[2022-02-13] MEDS ORDERED: CALCIUM CARBONATE 500 MG (TUMS) TAB.CHEW PO PRN (15:15)
[2022-02-13] MEDS ORDERED: HYDROmorphone 2 MG/ML VIAL (DILAUDID) IV PRN (15:15)
[2022-02-13] MEDS ORDERED: ANTACID SUSP 30 ML UDC (MYLANTA) PO PRN (15:15)
[2022-02-13] MEDS ORDERED: MILK OF MAGNESIA 400 MG/5 ML 30 ML UDC PO PRN (15:15)
[2022-02-13] MEDS ORDERED: LACTULOSE SYRUP 10GM/15ML (ENULOSE) 30ML UDC PO PRN (15:15)
--- NOTE | 2022-02-13 15:17 | History & Physical-Hospitalist ---
KENNEDYMARÍAPHIL Edwards 02/13/22 1517: History of Present Illness HPI/Chief Complaint CC: SOA and CP 82yo M with h/o CHF, afib, CKD, DM, and O2 dependence 3L presented to the ED after experiencing CP and worsening SOA. Pt states that last night at ~0100, he experienced pain that started in his L axillary area and radiated into his chest. Pt notes that he had been experiencing L axillary pain every night for the past few days when he sleeps but denies ever experiencing CP during these episodes. Pt states that he took 4-5 nitro sublingual tablets between 0100 and 10am. Pt states that he had some relief but that the pain did not entirely resolve, prompting the pt to come in the ED. Pt also notes that he has experienced worsening SOA and decreased appetite for the past few days. Pt states that he is unable to drink or eat due to a feeling of fullness in his chest and abd. Pt states that his last meal was yesterday but was unable to eat this morning. Pt states that since the onset of his symptoms he has felt more fatigued. Pt was recently discharged from [facility] on 01/23 after being admitted following an episode of VTACH. Pt has extensive cardiac history and is followed by Dr. Hall. Pt also notes a recent decrease in urinary output but has had increased urgency. Pt's CXR showed a worsened failure pattern when compared to 01/23 as well as B/L pleural effusions with L worse than R. Also showed progression of cardiomegaly, venous congestion, and pulmonary edema. EKG showed a fib with RBBB. Workup was remarkable for elevated myoglobin and BNP. Troponin was negative. In room, pt is laying in bed and is visibly SOA on 3L NC and O2 sat was 96%. Pt states that his SOA has improved but still feels like his chest is "full". Pt notes that he feels like he has a lot of fluid on him. Pt states that his chest pain has resolved but does not that he has experienced intermittent palpitations over the past week. Pt has no other complaints. Pt de nies diarrhea but does note some constipation. Pt denies current CP, fever, chills, current palpitations, and abd pain. ABG 02/13: pH: 7.38 pCO2: 69 pO2: 47 Source: patient, family, old records Exam Limitations: no limitations Date Seen 02/13/22 Time Seen by a Provider: 15:10 Attending Physician Anny Kemp PCP Admitting Physician: Jeanette Redmond DO Attending Physician: Jeanette Redmond DO Referring Physician Date of Admission Feb 13, 2022 at 14:30 Home Medications & Allergies Home Medications Reviewed patient Home Medication Reconciliation performed by pharmacy medication reconciliations cable installation technician and/or nursing. Patients Allergies have been reviewed. Allergies Allergies Coded Allergies No Known Drug Allergies (Unverified01/19/18) Past Urwxmut-Wshieg-Dqdrfx Hx Patient Social History Marrital Status: Tobacco Use?: No Smoking Status: Former Smoker Use of E-Cig and/or Vaping dev: No Substance use?: No Alcohol Use?: No Pt feels they are or have been: No Immunizations Up To Date Date of Influenza Vaccine: Jan 27, 2020 First/Initial COVID19 Vaccinat: na Second COVID19 Vaccination Edward: na Tetanus Booster (TDap): Unknown Hepatitis A: No Hepatitis B: No Date of Pneumonia Vaccine: Jan 27, 2020 Seasonal Allergies Seasonal Allergies: No Current Status Advance Directives: No Primary Language: Rwandan Preferred Spoken Language: Rwandan Past Medical History Surgeries: Coronary Stent, Gallbladder, Prostatectomy, Vascular Surgery Sleep Apnea, COPD Currently Using CPAP: Yes (WITH OXYGEN AT NIGHT) Atrial Fibrillation, Coronary Artery Disease, High Cholesterol, Hypertension, Peripheral Vascular Neuropathy Sexually Transmitted Disease: No HIV/AIDS: No Prostate Problems, Kidney Stones, Renal Failure Degenerate Disk Disease, Arthritis, Chronic Back Pain Diabetes, Insulin dep Loss of Vision: Bilateral Hearing Impairment: Denies Prostate Did You Recieve Any Treatments: Yes What Type of Treatment Did You: Chemotherapy, Surgical Intervention Recent Skin Changes Blood Disorders: No Adverse Reaction/Blood Tranf: No (N/A) Family Medical History No Pertinent Family Hx Review of Systems Constitutional: No chills, No fever EENTM: No ear discharge, No ear pain, No tearing Respiratory: No cough; short of breath Cardiovascular: No chest pain; edema; No syncope Gastrointestinal: No abdominal pain; constipation; No diarrhea, No nausea, No vomiting Genitourinary: No decreased output, No discharge Musculoskeletal: No back pain, No gout, No joint pain Skin: No change in color, No change in hair/nails; lesions (weeping wounds on R lower leg) Psychiatric/Neurological: Denies Anxiety, Denies Depressed All Other Systems Reviewed Negative Unless Noted: Yes Physical Exam Physical Exam Vital Signs Vital Signs - First Documented 02/13/22 02/13/22 12:07 15:31 Temp 36.7 Pulse 62 Resp 20 B/P (MAP) 158/130 (139) Pulse Ox 92 O2 Delivery Nasal Cannula O2 Flow Rate 3.00 FiO2 32 Capillary Refill : Less Than 3 Seconds Height, Weight, BMI Height: 5'9.00" Weight: 276lbs. 0.0oz. 125.459806qm; BMI Method: General Appearance: No Apparent Distress, Obese HEENT: PERRL/EOMI, Moist Mucous Membranes Neck: Normal Inspection, Supple Respiratory: Chest Non Tender, Accessory Muscle Use, Crackles (L lung base) Cardiovascular: No Murmur, Other (distant heart sounds) Gastrointestinal: Non Tender, Abnormal Bowel Sounds (hypoactive all 4 quadrants), Distended Back: Normal Inspection, No CVA Tenderness Extremity: Pedal Edema (B/L), Swelling (B/L LE to above knees) Neurologic/Psychiatric: Alert, Oriented x3, Normal Mood/Affect Skin: Warm/Dry, Other (Venous stasis dermatitis B/L LE, weeping wounds present on R rayo, bruising noted on multiple digit of R foot) Lymphatic: No Adenopathy Results Results/Procedures Labs Laboratory Tests 02/13/22 12:12 02/14/22 05:05 Patient resulted labs reviewed. Assessment/Plan Admission Diagnosis Acute on Chronic CHF Admission Status: Inpatient Order (span 2 midnights) Reason for Inpatient Admission: Acute on Chronic CHF Assessment and Plan 1. Acute on Chronic CHF -NYHA Class III - Followed by Dr. Hall, being managed conservatively per pt's wishes >ECHO 01/24/22 remarkable for mod concentric LVH >LVEF 30-35% >grade 3 diastolic dysfunction >mod biatrial enlargement >mild MR and AI > PASP 50-55mmHg -Pt has h/o intolerance to RENU/ARBs, medicated at home with lasix. >Lasix administered in ED 2. SOA -improved, on 3L NC O2 sat 96% -CXR showed: -worsened failure pattern when compared to 01/23 -Cardiomegaly, venous congestion, and progression of pulmonary edema -B/L pleural effusions noted, L>R 3. CP -some relief after 4-5 nitro sublingual tablets 4.Afib with RBBB - OAC with Eliquis 4. CKD IV -managed by [facility] -BUN and Cr currently lower today than usual baseline >baseline: ~45 and 2.2 5. Venous stasis dermatitis B/L LE -weeping wounds present on R leg 6. DMT2 -managed by PCP 7. BPH and chronic dysuria and hesitancy -managed with tamulosin 9. H/o Syncope -attributed to NSVT 10. NSTEMI -01/23/22- managed conservatively 11. CAD -h/o coronary PCI and stent placements starting in the -most recent coronary angiography 12/[address] Guillen >moderate ostial LAD stenosis, non-obstructive >Stent placement in first diagonal artery, RCA, and proximal LAD 12. PAD -12/[address] Guillen showed diffuse moderate to severe calcified disease in multiple LE vessels -AAA repair done in 2014, CT abd w/o contrast on 12/2021 showed stable disease 13. Carotid Artery Disease -[facility] >s/p L CEA 10/2021 14. HTN -being followed by Dr. Hall -controlled 15. HLD -atorvastatin 80mg at home -managed by PCP 16. VILMA - CPAP at night and 3L NC oxygen during day 17. h/o GI bleed with acute anemia -followed by Dr. Dubon and Dr. Rushing >Last endoscope 05/[address] Rushing Plan: Pt is being followed by Dr. Hall from cardiology Continue with Lasix Continue to monitor BUN and Cr Monitor pulmonary function, consider repeat CXR tomorrow Pain control RUYJEANETTE DO 02/15/22 0513: History of Present Illness HPI/Chief Complaint Chief complaint: Acute respiratory failure HPI: This is an 82-year-old male history of VIMLA and congestive heart failure with chronic kidney disease who presents to the ICU following an ER evaluation revealing exacerbation of COPD with congestive heart failure and in need of BiPAP. At this current time patient is unable to carry on a conversation due to BiPAP. I have reviewed the medical student history. Source: patient Exam Limitations: no limitations Past Gievabe-Bmobml-Gvqfnw Hx Patient Social History Marrital Status: Smoking Status: Former Smoker Past Medical History Sleep Apnea, COPD Currently Using CPAP: Yes Cardiomyopathy, Chronic Edema/Swelling, Coronary Artery Disease, High Cholesterol, Hypertension Review of Systems Constitutional: see HPI, malaise, weakness Respiratory: dyspnea on exertion, short of breath Cardiovascular: edema Physical Exam Physical Exam General Appearance: Anxious, Chronically ill, Obese Eyes: Right Eye Normal Inspection, Right Eye PERRL HEENT: PERRL/EOMI, Normal ENT Inspection, Pharynx Normal, Moist Mucous Membranes Neck: Full Range of Motion, Normal Inspection, Non Tender Respiratory: Chest Non Tender, No Accessory Muscle Use, No Respiratory Distress, Decreased Breath Sounds Cardiovascular: Regular Rate, Rhythm, No Edema, No Gallop, No JVD, No Murmur, Normal Peripheral Pulses, Other (distant heart sounds) Gastrointestinal: Normal Bowel Sounds, No Organomegaly, No Pulsatile Mass, Non Tender, Soft Back: Normal Inspection, No CVA Tenderness, No Vertebral Tenderness Extremity: Normal Capillary Refill, Normal Inspection, Normal Range of Motion, Non Tender, No Calf Tenderness, No Pedal Edema Neurologic/Psychiatric: Alert, Oriented x3, No Motor/Sensory Deficits, Normal Mood/Affect Skin: Normal Color, Warm/Dry Lymphatic: No Adenopathy Assessment/Plan Admission Diagnosis Assessment: Acute on chronic respiratory failure Acute on chronic congestive heart failure Chronic kidney disease Exacerbation COPD Obesity hypoventilation syndrome with chronic CO2 retention Plan: ICU Supportive care BiPAP Admission Status: Inpatient Order (span 2 midnights) Reason for Inpatient Admission: CHF with respiratory failure Diagnosis/Problems Diagnosis/Problems (1) Acute on chronic heart failure Status: Acute (2) Respiratory failure with hypoxia Status: Acute (3) Debility Status: Acute (4) Atrial fibrillation Status: Chronic Supervisory-Addendum Brief Verification & Attestation Participated in pt care: history, MDM, physical Personally performed: exam, history, MDM, supervision of care Care discussed with: Medical Student Procedures: n/a Results interpretation: Verified all documentation Verification and Attestation of Medical Student E/M Service A medical student performed and documented this service in my presence. I reviewed and verified all information documented by the medical student and made modifications to such information, when appropriate. I personally performed the physical exam and medical decision making. Jeanette Redmond Feb 15, 2022,05:10 PHIL DE LA FUENTE Feb 13, 2022 15:17 JEANETTE REDMOND DO Feb 15, 2022 05:13
[2022-02-13 15:30] VITALS: BP 155/85
[2022-02-13 15:31] VITALS: BP 148/88
[2022-02-13] MEDS ORDERED: RT-ALBUTEROL/IPRATROPIUM 3 ML (DUONEB) VIAL INH PRN (15:45)
[2022-02-13] MEDS ORDERED: FLU QUAD HIGH DOSE 240 MCG/0.7 ML 2022-23 (FLUZONE) IM ONE (16:15)
[2022-02-13] MEDS ORDERED: NS IV 500 ML 500 ML IV PRN (16:30)
[2022-02-13 16:37] VITALS: BP 158/94
[2022-02-13] MEDS ORDERED: RIVAROXABAN 15 MG TABLET (XARELTO) PO SCH (17:00)
--- NOTE | 2022-02-13 17:03 | Consultation-Cardiology ---
HPI-Cardiology Cardiology Consultation: Date of Consultation 02/13/22 Time Seen by a Provider: 16:50 Date of Admission Attending Physician Anny Kemp Admitting Physician Admitting Physician: Jeanette Barber DO Attending Physician: Jeanette Barber DO Consulting Physician MATT GUPTA MD, MA, FACP, FACC, FSCAI, CCDS Physician requesting Card consult: Dr Barber HPI: Chief Complaint: Reason for Card consult: Acute on chronic systolic CHF Mr. Cronin is an 82 yr old male who is being admitted to [facility] from the ED. I have seen him in the ED. He is accompanied by his daughter. He reports he has had had increasing SOB and LE swelling for the last few days. He reports he was awakened from sleep at approx 1:00 this morning with L ACW pain radiating under his arm and into his left shoulder. He reports increasing SOB and weakness this morning. He states he would take a nitro sublingual which would ease the chest pain, but would not make it go away completely. He reports he has taken approx 4 nitro this morning. He reports a feeling of fullness in his chest. He reports he feels he could not eat or drink this morning d/t feeling full in his chest. He reports he has had a few episodes of palpitations, but they have been short lived and not r/t activity. He reports open weeping wounds to his lower legs bilat. He reports he has had constipation. No fever or chills. Review of Systems-Cardiology Review of Systems Constitutional: No chills, No fever; malaise Eyes: No vision change Ears/Nose/Throat: No epistaxis, No recent hearing loss Respiratory: As described under HPI Cardiovascular: As described under HPI Gastrointestinal: As described under HPI Genitourinary: No dysuria, No hematuria Skin: other (open wounds to legs bilat with blistering) Psychiatric/Neurological: No anxiety, No depression, No seizure, No focal weakness, No syncope Hematologic: No bleeding abnormalities All Other Systems Reviewed Negative Unless Noted: Yes GFA-Ilcwwf-Xhgaou Hx Patient Social History Marrital Status: Smoking Status: Former Smoker Have you traveled recently?: No Alcohol Use?: No Pt feels they are or have been: No Immunizations Up To Date Tetanus Booster (TDap): Unknown Date of Pneumonia Vaccine: Jan 27, 2020 Date of Influenza Vaccine: Jan 27, 2020 Past Medical History PMH As described under Assessment. Family Medical History Family Medical History: No reported family h/o CAD Allergies and Home Medications Allergies Coded Allergies: No Known Drug Allergies (Unverified , 01/19/18) Patient Home Medication List Home Medication List Reviewed: Yes Allopurinol (Allopurinol) 100 Mg Tablet, 100 MG PO DAILY, (Reported) Entered as Reported by: TAB LOPEZ on 01/21/19 0850 Amiodarone HCl (Amiodarone HCl) 400 Mg Tablet, 400 MG PO BID Prescribed by: DEANNE GUEVARA on 01/25/22 1022 Atorvastatin Calcium (Atorvastatin Calcium) 40 Mg Tablet, 40 MG PO HS, (Reported) Entered as Reported by: LIZBETH MUIR on 06/08/20 1153 Calcitriol (Calcitriol) 0.25 Mcg Capsule, 0.25 MCG PO DAILY, (Reported) Entered as Reported by: LIZBETH MUIR on 01/23/22 1411 Carvedilol (Carvedilol) 12.5 Mg Tablet, 12.5 MG PO BID, (Reported) Entered as Reported by: LIZBETH MUIR on 01/23/22 1411 Cholecalciferol (Vitamin D3) (Vitamin D3) 25 Mcg Tablet, 25 MCG PO DAILY, (Reported) Entered as Reported by: LIZBETH MUIR on 03/17/20 1444 Clopidogrel Bisulfate (Clopidogrel) 75 Mg Tablet, 75 MG PO DAILY Prescribed by: DEANNE GUEVARA on 01/25/22 1022 Ferrous Sulfate (Ferrous Sulfate) 325 Mg (65 Mg Iron) Tablet, 325 MG PO DAILY, (Reported) Entered as Reported by: LIZBETH MUIR on 01/23/22 1411 Furosemide (Furosemide) 40 Mg Tablet, 40 MG PO DAILY Prescribed by: DEANNE GUEVARA on 01/25/22 1022 Gabapentin (Gabapentin) 100 Mg Capsule, 300 MG PO BID, (Reported) Entered as Reported by: LIZBETH MUIR on 03/17/20 1444 Glipizide (Glipizide) 10 Mg Tablet, 10 MG PO DAILY, (Reported) Entered as Reported by: RULA CRAMER on 06/28/16 1246 Glipizide (Glipizide) 10 Mg Tablet, 5 MG PO HS, (Reported) Entered as Reported by: LIZBETH MUIR on 06/08/20 1153 Insulin Aspart (Novolog) 100 Unit/Ml Cartridge, UNITS SQ AC PRN for HYPERGLYCEMIA, (Reported) Entered as Reported by: LIZBETH MUIR on 01/23/22 1418 Insulin Detemir (Levemir Flextouch) 100 Unit/Ml (3 Ml) Insuln.pen, 50 UNIT SQ BID, (Reported) Entered as Reported by: LIZBETH MUIR on 03/17/20 1444 Metolazone (Metolazone) 5 Mg Tablet, 5 MG PO MO,WE,FR, (Reported) Entered as Reported by: LIZBETH MUIR on 01/23/22 1411 [place] 3 Polyunsat Fatty Acids (Fish Oil 1,000 mg Capsule) 1,000 Mg Cap, 2,000 MG PO HS, (Reported) Entered as Reported by: TAB LOPEZ on 01/21/19 0851 Potassium Chloride (Potassium Chloride) 20 Meq Tablet.er, 20 MEQ PO DAILY, (Reported) Entered as Reported by: LIZBETH MURI on 01/23/22 1411 Rivaroxaban (Xarelto) 15 Mg Tablet, 15 MG PO DAILY Prescribed by: DEANNE GUEVRAA on 01/25/22 1158 Tamsulosin HCl (Flomax) 0.4 Mg Cap, 0.4 MG PO BID, (Reported) Entered as Reported by: TAB LOPEZ on 01/21/19 0851 Physical Exam-Cardiology Physical Exam Vital Signs/I&O 02/13/22 02/13/22 02/13/22 02/13/22 12:07 14:59 15:00 15:15 Temp 36.7 36.7 Pulse 62 60 63 65 Resp 20 20 13 B/P (MAP) 158/130 (139) 148/88 164/94 (117) 147/90 (109) Pulse Ox 92 98 96 O2 Delivery Nasal Cannula Nasal Cannula Nasal Cannula Nasal Cannula O2 Flow Rate 3.00 3.00 3.00 3.00 3.00 02/13/22 02/13/22 02/13/22 02/13/22 15:24 15:30 15:31 16:37 Temp 36.7 Pulse 62 60 62 67 Resp 13 23 B/P (MAP) 155/85 (108) Pulse Ox 96 98 98 O2 Delivery Nasal Cannula O2 Flow Rate 3.00 50.00 3.00 FiO2 32 Capillary Refill : Less Than 3 Seconds Constitutional: AAO x 3, well-developed, well-nourished HEENT: PERRL, hearing is well preserved, oral hygience is good Neck: No carotid bruit; carotid pulses are 2 + bilaterally Respiratory: No accessory muscle use, No respiratory distress; chest expansion is symmetric, chest is bilaterally symmetric, other (diminished lower lobes bilat) Cardiovascular: regular rate-rhythm; No JVD; S1 and S2, systolic murmur Gastrointestinal: No tender; soft, distended, audible bowel sounds Extremities: other (bilat pitting LE swelling toes to hips) Neurologic/Psychiatric: grossly intact (moves all extremities) Skin: other (dressings to bilat LE in place) Data Review Labs Laboratory Tests 02/13/22 12:12: White Blood Count 9.1, Red Blood Count 4.59, Hemoglobin 13.9, Hematocrit 44, Mean Corpuscular Volume 97, Mean Corpuscular Hemoglobin 30, Mean Corpuscular Hemoglobin Concent 31L, Red Cell Distribution Width 15.9H, Platelet Count 198, Mean Platelet Volume 9.4, Immature Granulocyte % (Auto) 0, Neutrophils (%) (Auto) 75, Lymphocytes (%) (Auto) 15, Monocytes (%) (Auto) 7, Eosinophils (%) (Auto) 3, Basophils (%) (Auto) 0, Neutrophils # (Auto) 6.8, Lymphocytes # (Auto) 1.4, Monocytes # (Auto) 0.6, Eosinophils # (Auto) 0.3, Basophils # (Auto) 0.0, Immature Granulocyte # (Auto) 0.0, Prothrombin Time 30.9H, INR Comment 2.9H, Activated Partial Thromboplast Time 51H, Sodium Level 139, Potassium Level 3.7, Chloride Level 94L, Carbon Dioxide Level 35H, Anion Gap 10, Blood Urea Nitrogen 36H, Creatinine 1.81H, Estimat Glomerular Filtration Rate 37, BUN/Creatinine Ratio 20, Glucose Level 139H, Calcium Level 9.2, Corrected Calcium 9.6, Magnesium Level 1.7, Total Bilirubin 0.8, Aspartate Amino Transf (AST/SGOT) 16, Alanine Aminotransferase (ALT/SGPT) 16, Alkaline Phosphatase 124, Total Creatine Kinase 70, Creatine Kinase MB 2.5, Myoglobin 174.9H, Troponin I < 0.028, B-Type Natriuretic Peptide 471.0H, Total Protein 7.1, Albumin 3.5, Lipase 19 02/13/22 13:05: Influenza Type A (RT-PCR) Not Detected, Influenza Type B (RT-PCR) Not Detected, SARS-CoV-2 RNA (RT-PCR) Not Detected 02/13/22 14:16: Blood Gas Puncture Site R WRIST, Blood Gas Patient Temperature 35.6, Arterial Blood pH 7.38, Arterial Blood Partial Pressure CO2 69H, Arterial Blood Partial Pressure O2 47L, Arterial Blood HCO3 41*H, Arterial Blood Total CO2 42.9*H, Arterial Blood Oxygen Saturation 79L, Arterial Blood Base Excess 14.7H, Dat Test YES-POS, Blood Gas Ventilator Setting NO, Blood Gas Inspired Oxygen 31 L 02/13/22 16:49: Glucometer 116H A/P-Cardiology Assessment/Admission Diagnosis Chest pain - no evidence of ACS thus far Acute on chronic systolic and diastolic CHF, NYHA Class III - Echo of 01/24/22: moderate concentric LVH, mod to sev diff hypokinesis, LVEF 30-35%, grade 3 arango dysfunction, mod biatrial enlargement, mild MR, mild AI, PASP 50-55 mmHg - pt has wished to be managed conservatively only H/O Syncope in late December 2021 - which was likely d/t NSVT (documented during admission of December 2021) for which he requested to be treated conservatively H/O NSTEMI in late December 2021 - He desired to be managed conservatively only CAD - Report coronary PCI beginning in the s (doesn't know details). 12/07/2010: proximal circumflex artery was treated with Promus 4 x 12, mid circumflex with Promus 3.0 x 15, mid RCA 4 x 28 Promus, mid RCA Promus 4 x 12, proximal RCA Promus 4 x 23, proximal RCA Promus 4 x 23. 11/04/2011: proximal RCA treated with Promus element 3.5 x 28 mm stent, mid first diagonal artery treated with Promus element 2.25 x 24 mm stent. - Most recent coronary angiography of Dec [address] Guillen: showed moderate ostial LAD stenosis with FFR 0.94, which shows non-obstructive disease. Patent stent in the first diagonal artery and the RCA. Patent stent in the proximal LAD. PAD - Peripheral angiogram of Dec [address] Guillen: showed on the left showed moderate/severe diffuse calcified disease in the SFA, severe stenosis in the distal SFA. Suboptimal visualization in the popliteal artery however likely severe distal popliteal stenosis. At least one vessel runoff below the knee with a posterior tibial artery. Small diffusely diseased deep peroneal as well as anterior tibial artery. Right lower extremity shows moderate diffuse calcified disease in the SFA in the popliteal artery. Two-vessel runoff with a posterior tibial as well as deep peroneal artery. Heavily diseased small anterior tibial artery. - AAA Repair: 08/10/[address] Stallworth at [place], [place] - CT of the abdomen without contrast on Dec 28, 2019: Previously treated abdominal aortic aneurysm. The maximum sac diameter is 4.6 cm. This is essentially unchanged compared to the prior examination from 2016 per Chronic kidney disease stage IV - follows with [facility] Intolerant to RENU-inhib/ARB due to hypotension Persistent atrial fibrillation - OAC with Eliquis Carotid arterial dz: - s/p L CEA in October [address] Reddy at [facility]. Carotid art disease is being followed at the same office HTN - controlled HLD - statin - managed by PCP VILMA Abnormal ECG - Chronic RBBB DM 2 - managed by PCP BPH and chronic dysuria and hesitancy H/O GI bleed and acute anemia in early 2020 - s/p endoscopy by Dr. Rushing (May 2020) - GERD, gastritis, hiatal hernia, internal/external hemorrhoids - followed by Dr Dubon and Dr Rushing Discussion and Recomendations Complex management issue d/t multiple issues as noted above Acute on chronic systolic/diastolic CHF - treat with diuretics - monitor lab closely CKD 3-4 - monitor lab Continue home medications including Amiodarone and Coreg - not a suitable candidate for RENU or ARB d/t CKD 3-4 with worsening renal function in the past on these agents Further recs will be based on his hospital course We would like to thank medical services for this consult MATT GUPTA MD FACP [facility] CCDS Feb 13, 2022 17:03
[2022-02-13] MEDS: inSUlin ASPART (NovoLOG) 1 UNIT/0.01 ML (CHARGE PER UNIT) SC SCH ×2 (18:28→20:43)
[2022-02-13] MEDS: KCL 20 MEQ TAB (K-DUR) PO SCH (18:35)
[2022-02-13] MEDS: RIVAROXABAN 15 MG TABLET (XARELTO) PO SCH (18:35)
--- NOTE | 2022-02-13 18:59 | Tele-ICU Consult ---
History of Present Illness History of Present Illness Date Seen by Provider: Feb 13, 2022 Time Seen by Provider: 18:59 Date of Admission (Tele-ICU Physician , consultation) Available chart/ vitals / labs / Images reviewed H&P is from ER notes Patient's information available about PMH, Shx, Fhx allergy reviewed inEMR. ROS as per chart and RN report Now in ICU, hemodynamically stable Video assessment done using teleICU camera, rest of exam as per RN Discussed with RN. Consultants: Hospital course: A/P Acute resp failure - was on NIPPV , better now , off bipap , - cont diouresisi Chest pain , CAD, H/O NSTEMI in late December 2021 - no evidence of ACS as per cards Acute on chronic systolic and diastolic CHF - Echo of 01/24/22: LVEF 30-35%, grade 3 arango dysfunction,, mild MR, mild AI, Pulm HTN -PASP 50-55 mmHg Echo Chronic hypoxia - O2 dependence 3L CKK - stable DM II - ISS , as per PCP Persistent atrial fibrillation - OAC with Eliquis - as per cards h/o GI bleed with acute anemia - stable PAD AAA Repair: 08/10/2014 endograft VILMA Lines : , (Central Line Necessity Reviewed) [place]: OG: Nutrition: Analgesia: Anxiety/ delirium VTE Prophylaxis: Stress Ulcer Prophylaxis: Plans in collaboration with bedside consultants and IM MDs. Discussed with RN to reach out if any questions or concerns A total of 20 minutes of critical care time was devoted to this patient today, required to treat and/or prevent further deterioration of critical care condition ( as above ) . I am remotely monitoring this patient from another state. I am unable to do the bedside exam, and history/physical and pertinent information is taken from other notes in the computer and bedside staff. Allergies and Home Medications Allergies Coded Allergies: No Known Drug Allergies (Unverified , 01/19/18) Home Medications Allopurinol 100 Mg Tablet, 100 MG PO DAILY, (Reported) Amiodarone HCl 400 Mg Tablet, 400 MG PO BID Prescribed by: DEANNE GUEVARA on 01/25/22 1022 Atorvastatin Calcium 40 Mg Tablet, 40 MG PO HS, (Reported) Calcitriol 0.25 Mcg Capsule, 0.25 MCG PO DAILY, (Reported) Carvedilol 12.5 Mg Tablet, 12.5 MG PO BID, (Reported) Cholecalciferol (Vitamin D3) 25 Mcg Tablet, 25 MCG PO DAILY, (Reported) Clopidogrel Bisulfate 75 Mg Tablet, 75 MG PO DAILY Prescribed by: DEANNE GUEVARA on 01/25/22 1022 Ferrous Sulfate 325 Mg (65 Mg Iron) Tablet, 325 MG PO DAILY, (Reported) Furosemide 40 Mg Tablet, 40 MG PO DAILY Prescribed by: DEANNE GUEVARA on 01/25/22 1022 Gabapentin 100 Mg Capsule, 300 MG PO BID, (Reported) TAKES 3 (100MG) CAPS Glipizide 10 Mg Tablet, 10 MG PO DAILY, (Reported) Glipizide 10 Mg Tablet, 5 MG PO HS, (Reported) TAKES OF A 10MG Insulin Aspart 100 Unit/Ml Cartridge, UNITS SQ AC PRN for HYPERGLYCEMIA, (Reported) USES PER SLIDING SCALE Insulin Detemir 100 Unit/Ml (3 Ml) Insuln.pen, 50 UNIT SQ BID, (Reported) Metolazone 5 Mg Tablet, 5 MG PO MO,WE,FR, (Reported) [place] 3 Polyunsat Fatty Acids 1,000 Mg Cap, 2,000 MG PO HS, (Reported) Potassium Chloride 20 Meq Tablet.er, 20 MEQ PO DAILY, (Reported) Rivaroxaban 15 Mg Tablet, 15 MG PO DAILY 340 B Program Prescribed by: DEANNE GUEVARA on 01/25/22 1158 Tamsulosin HCl 0.4 Mg Cap, 0.4 MG PO BID, (Reported) Past Medical/Social/Family Hx Patient Social History Marrital Status: Tobacco Use?: No Smoking Status: Former Smoker Use of E-Cig and/or Vaping dev: No Substance use?: No Alcohol Use?: No Pt stated abuse/neglect: No Immunizations Up To Date Influenza Vaccine Up-to-Date: No; Not Current First/Initial COVID19 Vaccinat: na Second COVID19 Vaccination Edward: na Tetanus Booster (TDap): Unknown Hepatitis A: No Hepatitis B: No TB Skin Test: None Date of Pneumonia Vaccine: Jan 27, 2020 Current Status Advance Directives: No Communicates: Verbally Primary Language: Mauritian Preferred Spoken Language: Mauritian Is interpretation needed?: No Sensory deficits: Vision impairment Implanted or Applied Medical D: CPAP, Stents Review of Systems Constitutional: see HPI Focused Exam Height, Weight, BMI Height: 5'9.00" Weight: 276lbs. 0.0oz. [id number]; 39.83 BMI Method: Exam Exam Patient acknowledged, consented, and participated in this virtual visit which w as conducted using real time audio/video Vital Signs Date Time Temp Pulse Resp B/P (MAP) Pulse Ox O2 Delivery O2 Flow Rate FiO2 02/13/22 18:00 56 147/92 (110) 99 Nasal Cannula 3.00 02/13/22 17:15 56 155/89 (111) 100 Nasal Cannula 3.00 02/13/22 17:00 52 146/79 (101) 99 Nasal Cannula 3.00 02/13/22 16:45 62 173/93 (119) 100 Nasal Cannula 3.00 02/13/22 16:37 67 23 98 50.00 3.00 02/13/22 16:30 62 158/94 (115) 96 Nasal Cannula 3.00 02/13/22 16:15 64 157/96 (116) 95 Nasal Cannula 3.00 02/13/22 15:31 36.7 62 98 32 02/13/22 15:30 60 13 155/85 (108) 96 Nasal Cannula 3.00 02/13/22 15:24 62 02/13/22 15:15 65 13 147/90 (109) 96 Nasal Cannula 3.00 02/13/22 15:00 63 164/94 (117) Nasal Cannula 3.00 02/13/22 14:59 36.7 60 20 148/88 98 Nasal Cannula 3.00 3.00 02/13/22 12:07 36.7 62 20 158/130 (139) 92 Nasal Cannula 3.00 Height & Weight Height: 5'9.00" Weight: 276lbs. 0.0oz. 125.563266he; 39.83 BMI Method: General Appearance: No Apparent Distress, Obese HEENT: PERRL/EOMI, Moist Mucous Membranes Neck: Normal Inspection, Supple Respiratory: Chest Non Tender, Accessory Muscle Use, Crackles (L lung base) Cardiovascular: No Murmur, Other (distant heart sounds) Capillary Refill: Less Than 3 Seconds Extremity: Pedal Edema (B/L), Swelling (B/L LE to above knees) Neurologic/Psychiatric: Alert, Oriented x3, Normal Mood/Affect Skin: Warm/Dry, Other (Venous stasis dermatitis B/L LE, weeping wounds present on R rayo, bruising noted on multiple digit of R foot) Lymphatic: No Adenopathy Results Lab Laboratory Tests 02/13/22 12:12 Assessment/Plan Assessment/Plan 1 DORA GUZMÁN MD Feb 13, 2022 18:59
[2022-02-13] MEDS: SENNOSIDES 8.6 MG (SENOKOT) TAB PO SCH (20:44)
[2022-02-13] MEDS: DOCUSATE SODIUM 100 MG (COLACE) CAP PO SCH (20:44)
[2022-02-13] MEDS: AMIODARONE 200 MG (CORDARONE) TAB PO SCH (20:44)
[2022-02-13 21:34] VITALS: BP 158/94
[2022-02-13] MEDS: RT-ALBUTEROL/IPRATROPIUM 3 ML (DUONEB) VIAL INH SCH ×2 (23:00→23:02)
[2022-02-14] MEDS: RT-ALBUTEROL/IPRATROPIUM 3 ML (DUONEB) VIAL INH SCH ×6 (02:45→22:35)
[2022-02-14 04:16] LABS: ABG BASE EXCESS 17.3 MMOL/L (-2.5-2.5); ABG OXYGEN SATURATION 76 % (94-100); ABG PCO2 70 MMHG (35-45); ABG PO2 44 MMHG (79-93)
[2022-02-14 04:19] LABS: ABG TCO2 45.4 MMOL/L (21.0-31.0); ALLENS TEST YES-POS; INSPIRED O2 40%BIPAP; PATIENT TEMP 36.8; VENTILATOR NO
[2022-02-14 05:13] LABS: BASOPHILS % (AUTO) 0 % (0-10); EOSINOPHILS # (AUTO) 0.2 10^3/uL (0.0-0.3); EOSINOPHILS % (AUTO) 3 % (0-10); HEMATOCRIT 41 % (40-54); HEMOGLOBIN 12.4 g/dL (13.3-17.7); LYMPHOCYTES # (AUTO) 1.3 10^3/uL (1.0-4.0); LYMPHOCYTES % (AUTO) 15 % (12-44); MEAN CORPUSCULAR HEMOGLOBIN 30 pg (25-34); MEAN CORPUSCULAR HGB CONC 31 g/dL (32-36); MEAN CORPUSCULAR VOLUME 98 fL (80-99); MEAN PLATELET VOLUME 9.5 fL (9.0-12.2); MONOCYTES # (AUTO) 0.6 10^3/uL (0.0-1.0); MONOCYTES % (AUTO) 7 % (0-12); NEUTROPHILS # (AUTO) 6.3 10^3/uL (1.8-7.8); NEUTROPHILS % (AUTO) 74 % (42-75); PLATELET COUNT 176 10^3/uL (130-400); WHITE BLOOD COUNT 8.4 10^3/uL (4.3-11.0)
[2022-02-14 05:43] LABS: ALBUMIN 3.2 GM/DL (3.2-4.5); CALCIUM 9.2 MG/DL (8.5-10.1); CREATININE SERUM 1.91 MG/DL (0.60-1.30); MAGNESIUM 1.5 MG/DL (1.6-2.4); PHOSPHORUS 3.5 MG/DL (2.3-4.7); POTASSIUM 3.7 MMOL/L (3.6-5.0); TOTAL PROTEIN 6.7 GM/DL (6.4-8.2)
[2022-02-14] MEDS: POTASSIUM CL 10MEQ/50ML IVPB 50 ML IV SCH (05:46)
[2022-02-14] MEDS: KCL 20 MEQ TAB (K-DUR) PO SCH ×3 (05:47→17:27)
[2022-02-14] MEDS: inSUlin ASPART (NovoLOG) 1 UNIT/0.01 ML (CHARGE PER UNIT) SC SCH ×4 (05:48→20:52)
[2022-02-14] MEDS: MAGNESIUM 1 GM/100 ML IVPB 100 ML IV SCH ×3 (05:51→06:11)
[2022-02-14] MEDS: FUROSEMIDE 40 MG/4 ML INJ (LASIX) IVP SCH ×2 (06:04→17:27)
--- NOTE | 2022-02-14 08:37 | Diagnostic Imaging Report ---
INDICATION: Dyspnea Frontal chest obtained at 0249 a.m. and compared to 02/13/2022. There is cardiomegaly and mild central vascular congestion. Study is somewhat technically limited but there does appear to be improved aeration of both lung bases compared to the previous study. There is no pneumothorax. There are probable bilateral pleural effusions. IMPRESSION: Technically limited study. Cardiomegaly with partial improvement in bibasilar infiltrate versus atelectasis and some degree of pleural fluid on both sides. No pneumothorax. Dictated by: Dictated on workstation # [id number]
[2022-02-14] MEDS: DOCUSATE SODIUM 100 MG (COLACE) CAP PO SCH ×3 (09:22→20:08)
[2022-02-14] MEDS: SENNOSIDES 8.6 MG (SENOKOT) TAB PO SCH ×3 (09:23→20:08)
[2022-02-14] MEDS: CLOPIDOGREL 75 MG (PLAVIX) TABLET PO SCH (09:23)
[2022-02-14] MEDS: AMIODARONE 200 MG (CORDARONE) TAB PO SCH ×2 (09:23→20:52)
--- NOTE | 2022-02-14 10:11 | Progress Note - Cardiology ---
Cardiology SOAP Progress Note Subjective: Sitting up in recliner at the bedside States he feels much better than yesterday, but no quite back to his baseline No c/o CP this morning SOB is improving No c/o n/v Feels LE swelling has improved Objective: I&O/Vital Signs 02/14/22 02/14/22 02/14/22 02/14/22 04:36 05:00 06:00 06:44 Temp 36.8 Pulse 71 73 Resp 14 24 B/P (MAP) 152/92 (112) 148/91 (110) Pulse Ox 99 96 O2 Delivery NIV Bilevel NIV Bilevel Nasal Cannula O2 Flow Rate 40.00 40.00 3.00 02/14/22 02/14/22 02/14/22 02/14/22 07:00 07:14 08:00 08:00 Pulse 76 78 77 Resp 21 25 B/P (MAP) 152/78 (102) 111/80 (90) Pulse Ox 89 100 99 O2 Delivery Nasal Cannula Nasal Cannula Nasal Cannula O2 Flow Rate 3.00 3.50 3.00 02/14/22 02/14/22 02/14/22 02/14/22 08:13 08:30 09:00 10:00 Temp 36.3 Pulse 82 88 Resp 42 46 B/P (MAP) 115/93 (100) 124/91 (102) Pulse Ox 100 98 O2 Delivery Nasal Cannula Nasal Cannula Nasal Cannula O2 Flow Rate 3.00 3.00 3.00 02/14/22 02/14/22 02/14/22 02/14/22 11:00 11:00 11:13 11:42 Pulse 80 76 B/P (MAP) 121/87 (98) 103/101 (102) Pulse Ox 95 97 86 94 O2 Delivery Nasal Cannula Nasal Cannula Nasal Cannula Nasal Cannula O2 Flow Rate 3.00 3.50 3.00 3.00 02/14/22 02/14/22 02/14/22 02/14/22 12:00 12:02 12:53 13:21 Temp 36.5 Pulse 78 71 B/P (MAP) 156/82 (106) Pulse Ox 91 O2 Delivery Nasal Cannula Nasal Cannula O2 Flow Rate 3.00 4.00 02/14/22 02/14/22 15:17 15:24 Pulse Ox 94 96 O2 Delivery Nasal Cannula Nasal Cannula O2 Flow Rate 4.00 3.50 02/14/22 00:00 Intake Total 375 ml Output Total 1750 ml Balance -1375 ml Weight (Pounds): 276 Weight (Ounces): 0.0 Weight (Calculated Kilograms): 125.616594 Constitutional: AAO x 3, well-developed, well-nourished Respiratory: No accessory muscle use, No respiratory distress; chest expansion is symmetric, chest is bilaterally symmetric, other (diminished lower lobes bilat) Cardiovascular: regular rate-rhythm; No JVD; S1 and S2, systolic murmur Gastrointestional: No tender; soft, distended, audible bowel sounds Extremities: other (bilat pitting LE swelling toes to hips) Neurologic/Psychiatric: grossly intact (moves all extremities) Skin: other (dressings to bilat LE in place) Results/Procedures: Labs Laboratory Tests 02/13/22 16:49: Glucometer 116H 02/13/22 20:33: Glucometer 170H 02/14/22 04:10: Blood Gas Puncture Site RT RADIAL, Blood Gas Patient Temperature 36.8, Arterial Blood pH 7.40, Arterial Blood Partial Pressure CO2 70H, Arterial Blood Partial Pressure O2 44L, Arterial Blood HCO3 43*H, Arterial Blood Total CO2 45.4*H, Arterial Blood Oxygen Saturation 76L, Arterial Blood Base Excess 17.3H, Dat Test YES-POS, Blood Gas Ventilator Setting NO, Blood Gas Inspired Oxygen 40%BIPAP 02/14/22 05:05: White Blood Count 8.4, Red Blood Count 4.17L, Hemoglobin 12.4L, Hematocrit 41, Mean Corpuscular Volume 98, Mean Corpuscular Hemoglobin 30, Mean Corpuscular Hemoglobin Concent 31L, Red Cell Distribution Width 15.8H, Platelet Count 176, Mean Platelet Volume 9.5, Immature Granulocyte % (Auto) 1, Neutrophils (%) (Auto) 74, Lymphocytes (%) (Auto) 15, Monocytes (%) (Auto) 7, Eosinophils (%) (Auto) 3, Basophils (%) (Auto) 0, Neutrophils # (Auto) 6.3, Lymphocytes # (Auto) 1.3, Monocytes # (Auto) 0.6, Eosinophils # (Auto) 0.2, Basophils # (Auto) 0.0, I mmature Granulocyte # (Auto) 0.0, Sodium Level 142, Potassium Level 3.7, Chloride Level 95L, Carbon Dioxide Level 32, Anion Gap 15H, Blood Urea Nitrogen 36H, Creatinine 1.91H, Estimat Glomerular Filtration Rate 35, BUN/Creatinine Ratio 19, Glucose Level 145H, Calcium Level 9.2, Corrected Calcium 9.8, Phosphorus Level 3.5, Magnesium Level 1.5L, Total Bilirubin 1.0, Aspartate Amino Transf (AST/SGOT) 18, Alanine Aminotransferase (ALT/SGPT) 17, Alkaline Phosphatase 133, Total Protein 6.7, Albumin 3.2 02/14/22 10:32: Glucometer 219H Microbiology 02/13/22 MRSA Screen - Final, Complete MRSA not isolated A/P: Assessment: Chest pain - no evidence of ACS - resolved Acute on chronic systolic and diastolic CHF, NYHA Class III - Echo of 01/24/22: moderate concentric LVH, mod to sev diff hypokinesis, LVEF 30-35%, grade 3 arango dysfunction, mod biatrial enlargement, mild MR, mild AI, PASP 50-55 mmHg - pt has wished to be managed conservatively only H/O Syncope in late December 2021 - which was likely d/t NSVT (documented during admission of December 2021) for which he requested to be treated conservatively H/O NSTEMI in late December 2021 - He desired to be managed conservatively only CAD - Report coronary PCI beginning in the (doesn't know details). 12/07/2010: proximal circumflex artery was treated with Promus 4 x 12, mid circumflex with Promus 3.0 x 15, mid RCA 4 x 28 Promus, mid RCA Promus 4 x 12, proximal RCA Promus 4 x 23, proximal RCA Promus 4 x 23. 11/04/2011: proximal RCA treated with Promus element 3.5 x 28 mm stent, mid first diagonal artery treated with Promus element 2.25 x 24 mm stent. - Most recent coronary angiography of Dec [address] Guillen: showed moderate ostial LAD stenosis with FFR 0.94, which shows non-obstructive disease. Patent stent in the first diagonal artery and the RCA. Patent stent in the proximal LAD. PAD - Peripheral angiogram of Dec [address] Guillen: showed on the left showed moderate/severe diffuse calcified disease in the SFA, severe stenosis in the distal SFA. Suboptimal visualization in the popliteal artery however likely severe distal popliteal stenosis. At least one vessel runoff below the knee with a posterior tibial artery. Small diffusely diseased deep peroneal as well as anterior tibial artery. Right lower extremity shows moderate diffuse calcified disease in the SFA in the popliteal artery. Two-vessel runoff with a posterior tibial as well as deep peroneal artery. Heavily diseased small anterior tibial artery. - AAA Repair: 08/10/[address] Stallworth at [place], [place] - CT of the abdomen without contrast on Dec 28, 2019: Previously treated abdominal aortic aneurysm. The maximum sac diameter is 4.6 cm. This is essen tially unchanged compared to the prior examination from 2016 per Chronic kidney disease stage IV - follows with [place] [facility] Intolerant to RENU-inhib/ARB due to hypotension Persistent atrial fibrillation - OAC with Eliquis Carotid arterial dz: - s/p L CEA in October [address] Reddy at [facility]. Carotid art disease is being followed at the same office HTN - controlled HLD - statin - managed by PCP V[facility]MA Abnormal ECG - Chronic RBBB DM 2 - managed by PCP BPH and chronic dysuria and hesitancy H/O GI bleed and acute anemia in early 2020 - s/p endoscopy by Dr. Rushing (May 2020) - GERD, gastritis, hiatal hernia, internal/external hemorrhoids - followed by Dr Dubon and Dr Rushing Plan: Complex management issue d/t multiple issues as noted above Acute on chronic systolic/diastolic CHF - continue to treat with diuretics - monitor lab closely Continue current medication regimen Replace electrolytes as indicated DEANNE GUEVARA Feb 14, 2022 10:10
[2022-02-14] MEDS ORDERED: HYPOCHLOROUS ACID/NaCl (VASHE) 250 ML IR PRN (11:45)
--- NOTE | 2022-02-14 11:58 | Tele-ICU Progress Note ---
Subjective Date Seen by a Provider: Feb 14, 2022 Time Seen by a Provider: 11:57 Subjective/Events-last exam (Tele-ICU Physician , Progress Note ) Available chart/ vitals / labs / Images reviewed Video assessment done using teleICU camera, rest of exam as per RN Discussed with RN Events overnight : Afebrile hemodynamically stable Respiratory - 3l I/O = neg Drips: Pressors- no Consultants:cami Hospital course: 10-19: 82 y/o M - Chest Pain - COPD Exacerbatiob - BiPAP. A/P Acute resp failure - was on NIPPV , better now , off bipap , - cont diuresis gently Chest pain , CAD, H/O NSTEMI in late December 2021 - no evidence of ACS as per cards Acute on chronic systolic and diastolic CHF - Echo of 01/24/22: LVEF 30-35%, grade 3 arango dysfunction,, mild MR, mild AI, Pulm HTN -PASP 50-55 mmHg Echo Chronic hypoxia - O2 dependence 3L CKK - stable , monitor close with diuresis DM II - ISS , as per PCP Persistent atrial fibrillation - OAC with Eliquis - as per cards h/o GI bleed with acute anemia - stable PAD AAA Repair: 08/10/2014 endograft VILMA - cont cpap nightly Lines : periph , (Central Line Necessity Reviewed) Strange: strange OG: Nutrition: inpatient services director Analgesia: Anxiety/ delirium VTE Prophylaxis: xarelto Stress Ulcer Prophylaxis: Plans in collaboration with bedside consultants and IM MDs. Discussed with RN to reach out if any questions or concerns A total of 20 minutes of critical care time was devoted to this patient today, required to treat and/or prevent further deterioration of critical care condition ( as above ) . I am remotely monitoring this patient from another state. I am unable to do the bedside exam, and history/physical and pertinent information is taken from other notes in the computer and bedside staff. Sepsis Event Evaluation Height, Weight, BMI Height: 5'9.00" Weight: 276lbs. 0.0oz. 125.976465qa; 39.83 BMI Method: Exam Exam Patient acknowledged, consented, and participated in this virtual visit which was conducted using real time audio/video Vital Signs Date Time Temp Pulse Resp B/P (MAP) Pulse Ox O2 Delivery O2 Flow Rate FiO2 02/14/22 11:42 94 Nasal Cannula 3.00 02/14/22 11:13 76 103/101 (102) 86 Nasal Cannula 3.00 02/14/22 11:00 97 Nasal Cannula 3.50 02/14/22 11:00 80 121/87 (98) 95 Nasal Cannula 3.00 02/14/22 10:00 88 46 124/91 (102) 98 Nasal Cannula 3.00 02/14/22 09:00 82 42 115/93 (100) 100 Nasal Cannula 3.00 02/14/22 08:30 Nasal Cannula 3.00 02/14/22 08:13 36.3 02/14/22 08:00 77 02/14/22 08:00 78 25 111/80 (90) 99 Nasal Cannula 3.00 02/14/22 07:14 100 Nasal Cannula 3.50 02/14/22 07:00 76 21 152/78 (102) 89 Nasal Cannula 3.00 02/14/22 06:44 Nasal Cannula 3.00 02/14/22 06:00 73 24 148/91 (110) 96 NIV Bilevel 40.00 02/14/22 05:00 71 14 152/92 (112) 99 NIV Bilevel 40.00 02/14/22 04:36 36.8 02/14/22 04:13 37.1 02/14/22 04:00 79 54 153/82 (105) 98 NIV Bilevel 40.00 02/14/22 04:00 100 NIV Bilevel 40 02/14/22 03:00 75 21 140/85 (103) 92 NIV Bilevel 40.00 02/14/22 02:54 NIV Bilevel 40.00 02/14/22 02:50 79 20 100 40.00 3.00 02/14/22 02:00 71 16 147/89 (108) 98 NIV Bilevel 50.00 02/14/22 01:00 71 16 147/89 (108) 98 NIV Bilevel 50.00 02/14/22 01:00 55 02/14/22 00:23 36.6 02/14/22 00:00 73 17 150/78 (102) 99 NIV Bilevel 50.00 02/14/22 00:00 99 NIV Bilevel 50 02/13/22 23:00 70 12 146/104 (118) 99 NIV Bilevel 50.00 02/13/22 22:00 67 33 140/89 (106) 100 NIV Bilevel 50.00 02/13/22 21:34 112 15 99 50.00 3.00 02/13/22 21:00 73 15 160/93 (115) 99 NIV Bilevel 50.00 02/13/22 20:52 95 NIV Bilevel 50.00 02/13/22 20:06 36.2 02/13/22 20:00 NIV Bilevel 50 02/13/22 20:00 67 17 160/100 (120) 93 Nasal Cannula 3.00 02/13/22 19:00 71 20 148/82 (104) 93 Nasal Cannula 3.00 02/13/22 19:00 68 02/13/22 18:00 56 147/92 (110) 99 Nasal Cannula 3.00 02/13/22 17:15 56 155/89 (111) 100 Nasal Cannula 3.00 02/13/22 17:00 52 146/79 (101) 99 Nasal Cannula 3.00 02/13/22 16:45 62 173/93 (119) 100 Nasal Cannula 3.00 02/13/22 16:37 67 23 98 50.00 3.00 02/13/22 16:30 62 158/94 (115) 96 Nasal Cannula 3.00 02/13/22 16:15 64 157/96 (116) 95 Nasal Cannula 3.00 02/13/22 15:45 Nasal Cannula 3.00 02/13/22 15:31 36.7 62 98 32 02/13/22 15:30 60 13 155/85 (108) 96 Nasal Cannula 3.00 02/13/22 15:24 62 02/13/22 15:15 65 13 147/90 (109) 96 Nasal Cannula 3.00 02/13/22 15:00 63 164/94 (117) Nasal Cannula 3.00 02/13/22 14:59 36.7 60 20 148/88 98 Nasal Cannula 3.00 3.00 02/13/22 12:07 36.7 62 20 158/130 (139) 92 Nasal Cannula 3.00 I & O 02/14/22 07:00 Intake Total 525 ml Output Total 2475 ml Balance -1950 ml Height & Weight Height: 5'9.00" Weight: 276lbs. 0.0oz. 125.116197ga; 39.83 BMI Method: General Appearance: No Apparent Distress, Obese HEENT: PERRL/EOMI, Moist Mucous Membranes Neck: Normal Inspection, Supple Respiratory: Chest Non Tender, Accessory Muscle Use, Crackles (L lung base) Cardiovascular: No Murmur, Other (distant heart sounds) Capillary Refill: Less Than 3 Seconds Extremity: Pedal Edema (B/L), Swelling (B/L LE to above knees) Neurologic/Psychiatric: Alert, Oriented x3, Normal Mood/Affect Skin: Warm/Dry, Other (Venous stasis dermatitis B/L LE, weeping wounds present on R rayo, bruising noted on multiple digit of R foot) Lymphatic: No Adenopathy Results Lab Laboratory Tests 02/13/22 12:12 02/14/22 05:05 Assessment/Plan Assessment/Plan 1 DORA GUZMÁN MD Feb 14, 2022 11:58
--- NOTE | 2022-02-14 12:23 | Progress Note - Hospitalist ---
SUDHAKARPHIL 02/14/22 1223: Subjective HPI/CC On Admission Date Seen by Provider: Feb 14, 2022 Time Seen by Provider: 12:17 CC: SOA and CP 82yo M with h/o CHF, afib, CKD, DM, and O2 dependence 3L presented to the ED after experiencing CP and worsening SOA. Pt states that last night at ~0100, he experienced pain that started in his L axillary area and radiated into his chest. Pt notes that he had been experiencing L axillary pain every night for the past few days when he sleeps but denies ever experiencing CP during these episodes. Pt states that he took 4-5 nitro sublingual tablets between 0100 and 10am. Pt states that he had some relief but that the pain did not entirely resolve, prompting the pt to come in the ED. Pt also notes that he has experienced worsening SOA and decreased appetite for the past few days. Pt states that he is unable to drink or eat due to a feeling of fullness in his chest and abd. Pt states that his last meal was yesterday but was unable to eat this morning. Pt states that since the onset of his symptoms he has felt more fatigued. Pt was recently discharged from [facility] on 01/23 after being admitted following an episode of VTACH. Pt has extensive cardiac history and is followed by Dr. Hall. Pt also notes a recent decrease in urinary output but has had increased urgency. Pt's CXR showed a worsened failure pattern when compared to 01/23 as well as B/L pleural effusions with L worse than R. Also showed progression of cardiomegaly, venous congestion, and pulmonary edema. EKG showed a fib with RBBB. Workup was remarkable for elevated myoglobin and BNP. Troponin was negative. In room, pt is laying in bed and is visibly SOA on 3L NC and O2 sat was 96%. Pt states that his SOA has improved but still feels like his chest is "full". Pt notes that he feels like he has a lot of fluid on him. Pt states that his chest pain has resolved but does not that he has experienced intermittent palpitations over the past week. Pt has no other complaints. Pt denies diarrhea but does note some constipation. Pt denies current CP, fever, chills, current palpitations, and abd pain. Subjective/Events-last exam Pt is resting comfortably in chair eating breakfast. Pt states improvement of his SOA and feeling of fullness. Pt successfully slept with BiPaP and is currently 100% on 3L NC. Pt states he has been able to eat and drink without issue. Pt has not had a BM today. Pt's leg swelling has decreased from yesterday. He still has weeping wounds present on B/L shins and wound care was consulted to assess a wound on the pt's left great toe. Otherwise, pt has no complaints. Pt had repeat CXR today that showed cardiomegaly with partial improvement in bibasilar infiltrates vs atelectasis and some degree of pleural fluid present B/L. Negative for pneumothorax. Pt's repeat ABG's were stable from yesterday. Workup was remarkable for an elevated AG of 15. BUN and Cr are unchanged. Pt denies abd pain, nausea, vomiting, and CP. ABG 02/14: pH: 7.40 pCO2: 70 pO2: 44 Review of Systems General: No Chills, No Night Sweats HEENT: No Head Aches, No Visual Changes Pulmonary: No Dyspnea, No Cough Cardiovascular: No: Chest Pain, Palpitations Gastrointestinal: No: Nausea, Vomiting, Abdominal Pain Genitourinary: No Dysuria, No Frequency Musculoskeletal: No: neck pain, shoulder pain Neurological: No: Weakness, Numbness Objective Exam Vital Signs Vital Signs Date Time Temp Pulse Resp B/P (MAP) Pulse Ox O2 Delivery O2 Flow Rate FiO2 02/14/22 12:02 36.5 02/14/22 11:42 94 Nasal Cannula 3.00 02/14/22 11:13 76 103/101 (102) 02/14/22 10:00 46 02/14/22 04:00 40 Capillary Refill : Less Than 3 Seconds General Appearance: No Apparent Distress, Obese HEENT: PERRL/EOMI, Moist Mucous Membranes Neck: Normal Inspection, Supple Respiratory: Chest Non Tender, Lungs Clear, Normal Breath Sounds Cardiovascular: Regular Rate, Rhythm, No Murmur Gastrointestinal: Non Tender, Soft Back: Normal Inspection, No CVA Tenderness Extremity: Non Tender, No Calf Tenderness, Pedal Edema (much improved) Neurologic/Psychiatric: Alert, Oriented x3 Skin: Warm/Dry, Other (venous stasis dermatitis present B/L LE, weeping wounds present on B/L shins, L great toe wound expressing puss, first three digit R foot bruising ) Lymphatic: No Adenopathy Results/Procedures Lab Laboratory Tests 02/14/22 05:05 Patient resulted labs reviewed. Assessment/Plan Assessment and Plan Assess & Plan/Chief Complaint 1. Acute on Chronic CHF -NYHA Class III - Followed by Dr. Hall, being managed conservatively per pt's wishes >ECHO 01/24/22 remarkable for mod concentric LVH >LVEF 30-35% >grade 3 diastolic dysfunction >mod biatrial enlargement >mild MR and AI > PASP 50-55mmHg -Pt has h/o intolerance to RENU/ARBs, medicated at home with lasix. >Lasix administered in ED 2. SOA -improved, on 3L NC O2 sat 96% -CXR showed: -worsened failure pattern when compared to 01/23 -Cardiomegaly, venous congestion, and progression of pulmonary edema -B/L pleural effusions noted, L>R 3. CP -some relief after 4-5 nitro sublingual tablets 4.Afib with RBBB - OAC with Eliquis 4. CKD IV -managed by [facility] -BUN and Cr currently lower today than usual baseline >baseline: ~45 and 2.2 5. Venous stasis dermatitis B/L LE -weeping wounds present on R leg 6. DMT2 -managed by PCP 7. BPH and chronic dysuria and hesitancy -managed with tamulosin 9. H/o Syncope -attributed to NSVT 10. NSTEMI -01/23/22- managed conservatively 11. CAD -h/o coronary PCI and stent placements starting in the -most recent coronary angiography 12/[address] Guillen >moderate ostial LAD stenosis, non-obstructive >Stent placement in first diagonal artery, RCA, and proximal LAD 12. PAD -12/[address] Guillen showed diffuse moderate to severe calcified disease in multiple LE vessels -AAA repair done in 2014, CT abd w/o contrast on 12/2021 showed stable disease 13. Carotid Artery Disease -followed by Dr. Reddy at [facility], [place] >s/p L CEA 10/2021 14. HTN -being followed by Dr. Hall -controlled 15. HLD -atorvastatin 80mg at home -managed by PCP 16. VILMA - CPAP at night and 3L NC oxygen during day 17. h/o GI bleed with acute anemia -followed by Dr. Dubon and Dr. Rushing >Last endoscope 05/[address] Rushing Plan: Pt has been seen by Dr. Hall Continue with Lasix Continue to monitor BUN and Cr Pain meds prn Pt will be bringing his CPAP machine in to use JEANETTE REDMOND DO 02/15/22 0524: Assessment/Plan Assessment and Plan Assess & Plan/Chief Complaint Continue diuresis BiPAP Supervisory-Addendum Brief Verification & Attestation Participated in pt care: history, MDM, physical Personally performed: exam, history, MDM, supervision of care Care discussed with: Medical Student Procedures: n/a Results interpretation: Verified all documentation Verification and Attestation of Medical Student E/M Service A medical student performed and documented this service in my presence. I reviewed and verified all information documented by the medical student and made modifications to such information, when appropriate. I personally performed the physical exam and medical decision making. Jeanette Redmond, Feb 15, 2022,05:24 [place] Feb 14, 2022 12:23 JEANETTE REDMOND DO Feb 15, 2022 05:24
--- NOTE | 2022-02-14 15:06 | Progress Note - Cardiology ---
Cardiology SOAP Progress Note Subjective: Gen malaise present Shortness of breath with activity No cp or palp or syncope Denies swelling Denies n/v/d Objective: I&O/Vital Signs 02/14/22 02/14/22 02/14/22 02/14/22 04:00 04:00 04:13 04:36 Temp 37.1 36.8 Pulse 79 Resp 54 B/P (MAP) 153/82 (105) Pulse Ox 100 98 O2 Delivery NIV Bilevel NIV Bilevel O2 Flow Rate 40.00 FiO2 40 02/14/22 02/14/22 02/14/22 02/14/22 05:00 06:00 06:44 07:00 Pulse 71 73 76 Resp 14 24 21 B/P (MAP) 152/92 (112) 148/91 (110) 152/78 (102) Pulse Ox 99 96 89 O2 Delivery NIV Bilevel NIV Bilevel Nasal Cannula Nasal Cannula O2 Flow Rate 40.00 40.00 3.00 3.00 02/14/22 02/14/22 02/14/22 02/14/22 07:14 08:00 08:00 08:13 Temp 36.3 Pulse 78 77 Resp 25 B/P (MAP) 111/80 (90) Pulse Ox 100 99 O2 Delivery Nasal Cannula Nasal Cannula O2 Flow Rate 3.50 3.00 02/14/22 02/14/22 02/14/22 02/14/22 08:30 09:00 10:00 11:00 Pulse 82 88 80 Resp 42 46 B/P (MAP) 115/93 (100) 124/91 (102) 121/87 (98) Pulse Ox 100 98 95 O2 Delivery Nasal Cannula Nasal Cannula Nasal Cannula Nasal Cannula O2 Flow Rate 3.00 3.00 3.00 3.00 02/14/22 02/14/22 02/14/22 02/14/22 11:00 11:13 11:42 12:00 Pulse 76 78 B/P (MAP) 103/101 (102) 156/82 (106) Pulse Ox 97 86 94 91 O2 Delivery Nasal Cannula Nasal Cannula Nasal Cannula Nasal Cannula O2 Flow Rate 3.50 3.00 3.00 3.00 02/14/22 02/14/22 12:02 12:53 Temp 36.5 O2 Delivery Nasal Cannula O2 Flow Rate 4.00 02/13/22 23:59 Intake Total 375 ml Output Total 1750 ml Balance -1375 ml Weight (Pounds): 276 Weight (Ounces): 0.0 Weight (Calculated Kilograms): 125.098133 Constitutional: AAO x 3, well-developed, well-nourished Respiratory: No accessory muscle use, No respiratory distress; chest expansion is symmetric, chest is bilaterally symmetric, other (diminished lower lobes bilat) Cardiovascular: regular rate-rhythm; No JVD; S1 and S2, systolic murmur Gastrointestional: No tender; soft, distended, audible bowel sounds Extremities: other (bilat pitting LE swelling toes to hips) Neurologic/Psychiatric: grossly intact (moves all extremities) Skin: other (dressings to bilat LE in place) Results/Procedures: Labs Laboratory Tests 02/13/22 16:49: Glucometer 116H 02/13/22 20:33: Glucometer 170H 02/14/22 04:10: Blood Gas Puncture Site RT RADIAL, Blood Gas Patient Temperature 36.8, Arterial Blood pH 7.40, Arterial Blood Partial Pressure CO2 70H, Arterial Blood Partial Pressure O2 44L, Arterial Blood HCO3 43*H, Arterial Blood Total CO2 45.4*H, Arterial Blood Oxygen Saturation 76L, Arterial Blood Base Excess 17.3H, Dat Test YES-POS, Blood Gas Ventilator Setting NO, Blood Gas Inspired Oxygen 40%BIPAP 02/14/22 05:05: White Blood Count 8.4, Red Blood Count 4.17L, Hemoglobin 12.4L, Hematocrit 41, Mean Corpuscular Volume 98, Mean Corpuscular Hemoglobin 30, Mean Corpuscular Hemoglobin Concent 31L, Red Cell Distribution Width 15.8H, Platelet Count 176, Mean Platelet Volume 9.5, Immature Granulocyte % (Auto) 1, Neutrophils (%) (Auto) 74, Lymphocytes (%) (Auto) 15, Monocytes (%) (Auto) 7, Eosinophils (%) (Auto) 3, Basophils (%) (Auto) 0, Neutrophils # (Auto) 6.3, Lymphocytes # (Auto) 1.3, Monocytes # (Auto) 0.6, Eosinophils # (Auto) 0.2, Basophils # (Auto) 0.0, Immature Granulocyte # (Auto) 0.0, Sodium Level 142, Potassium Level 3.7, Chloride Level 95L, Carbon Dioxide Level 32, Anion Gap 15H, Blood Urea Nitrogen 36H, Creatinine 1.91H, Estimat Glomerular Filtration Rate 35, BUN/Creatinine Ratio 19, Glucose Level 145H, Calcium Level 9.2, Corrected Calcium 9.8, P hosphorus Level 3.5, Magnesium Level 1.5L, Total Bilirubin 1.0, Aspartate Amino Transf (AST/SGOT) 18, Alanine Aminotransferase (ALT/SGPT) 17, Alkaline Phosphatase 133, Total Protein 6.7, Albumin 3.2 02/14/22 10:32: Glucometer 219H Microbiology 02/13/22 MRSA Screen - Final, Complete MRSA not isolated Laboratory Tests 02/13/22 12:12 02/14/22 05:05 A/P: Assessment: Chest pain - no evidence of ACS - resolved Acute on chronic systolic and diastolic CHF, NYHA Class III - Echo of 01/24/22: moderate concentric LVH, mod to sev diff hypokinesis, LVEF 30-35%, grade 3 arango dysfunction, mod biatrial enlargement, mild MR, mild AI, PASP 50-55 mmHg - pt has wished to be managed conservatively only H/O Syncope in late December 2021 - which was likely d/t NSVT (documented during admission of December 2021) for which he requested to be treated conservatively H/O NSTEMI in late December 2021 - He desired to be managed conservatively only CAD - Report coronary PCI beginning in the s (doesn't know details). 12/07/2010: proximal circumflex artery was treated with Promus 4 x 12, mid circumflex with Promus 3.0 x 15, mid RCA 4 x 28 Promus, mid RCA Promus 4 x 12, proximal RCA Promus 4 x 23, proximal RCA Promus 4 x 23. 11/04/2011: proximal RCA treated with Promus element 3.5 x 28 mm stent, mid first diagonal artery treated with Promus element 2.25 x 24 mm stent. - Most recent coronary angiography of Dec [address] Guillen: showed moderate ostial LAD stenosis with FFR 0.94, which shows non-obstructive disease. Patent stent in the first diagonal artery and the RCA. Patent stent in the proximal LAD. PAD - Peripheral angiogram of Dec [address] Guillen: showed on the left showed moderate/severe diffuse calcified disease in the SFA, severe stenosis in the distal SFA. Suboptimal visualization in the popliteal artery however likely lucio re distal popliteal stenosis. At least one vessel runoff below the knee with a posterior tibial artery. Small diffusely diseased deep peroneal as well as anterior tibial artery. Right lower extremity shows moderate diffuse calcified disease in the SFA in the popliteal artery. Two-vessel runoff with a posterior tibial as well as deep peroneal artery. Heavily diseased small anterior tibial artery. - AAA Repair: 08/10/[address] Stallworth at [facility] [place] - CT of the abdomen without contrast on Dec 28, 2019: Previously treated abdominal aortic aneurysm. The maximum sac diameter is 4.6 cm. This is essentially unchanged compared to the prior examination from 2016 per Chronic kidney disease stage IV - follows with [facility] Intolerant to RENU-inhib/ARB due to hypotension Persistent atrial fibrillation - OAC with Eliquis Carotid arterial dz: - s/p L CEA in October [address] Reddy at [facility]. Carotid art disease is being followed at the same office HTN - controlled HLD - statin - managed by PCP VILMA Abnormal ECG - Chronic RBBB DM 2 - managed by PCP BPH and chronic dysuria and hesitancy H/O GI bleed and acute anemia in early 2020 - s/p endoscopy by Dr. Rushing (May 2020) - GERD, gastritis, hiatal hernia, internal/external hemorrhoids - followed by Dr Dubon and Dr Rushing Plan: Complex management issue d/t multiple issues as noted above Acute on chronic systolic/diastolic CHF - continue to treat with diuretics - monitor lab closely Continue current medication regimen Replace electrolytes as indicated MATT GUPTA MD FACP FAC CCDS Feb 14, 2022 15:06
[2022-02-14] MEDS ORDERED: RIVA15TA PO (15:15)
[2022-02-14] MEDS ORDERED: FURO40TA4 PO (15:15)
[2022-02-14] MEDS ORDERED: AMIO200T65 PO (15:15)
[2022-02-14] MEDS ORDERED: CLOP75TA28 PO (15:15)
[2022-02-14] MEDS ORDERED: OMEG1CAP58 PO (15:15)
[2022-02-14] MEDS ORDERED: INSU100V42 SQ (15:17)
[2022-02-14] MEDS ORDERED: MAGN400T50 PO (15:24)
[2022-02-14] MEDS: RIVAROXABAN 15 MG TABLET (XARELTO) PO SCH (17:27)
[2022-02-15] MEDS: RT-ALBUTEROL/IPRATROPIUM 3 ML (DUONEB) VIAL INH SCH ×3 (04:09→09:21)
[2022-02-15 05:00] LABS: BASOPHILS % (AUTO) 0 % (0-10); EOSINOPHILS # (AUTO) 0.2 10^3/uL (0.0-0.3); EOSINOPHILS % (AUTO) 2 % (0-10); HEMATOCRIT 43 % (40-54); HEMOGLOBIN 13.3 g/dL (13.3-17.7); LYMPHOCYTES # (AUTO) 1.3 10^3/uL (1.0-4.0); LYMPHOCYTES % (AUTO) 16 % (12-44); MEAN CORPUSCULAR HEMOGLOBIN 30 pg (25-34); MEAN CORPUSCULAR HGB CONC 31 g/dL (32-36); MEAN CORPUSCULAR VOLUME 96 fL (80-99); MEAN PLATELET VOLUME 9.5 fL (9.0-12.2); MONOCYTES # (AUTO) 0.6 10^3/uL (0.0-1.0); MONOCYTES % (AUTO) 8 % (0-12); NEUTROPHILS % (AUTO) 73 % (42-75); PLATELET COUNT 186 10^3/uL (130-400); WHITE BLOOD COUNT 8.2 10^3/uL (4.3-11.0)
[2022-02-15 05:19] LABS: ALBUMIN 3.4 GM/DL (3.2-4.5); POTASSIUM 3.3 MMOL/L (3.6-5.0)
[2022-02-15 05:20] LABS: CALCIUM 9.2 MG/DL (8.5-10.1)
[2022-02-15 05:22] LABS: TOTAL PROTEIN 7.1 GM/DL (6.4-8.2)
[2022-02-15 05:23] LABS: BILIRUBIN,TOTAL 1.2 MG/DL (0.1-1.0)
[2022-02-15 05:25] LABS: CREATININE SERUM 1.98 MG/DL (0.60-1.30); PHOSPHORUS 3.5 MG/DL (2.3-4.7)
[2022-02-15 05:28] LABS: MAGNESIUM 1.7 MG/DL (1.6-2.4)
[2022-02-15] MEDS: MAGNESIUM 1 GM/100 ML IVPB 100 ML IV SCH ×3 (06:19→06:28)
[2022-02-15] MEDS: inSUlin ASPART (NovoLOG) 1 UNIT/0.01 ML (CHARGE PER UNIT) SC SCH (06:21)
[2022-02-15] MEDS: KCL 20 MEQ TAB (K-DUR) PO SCH ×4 (06:22→08:48)
[2022-02-15] MEDS: FUROSEMIDE 40 MG/4 ML INJ (LASIX) IVP SCH (06:22)
[2022-02-15] MEDS: POTASSIUM CL 10MEQ/50ML IVPB 50 ML IV SCH (06:28)
--- NOTE | 2022-02-15 08:42 | Diagnostic Imaging Report ---
INDICATION: Dyspnea COMPARED: 02/14/2022 FINDINGS: The heart is mildly enlarged but perhaps slightly decreased. Vascularity slightly less pronounced. Mixed interstitial and airspace opacities have decreased. The overall findings suggest a reduction in sequelae of failure or hypervolemia. Small pleural effusions are similar, if not decreased, as well. IMPRESSION: Overall favorable changes suggest improvements in hypervolemia or failure with decreased congestion, edema and likely improvements in pleural fluid. Dictated by: Dictated on workstation # [id number]
[2022-02-15] MEDS: CLOPIDOGREL 75 MG (PLAVIX) TABLET PO SCH (08:48)
[2022-02-15] MEDS: AMIODARONE 200 MG (CORDARONE) TAB PO SCH (08:49)
[2022-02-15] MEDS: DOCUSATE SODIUM 100 MG (COLACE) CAP PO SCH (08:49)
[2022-02-15] MEDS: SENNOSIDES 8.6 MG (SENOKOT) TAB PO SCH (08:49)
[2022-02-15] MEDS ORDERED: AMIO400T5 PO (10:20)
[2022-02-15] MEDS ORDERED: METO5TAB6 PO (10:20)
[2022-02-15] MEDS ORDERED: POTA-51 PO (10:20)
[2022-02-15] MEDS ORDERED: FURO80TA83 PO (10:20)
--- NOTE | 2022-02-15 10:27 | Progress Note - Cardiology ---
Cardiology SOAP Progress Note Subjective: States he feels better and wants to go home today No c/o CP, palpitations Feels breathing is much improved from admission Has been up with PT Objective: I&O/Vital Signs 02/14/22 02/14/22 02/14/22 02/15/22 23:00 23:42 23:59 00:00 Temp 36.9 Pulse 56 58 B/P (MAP) 122/65 (84) 135/80 (98) Pulse Ox 86 86 94 O2 Delivery NIV CPAP NIV CPAP NIV CPAP O2 Flow Rate 4.00 4.00 4.00 02/15/22 02/15/22 02/15/22 02/15/22 01:00 01:27 01:53 02:00 Pulse 59 66 64 B/P (MAP) 120/86 (97) Pulse Ox 95 98 95 O2 Delivery NIV CPAP Nasal Cannula NIV CPAP O2 Flow Rate 4.00 3.50 4.00 02/15/22 02/15/22 02/15/22 02/15/22 03:00 04:00 04:00 04:09 Pulse 62 67 B/P (MAP) 127/96 (106) 124/78 (93) Pulse Ox 95 94 96 96 O2 Delivery NIV CPAP NIV CPAP NIV CPAP Nasal Cannula O2 Flow Rate 4.00 4.00 4.00 3.50 02/15/22 02/15/22 02/15/22 02/15/22 05:00 05:00 06:00 07:00 Pulse 64 69 64 B/P (MAP) 133/72 (92) 136/84 (101) Pulse Ox 93 93 96 O2 Delivery Nasal Cannula Nasal Cannula Nasal Cannula Nasal Cannula O2 Flow Rate 4.00 4.00 4.00 4.00 02/15/22 02/15/22 02/15/22 02/15/22 07:00 07:00 08:00 08:00 Temp 36.3 Pulse 69 67 B/P (MAP) 153/66 (95) Pulse Ox 92 95 O2 Delivery Nasal Cannula Nasal Cannula O2 Flow Rate 4.00 4.00 02/15/22 02/15/22 02/15/22 08:00 09:00 09:21 Pulse 67 68 B/P (MAP) 153/66 (95) 137/68 (91) Pulse Ox 92 92 95 O2 Delivery Nasal Cannula Nasal Cannula Nasal Cannula O2 Flow Rate 4.00 4.00 4.00 02/15/22 00:00 Intake Total 1560 ml Output Total 2050 ml Balance -490 ml Weight (Pounds): 276 Weight (Ounces): 0.0 Weight (Calculated Kilograms): 125.968882 Constitutional: AAO x 3, well-developed, well-nourished Respiratory: No accessory muscle use, No respiratory distress; chest expansion is symmetric, chest is bilaterally symmetric, crackles (lower lobes bilat) Cardiovascular: regular rate-rhythm; No JVD; S1 and S2, systolic murmur Gastrointestional: No tender; soft, distended, audible bowel sounds Extremities: other (bilat pitting LE swelling 3+) Neurologic/Psychiatric: grossly intact (moves all extremities) Skin: other (dressings to bilat LE in place) Results/Procedures: Labs Laboratory Tests 02/14/22 10:32: Glucometer 219H 02/14/22 17:49: Glucometer 336H 02/15/22 04:11: Bedside Blood Gas pH (LAB) 7.558H, Bedside Blood Gas pCO2 (LAB) 49.4, Bedside Blood Gas pO2 (LAB) 67L, Bedside Blood Gas HCO3 (LAB) 44.0*H, POC Blood Gas Tota l CO2 Calc 46*H, Bedside Bl Gas O2 Saturation (Calc) 95, Bedside Arterial Blood Base Excess 22H 02/15/22 04:24: White Blood Count 8.2, Red Blood Count 4.47, Hemoglobin 13.3, Hematocrit 43, Mean Corpuscular Volume 96, Mean Corpuscular Hemoglobin 30, Mean Corpuscular Hemoglobin Concent 31L, Red Cell Distribution Width 15.7H, Platelet Count 186, Mean Platelet Volume 9.5, Immature Granulocyte % (Auto) 0, Neutrophils (%) (Auto) 73, Lymphocytes (%) (Auto) 16, Monocytes (%) (Auto) 8, Eosinophils (%) (Auto) 2, Basophils (%) (Auto) 0, Neutrophils # (Auto) 6.0, Lymphocytes # (Auto) 1.3, Monocytes # (Auto) 0.6, Eosinophils # (Auto) 0.2, Basophils # (Auto) 0.0, Immature Granulocyte # (Auto) 0.0, Sodium Level 140, Potassium Level 3.3L, Chloride Level 91L, Carbon Dioxide Level 35H, Anion Gap 14, Blood Urea Nitrogen 38H, Creatinine 1.98H, Estimat Glomerular Filtration Rate 33, BUN/Creatinine Ratio 19, Glucose Level 214H, Calcium Level 9.2, Corrected Calcium 9.7, Phosphorus Level 3.5, Magnesium Level 1.7, Total Bilirubin 1.2H, Aspartate Amino Transf (AST/SGOT) 13, Alanine Aminotransferase (ALT/SGPT) 14, Alkaline Phosphatase 139H, Total Protein 7.1, Albumin 3.4 Microbiology 02/13/22 MRSA Screen - Final, Complete MRSA not isolated Laboratory Tests 02/13/22 12:12 02/14/22 05:05 02/15/22 04:24 A/P: Assessment: Chest pain - no evidence of ACS - resolved Acute on chronic systolic and diastolic CHF, NYHA Class III - Echo of 01/24/22: moderate concentric LVH, mod to sev diff hypokinesis, LVEF 30-35%, grade 3 arango dysfunction, mod biatrial enlargement, mild MR, mild AI, PASP 50-55 mmHg - pt has wished to be managed conservatively only H/O Syncope in late December 2021 - which was likely d/t NSVT (documented during admission of December 2021) for which he requested to be treated conservatively H/O NSTEMI in late December 2021 - He desired to be managed conservatively only CAD - Report coronary PCI beginning in the s (doesn't know details). 12/07/2010: proximal circumflex artery was treated with Promus 4 x 12, mid circumflex with Promus 3.0 x 15, mid RCA 4 x 28 Promus, mid RCA Promus 4 x 12, proximal RCA Promus 4 x 23, proximal RCA Promus 4 x 23. 11/04/2011: proximal RCA treated with Promus element 3.5 x 28 mm stent, mid first diagonal artery treated with Promus element 2.25 x 24 mm stent. - Most recent coronary angiography of Dec [address] Guillen: showed moderate ostial LAD stenosis with FFR 0.94, which shows non-obstructive disease. Patent stent in the first diagonal artery and the RCA. Patent stent in the proximal LAD. PAD - Peripheral angiogram of Dec [address] Guillen: showed on the left showed moderate/severe diffuse calcified disease in the SFA, severe stenosis in the distal SFA. Suboptimal visualization in the popliteal artery however likely severe distal popliteal stenosis. At least one vessel runoff below the knee with a posterior tibial artery. Small diffusely diseased deep peroneal as well as anterior tibial artery. Right lower extremity shows moderate diffuse calcified disease in the SFA in the popliteal artery. Two-vessel runoff with a posterior tibial as well as deep peroneal artery. Heavily diseased small anterior tibial artery. - AAA Repair: 08/10/[address] Stallworth at [place], [place] - CT of the abdomen without contrast on Dec 28, 2019: Previously treated abdominal aortic aneurysm. The maximum sac diameter is 4.6 cm. This is essent ially unchanged compared to the prior examination from 2016 per Chronic kidney disease stage IV - follows with [facility] [facility] Intolerant to RENU-inhib/ARB due to hypotension Persistent atrial fibrillation - OAC with Eliquis Carotid arterial dz: - s/p L CEA in October [address] at [facility]. Carotid art disease is being followed at the same office HTN - controlled HLD - statin - managed by PCP VILMA Abnormal ECG - Chronic RBBB DM 2 - managed by PCP BPH and chronic dysuria and hesitancy H/O GI bleed and acute anemia in early 2020 - s/p endoscopy by Dr. Rushing (May 2020) - GERD, gastritis, hiatal hernia, internal/external hemorrhoids - followed by Dr Dubon and Dr Rushing Plan: Complex management issue d/t multiple issues as noted above Acute on chronic systolic/diastolic CHF - clinically improved - adjust diuretic regimen - replace electrolytes - monitor lab closely He wants to go home today Advise lab on Friday as out pt Advise f/u with us in 1 week DEANNE GUEVARA Feb 15, 2022 10:27
[2022-02-15] MEDS ORDERED: inSUlin ASPART (NovoLOG) 1 UNIT/0.01 ML (CHARGE PER UNIT) SC SCH (11:00)
[2022-02-15] MEDS ORDERED: METOLAZONE 5 MG (ZAROXOLYN) TAB PO SCH (11:15)
--- NOTE | 2022-02-15 11:19 | Occupational Therapy Eval ---
OT Evaluation-General/PLF Medical Diagnosis Admission Date Feb 13, 2022 at 14:30 Medical Diagnosis: Acute on chronic heart failure Onset Date: Feb 13, 2022 Height/Weight Height (Feet): 5 Height (Inches): 9.00 Weight (Pounds): 276 Weight (Ounces): 0.0 Precautions Precautions/Isolations: Fall Prevention, Standard Precautions Referral Referral Reason: Evaluation/Treatment Medical History Pertinent Medical History: Atrial Fib, CAD, DM, Heart Failure, HTN, Renal Insufficiency Current History Pt presented to hospital with chest pain and worsening SOA. Per patient, he lives with his daughter in a single story home. He was indep with adls but reports having close SBA/supervision when bathing. He also reports owning and using AE for LB dressing/footwear. Pt's daughter completes all the IADLs. Pt owns a 2WW, 4WW, cane and a FWW. Reviewed History: Yes Social History Home: Single Level Current Living Status: Children (Daughter ) ADL-Prior Level of Function SCALE: Activities may be completed with or without assistive devices. 8-Icsoddjvdv-dduaoar completes the activity by him/herself with no assistance from a helper. 5-Set-up or Clean-up Assistance-helper sets up or cleans up; patient completes activity. Milan assists only prior to or following the activity. 4-Supervision or Touching Assistance-helper provides verbal cues and/or touching/steadying and/or contact guard assistance as patient completes activity. Assistance may be provided throughout the activity or intermittently. 3-Partial/Moderate Assistance-helper does LESS THAN HALF the effort. Milan lifts, holds or supports trunk or limbs, but provides less than half the effort. 2-Substantial/Maximal Assistance-helper does MORE THAN HALF the effort. Milan lifts or holds trunk or limbs and provides more than half the effort. 3-Usyhypusg-sdyvka does ALL the effort. Patient does none of the effort to complete the activity. Or, the assistance of 2 or more helpers is required for the patient to complete the activity. If activity was not attempted, code reason: 7-Patient Refused. 9-Not Applicable-not attempted and the patient did not perform the activity before the current illness, exacerbation or injury. 10-Not Attempted due to Environmental Limitations-(lack of equipment, weather restraints, etc.). 88-Not Attempted due to Medical Conditions or Safety Concerns. DME/Equipment: Bath Chair, Grab Bars, Tub/Shower OT Current Status Mental Status/Objective Patient Orientation: Person, Place, Situation Education OT Patient Education: Correct positioning, Purpose of tx/functional activities, Rehab process, Safety issues, Transfer techniques Teaching Recipient: Patient Teaching Methods: Demonstration, Discussion OT Computer Consultant Goals Skilled Nursing Goals 1=Demonstrate adherence to instructed precautions during ADL tasks. 2=Patient will verbalize/demonstrate understanding of assistive devices/modifications for ADL. 3=Patient will improve strength/tolerance for activity to enable patient to perform ADL's. OT Education/Plan Discharge Recommendations Therapy Discharge Recommendati: Home & Family, Post Acute OT (home health OT) Treatment Plan/Plan of Care Treatment,Training & Education: Yes Patient would benefit from OT for education, treatment and training to promote independence in ADL's, mobility, safety and/or upper extremity function for ADL's. Estimated Hrs Per Day: .25 hour per day Rehab Potential: Susana De La Rosa OT Feb 15, 2022 11:19
--- NOTE | 2022-02-15 11:22 | D/C HH Face to Face Order ---
D/C HH Face to Face Orders Reconcile Patient Problems Problems Reviewed?: Yes Instructions for Patient HH Patient Instructions/FollowUp: PCP 1 week Physician to follow Patient: [facility] Discharge Diet for Home: ADA Diet Patient Problems: CHF CKD Patient Data-Allergies,Ht & Wt Patient Allergies: Coded Allergies: No Known Drug Allergies (Unverified , 01/19/18) Height (Feet): 5 Height (Inches): 9.00 Weight (Pounds): 276 Weight (Ounces): 0.0 Home Health Need/Face to Face Date of Face to Face: Feb 15, 2022 Clinical Findings: Generalized weakness and fatigue, Muscle weakness, Shortness of breath, Unsteady gait I have seen Pt geet-cc-viqy: Yes Discharged To: Home Diagnosis/Conditions: CHF Patient is Homebound due to: Muscle weakness, Shortness of breath/distress Homebound Status Due to the above stated illness, injury or surgical procedure (medical condition or diagnosis) and associated clinical findings, the patient is homebound because of his/her inability to leave home except with aid of a supportive device and/or person AND leaving the home requires a considerable and taxing effort or is medically contraindicated. Pt req the following assistanc: Walker Home Health Nursing Orders Home Health Services Order: Nursing Services, Mystery Shopper-Evaluate & Treat, Physical Therapy-Evaluate & Treat, Wound Care-Eval/Treat Home Health Infusion Therapy Line Start Date: Feb 14, 2022 Certify Stmt I certify that this patient is under my care and that I, a nurse practitioner or a physician; a editorial assistant working with me, had a face to face encounter that - meets the physician face to face encounter requirements with this patient as dated. KATHY REDMOND DO Feb 15, 2022 11:22
--- NOTE | 2022-02-15 11:23 | Discharge Summary ---
Discharge Summary Hospital Course Was the Problem List Reviewed?: Yes Problems/Dx: (1) Acute on chronic heart failure Status: Acute Qualifiers: Qualified Codes: I50.23 - Acute on chronic systolic (congestive) heart failure (2) Respiratory failure with hypoxia Status: Acute (3) Debility Status: Acute (4) Atrial fibrillation Status: Chronic Hospital Course Date of Admission: Feb 13, 2022 at 14:30 Admission Diagnosis : Family Physician/Provider: Anny Kemp Date of Discharge: 02/15/22 Discharge Diagnosis: [ ] Hospital Course: Hospital Course: 82yo M with h/o CHF, afib, CKD, DM, and O2 dependence 3L presented to the ED after experiencing CP and worsening SOA. Pt states that on 02/14, at ~0100, he experienced pain that started in his L axillary area and radiated into his chest. Pt had been experiencing L axillary pain every night for the past few days at night but denies any CP. Pt took 4-5 nitro sublingual tablets between 0100 and 10am, that provided minimal relief, which prompted him to go to the ED. In ED, pt noted that he had been experiencing decreased appetite and worsening SOA due to "feeling full". Pt stated that he had been unable to even drink water due to this fullness. Pt also noted decreased urinary output and increased urgency over the past few days prior to coming in. Pt had been recently discharged from [facility] on 01/23 after being admitted following an episode of VTACH. Pt has extensive cardiac history and is followed by Dr. Hall. ED workup was remarkable for elevated myoglobin and BNP. Troponin was negative. CXR showed a worsened failure pattern when compared to 01/23 as well as B/L pleural effusions with L worse than R. Also showed progression of cardiomegaly, venous c ongestion, and pulmonary edema. EKG showed a fib with RBBB. On examination, pt was notably SOA and in mild discomfort. Pt had b/l LE swelling as well as weeping wounds present on b/l shins and a wound on his L great toe. Pt was admitted to the ICU and started on 80mg Lasix BID. During his stay, pt's leg swelling decreased, CP resolved, and SOA improved. Today, pt was insistent on g oing home, stating that he had home care present multiple times a week. Cardio has recommended follow up labs on Friday and f/u with them in 1 week. PHIL DE LA FUENTE Labs and Pending Lab Test: Laboratory Tests 02/14/22 17:49: Glucometer 336H 02/15/22 04:11: Bedside Blood Gas pH (LAB) 7.558H, Bedside Blood Gas pCO2 (LAB) 49.4, Bedside Blood Gas pO2 (LAB) 67L, Bedside Blood Gas HCO3 (LAB) 44.0*H, POC Blood Gas Total CO2 Calc 46*H, Bedside Bl Gas O2 Saturation (Calc) 95, Bedside Arterial Blood Base Excess 22H 02/15/22 04:24: White Blood Count 8.2, Red Blood Count 4.47, Hemoglobin 13.3, Hematocrit 43, Mean Corpuscular Volume 96, Mean Corpuscular Hemoglobin 30, Mean Corpuscular Hemoglobin Concent 31L, Red Cell Distribution Width 15.7H, Platelet Count 186, Mean Platelet Volume 9.5, Immature Granulocyte % (Auto) 0, Neutrophils (%) (Auto) 73, Lymphocytes (%) (Auto) 16, Monocytes (%) (Auto) 8, Eosinophils (%) (Auto) 2, Basophils (%) (Auto) 0, Neutrophils # (Auto) 6.0, Lymphocytes # (Auto) 1.3, Monocytes # (Auto) 0.6, Eosinophils # (Auto) 0.2, Basophils # (Auto) 0.0, Immature Granulocyte # (Auto) 0.0, Sodium Level 140, Potassium Level 3.3L, Chloride Level 91L, Carbon Dioxide Level 35H, Anion Gap 14, Blood Urea Nitrogen 38H, Creatinine 1.98H, Estimat Glomerular Filtration Rate 33, BUN/Creatinine Ratio 19, Glucose Level 214H, Calcium Level 9.2, Corrected Calcium 9.7, Phosphorus Level 3.5, Magnesium Level 1.7, Total Bilirubin 1.2H, Aspartate Amino Transf (AST/SGOT) 13, Alanine Aminotransferase (ALT/SGPT) 14, Alkaline Phosphatase 139H, Total Protein 7.1, Albumin 3.4 Microbiology 02/13/22 MRSA Screen - Final, Complete MRSA not isolated Home Meds Active Potassium Chloride 20 Meq Tablet.er 20 Meq PO TID Amiodarone HCl 400 Mg Tablet 400 Mg PO DAILY Lasix (Furosemide) 80 Mg Tablet 80 Mg PO DAILY Metolazone 5 Mg Tablet 5 Mg PO DAILY Reported Magnesium Oxide 400 Mg Magnesium Tablet 400 Mg PO DAILY Insulin Aspart 100 Unit/Ml Vial Unit SQ AC PRN Xarelto (Rivaroxaban) 15 Mg Tablet 15 Mg PO DAILY Furosemide 40 Mg Tablet 40 Mg PO DAILY Clopidogrel (Clopidogrel Bisulfate) 75 Mg Tablet 75 Mg PO DAILY Amiodarone HCl 200 Mg Tablet 400 Mg PO BID TAKES 2 (200MG) TABS [place] 3 1,000 mg Softgel ([place]-3 Fatty Acids/Fish Oil) 300 Mg-1,000 Mg Capsule 2 Each PO HS Ferrous Sulfate 325 Mg (65 Mg Iron) Tablet 325 Mg PO DAILY Calcitriol 0.25 Mcg Capsule 0.25 Mcg PO DAILY Carvedilol 12.5 Mg Tablet 12.5 Mg PO BID Metolazone 5 Mg Tablet 5 Mg PO MO,WE,FR,SA Potassium Chloride 20 Meq Tablet.er 20 Meq PO DAILY Atorvastatin Calcium 40 Mg Tablet 40 Mg PO HS Glipizide 10 Mg Tablet 5 Mg PO HS TAKES OF A 10MG Gabapentin 100 Mg Capsule 300 Mg PO BID TAKES 3 (100MG) CAPS Levemir Flextouch (Insulin Detemir) 100 Unit/Ml (3 Ml) Insuln.pen 50 Unit SQ BID Vitamin D3 (Cholecalciferol (Vitamin D3)) 25 Mcg Tablet 25 Mcg PO DAILY Flomax (Tamsulosin HCl) 0.4 Mg Cap 0.4 Mg PO BID Allopurinol 100 Mg Tablet 100 Mg PO DAILY Glipizide 10 Mg Tablet 10 Mg PO DAILY Assessment/Pt Instructions PCP in 1 week Discharge Planning: <30 minutes discharge planning Discharge Instructions Discharge Diet: ADA Diet Activity as Tolerated: Yes Discharge Physical Examination Vital Signs Vital Signs Date Time Temp Pulse Resp B/P (MAP) Pulse Ox O2 Delivery O2 Flow Rate FiO2 02/15/22 11:00 78 16 163/80 (107) 100 Nasal Cannula 4.00 02/15/22 08:00 36.3 02/14/22 04:00 40 General Appearance: No Apparent Distress, WD/WN, Chronically ill, Obese Respiratory: Lungs Clear Cardiovascular: Regular Rate, Rhythm Allergies: Coded Allergies: No Known Drug Allergies (Unverified , 01/19/18) Discharge Summary Date of Admission Feb 13, 2022 at 14:30 Date of Discharge Discharge Date: Feb 15, 2022 Admission Diagnosis Assessment: Acute on chronic respiratory failure Acute on chronic congestive heart failure Chronic kidney disease Exacerbation COPD Obesity hypoventilation syndrome with chronic CO2 retention Plan: ICU Supportive care BiPAP Discharge Diagnosis Continue diuresis BiPAP (1) Acute on chronic heart failure Status: Acute Qualifiers: Qualified Codes: I50.23 - Acute on chronic systolic (congestive) heart failure (2) Respiratory failure with hypoxia Status: Acute (3) Debility Status: Acute (4) Atrial fibrillation Status: Chronic KATHY REDMOND DO Feb 15, 2022 11:23
--- NOTE | 2022-02-15 11:30 | Physical Therapy Evaluation ---
PT Evaluation-General Medical Diagnosis Admission Date Feb 13, 2022 at 14:30 Medical Diagnosis: Acute on chronic heart failure Onset Date: Feb 13, 2022 Therapy Diagnosis Therapy Diagnosis: generalized weakness/debility Height/Weight Height (Feet): 5 Height (Inches): 9.00 Weight (Pounds): 276 Weight (Ounces): 0.0 Precautions Precautions/Isolations: Fall Prevention, Standard Precautions Referral Physician: Elisabeth Reason for Referral: Evaluation/Treatment Medical History Pertinent Medical History: Atrial Fib, CAD, DM, Heart Failure, HTN, Neuropathy, PVD, Renal Insufficiency Current History ER secondary to chest pain and SOA Reviewed History: Yes Social History Home: Single Level Current Living Status: Children (Daughter ) Entry Into Home: Stairs With Railing PT Steps Into Home: 3 Prior Prior Level of Function SCALE: Activities may be completed with or without assistive devices. 5-Qzfchhokcm-wdsaoob completes the activity by him/herself with no assistance from a helper. 5-Set-up or Clean-up Assistance-helper sets up or cleans up; patient completes activity. Darden assists only prior to or following the activity. 4-Supervision or Touching Assistance-helper provides verbal cues and/or touching/steadying and/or contact guard assistance as patient completes activity. Assistance may be provided throughout the activity or intermittently. 3-Partial/Moderate Assistance-helper does LESS THAN HALF the effort. Darden lifts, holds or supports trunk or limbs, but provides less than half the effort. 2-Substantial/Maximal Assistance-helper does MORE THAN HALF the effort. Darden lifts or holds trunk or limbs and provides more than half the effort. 0-Pkovcsmxa-sptmuw does ALL the effort. Patient does none of the effort to complete the activity. Or, the assistance of 2 or more helpers is required for the patient to complete the activity. If activity was not attempted, code reason: 7-Patient Refused. 9-Not Applicable-not attempted and the patient did not perform the activity before the current illness, exacerbation or injury. 10-Not Attempted due to Environmental Limitations-(lack of equipment, weather restraints, etc.). 88-Not Attempted due to Medical Conditions or Safety Concerns. Bed Mobility: 5 Transfers (B,C,W/C): 5 Gait: 5 Stairs: 5 Indoor Mobility (Ambulation): Needed Some Help Stairs: Needed Some Help Prior Devices Use: Walker PT Evaluation-Current Subjective Patient agrees to PT. He states, "I just want to get out of here and go home. I can't stand to stay here another day. I was getting home care and will do that." Daughter present with patient's home O2 tank in hand. Objective Patient Orientation: Normal For Age Attachments: Oxygen, Crabtree Catheter, IV ROM/Strength ROM Lower Extremities bilateral LE WFL Strength Lower Extremities 3+/5 grossly bilateral LE Integumentary/Posture Bowel Incontinence: No Bladder Incontinence: Crabtree Cath Posture slightly kyphotic Neuromuscular (Tone, Coordination, Reflexes) grossly intact Sensory Vision: Wears Glasses Hearing: Impaired Sensation Right Lower Extremit: Impaired Sensation Left Lower Extremity: Impaired Transfers Sit to Stand (QC): 4 Chair/Amd-rt-Takcj Xfer(QC): 4 Gait Mode of Locomotion: Walk Anticipated Mode of Locomotion: Both Walk 10 feet (QC): 4 Walk 50 ft with 2 Turns(QC): 4 Walk 150 ft (QC): 4 Distance: 150' Gait Assistive Device: FWW Comments/Gait Description slow, steady gait sequence Balance Sitting Static: Normal Sitting Dynamic: Normal Standing Static: Fair Standing Dynamic: Fair Assessment/Needs Patient will be seen short term by skilled PT to address functional strength and mobility to improve current LOF. Patient is adamant to return to home [facility]. PT attempted to educate patient on importance of performing OOB activity to improve strength and mobility and patient continued to report he wants to go home and get home health. Rehab Potential: Guarded PT [facility] Goals Teasel Setter Goals PT Teasel Setter Goals Time Frame: Feb 23, 2022 Roll Left & Right (QC): 5 Sit to Lying (QC): 5 Lying-Sitting on Side/Bed(QC): 5 Sit to Stand (QC): 5 Chair/Bwd-xz-Tqshy Xfer(QC): 5 Toilet Transfer (QC): 5 Walk 10 feet (QC): 5 Walk 50ft with 2 Turns (QC): 5 Walk 150 ft (QC): 5 PT Plan Problem List Problem List: Activity Tolerance, Functional Strength, Safety, Balance, Gait, Transfer, Bed Mobility Treatment/Plan Treatment Plan: Continue Plan of Care Treatment Plan: Bed Mobility, Education, Functional Activity Jean-Pierre, Functional Strength, Gait, Safety, Therapeutic Exercise, Transfers Treatment Duration: Feb 23, 2022 Frequency: 6 times per week Estimated Hrs Per Day: .25 hour per day Patient and/or Family Agrees t: Yes Time/GCodes Time In: 740 Time Out: 800 Total Billed Treatment Time: 20 Total Billed Treatment 1 visit EVModC 20 min YASMANI MEAD PT Feb 15, 2022 11:30
[2022-02-15] MEDS ORDERED: inSUlin (REGULAR) HUMAN 1 UNIT/0.01 ML (CHARGE PER UNIT) SC ONE (12:00)
--- NOTE | 2022-02-15 12:24 | Occupational Therapy Eval ---
OT Evaluation-General/PLF Medical Diagnosis Admission Date Feb 13, 2022 at 14:30 Medical Diagnosis: Acute on chronic heart failure Onset Date: Feb 13, 2022 Therapy Diagnosis Therapy Diagnosis: N/a Height/Weight Height (Feet): 5 Height (Inches): 9.00 Weight (Pounds): 276 Weight (Ounces): 0.0 Precautions Precautions/Isolations: Fall Prevention, Standard Precautions Referral Physician: Elisabeth Referral Reason: Evaluation/Treatment Medical History Pertinent Medical History: Atrial Fib, CAD, DM, Heart Failure, HTN, Neuropathy, PVD, Renal Insufficiency Current History Pt came into hospital with pain radiating from armpit to chest. He reported that he lives with his daughter and grandson and they take care of all IADLs. He reported being independent for ADLs. He reported using a cane, manager pipeline and sock aide at home to assist in dressing tasks. He states that he only showers when his daughter is home. Pt has home health PT 2x/week. He has and uses a 2 and 4 WW at home. Reviewed History: Yes Social History Home: Single Level Current Living Status: Children (Daughter ) Entry Into Home: Stairs With Railing Steps Into Home: 3 ADL-Prior Level of Function SCALE: Activities may be completed with or without assistive devices. 6-Cjgtnpvfwu-nzrcgzk completes the activity by him/herself with no assistance from a helper. 5-Set-up or Clean-up Assistance-helper sets up or cleans up; patient completes activity. Wesley assists only prior to or following the activity. 4-Supervision or Touching Assistance-helper provides verbal cues and/or touching/steadying and/or contact guard assistance as patient completes activity. Assistance may be provided throughout the activity or intermittently. 3-Partial/Moderate Assistance-helper does LESS THAN HALF the effort. Wesley l ifts, holds or supports trunk or limbs, but provides less than half the effort. 2-Substantial/Maximal Assistance-helper does MORE THAN HALF the effort. Wesley lifts or holds trunk or limbs and provides more than half the effort. 5-Wbjctrqwa-edsdiv does ALL the effort. Patient does none of the effort to complete the activity. Or, the assistance of 2 or more helpers is required for t he patient to complete the activity. If activity was not attempted, code reason: 7-Patient Refused. 9-Not Applicable-not attempted and the patient did not perform the activity before the current illness, exacerbation or injury. 10-Not Attempted due to Environmental Limitations-(lack of equipment, weather restraints, etc.). 88-Not Attempted due to Medical Conditions or Safety Concerns. Self Care: Independent (supervision with ADLs) Functional Cognition: Needed Some Help DME/Equipment: Bath Bench, Reachers, Sock Aid, Tub/Shower OT Current Status Subjective Pt was sitting in recliner upon arrival. He agrees to a therapy eval. Appearance Pt was left sitting in recliner with wound nurse present in room. All needs within reach. Mental Status/Objective Patient Orientation: Person, Place Attachments: Crabtree Catheter, IV, Oxygen, Telemetry Current Glasses/Contacts: Yes Hearing Aids: No Dentures/Partials: Yes Hand Dominance: Right Upper Extremity ROM WFL ~165 degrees at shoulders Upper Extremity Strength Category Development Manager strength: mildly impaired 3-/5 at shoulders ADL-Treatment Shower/Bathe Self (QC): 4 (per pt and clinical judgment for safety) Lower Body Dressing (QC): 5 (per pt, with assist of AE) On/Off Footwear (QC): 5 (per pt, with use of AE) Sit<>stand: CGA/SBA. Pt is impulsive with transfers and ambulation. Throughout entire evaluation, pt was adamant that he wanted to go home. He did not feel like he needed therapy or to be in the hospital any longer. Pt declined all ADL options, but did ambulate ~15 ft with SBA. pt reports using a sock aide at home and a cane/manager pipeline to get his pants on/off. He has all recommended AE at his home already. Due to pt's refusal of OT services and his performance and questions answered during today's eval, pt will be d/c from skilled OT services. Education OT Patient Education: Correct positioning, Energy conservation, Modified ADL techniques, Progress toward Goal/Update tx plan, Purpose of tx/functional activities, Reviewed precautions, Rehab process, Safety issues Teaching Recipient: Patient Teaching Methods: Discussion Response to Teaching: Verbalize Understanding, Return Demonstration OT Social Insurance Analyst Goals [facility] Goals 1=Demonstrate adherence to instructed precautions during ADL tasks. 2=Patient will verbalize/demonstrate understanding of assistive devices/modifications for ADL. 3=Patient will improve strength/tolerance for activity to enable patient to perform ADL's. OT Education/Plan Problem List/Assessment Assessment: No Skilled OT Needs ID'd Discharge Recommendations Plan/Recommendations: Discontinue OT Therapy Discharge Recommendati: Bath Aide, Home & Family, Post Acute OT Comment Home health (nursing) Treatment Plan/Plan of Care Treatment,Training & Education: Yes Patient would benefit from OT for education, treatment and training to promote independence in ADL's, mobility, safety and/or upper extremity function for ADL's. Plan of Care: ADL Retraining, Functional Mobility Treatment Duration: Feb 15, 2022 Frequency: 1 time per week Estimated Hrs Per Day: .25 hour per day Rehab Potential: Guarded Time/GCodes Start Time: 10:53 Stop Time: 11:05 Total Time Billed (hr/min): 12 Billed Treatment Time 1 visit Susana Truong OT Feb 15, 2022 12:24
--- NOTE | 2022-02-15 12:24 | Progress Note - Cardiology ---
Cardiology SOAP Progress Note Subjective: No cp or palp or syncope Shortness of breath better No focal weakness Gen weakness and malaise are improving No n/v/d Insists on going home Objective: I&O/Vital Signs 02/15/22 02/15/22 02/15/22 02/15/22 01:00 01:27 01:53 02:00 Pulse 59 66 64 B/P (MAP) 120/86 (97) Pulse Ox 95 98 95 O2 Delivery NIV CPAP Nasal Cannula NIV CPAP O2 Flow Rate 4.00 3.50 4.00 02/15/22 02/15/22 02/15/22 02/15/22 03:00 04:00 04:00 04:09 Pulse 62 67 B/P (MAP) 127/96 (106) 124/78 (93) Pulse Ox 95 94 96 96 O2 Delivery NIV CPAP NIV CPAP NIV CPAP Nasal Cannula O2 Flow Rate 4.00 4.00 4.00 3.50 02/15/22 02/15/22 02/15/22 02/15/22 05:00 05:00 06:00 07:00 Pulse 64 69 64 B/P (MAP) 133/72 (92) 136/84 (101) Pulse Ox 93 93 96 O2 Delivery Nasal Cannula Nasal Cannula Nasal Cannula Nasal Cannula O2 Flow Rate 4.00 4.00 4.00 4.00 02/15/22 02/15/22 02/15/22 02/15/22 07:00 07:00 08:00 08:00 Temp 36.3 Pulse 69 67 B/P (MAP) 153/66 (95) Pulse Ox 92 95 O2 Delivery Nasal Cannula Nasal Cannula O2 Flow Rate 4.00 4.00 02/15/22 02/15/22 02/15/22 02/15/22 08:00 09:00 09:21 10:00 Pulse 67 68 72 B/P (MAP) 153/66 (95) 137/68 (91) 103/79 (87) Pulse Ox 92 92 95 100 O2 Delivery Nasal Cannula Nasal Cannula Nasal Cannula Nasal Cannula O2 Flow Rate 4.00 4.00 4.00 4.00 02/15/22 02/15/22 11:00 12:00 Pulse 78 71 Resp 16 16 B/P (MAP) 163/80 (107) Pulse Ox 100 96 O2 Delivery Nasal Cannula Nasal Cannula O2 Flow Rate 4.00 4.00 02/15/22 00:00 Intake Total 1560 ml Output Total 2050 ml Balance -490 ml Weight (Pounds): 276 Weight (Ounces): 0.0 Weight (Calculated Kilograms): 125.984047 Constitutional: AAO x 3, well-developed, well-nourished Respiratory: No accessory muscle use, No respiratory distress; chest expansion is symmetric, chest is bilaterally symmetric, crackles (lower lobes bilat) Cardiovascular: regular rate-rhythm; No JVD; S1 and S2, systolic murmur Gastrointestional: No tender; soft, distended, audible bowel sounds Extremities: other (bilat pitting LE swelling 3+) Neurologic/Psychiatric: grossly intact (moves all extremities) Skin: other (dressings to bilat LE in place) Results/Procedures: Labs Laboratory Tests 02/14/22 17:49: Glucometer 336H 02/15/22 04:11: Bedside Blood Gas pH (LAB) 7.558H, Bedside Blood Gas pCO2 (LAB) 49.4, Bedside Blood Gas pO2 (LAB) 67L, Bedside Blood Gas HCO3 (LAB) 44.0*H, POC Blood Gas Total CO2 Calc 46*H, Bedside Bl Gas O2 Saturation (Calc) 95, Bedside Arterial Blood Base Excess 22H 02/15/22 04:24: White Blood Count 8.2, Red Blood Count 4.47, Hemoglobin 13.3, Hematocrit 43, Mean Corpuscular Volume 96, Mean Corpuscular Hemoglobin 30, Mean Corpuscular Hemoglobin Concent 31L, Red Cell Distribution Width 15.7H, Platelet Count 186, Mean Platelet Volume 9.5, Immature Granulocyte % (Auto) 0, Neutrophils (%) (Auto) 73, Lymphocytes (%) (Auto) 16, Monocytes (%) (Auto) 8, Eosinophils (%) (Auto) 2, Basophils (%) (Auto) 0, Neutrophils # (Auto) 6.0, Lymphocytes # (Auto) 1.3, Monocytes # (Auto) 0.6, Eosinophils # (Auto) 0.2, Basophils # (Auto) 0.0, I mmature Granulocyte # (Auto) 0.0, Sodium Level 140, Potassium Level 3.3L, Chloride Level 91L, Carbon Dioxide Level 35H, Anion Gap 14, Blood Urea Nitrogen 38H, Creatinine 1.98H, Estimat Glomerular Filtration Rate 33, BUN/Creatinine Ratio 19, Glucose Level 214H, Calcium Level 9.2, Corrected Calcium 9.7, Phosphorus Level 3.5, Magnesium Level 1.7, Total Bilirubin 1.2H, Aspartate Amino Transf (AST/SGOT) 13, Alanine Aminotransferase (ALT/SGPT) 14, Alkaline Phosphatase 139H, Total Protein 7.1, Albumin 3.4 02/15/22 11:26: Glucometer 419*H Microbiology 02/13/22 MRSA Screen - Final, Complete MRSA not isolated Laboratory Tests 02/14/22 05:05 02/15/22 04:24 A/P: Assessment: Chest pain - no evidence of ACS - resolved Acute on chronic systolic and diastolic CHF, NYHA Class III - Echo of 01/24/22: moderate concentric LVH, mod to sev diff hypokinesis, LVEF 30-35%, grade 3 arango dysfunction, mod biatrial enlargement, mild MR, mild AI, PASP 50-55 mmHg - pt has wishes to be managed conservatively only H/O Syncope in late December 2021 - which was likely d/t NSVT (documented during admission of December 2021) for which he requested to be treated conservatively H/O NSTEMI in late December 2021 - He desired to be managed conservatively only CAD - Report coronary PCI beginning in the (doesn't know details). 12/07/2010: proximal circumflex artery was treated with Promus 4 x 12, mid circumflex with Promus 3.0 x 15, mid RCA 4 x 28 Promus, mid RCA Promus 4 x 12, proximal RCA Promus 4 x 23, proximal RCA Promus 4 x 23. 11/04/2011: proximal RCA treated with Promus element 3.5 x 28 mm stent, mid first diagonal artery treated with Promus element 2.25 x 24 mm stent. - Most recent coronary angiography of Dec [address] Guillen: showed moderate ostial LAD stenosis with FFR 0.94, which shows non-obstructive disease. Patent stent in the first diagonal artery and the RCA. Patent stent in the proximal LAD. PAD - Peripheral angiogram of Dec [address] Guillen: showed on the left showed moderate/severe diffuse calcified disease in the SFA, severe stenosis in the distal SFA. Suboptimal visualization in the popliteal artery however likely severe distal popliteal stenosis. At least one vessel runoff below the knee with a posterior tibial artery. Small diffusely diseased deep peroneal as well as anterior tibial artery. Right lower extremity shows moderate diffuse calcified disease in the SFA in the popliteal artery. Two-vessel runoff with a posterior tibial as well as deep peroneal artery. Heavily diseased small anterior tibial artery. - AAA Repair: 08/10/[address] Stallworth at [place], [place] - CT of the abdomen without contrast on Dec 28, 2019: Previously treated abdominal aortic aneurysm. The maximum sac diameter is 4.6 cm. This is essentially unchanged compared to the prior examination from 2016 per Chronic kidney disease stage IV - follows with [place] [facility] Intolerant to RENU-inhib/ARB due to hypotension Persistent atrial fibrillation - OAC with Eliquis Carotid arterial dz: - s/p L CEA in October [address] Reddy at [facility]. Carotid art disease is being followed at the same office HTN - controlled HLD - statin - managed by PCP VILMA Abnormal ECG - Chronic RBBB DM 2 - managed by PCP BPH and chronic dysuria and hesitancy H/O GI bleed and acute anemia in early 2020 - s/p endoscopy by Dr. Rushing (May 2020) - GERD, gastritis, hiatal hernia, internal/external hemorrhoids - followed by Dr Dubon and Dr Rushing Plan: Complex management issue d/t multiple issues as noted above Acute on chronic systolic/diastolic CHF - clinically improved - adjust diuretic regimen - replace electrolytes - monitor lab closely He insists on going home today. Diuretics have been adjusted. Management of heart failure discussed Advise lab on Friday as out pt Advise f/u with us in 1 week MATT GUPTA MD FACP FAC CCDS Feb 15, 2022 12:24
--- NOTE | 2022-02-15 14:41 | Progress Note ---
PHIL DE LA FUENTE 02/15/22 1441: Progress Note Subjective: Pt is sitting comfortably in chair. Pt denies any CP and states improvement of his SOA. Pt ambulated tolerated ambulation with PT today. LE swelling is unchanged from yesterday and wound care has changed bandages today. CXR today showed improvement of hypervolemia or failure with decreased congestion, edema, and likely improvements in pleural fluid. Repeat labs were remarkable for mild hypokalemia at 3.3 and an elevated glucose at 419, for which he received 50U Determir and 20U NovoLIN R. Pt denies any abd pain, nausea, vomiting, abd pain, and diarrhea. ABG 02/15: pH: 7.56 pCO2: 47.4 pO2: 67 Hospital Course: 82yo M with h/o CHF, afib, CKD, DM, and O2 dependence 3L presented to the ED after experiencing CP and worsening SOA. Pt states that on 02/14, at ~0100, he experienced pain that started in his L axillary area and radiated into his chest. Pt had been experiencing L axillary pain every night for the past few days at night but denies any CP. Pt took 4-5 nitro sublingual tablets between 0100 and 10am, that provided minimal relief, which prompted him to go to the ED. In ED, pt noted that he had been experiencing decreased appetite and worsening SOA due to "feeling full". Pt stated that he had been unable to even drink water due to this fullness. Pt also noted decreased urinary output and increased urgency over the past few days prior to coming in. Pt had been recently discharged from via [facility] on 01/23 after being admitted following an episode of VTACH. Pt has extensive cardiac history and is followed by Dr. Hall. ED workup was remarkable for elevated myoglobin and BNP. Troponin was negative. CXR showed a worsened failure pattern when compared to 01/23 as well as B/L pleural effusions with L worse than R. Also showed progression of cardiomegaly, venous congestion, and pulmonary edema. EKG showed a fib with RBBB. On examination, pt was notably SOA and in mild discomfort. Pt had b/l LE swelling as well as weeping wounds present on b/l shins and a wound on his L great toe. Pt was admitted to the ICU and started on 80mg Lasix BID. During his stay, pt's leg swelling decreased, CP resolved, and SOA improved. Today, pt was insistent on going home, stating that he had home care present multiple times a week. Cardio has recommended follow up labs on Friday and f/u with them in 1 week. JEANETTE BARBER DO 02/16/22 0519: Supervisory-Addendum Brief Verification & Attestation Participated in pt care: history, MDM, physical Personally performed: exam, history, MDM, supervision of care Care discussed with: Medical Student Procedures: n/a Results interpretation: Verified all documentation Verification and Attestation of Medical Student E/M Service A medical student performed and documented this service in my presence. I reviewed and verified all information documented by the medical student and made modifications to such information, when appropriate. I personally performed the physical exam and medical decision making. Jeanette Barber, Feb 16, 2022,05:19 PHIL DE LA FUENTE Feb 15, 2022 14:41 JEANETTE BARBER DO Feb 16, 2022 05:19
[2022-02-15] MEDS ORDERED: NON-FORMULARY MEDICATION 1 EA EA (Insulin Detemir (Levemir Flextouch) 50 UNIT) SQ SCH (21:00)
[2022-02-15] MEDS ORDERED: TAMSULOSIN 0.4 MG (FLOMAX) CAP PO SCH (21:00)
[2022-02-15] MEDS ORDERED: GABAPENTIN 100 MG (NEURONTIN) CAP PO SCH (21:00)
[2022-02-16] MEDS ORDERED: ALLOPURINOL 100 MG (ZYLOPRIM) TAB PO SCH (09:00)
[2022-02-16] MEDS ORDERED: VITAMIN D3 25 MCG (1,000 UNITS) TABLET PO SCH (09:00)
[2022-02-16] MEDS ORDERED: NON-FORMULARY MEDICATION 1 EA EA (Magnesium Oxide 400 MG) PO SCH (09:00)
[2022-02-16] MEDS ORDERED: CALCITRIOL 0.25 MCG (ROCALTROL) CAPSULE PO SCH (09:00)
[2022-02-16] MEDS ORDERED: CLOPIDOGREL 75 MG (PLAVIX) TABLET PO SCH (09:00)
[2022-02-16] MEDS ORDERED: FERROUS SULF 325 MG (IRON) TAB PO SCH (09:00)
== END 2022-02-15 13:58 | disposition home health service (06) | DRG 280 ==
LOC: EDUNIT# 12:07 → ER 12:09 → CSD 14:30 → ICU 16:12
PROVIDERS: ADMIT Internal Medicine; ATTEND Internal Medicine
PROC: 5A09357 Assistance with Respiratory Ventilation, Less than 24 Consecutive Hours, Continuous Positive Airway Pressure (ICD-10-PCS; principal; 2022-02-13)
DX: I13.0 Hypertensive heart and chronic kidney disease with heart failure and stage 1 through stage 4 chronic kidney disease, or unspecified chronic kidney disease (principal); I50.43 Acute on chronic combined systolic (congestive) and diastolic (congestive) heart failure; I21.4 Non-ST elevation (NSTEMI) myocardial infarction; J96.21 Acute and chronic respiratory failure with hypoxia; I22.2 Subsequent non-ST elevation (NSTEMI) myocardial infarction; J44.1 Chronic obstructive pulmonary disease with (acute) exacerbation; E66.2 Morbid (severe) obesity with alveolar hypoventilation; I48.19 Other persistent atrial fibrillation; N18.4 Chronic kidney disease, stage 4 (severe); E11.22 Type 2 diabetes mellitus with diabetic chronic kidney disease; Z79.4 Long term (current) use of insulin; Z79.899 Other long term (current) drug therapy; Z95.5 Presence of coronary angioplasty implant and graft; I25.10 Atherosclerotic heart disease of native coronary artery without angina pectoris; I42.9 Cardiomyopathy, unspecified; E78.00 Pure hypercholesterolemia, unspecified; E11.40 Type 2 diabetes mellitus with diabetic neuropathy, unspecified; M19.90 Unspecified osteoarthritis, unspecified site; G89.29 Other chronic pain; M54.9 Dorsalgia, unspecified; Z20.822 Contact with and (suspected) exposure to COVID-19; Z99.81 Dependence on supplemental oxygen; Z87.891 Personal history of nicotine dependence; Z85.46 Personal history of malignant neoplasm of prostate; Z92.21 Personal history of antineoplastic chemotherapy; I45.10 Unspecified right bundle-branch block; I87.8 Other specified disorders of veins; N40.1 Benign prostatic hyperplasia with lower urinary tract symptoms; R39.11 Hesitancy of micturition; R30.0 Dysuria; E11.51 Type 2 diabetes mellitus with diabetic peripheral angiopathy without gangrene; I77.9 Disorder of arteries and arterioles, unspecified; D64.9 Anemia, unspecified; I27.20 Pulmonary hypertension, unspecified
CPT/HCPCS: 36415; 36600; 51702; 71045; 80053; 82550; 82553; 82805; 82947; 83690; 83735; 83874; 83880; 84100; 84484; 85025; 85610; 85730; 87081; 87636; 90662; 93005; 93041; 94640; 94660

== ENCOUNTER 2022-03-14 13:00 | Inpatient (IN) | payer MEDICARE, OTHER ==
[2022-03-14] VITALS (25 sets, daily range): BP systolic 89–137; BP diastolic 47–97
[~2022-03-14] VITALS: Ht 175.3 cm; Wt 121.0 kg
[~2022-03-14 13:00] MED LIST changes: +AMIO200T65 PO; +FURO80TA83 PO; +INSU100V42 SQ; +MAGN400T50 PO; +OMEG1CAP58 PO
[2022-03-14 14:05] LABS: BASOPHILS % (AUTO) 0 % (0-10); EOSINOPHILS # (AUTO) 0.3 10^3/uL (0.0-0.3); EOSINOPHILS % (AUTO) 3 % (0-10); HEMATOCRIT 40 % (40-54); HEMOGLOBIN 12.7 g/dL (13.3-17.7); LYMPHOCYTES % (AUTO) 10 % (12-44); MEAN CORPUSCULAR HEMOGLOBIN 29 pg (25-34); MEAN CORPUSCULAR HGB CONC 32 g/dL (32-36); MEAN CORPUSCULAR VOLUME 93 fL (80-99); MEAN PLATELET VOLUME 9.4 fL (9.0-12.2); MONOCYTES # (AUTO) 0.8 10^3/uL (0.0-1.0); MONOCYTES % (AUTO) 8 % (0-12); NEUTROPHILS % (AUTO) 79 % (42-75); PLATELET COUNT 222 10^3/uL (130-400); WHITE BLOOD COUNT 10.1 10^3/uL (4.3-11.0)
--- NOTE | 2022-03-14 14:14 | ED General ---
General Chief Complaint: Chest Wall Stated Complaint: SOB Nursing Triage Note: PT TO [facility] BY EMS WITH C/O L RIB PAIN AFTER FALL 2 DAYS AGO. PT STATES HE HAS BEEN TAKING HYDROCODNE AT HOME FOR PAIN WITHOUT RELIEF Source of Information: Patient Exam Limitations: No Limitations History of Present Illness Date Seen by Provider: Mar 14, 2022 Time Seen by Provider: 13:35 Initial Comments Here with report of fall 2 days ago and hitting a table on his left ribs. He broke the table. Apparently at that time, he had run out of his oxygen after he had a concentrator failed and had to switch to tanks. He was trying to switch from one tank to the other when he lost his balance and fell. They did call fire department who did a lift assist. He refused. Support to the hospital for evaluation. Today states that he believes that he broke his ribs on the left side. He is coughing. He is still on antibiotics for possible pneumonia which includes both cefdinir and levofloxacin. Also reports increasing left leg swelling and 3 pound weight gain with history of heart failure. He has wounds to both legs. Apparently the wounds to the right leg appear better but the wounds to the left leg are starting to get a worse per the family and the patient. Family reports the home health nurse had stated that the leg looks a little worse as well. Patient reports that he had difficulty with ambulating via walker to the bathroom due to weakness and this was verified by the family as well. Patient denies hitting his head but is on blood thinners. Denies headache or neck pain currently. His main concern is the left chest wall and significant pain. He did take a hydrocodone this morning for pain which did not help but did cause nausea. He is still suffering from that some. Timing/Duration: 1-2 Days Severity: Moderate Modifying Factors: improves with Immobilization; worse with Movement Associated Systoms: Chest Pain (Left chest wall), Cough; No Fever/Chills, No Headaches; Nausea/Vomiting, Shortness of Air, Weakness Allergies and Home Medications Allergies Coded Allergies: No Known Drug Allergies (Unverified , 01/19/18) Patient Home Medication List Home Medication List Reviewed: Yes Allopurinol (Allopurinol) 100 Mg Tablet, 100 MG PO DAILY, (Reported) Entered as Reported by: TAB LOPEZ on 01/21/19 0850 Amiodarone HCl (Amiodarone HCl) 400 Mg Tablet, 400 MG PO DAILY Prescribed by: DEANNE GUEVARA on 02/15/22 1020 Atorvastatin Calcium (Atorvastatin Calcium) 40 Mg Tablet, 40 MG PO HS, (Reported) Entered as Reported by: LIZBETH MUIR on 06/08/20 1153 Calcitriol (Calcitriol) 0.25 Mcg Capsule, 0.25 MCG PO DAILY, (Reported) Entered as Reported by: LIZBETH MUIR on 01/23/22 1411 Carvedilol (Carvedilol) 12.5 Mg Tablet, 12.5 MG PO BID, (Reported) Entered as Reported by: LIZBETH MUIR on 01/23/22 1411 Cholecalciferol (Vitamin D3) (Vitamin D3) 25 Mcg Tablet, 25 MCG PO DAILY, (Reported) Entered as Reported by: LIZBETH MUIR on 03/17/20 1444 Clopidogrel Bisulfate (Clopidogrel) 75 Mg Tablet, 75 MG PO DAILY, (Reported) Entered as Reported by: LIZBETH MUIR on 02/14/22 1515 Ferrous Sulfate (Ferrous Sulfate) 325 Mg (65 Mg Iron) Tablet, 325 MG PO DAILY, (Reported) Entered as Reported by: LIZBETH MUIR on 01/23/22 1411 Furosemide (Lasix) 80 Mg Tablet, 80 MG PO DAILY Prescribed by: DEANNE GUEVARA on 02/15/22 1020 Gabapentin (Gabapentin) 100 Mg Capsule, 300 MG PO BID, (Reported) Entered as Reported by: LIZBETH MUIR on 03/17/20 1444 Insulin Aspart (Insulin Aspart) 100 Unit/Ml Vial, UNIT SQ AC PRN for HYPERGLYCEMIA, (Reported) Entered as Reported by: LIZBETH MUIR on 02/14/22 1517 Insulin Detemir (Levemir Flextouch) 100 Unit/Ml (3 Ml) Insuln.pen, 50 UNIT SQ BID, (Reported) Entered as Reported by: LIZBETH MUIR on 03/17/20 1444 Magnesium Oxide (Magnesium Oxide) 400 Mg Magnesium Tablet, 400 MG PO DAILY, (Reported) Entered as Reported by: LIZBETH MUIR on 02/14/22 1524 Metolazone (Metolazone) 5 Mg Tablet, 5 MG PO DAILY Prescribed by: DEANNE GUEVARA on 02/15/22 1020 Hephzibah-3 Fatty Acids/Fish Oil (Hephzibah 3 1,000 mg Softgel) 300 Mg-1,000 Mg Capsule, 2 EACH PO HS, (Reported) Entered as Reported by: LIZBETH MUIR on 02/14/22 1515 Potassium Chloride (Potassium Chloride) 20 Meq Tablet.er, 20 MEQ PO TID Prescribed by: DEANNE GUEVARA on 02/15/22 1020 Rivaroxaban (Xarelto) 15 Mg Tablet, 15 MG PO DAILY, (Reported) Entered as Reported by: LIZBETH MUIR on 02/14/22 1515 Tamsulosin HCl (Flomax) 0.4 Mg Cap, 0.4 MG PO BID, (Reported) Entered as Reported by: TAB LOPEZ on 01/21/19 0851 Review of Systems Review of Systems Constitutional: see HPI; No chills, No fever EENTM: No nose congestion, No throat pain Respiratory: cough, short of breath Cardiovascular: chest pain, edema; No palpitations Gastrointestinal: nausea, vomiting Genitourinary: no symptoms reported Musculoskeletal: No back pain; joint pain, muscle pain Skin: change in color; No lesions Psychiatric/Neurological: Denies Headache; Weakness All Other Systems Reviewed Negative Unless Noted: Yes Past Sdijzye-Uipamq-Fkjedm Hx Patient Social History Tobacco Use?: No Smoking Status: Former Smoker Substance use?: No Alcohol Use?: No Pt feels they are or have been: No Immunizations Up To Date Tetanus Booster (TDap): Unknown Influenza Vaccine Up-to-Date: Yes; Up-to-Date First/Initial COVID19 Vaccinat: YES Second COVID19 Vaccination Edward: YES Third COVID19 Vaccination Date: na Seasonal Allergies Seasonal Allergies: No Past Medical History Surgery/Hospitalization HX: cardiac stent, cholecystectomy, prostatectomy, ckd st 3, copd, afib, cad, htn, iddm, prostate ca, cardiomyopathy. Surgeries: Yes (AORTIC PATCH, ) Coronary Stent, Gallbladder, Prostatectomy, Vascular Surgery Respiratory: Yes (chronic hypoxia) Sleep Apnea, COPD Currently Using CPAP: Yes Cardiac: Yes Cardiomyopathy, Chronic Edema/Swelling, Coronary Artery Disease, High Cholesterol, Hypertension Neurological: Yes Neuropathy Reproductive Disorders: No Sexually Transmitted Disease: No HIV/AIDS: No Genitourinary: Yes Prostate Problems, Kidney Stones, Renal Failure Gastrointestinal: No Musculoskeletal: Yes Degenerate Disk Disease, Arthritis, Chronic Back Pain Endocrine: Yes Diabetes, Insulin dep Loss of Vision: Bilateral Hearing Impairment: Denies Cancer: Yes Prostate Did You Recieve Any Treatments: Yes What Type of Treatment Did You: Chemotherapy, Surgical Intervention Psychosocial: No Integumentary: Yes (FROM RADIATION) Recent Skin Changes Blood Disorders: No Adverse Reaction/Blood Tranf: No (N/A) Family Medical History Reviewed Nursing Family Hx No Pertinent Family Hx Physical Exam Vital Signs Vital Signs - First Documented 03/14/22 03/14/22 03/14/22 13:02 13:10 13:39 Temp 36.3 Pulse 83 Resp 24 B/P (MAP) 140/110 (120) Pulse Ox 97 O2 Delivery Room Air O2 Flow Rate 3.00 Capillary Refill : Greater Than 3 Seconds Height, Weight, BMI Height: 5'9.00" Weight: 276lbs. 0.0oz. 125.862203pl; 39.83 BMI Method: General Appearance: Mild Distress (Pain and respiratory), Obese HEENT: PERRL/EOMI, Pharynx Normal Neck: Full Range of Motion, Normal Inspection, Non Tender, Supple Respiratory: Crackles (Bilateral bases); No Wheezing; Other (Tender to left lateral chest wall without bruising or deformity noted) Cardiovascular: Regular Rate, Rhythm, No Murmur Gastrointestinal: Non Tender, Soft Back: Normal Inspection, No CVA Tenderness, No Vertebral Tenderness Extremity: Pedal Edema (3+ edema to the left leg and 2+ edema to the right.), Other (Both left and right leg have dressings in place to ankle, foot and lower leg. Redness bilateral lower extremities with right greater than left) Neurologic/Psychiatric: Alert, Oriented x3 Skin: Warm/Dry, Erythema (Right greater than left lower extremity below the knee), Other (Multiple dressed wounds to bilateral lower extremities below the knee) Focused Exam Lactate Level 03/14/22 14:01: Lactic Acid Level 1.31 Lactic Acid Level Laboratory Tests Test 03/14/22 14:01 Lactic Acid Level 1.31 MMOL/L (0.50-2.00) Progress/Results/Core Measures Suspected Sepsis SIRS Temperature: Pulse: Respiratory Rate: 24 Laboratory Tests 03/14/22 14:01: White Blood Count 10.1 Blood Pressure 140 /110 Mean: 89 03/14/22 14:01: Lactic Acid Level 1.31 Laboratory Tests 03/14/22 14:01: Creatinine 2.26H, INR Comment 3.3H, Platelet Count 222, Total Bilirubin 0.7 Results/Orders Lab Results Laboratory Tests Test 03/14/22 13:50 03/14/22 14:01 Range/Units Troponin I 0.051 H <0.028 NG/ML White Blood Count 10.1 4.3-11.0 10^3/uL Red Blood Count 4.34 4.30-5.52 10^6/uL Hemoglobin 12.7 L 13.3-17.7 g/dL Hematocrit 40 40-54 % Mean Corpuscular Volume 93 80-99 fL Mean Corpuscular Hemoglobin 29 25-34 pg Mean Corpuscular Hemoglobin Concent 32 32-36 g/dL Red Cell Distribution Width 14.5 10.0-14.5 % Platelet Count 222 130-400 10^3/uL Mean Platelet Volume 9.4 9.0-12.2 fL Immature Granulocyte % (Auto) 1 % Neutrophils (%) (Auto) 79 H 42-75 % Lymphocytes (%) (Auto) 10 L 12-44 % Monocytes (%) (Auto) 8 0-12 % Eosinophils (%) (Auto) 3 0-10 % Basophils (%) (Auto) 0 0-10 % Neutrophils # (Auto) 8.0 H 1.8-7.8 10^3/uL Lymphocytes # (Auto) 1.0 1.0-4.0 10^3/uL Monocytes # (Auto) 0.8 0.0-1.0 10^3/uL Eosinophils # (Auto) 0.3 0.0-0.3 10^3/uL Basophils # (Auto) 0.0 0.0-0.1 10^3/uL Immature Granulocyte # (Auto) 0.1 0.0-0.1 10^3/uL Prothrombin Time 34.3 H 12.2-14.7 SEC INR Comment 3.3 H 0.8-1.4 Activated Partial Thromboplast Time 57 H 24-35 SEC Sodium Level 136 135-145 MMOL/L Potassium Level 4.5 3.6-5.0 MMOL/L Chloride Level 91 L 98-107 MMOL/L Carbon Dioxide Level 34 H 21-32 MMOL/L Anion Gap 11 5-14 MMOL/L Blood Urea Nitrogen 43 H 7-18 MG/DL Creatinine 2.26 H 0.60-1.30 MG/DL Estimat Glomerular Filtration Rate 28 BUN/Creatinine Ratio 19 Glucose Level 123 H 70-105 MG/DL Lactic Acid Level 1.31 0.50-2.00 MMOL/L Calcium Level 9.2 8.5-10.1 MG/DL Corrected Calcium 9.8 8.5-10.1 MG/DL Total Bilirubin 0.7 0.1-1.0 MG/DL Aspartate Amino Transf (AST/SGOT) 21 5-34 U/L Alanine Aminotransferase (ALT/SGPT) 23 0-55 U/L Alkaline Phosphatase 127 40-136 U/L B-Type Natriuretic Peptide 320.0 H <100.0 PG/ML Total Protein 7.2 6.4-8.2 GM/DL Albumin 3.3 3.2-4.5 GM/DL My Orders Orders - MICKIE LOFTON MD Ct Chest Wo (03/14/22 13:54) Ct Head Wo (03/14/22 13:54) Cbc With Automated Diff (03/14/22 13:54) Comprehensive Metabolic Panel (03/14/22 13:54) Blood Culture (03/14/22 13:54) Sputum Culture (03/14/22 13:54) Protime With Inr (03/14/22 13:54) Partial Thromboplastin Time (03/14/22 13:54) Chest 1 View, Ap/Pa Only (03/14/22 13:54) Ed Iv/Invasive Line Start (03/14/22 13:54) Vital Signs Adult Sepsis Patie Q15M (03/14/22 13:54) O2 (03/14/22 13:54) Remove Rings In Anticipation O (03/14/22 13:54) Lactic Acid Analyzer (03/14/22 13:54) Bnp Adalid (03/14/22 13:54) Ua Culture If Indicated (03/14/22 13:54) Troponin I Winston (03/14/22 14:26) Ekg Tracing (03/14/22 14:26) Fentanyl Inj (Sublimaze Injection) (03/14/22 14:32) Ondansetron Injection (Zofran Injectio (03/14/22 14:45) Ed Admission (Communication) (03/14/22 15:20) Medications Given in ED Current Medications Medications Dose Ordered Sig/Rajendra Route Start Time Stop Time Status Last Admin Dose Admin Ondansetron HCl 4 mg ONCE ONCE IVP 03/14/22 14:45 03/14/22 14:46 DC 03/14/22 14:41 4 MG Vital Signs/I&O 03/14/22 03/14/22 03/14/22 03/14/22 13:02 13:10 13:39 14:42 Temp 36.3 36.3 Pulse 83 Resp 24 B/P (MAP) 140/110 (120) 112/78 (89) Pulse Ox 97 95 O2 Delivery Room Air Nasal Cannula Nasal Cannula O2 Flow Rate 3.00 4.00 Capillary Refill : Greater Than 3 Seconds Blood Pressure Mean: 89 Progress Note : Progress Note Seen and evaluated. IV, labs, EKG, chest x-ray, CT head and CT of the chest ordered. CT head and chest ordered due to recent fall and patient is on blood thinners with significant left rib pain. He has increasing redness of the wounds in the right leg and increased swelling of the left leg. He is currently on antibiotics but there is concern about persistent infection of the left leg especially given swelling. We will check for heart failure as well with BNP and chest x-ray. Blood cultures and lactic acid ordered. Patient does have 3 pound weight gain which may simply be fluid from volume overload secondary to heart failure. Patient is normally on oxygen at 3 L and we have turned that up to 4 L to keep O2 saturation in the 90s persistently. He seems more comfortable with this. Monitor patient. 1451: I discussed the case with the surgeon, Dr. De La Paz due to concerns for hemothorax noted on chest x-ray and on CT. He has looked at this and agrees. Patient has multiple rib fractures as well on the left. Given that he is on Xarelto, chest tube would be challenging and possibly dangerous. Dr. De La Paz will follow and decide if he needs further therapy is recommending stopping the anticoagulants currently. Patient will require admission. This was discussed with patient and family and they agree. 1520: I did discuss the case with Dr. Melgoza and she accepts patient for admission, inpatient status to the cardiac stepdown. We reviewed current findings including results from CT scans and chest x-ray as well as labs. Does have some findings of elevated troponin concerning for non-STEMI which is likely demand related secondary to heart failure from reduced lung capacity. She will continue to monitor those. Admit, inpatient status. Patient and family agree to plan. ECG Initial ECG Impression Date: Mar 14, 2022 Initial ECG Impression Time: 14:53 Initial ECG Rate: 84 Comment Atrial fibrillation with right axis deviation and right bundle branch block. No evidence of ST elevation [place]. Similar to previous of 02/13/2022. Interpreted by me. Diagnostic Imaging Diagonstic Imaging: CT Plain Films/CT/US/NM/MRI: head Comments [facility] [place], [place] NAME: GHASSAN LAYTON MED REC#: [id number] PT STATUS: REG ER : 1940 PHYSICIAN: MICKIE LOFTON MD ADMIT DATE: 03/14/22/ER Draft Date of Exam:03/14/22 CT HEAD WO INDICATION: Fall with injury to head. TECHNIQUE: Multiple contiguous axial images were obtained through the brain without the use of intravenous contrast. Auto Exposure Controls were utilized during the CT exam to meet ALARA standards for radiation dose reduction. There is no prior head CT for comparison. FINDINGS: There are diffuse atrophic changes. There are no extra-axial fluid collections. No intracranial hemorrhage. There are mild low-density changes in the deep white matter compatible with chronic ischemic change. There is no acute appearing intracranial abnormality. Calvarial windows were unremarkable. IMPRESSION: Mild chronic changes with no acute intracranial process. Dictated on workstation # [id number] Dict: 03/14/22 1437 Trans: 03/14/22 1441 [id number] Interpreted by: BRIGETTE AJ MD Electronically signed by: Diagonstic Imaging: CT Plain Films/CT/US/NM/MRI: chest Comments [facility]. [place], [place] NAME: GHASSAN LAYTON MED REC#: [id number] PT STATUS: REG ER : 1940 PHYSICIAN: MICKIE LOFTON MD ADMIT DATE: 03/14/22/ER Draft Date of Exam:03/14/[address] CHEST WO TECHNIQUE: Multiple contiguous axial images were obtained through the chest without the use of intravenous contrast. All CT scans use one or more of the following dose optimizing techniques: automated exposure control, MA and/or KvP adjustment based on a patient size and exam type, or iterative reconstruction. INDICATION: Left-sided rib pain after fall. COMPARISON: Portable chest from earlier same day. FINDINGS: Lungs and airway: Central groundglass attenuation within the lungs. Subtotal atelectasis in the lingula and left lower lobe. Pleura: Large left pleural effusion is present. Lobulated areas of hyperattenuation within the pleural effusion in the lower left chest are adjacent to rib fractures and suggest hemothorax. Trace right pleural effusion is simple. Heart and mediastinum: No supraclavicular or axillary lymphadenopathy. No mediastinal lymphadenopathy. Cardiomegaly is present. Severe coronary artery calcifications are noted. Normal-caliber thoracic aorta. Upper abdomen: No acute abnormality in the upper abdomen by noncontrast CT. Musculoskeletal: Acute fractures in the posterolateral aspect of the 8th through 10th ribs. The 9th rib fracture is mildly angulated but not depressed. No sternal fracture. Ankylosis in the thoracic spine due to DISH. No acute fracture. IMPRESSION: 1. Acute fractures of the left 8th through 10th ribs are nondepressed. 2. There is associated hyperattenuation in the pleural space adjacent to rib fractures, most indicative of hemothorax. This should account for the large pleural effusion. Follow-up CT may be warranted in the future to ensure resolution and exclude underlying pleural mass. 3. Central pulmonary opacities could be due to a mixture of edema and atelectasis. Dictated on workstation # [id number] Dict: 03/14/22 1445 Trans: 03/14/22 1504 [id number] Interpreted by: OSWALDO SIU MD Electronically signed by: Diagonstic Imaging: Xray Plain Films/CT/US/NM/MRI: chest Comments [facility] [place] [place] NAME: GHASSAN LAYTON MED REC#: [id number] PT STATUS: REG ER : 1940 PHYSICIAN: MICKIE LOFTON MD ADMIT DATE: 03/14/22/ER Draft Date of Exam:03/14/22 CHEST 1 VIEW, AP/PA ONLY CLINICAL INDICATION: Patient with left rib pain after fall two days ago. Patient has been taking hydrocodone at home for pain without relief. EXAM: Portable chest x-ray, upright view. COMPARISON: Chest x-ray dated 02/15/2022. FINDINGS: There is interval development of a moderate to large-sized left pleural effusion and consolidation of the left mid lung field and left lung base. There is no pneumothorax. Cardiomegaly noted. Pulmonary vasculature is within normal limits. There are degenerative spurs involving the spine. Limited visualization of the ribs due to patient body habitus. There is no definite fracture seen. IMPRESSION: 1: There is interval development of a moderate to large-sized left pleural effusion and consolidation of the left mid lung field and left lung base. In the setting of trauma, hemothorax cannot be completely excluded. CT scan of the chest is suggested for further evaluation. This would also help better evaluate for fractures. 2: There are no fractures seen on this exam. Dictated on workstation # [id number] Dict: 03/14/22 1420 Trans: 03/14/22 1425 [id number] Interpreted by: NAKUL SWANN MD Electronically signed by: Departure Communication (Admissions) Time/Spoke to Admitting Phy: 15:15 Time/Spoke to Consulting Phy: 14:21 Impression Primary Impression: Hemothorax Additional Impressions: Ribs, multiple fractures Qualified Codes: S22.42XA - Multiple fractures of ribs, left side, initial encounter for closed fracture NSTEMI (non-ST elevated myocardial infarction) Acute on chronic heart failure Qualified Codes: I50.9 - Heart failure, unspecified Disposition: 09 ADMITTED INPATIENT Condition: Stable Admissions Decision to Admit Reason: Admit from ER (General) Decision to Admit/Date: Mar 14, 2022 Time/Decision to Admit Time: 15:15 Departure-Patient Inst. Referrals: HEATHER ZAIDI (PCP/Family) Primary Care Physician MICKIE LOFTON MD Mar 14, 2022 14:14
[2022-03-14 14:25] LABS: ALBUMIN 3.3 GM/DL (3.2-4.5)
[2022-03-14 14:26] LABS: POTASSIUM 4.5 MMOL/L (3.6-5.0)
--- NOTE | 2022-03-14 14:26 | Diagnostic Imaging Report ---
CLINICAL INDICATION: Patient with left rib pain after fall two days ago. Patient has been taking hydrocodone at home for pain without relief. EXAM: Portable chest x-ray, upright view. COMPARISON: Chest x-ray dated 02/15/2022. FINDINGS: There is interval development of a moderate to large-sized left pleural effusion and consolidation of the left mid lung field and left lung base. There is no pneumothorax. Cardiomegaly noted. Pulmonary vasculature is within normal limits. There are degenerative spurs involving the spine. Limited visualization of the ribs due to patient body habitus. There is no definite fracture seen. IMPRESSION: 1: There is interval development of a moderate to large-sized left pleural effusion and consolidation of the left mid lung field and left lung base. In the setting of trauma, hemothorax cannot be completely excluded. CT scan of the chest is suggested for further evaluation. This would also help better evaluate for fractures. 2: There are no fractures seen on this exam. Dictated by: Dictated on workstation # [id number]
[2022-03-14 14:27] LABS: CALCIUM 9.2 MG/DL (8.5-10.1)
[2022-03-14 14:28] LABS: TOTAL PROTEIN 7.2 GM/DL (6.4-8.2)
[2022-03-14 14:30] LABS: BILIRUBIN,TOTAL 0.7 MG/DL (0.1-1.0)
[2022-03-14 14:31] LABS: CREATININE SERUM 2.26 MG/DL (0.60-1.30)
[2022-03-14 14:32] LABS: INR 3.3 (0.8-1.4); PROTHROMBIN TIME PATIENT 34.3 SEC (12.2-14.7)
[2022-03-14] MEDS ORDERED: fentaNYL INJ 100 MCG/2 ML AMP IVP STA (14:32)
--- NOTE | 2022-03-14 14:42 | Diagnostic Imaging Report ---
INDICATION: Fall with injury to head. TECHNIQUE: Multiple contiguous axial images were obtained through the brain without the use of intravenous contrast. Auto Exposure Controls were utilized during the CT exam to meet ALARA standards for radiation dose reduction. There is no prior head CT for comparison. FINDINGS: There are diffuse atrophic changes. There are no extra-axial fluid collections. No intracranial hemorrhage. There are mild low-density changes in the deep white matter compatible with chronic ischemic change. There is no acute appearing intracranial abnormality. Calvarial windows were unremarkable. IMPRESSION: Mild chronic changes with no acute intracranial process. Dictated by: Dictated on workstation # [id number]
[2022-03-14] MEDS ORDERED: ONDANSETRON 4 MG/2 ML (SDV) Z0FRAN IVP ONE (14:45)
--- NOTE | 2022-03-14 15:05 | Diagnostic Imaging Report ---
CT CHEST WO TECHNIQUE: Multiple contiguous axial images were obtained through the chest without the use of intravenous contrast. All CT scans use one or more of the following dose optimizing techniques: automated exposure control, MA and/or KvP adjustment based on a patient size and exam type, or iterative reconstruction. INDICATION: Left-sided rib pain after fall. COMPARISON: Portable chest from earlier same day. FINDINGS: Lungs and airway: Central groundglass attenuation within the lungs. Subtotal atelectasis in the lingula and left lower lobe. Pleura: Large left pleural effusion is present. Lobulated areas of hyperattenuation within the pleural effusion in the lower left chest are adjacent to rib fractures and suggest hemothorax. Trace right pleural effusion is simple. Heart and mediastinum: No supraclavicular or axillary lymphadenopathy. No mediastinal lymphadenopathy. Cardiomegaly is present. Severe coronary artery calcifications are noted. Normal-caliber thoracic aorta. Upper abdomen: No acute abnormality in the upper abdomen by noncontrast CT. Musculoskeletal: Acute fractures in the posterolateral aspect of the 8th through 10th ribs. The 9th rib fracture is mildly angulated but not depressed. No sternal fracture. Ankylosis in the thoracic spine due to DISH. No acute fracture. IMPRESSION: 1. Acute fractures of the left 8th through 10th ribs are nondepressed. 2. There is associated hyperattenuation in the pleural space adjacent to rib fractures, most indicative of hemothorax. This should account for the large pleural effusion. Follow-up CT may be warranted in the future to ensure resolution and exclude underlying pleural mass. 3. Central pulmonary opacities could be due to a mixture of edema and atelectasis. Dictated by: Dictated on workstation # [id number]
--- NOTE | 2022-03-14 15:54 | Consultation - Surgery ---
CARLOS WELLINGTON 03/14/22 1554: History of Present Illness History of Present Illness Patient Consulted On(rayshawn/time) 03/14/22 15:40 Date Seen by Provider: Mar 14, 2022 Time Seen by Provider: 15:00 History of Present Illness 82 year old male with a past medical hx of CAD with stent placement, AK, A fib, PAD, CHF, CKD Stage IV presented to [facility] ER with a chief complaint of chest wall pain. Patient presented with daughter and son. Patient lives with his daughter and great grandchild. Two nights ago, patient's concentrator for his BiPAP machine went out and he woke up at 2AM due to SOB. When his daughter checked his O2 sats they were 64%. Patient decided to sleep in his recliner using oxygen from his O2 tanks. Around 5am, patient woke up to change his O2 tank. Patient t ripped and fell on the back end of a kitchen chair. Daughter called fire department to help get patient up, but patient refused any medical care at that time. Since then, patient has had progressively worsening pain. Daughter states he has been complaining that he "felt like I broke a rib". This morning, daughter went in to work at 8am. Patient's son stopped by to check in on patient around lunch time. Patient's home health nurse was there at this time as well and told the son that the swelling in his legs was worsening and that he was up 3lbs from her visit on Friday. At this time, patient was endorsing weakness, fatigue, and nausea. Patient's son was then able to talk patient into going into the ER. Patient states that after deciding to come to the ER, he was unable to get up out of his chair due to his weakness. Patient states his pain is primarily located along his R flank and does not radiate. Feels sharp with inhalation. Rates his pain a 3/10 now. But it was a 10/10 before he was given some pain meds in the ER. In the ER, patient underwent CXR and chest CT which showed a large fluid collection in the left chest cavity suspicious for hemothorax, along with 8-10 rib fractures. Patient had a head CT negative for acute processes. Allergies and Home Medications Allergies Coded Allergies: No Known Drug Allergies (Unverified , 01/19/18) Patient Home Medication List Home Medication List Reviewed: Yes Allopurinol (Allopurinol) 100 Mg Tablet, 100 MG PO DAILY, (Reported) Entered as Reported by: TAB LOPEZ on 01/21/19 0850 Amiodarone HCl (Amiodarone HCl) 400 Mg Tablet, 400 MG PO DAILY Prescribed by: DEANNE GUEVARA on 02/15/22 1020 Atorvastatin Calcium (Atorvastatin Calcium) 40 Mg Tablet, 40 MG PO HS, (R eported) Entered as Reported by: LIZBETH MUIR on 06/08/20 1153 Calcitriol (Calcitriol) 0.25 Mcg Capsule, 0.25 MCG PO DAILY, (Reported) Entered as Reported by: LIZBETH MUIR on 01/23/22 1411 Carvedilol (Carvedilol) 12.5 Mg Tablet, 12.5 MG PO BID, (Reported) Entered as Reported by: LIZBETH MUIR on 01/23/22 1411 Cholecalciferol (Vitamin D3) (Vitamin D3) 25 Mcg Tablet, 25 MCG PO DAILY, (Reported) Entered as Reported by: LIZBETH MUIR on 03/17/20 1444 Clopidogrel Bisulfate (Clopidogrel) 75 Mg Tablet, 75 MG PO DAILY, (Reported) Entered as Reported by: LIZBETH MUIR on 02/14/22 1515 Ferrous Sulfate (Ferrous Sulfate) 325 Mg (65 Mg Iron) Tablet, 325 MG PO DAILY, (Reported) Entered as Reported by: LIZBETH MUIR on 01/23/22 1411 Furosemide (Lasix) 80 Mg Tablet, 80 MG PO DAILY Prescribed by: DEANNE GUEVARA on 02/15/22 1020 Gabapentin (Gabapentin) 100 Mg Capsule, 300 MG PO BID, (Reported) Entered as Reported by: LIZBETH MUIR on 03/17/20 1444 Insulin Aspart (Insulin Aspart) 100 Unit/Ml Vial, UNIT SQ AC PRN for H YPERGLYCEMIA, (Reported) Entered as Reported by: LIZBETH MUIR on 02/14/22 1517 Insulin Detemir (Levemir Flextouch) 100 Unit/Ml (3 Ml) Insuln.pen, 50 UNIT SQ BID, (Reported) Entered as Reported by: LIZBETH MUIR on 03/17/20 1444 Magnesium Oxide (Magnesium Oxide) 400 Mg Magnesium Tablet, 400 MG PO DAILY, (Reported) Entered as Reported by: LIZBETH MUIR on 02/14/22 1524 Metolazone (Metolazone) 5 Mg Tablet, 5 MG PO DAILY Prescribed by: DEANNE GUEVARA on 02/15/22 1020 [place]-3 Fatty Acids/Fish Oil ([place] 3 1,000 mg Softgel) 300 Mg-1,000 Mg Capsule, 2 EACH PO HS, (Reported) Entered as Reported by: LIZBETH MUIR on 02/14/22 1515 Potassium Chloride (Potassium Chloride) 20 Meq Tablet.er, 20 MEQ PO TID Prescribed by: DEANNE GUEVARA on 02/15/22 1020 Rivaroxaban (Xarelto) 15 Mg Tablet, 15 MG PO DAILY, (Reported) Entered as Reported by: LIZBETH MUIR on 02/14/22 1515 Tamsulosin HCl (Flomax) 0.4 Mg Cap, 0.4 MG PO BID, (Reported) Entered as Reported by: TAB LOPEZ on 01/21/19 0851 Past Rhefrdi-Vtrkuh-Vwflsf Hx Patient Social History Smoking Status: Former Smoker Former Smoker, Quit: Jun 29, 2011 Type Used: Cigarettes Recent Hopitalizations: No Alcohol Use?: No Have you traveled recently?: No Immunizations Up To Date Tetanus Booster (TDap): Unknown Date of Pneumonia Vaccine: Jan 27, 2020 Date of Influenza Vaccine: Jan 27, 2020 Seasonal Allergies Seasonal Allergies: No Surgeries History of Surgeries: Yes (AORTIC PATCH, ) Surgeries: Coronary Stent, Gallbladder, Prostatectomy, Vascular Surgery Respiratory History of Respiratory Disorde: Yes (chronic hypoxia) Respiratory Disorders: Sleep Apnea, COPD Cardiovascular History of Cardiac Disorders: Yes Cardiac Disorders: Atrial Fibrillation, Cardiomyopathy, Chronic Edema/Swelling, Coronary Artery Disease, Heart Attack, High Cholesterol, Hypertension, Peripheral Vascular Neurological History of Neurological Disord: Yes Neurological Disorders: Neuropathy Reproductive System Hx Reproductive Disorders: No Sexually Transmitted Disease: No HIV/AIDS: No Genitourinary History of Genitourinary Disor: Yes Genitourinary Disorders: Prostate Problems (cancer), Kidney Stones, Renal Failure Gastrointestinal History of Gastrointestinal Di: No Musculoskeletal History of Musculoskeletal Dis: Yes Musculoskeletal Disorders: Degenerate Disk Disease, Arthritis, Chronic Back Pain Endocrine History of Endocrine Disorders: Yes Endocrine Disorders: Diabetes, Insulin dep HEENT Loss of Vision: Bilateral Hearing Impairment: Denies Cancer History of Cancer: Yes Cancer: Prostate Psychosocial History of Psychiatric Problem: No Integumentary History of Skin or Integumenta: Yes (FROM RADIATION) Skin/Integumentary Disorders: Recent Skin Changes Blood Transfusions History of Blood Disorders: No Adverse Reaction to a Blood Tr: No (N/A) Family Medical History Significant Family History: AAA, Cancer (prostate, "throat", ) Review of Systems-General Constitutional: dizziness, weakness EENTM: No eye pain, No epistaxis Respiratory: cough (wet), dyspnea on exertion, orthopnea, short of breath Cardiovascular: No chest pain; edema; No palpitations Gastrointestinal: No abdominal pain; other (diastasis recti) Genitourinary: No dysuria, No hematuria Musculoskeletal: back pain, joint pain, other (flank pain) Skin: change in color, other (edema) Psychiatric/Neurological: Denies Anxiety, Denies Depressed Physical Exam-General Problems Physical Exam Vital Signs Vital Signs - First Documented 03/14/22 03/14/22 03/14/22 13:02 13:10 13:39 Temp 36.3 Pulse 83 Resp 24 B/P (MAP) 140/110 (120) Pulse Ox 97 O2 Delivery Room Air O2 Flow Rate 3.00 Capillary Refill : Greater Than 3 Seconds General Appearance: WD/WN, mild distress HEENT: PERRL/EOMI Neck: non-tender, other (scar from carotid sgy on left) Respiratory: decreased breath sounds (diffuse, worst in left lower lobe), accessory muscle use, other (wet cough) Cardiovascular: no murmur, irregularly irregular Gastrointestinal: non tender, distended (central adiposity, patient's baseline) Rectal: deferred Back: CVA tenderness (L), other (Left flank tenderness from aroun left lower ribs ) Extremities: pedal edema (pitting, up to knee anterior, also posterior swelling superior to knee), other (small area of skin sloughing on posterior right leg. Bandaging in place in two places on right leg from home health nurse. ) Neurologic/Psychiatric: alert, oriented x 3 Skin: warm/dry, pallor Data Review Labs Laboratory Tests 03/14/22 13:50: Troponin I 0.051H 03/14/22 14:01: White Blood Count 10.1, Red Blood Count 4.34, Hemoglobin 12.7L, Hematocrit 40, Mean Corpuscular Volume 93, Mean Corpuscular Hemoglobin 29, Mean Corpuscular Hemoglobin Concent 32, Red Cell Distribution Width 14.5, Platelet Count 222, Mean Platelet Volume 9.4, Immature Granulocyte % (Auto) 1, Neutrophils (%) (Auto) 79H, Lymphocytes (%) (Auto) 10L, Monocytes (%) (Auto) 8, Eosinophils (%) (Auto) 3, Basophils (%) (Auto) 0, Neutrophils # (Auto) 8.0H, Lymphocytes # (Auto) 1.0, Monocytes # (Auto) 0.8, Eosinophils # (Auto) 0.3, Basophils # (Auto) 0.0, Immature Granulocyte # (Auto) 0.1, Prothrombin Time 34.3H, INR Comment 3.3H , Activated Partial Thromboplast Time 57H, Sodium Level 136, Potassium Level 4.5, Chloride Level 91L, Carbon Dioxide Level 34H, Anion Gap 11, Blood Urea Nitrogen 43H, Creatinine 2.26H, Estimat Glomerular Filtration Rate 28, BUN/Creatinine Ratio 19, Glucose Level 123H, Lactic Acid Level 1.31, Calcium Level 9.2, Corrected Calcium 9.8, Total Bilirubin 0.7, Aspartate Amino Transf (AST/SGOT) 21, Alanine Aminotransferase (ALT/SGPT) 23, Alkaline Phosphatase 127, B-Type Natriuretic Peptide 320.0H, Total Protein 7.2, Albumin 3.3 Radiology [facility]. [place], [place] NAME: GHASSAN LAYTON [facility] REC#: [id number] PT STATUS: REG ER : 1940 PHYSICIAN: MICKIE LOFTON MD ADMIT DATE: 03/14/22/ER Draft Date of Exam:03/14/22 CT HEAD WO INDICATION: Fall with injury to head. TECHNIQUE: Multiple contiguous axial images were obtained through the brain without the use of intravenous contrast. Auto Exposure Controls were utilized during the CT exam to meet ALARA standards for radiation dose reduction. There is no prior head CT for comparison. FINDINGS: There are diffuse atrophic changes. There are no extra-axial fluid collections. No intracranial hemorrhage. There are mild low-density changes in the deep white matter compatible with chronic ischemic change. There is no acute appearing intracranial abnormality. Calvarial windows were unremarkable. IMPRESSION: Mild chronic changes with no acute intracranial process. Dictated on workstation # [id number] Dict: 03/14/22 1437 Trans: 03/14/22 1441 [id number] Interpreted by: BRIGETTE AJ MD Electronically signed by: RON [facility] PSYCHIATRIC CENTERWave Accounting [facility]. [place], [place] NAME: GHASSAN LAYTON [facility] REC#: [id number] PT STATUS: REG ER : 1940 PHYSICIAN: MICKIE LOFTON MD ADMIT DATE: 03/14/22/ER Draft Date of Exam:03/14/[address] CHEST WO TECHNIQUE: Multiple contiguous axial images were obtained through the chest without the use of intravenous contrast. All CT scans use one or more of the following dose optimizing techniques: automated exposure control, MA and/or KvP adjustment based on a patient size and exam type, or iterative reconstruction. INDICATION: Left-sided rib pain after fall. COMPARISON: Portable chest from earlier same day. FINDINGS: Lungs and airway: Central groundglass attenuation within the lungs. Subtotal atelectasis in the lingula and left lower lobe. Pleura: Large left pleural effusion is present. Lobulated areas of hyperattenuation within the pleural effusion in the lower left chest are adjacent to rib fractures and suggest hemothorax. Trace right pleural effusion is simple. Heart and mediastinum: No supraclavicular or axillary lymphadenopathy. No mediastinal lymphadenopathy. Cardiomegaly is present. Severe coronary artery calcifications are noted. Normal-caliber thoracic aorta. Upper abdomen: No acute abnormality in the upper abdomen by noncontrast CT. Musculoskeletal: Acute fractures in the posterolateral aspect of the 8th through 10th ribs. The 9th rib fracture is mildly angulated but not depressed. No sternal fracture. Ankylosis in the thoracic spine due to DISH. No acute fracture. IMPRESSION: 1. Acute fractures of the left 8th through 10th ribs are nondepressed. 2. There is associated hyperattenuation in the pleural space adjacent to rib fractures, most indicative of hemothorax. This should account for the large pleural effusion. Follow-up CT may be warranted in the future to ensure resolution and exclude underlying pleural mass. 3. Central pulmonary opacities could be due to a mixture of edema and atelectasis. Dictated on workstation # [id number] Dict: 03/14/22 1445 Trans: 03/14/22 1504 [facility] [id number] Interpreted by: OSWALDO SIU MD Electronically signed by: [facility]. [place], [place] NAME: GHASSAN LAYTON [facility] REC#: [id number] PT STATUS: REG ER : 1940 PHYSICIAN: MICKIE LOTFON MD ADMIT DATE: 03/14/22/ER Draft Date of Exam:03/14/22 CHEST 1 VIEW, AP/PA ONLY CLINICAL INDICATION: Patient with left rib pain after fall two days ago. Patient has been taking hydrocodone at home for pain without relief. EXAM: Portable chest x-ray, upright view. COMPARISON: Chest x-ray dated 02/15/2022. FINDINGS: There is interval development of a moderate to large-sized left pleural effusion and consolidation of the left mid lung field and left lung base. There is no pneumothorax. Cardiomegaly noted. Pulmonary vasculature is within normal limits. There are degenerative spurs involving the spine. Limited visualization of the ribs due to patient body habitus. There is no definite fracture seen. IMPRESSION: 1: There is interval development of a moderate to large-sized left pleural effusion and consolidation of the left mid lung field and left lung base. In the setting of trauma, hemothorax cannot be completely excluded. CT scan of the chest is suggested for further evaluation. This would also help better evaluate for fractures. 2: There are no fractures seen on this exam. Dictated on workstation # [id number] Dict: 03/14/22 1420 Trans: 03/14/22 1425 [id number] Interpreted by: NAKUL SWANN MD Electronically signed by: Assessment/Plan Assessment/Plan Assessment/Plan Hemothorax Left Rib Fractures ribs 8-10 Atrial Fibrillation CAD Chronic CHF CKD Stage IV T2DM - insulin dependent HTN HLD Obstructive sleep apnea COPD Obesity hypoventilation syndrome Plan Patient is on anti-platelet and anti-coagulation medications due to severe heart history. Feel as though at this time introducing a needle for thoracentesis will just produce another site for bleeding to occur. I feel as though a more conservative approach of holding blood thinners and repeat imaging to monitor evolution vs resolution of hemothorax is the better approach at this time. This will most likely lead to blood coagulation. Which will require the body to reabsorb the blood over time. Will discuss case with patient's center specialists Dr. Hall. Chest X-ray and Chest CT were reviewed and case was disussed with the ED physician. MARIANA CERNA DO 03/15/22 0017: History of Present Illness History of Present Illness Time Seen by Provider: 16:41 History of Present Illness Surgery asked to consult regarding Hemothorax and rib fractures. HPI per ED: Here with report of fall 2 days ago and hitting a table on his left ribs. He broke the table. Apparently at that time, he had run out of his oxygen after he had a concentrator failed and had to switch to tanks. He was trying to switch from one tank to the other when he lost his balance and fell. They did call fire department who did a lift assist. He refused. Support to the hospital for evaluation. Today states that he believes that he broke his ribs on the left side. He is coughing. He is still on antibiotics for possible pneumonia which includes both cefdinir and levofloxacin. Also reports increasing left leg swelling and 3 pound weight gain with history of heart failure. He has wounds to both legs. Apparently the wounds to the right leg appear better but the wounds to the left leg are starting to get a worse per the family and the patient. Family reports the home health nurse had stated that the leg looks a little worse as well. Patient reports that he had difficulty with ambulating via walker to the bathroom due to weakness and this was verified by the family as well. Patient denies hitting his head but is on blood thinners. Denies headache or neck pain currently. His main concern is the left chest wall and significant pain. He did take a hydrocodone this morning for pain which did not help but did cause nausea. He is still suffering from that some. Timing/Duration: 1-2 Days Severity: Moderate Modifying Factors: improves with Immobilization; worse with Movement Associated Systoms: Chest Pain (Left chest wall), Cough; No Fever/Chills, No Headaches; Nausea/Vomiting, Shortness of Air, Weakness When I spoke to the pt this afternoon, he was in cardiac step down. He was breathing fine, complaining of pain and swelling in his legs with minimal worsening of his breathing. Also having trouble with deep breaths. When I came in this evening he was in the ICU, had had an episode of non- responsiveness after standing up to urinate and because back was hurting. Did not appear to be in any more distress than at around 5pm, was alert and oriented. Allergies and Home Medications Allergies Coded Allergies: No Known Drug Allergies (Unverified , 01/19/18) Patient Home Medication List Home Medication List Reviewed: Yes Allopurinol (Allopurinol) 100 Mg Tablet, 100 MG PO DAILY, (Reported) Entered as Reported by: TAB LOPEZ on 01/21/19 0850 Amiodarone HCl (Amiodarone HCl) 400 Mg Tablet, 400 MG PO DAILY Prescribed by: DEANNE GUEVARA on 02/15/22 1020 Atorvastatin Calcium (Atorvastatin Calcium) 40 Mg Tablet, 40 MG PO HS, (Rep orted) Entered as Reported by: LIZBETH MUIR on 06/08/20 1153 Calcitriol (Calcitriol) 0.25 Mcg Capsule, 0.25 MCG PO DAILY, (Reported) Entered as Reported by: LIZBETH MUIR on 01/23/22 1411 Carvedilol (Carvedilol) 12.5 Mg Tablet, 12.5 MG PO BID, (Reported) Entered as Reported by: LIZBETH MUIR on 01/23/22 1411 Cholecalciferol (Vitamin D3) (Vitamin D3) 25 Mcg Tablet, 25 MCG PO DAILY, (Reported) Entered as Reported by: LIZBETH MUIR on 03/17/20 1444 Clopidogrel Bisulfate (Clopidogrel) 75 Mg Tablet, 75 MG PO DAILY, (Reported) Entered as Reported by: LIZBETH MUIR on 02/14/22 1515 Ferrous Sulfate (Ferrous Sulfate) 325 Mg (65 Mg Iron) Tablet, 325 MG PO DAILY, (Reported) Entered as Reported by: LIZBETH MUIR on 01/23/22 1411 Furosemide (Lasix) 80 Mg Tablet, 80 MG PO DAILY Prescribed by: DEANNE GUEVARA on 02/15/22 1020 Gabapentin (Gabapentin) 100 Mg Capsule, 300 MG PO BID, (Reported) Entered as Reported by: LIZBETH MUIR on 03/17/20 1444 Insulin Aspart (Insulin Aspart) 100 Unit/Ml Vial, UNIT SQ AC PRN for HYP ERGLYCEMIA, (Reported) Entered as Reported by: LIZBETH MUIR on 02/14/22 1517 Insulin Detemir (Levemir Flextouch) 100 Unit/Ml (3 Ml) Insuln.pen, 50 UNIT SQ BID, (Reported) Entered as Reported by: LIZBETH MUIR on 03/17/20 1444 Magnesium Oxide (Magnesium Oxide) 400 Mg Magnesium Tablet, 400 MG PO DAILY, (Reported) Entered as Reported by: LIZBETH MUIR on 02/14/22 1524 Metolazone (Metolazone) 5 Mg Tablet, 5 MG PO DAILY Prescribed by: DEANNE GUEVARA on 02/15/22 1020 [place]-3 Fatty Acids/Fish Oil ([place] 3 1,000 mg Softgel) 300 Mg-1,000 Mg Capsule, 2 EACH PO HS, (Reported) Entered as Reported by: LIZBETH MUIR on 02/14/22 1515 Potassium Chloride (Potassium Chloride) 20 Meq Tablet.er, 20 MEQ PO TID Prescribed by: DEANNE GUEVARA on 02/15/22 1020 Rivaroxaban (Xarelto) 15 Mg Tablet, 15 MG PO DAILY, (Reported) Entered as Reported by: LIZBETH MUIR on 02/14/22 1515 Tamsulosin HCl (Flomax) 0.4 Mg Cap, 0.4 MG PO BID, (Reported) Entered as Reported by: TAB LOPEZ on 01/21/19 0851 Past Tpeytxr-Aokosm-Snaknf Hx Patient Social History Smoking Status: Former Smoker Alcohol Use?: No Surgeries History of Surgeries: Yes Surgeries: Angioplasty, Coronary Stent, Gallbladder, Prostatectomy, Vascular Surgery (AAA repair - endovascular) Respiratory History of Respiratory Disorde: Yes Respiratory Disorders: Sleep Apnea, COPD Cardiovascular History of Cardiac Disorders: Yes Cardiac Disorders: Atrial Fibrillation, Cardiomyopathy, Chronic Edema/Swelling, Coronary Artery Disease, Heart Attack, High Cholesterol, Hypertension, Peripheral Vascular Neurological History of Neurological Disord: Yes Neurological Disorders: Neuropathy Genitourinary History of Genitourinary Disor: Yes Genitourinary Disorders: Prostate Problems (cancer), Kidney Stones, Renal Failure Gastrointestinal History of Gastrointestinal Di: Yes Gastrointestinal Disorders: Gastroesophageal Reflux, Gall Bladder Disease Musculoskeletal History of Musculoskeletal Dis: Yes Musculoskeletal Disorders: Degenerate Disk Disease, Arthritis, Chronic Back Pain Endocrine History of Endocrine Disorders: Yes Endocrine Disorders: Diabetes, Insulin dep HEENT Loss of Vision: Bilateral Hearing Impairment: Hard of Hearing Cancer History of Cancer: Yes Cancer: Prostate Psychosocial History of Psychiatric Problem: No Integumentary History of Skin or Integumenta: Yes (bruising and thin skin) Family Medical History Significant Family History: AAA, Cancer (prostate, "throat", ) Review of Systems-General Constitutional: dizziness, weakness EENTM: hearing loss; No eye pain, No mouth swelling, No epistaxis Respiratory: cough (wet), dyspnea on exertion, orthopnea, short of breath, ot her (chest/rib pain) Cardiovascular: No chest pain; edema, Hx of Intervention; No palpitations Gastrointestinal: No abdominal pain; other (diastasis recti) Genitourinary: No dysuria; frequency; No hematuria; hesitancy, nocturia Musculoskeletal: back pain, joint pain, other (flank pain) Skin: change in color, other (edema) Psychiatric/Neurological: Denies Anxiety, Denies Depressed Physical Exam-General Problems Physical Exam General Appearance: mild distress, moderate distress, obese Eyes: Bilateral Eye PERRL, Bilateral Eye EOMI HEENT: pharynx normal; No scleral icterus (R), No scleral icterus (L); other (edentulous) Neck: non-tender, supple, other (scar from carotid sgy on left) Respiratory: respiratory distress (mild), decreased breath sounds (diffuse, worst in left lower lobe), accessory muscle use, other (wet cough, dullness to percussion LEFT lung mid and base) Cardiovascular: no murmur, irregularly irregular Gastrointestinal: non tender, soft, no organomegaly, distended (central adiposity, patient's baseline) Rectal: deferred Back: CVA tenderness (L), other (Left flank tenderness from aroun left lower ribs ) Extremities: pedal edema (pitting, up to knee anterior, also posterior swelling superior to knee), other (small area of skin sloughing on posterior right leg. Bandaging in place in two places on right leg from home health nurse. ) Neurologic/Psychiatric: alert, oriented x 3 Skin: warm/dry, other (multiple ecchymosis on arms and leg), pallor Lymphatic: no adenopathy (neck, axilla or groin) Data Review Radiology Date of Exam:03/14/22 CHEST 1 VIEW, AP/PA ONLY INDICATION: Rapid response. Pneumonia. COMPARISON: Chest radiograph from earlier this same date. FINDINGS: There is severe left thoracic pleural-parenchymal opacity with near complete whiteout. Only a tiny portion of the apical aspect of the left upper lobe is aerated today. More diffuse interstitial opacities in the right chest have progressed. IMPRESSION: 1. Further progressive severe left thoracic pleural-parenchymal opacity now results in near complete white out with only minimal apical lung aerated. 2. No pneumothorax. Dictated by: Dictated on workstation # [id number] Dict: 03/14/222103 Trans: 03/14/222118 [facility] [id number] Interpreted by: NICOLETTE MORA Electronically signed by: NICOLETTE MORA 03/14/222118 Assessment/Plan Assessment/Plan Assessment/Plan Hemothorax - worsening Left Rib Fractures ribs 8-10 Atrial Fibrillation CAD Chronic CHF CKD Stage IV T2DM - insulin dependent HTN HLD Obstructive sleep apnea COPD Obesity hypoventilation syndrome Plan Patient is on anti-platelet and anti-coagulation medications due to severe heart history. He had episode when he stood up; most likely Vaso-Vagal and due to hypoxia - which brought him to ICU. I saw pt just before 5pm and then came back when called about the episode and new findings, talked with family for over 30 minutes tonight. I reviewed the CT myself earlier (believe there may be layering which indicates continued bleeding) and the new CXR (which probably shows worsening from previous, again more active bleeding). I ordered some platelets and K-Centra to try and reverse the anticoagulation. In my discussion with family I went over options.....1) do nothing at all 2) platelets, K-centra and monitor breathing and 3) Chest tube placement. Unfortunately, I think chest tube or even just thoracentesis would just produce another site for bleeding to occur. I feel as though a more conservative approach of holding blood thinners and repeat imaging to monitor evolution vs resolution of hemothorax is the better approach at this time. The blood that is already in the chest will likely coagulate and then require the body to reabsorb the blood over time (up to a couple of months). A chest tube will only address his breathing, which when I was in his room tonight was above 95% the entire time. Chest tube will not stop bleeding, it may drain out the blood in there and therefore be less to reabsorb; but, there will still be a lot to reabsorb. Right now his breathing is fine and therefore I would not recommend chest tube. The pt stated he would do whatever his family wants (but also said he wanted to wait until the am). His family decided to hold off on chest tube. I also talked to them about the fact that he is very sick, multiple other concurrent problems and co- morbidities. This means even little things could cause a big problem; like AK or . I personally reviewed Chest X-ray and Chest CT and case was disussed with the ED physician (this afternoon) as well as the Manager Technical Services vignesh. Supervisory-Addendum Brief Verification & Attestation Participated in pt care: history, MDM, physical Personally performed: exam, history, MDM, supervision of care Care discussed with: Medical Student Procedures: n/a Verification and Attestation of Medical Student E/M Service A medical student performed and documented this service. I then reviewed and verified all information documented by the medical student and made modifications to such information, when appropriate. I personally performed a physical exam, medical decision making and then discussed any differences between the notes and made revisions as necessary to create one note. Mariana Cerna , 03/15/22 , 00:31 CARLOS WELLINGTON Mar 14, 2022 15:54 MARIANA CERNA DO Mar 15, 2022 00:17
[2022-03-14] MEDS ORDERED: CALCIUM CARBONATE 500 MG (TUMS) TAB.CHEW PO PRN (16:30)
[2022-03-14] MEDS ORDERED: MELATONIN 3 MG TABLET PO PRN (16:30)
[2022-03-14] MEDS ORDERED: ANTACID SUSP 30 ML UDC (MYLANTA) PO PRN (16:30)
[2022-03-14] MEDS ORDERED: polyethylene glycoL POWDER 17 GM (MIRALAX) PACK PO PRN (16:30)
[2022-03-14] MEDS ORDERED: fentaNYL INJ 100 MCG/2 ML AMP ONE (16:40)
[2022-03-14] MEDS: fentaNYL INJ 100 MCG/2 ML AMP IVP PRN ×2 (16:42→18:22)
[2022-03-14] MEDS ORDERED: RT-ALBUTEROL/IPRATROPIUM 3 ML (DUONEB) VIAL INH PRN (17:15)
--- NOTE | 2022-03-14 17:34 | Consultation-Cardiology ---
HPI-Cardiology Cardiology Consultation: Date of Consultation 03/14/22 Time Seen by a Provider: 17:00 Date of Admission Attending Physician Anny Kemp Admitting Physician Admitting Physician: Jacy Melgoza MD Attending Physician: Jacy Melgoza MD Consulting Physician MATT GUPTA MD, MA, FACP, FACC, FSCAI, CCDS Physician requesting consult: Dr Melgoza HPI: Chief Complaint: Reason for Card consult: Elevated troponin 82 yo man with multiple comorbidities who took a nonsyncopal fall 2 days ago and was hospitalized from the ER to Dr Melgoza today for L rib fractures and L hemothorax. He has chronic shortness of breath and leg swelling. Leg swelling has worsened lately. He denies cp. He has had problems with his supplemental oxygen supply at home the last several days. He states his oxygen sat had dropped to as low as 69% at home. He denies palp or syncope. He does not report focal weakness. He does report gen weakness and malaise Review of Systems-Cardiology Review of Systems Constitutional: malaise, tiredness; No weight loss; weight gain Eyes: No vision change Ears/Nose/Throat: No ear discharge, No nasal drainage, No recent hearing loss Respiratory: As described under HPI Cardiovascular: As described under HPI Gastrointestinal: No diarrhea, No nausea, No vomiting Genitourinary: No dysuria, No hematuria, No urine frequency changes Musculoskeletal: back pain (chronic) Skin: other (chronic, small, shallow ulcers on the skin of both legs) Psychiatric/Neurological: No seizure, No focal weakness, No syncope Hematologic: No bleeding abnormalities All Other Systems Reviewed Negative Unless Noted: Yes [id number] Hx Patient Social History Smoking Status: Former Smoker Have you traveled recently?: No Alcohol Use?: No Pt feels they are or have been: No Immunizations Up To Date Tetanus Booster (TDap): Unknown Date of Pneumonia Vaccine: Jan 27, 2020 Date of Influenza Vaccine: Jan 27, 2020 Past Medical History PMH As described under Assessment. Family Medical History Family Medical History: No reported family h/o CAD Allergies and Home Medications Allergies Coded Allergies: No Known Drug Allergies (Unverified , 01/19/18) Patient Home Medication List Home Medication List Reviewed: Yes Allopurinol (Allopurinol) 100 Mg Tablet, 100 MG PO DAILY, (Reported) Entered as Reported by: TAB LOPEZ on 01/21/19 0850 Amiodarone HCl (Amiodarone HCl) 400 Mg Tablet, 400 MG PO DAILY Prescribed by: DEANNE GUEVARA on 02/15/22 1020 Atorvastatin Calcium (Atorvastatin Calcium) 40 Mg Tablet, 40 MG PO HS, (Reported) Entered as Reported by: LIZBETH MUIR on 06/08/20 1153 Calcitriol (Calcitriol) 0.25 Mcg Capsule, 0.25 MCG PO DAILY, (Reported) Entered as Reported by: LIZBETH MUIR on 01/23/22 1411 Carvedilol (Carvedilol) 12.5 Mg Tablet, 12.5 MG PO BID, (Reported) Entered as Reported by: LIZBETH MUIR on 01/23/22 1411 Cholecalciferol (Vitamin D3) (Vitamin D3) 25 Mcg Tablet, 25 MCG PO DAILY, (Reported) Entered as Reported by: LIZBETH MUIR on 03/17/20 1444 Clopidogrel Bisulfate (Clopidogrel) 75 Mg Tablet, 75 MG PO DAILY, (Reported) Entered as Reported by: LIZBETH MUIR on 02/14/22 1515 Ferrous Sulfate (Ferrous Sulfate) 325 Mg (65 Mg Iron) Tablet, 325 MG PO DAILY, (Reported) Entered as Reported by: ILZBETH MUIR on 01/23/22 1411 Furosemide (Lasix) 80 Mg Tablet, 80 MG PO DAILY Prescribed by: DEANNE GUEVARA on 02/15/22 1020 Gabapentin (Gabapentin) 100 Mg Capsule, 300 MG PO BID, (Reported) Entered as Reported by: LIZBETH MUIR on 03/17/20 1444 Insulin Aspart (Insulin Aspart) 100 Unit/Ml Vial, UNIT SQ AC PRN for HYPERGLYCEMIA, (Reported) Entered as Reported by: LIZBETH MUIR on 02/14/22 1517 Insulin Detemir (Levemir Flextouch) 100 Unit/Ml (3 Ml) Insuln.pen, 50 UNIT SQ BID, (Reported) Entered as Reported by: LIZBETH MUIR on 03/17/20 1444 Magnesium Oxide (Magnesium Oxide) 400 Mg Magnesium Tablet, 400 MG PO DAILY, (Reported) Entered as Reported by: LIZBETH MUIR on 02/14/22 1524 Metolazone (Metolazone) 5 Mg Tablet, 5 MG PO DAILY Prescribed by: DEANNE GUEVARA on 02/15/22 1020 [place]-3 Fatty Acids/Fish Oil ([place] 3 1,000 mg Softgel) 300 Mg-1,000 Mg Capsule, 2 EACH PO HS, (Reported) Entered as Reported by: LIZBETH MUIR on 02/14/22 1515 Potassium Chloride (Potassium Chloride) 20 Meq Tablet.er, 20 MEQ PO TID Prescribed by: DEANNE GUEVARA on 02/15/22 1020 Rivaroxaban (Xarelto) 15 Mg Tablet, 15 MG PO DAILY, (Reported) Entered as Reported by: LIZBETH MUIR on 02/14/22 1515 Tamsulosin HCl (Flomax) 0.4 Mg Cap, 0.4 MG PO BID, (Reported) Entered as Reported by: TAB LOPEZ on 01/21/19 0851 Physical Exam-Cardiology Physical Exam Vital Signs/I&O 03/14/22 03/14/22 03/14/22 03/14/22 13:02 13:05 13:10 13:39 Temp 36.3 Pulse 83 Resp 24 B/P (MAP) 140/110 (120) 112/78 (89) Pulse Ox 97 96 95 O2 Delivery Room Air Nasal Cannula Nasal Cannula Nasal Cannula O2 Flow Rate 3.00 3.00 4.00 03/14/22 03/14/22 03/14/22 03/14/22 14:42 16:15 16:20 16:27 Temp 36.3 35.7 Pulse 90 B/P (MAP) 124/78 (93) Pulse Ox 94 O2 Delivery Nasal Cannula O2 Flow Rate 4.00 03/14/22 03/14/22 03/14/22 03/14/22 16:30 16:40 16:42 16:45 Temp 35.7 Pulse 93 88 85 Resp 21 20 17 B/P (MAP) 129/97 (108) 111/83 129/73 (91) Pulse Ox 97 96 94 O2 Delivery Nasal Cannula Room Air Nasal Cannula O2 Flow Rate 4.00 4.00 03/14/22 03/14/22 03/14/22 16:55 17:00 17:15 Temp 35.7 Pulse 88 91 101 Resp 24 22 B/P (MAP) 128/83 (98) 120/47 (71) Pulse Ox 96 69 100 O2 Delivery Nasal Cannula Nasal Cannula O2 Flow Rate 4.00 4.00 FiO2 36 Capillary Refill : Greater Than 3 Seconds Constitutional: AAO x 3, well-developed, well-nourished HEENT: EOMI, hearing is well preserved; No xanthelasmas are seen Neck: carotid pulses are 2 + bilaterally, with good upstrokes Respiratory: No accessory muscle use; other (diminished air entry and rales at the bases) Cardiovascular: No irregularly irregular; S1 and S2, systolic murmur (soft KELSI at card base) Gastrointestinal: No tender, No guarding, No rebound; audible bowel sounds Extremities: No clubbing, No cyanosis; significant edema (marked, bilateral leg swelling) Neurologic/Psychiatric: other (moves all limbs equally) Skin: other (small ulcerations, shallow, on the shins of both leg) Data Review Labs Laboratory Tests 03/14/22 13:50: Troponin I 0.051H 03/14/22 14:01: White Blood Count 10.1, Red Blood Count 4.34, Hemoglobin 12.7L, Hematocrit 40, Mean Corpuscular Volume 93, Mean Corpuscular Hemoglobin 29, Mean Corpuscular Hemoglobin Concent 32, Red Cell Distribution Width 14.5, Platelet Count 222, Mean Platelet Volume 9.4, Immature Granulocyte % (Auto) 1, Neutrophils (%) (Auto) 79H, Lymphocytes (%) (Auto) 10L, Monocytes (%) (Auto) 8, Eosinophils (%) (Auto) 3, Basophils (%) (Auto) 0, Neutrophils # (Auto) 8.0H, Lymphocytes # (Auto) 1.0, Monocytes # (Auto) 0.8, Eosinophils # (Auto) 0.3, Basophils # (Auto) 0.0, Immature Granulocyte # (Auto) 0.1, Prothrombin Time 34.3H, INR Comment 3.3H , Activated Partial Thromboplast Time 57H, Sodium Level 136, Potassium Level 4.5, Chloride Level 91L, Carbon Dioxide Level 34H, Anion Gap 11, Blood Urea Nitrogen 43H, Creatinine 2.26H, Estimat Glomerular Filtration Rate 28, BUN/Cre atinine Ratio 19, Glucose Level 123H, Lactic Acid Level 1.31, Calcium Level 9.2, Corrected Calcium 9.8, Total Bilirubin 0.7, Aspartate Amino Transf (AST/SGOT) 21, Alanine Aminotransferase (ALT/SGPT) 23, Alkaline Phosphatase 127, B-Type Natriuretic Peptide 320.0H, Total Protein 7.2, Albumin 3.3 Laboratory Tests 03/14/22 14:01 A/P-Cardiology Assessment/Admission Diagnosis Non-syncopal fall on 03/12/22 leading L-sided rib fractures and hemothorax Mild troponin elevation: Type 2 [place] due to hypoxia (oxygen-delivery equipment failure at home) Chronic systolic and diastolic CHF, NYHA Class III - Echocardiogram of Mar 17, [address] Guillen showed concentric hypertrophy. LVEF 45-50%. Mild to MR and AoR. PASP 25-30mmHg CAD - Report coronary PCI beginning in the (doesn't know details). 12/07/2010: proximal circumflex artery was treated with Promus 4 x 12, mid circumflex with Promus 3.0 x 15, mid RCA 4 x 28 Promus, mid RCA Promus 4 x 12, proximal RCA Promus 4 x 23, proximal RCA Promus 4 x 23. 11/04/2011: proximal RCA treated with Promus element 3.5 x 28 mm stent, mid first diagonal artery treated with Promus element 2.25 x 24 mm stent. - Most recent coronary angiography of Dec [address] Guillen: showed moderate ostial LAD stenosis with FFR 0.94, which shows non-obstructive disease. Patent stent in the first diagonal artery and the RCA. Patent stent in the proximal LAD. PAD - Peripheral angiogram of Dec [address] Guillen: showed on the left showed moderate/severe diffuse calcified disease in the SFA, severe stenosis in the distal SFA. Suboptimal visualization in the popliteal artery however likely severe distal popliteal stenosis. At least one vessel runoff below the knee with a posterior tibial artery. Small diffusely diseased deep peroneal as well as anterior tibial artery. Right lower extremity shows moderate diffuse calcified disease in the SFA in the popliteal artery. Two-vessel runoff with a posterior tibial as well as deep peroneal artery. Heavily diseased small anterior tibial artery. - AAA Repair: 08/10/[address] Stallworth at [facility] SHYAM Sykes - CT of the abdomen without contrast on Dec 28, 2019: Previously treated abdominal aortic aneurysm. The maximum sac diameter is 4.6 cm. This is essentially unchanged compared to the prior examination from 2016 per Chronic kidney disease stage IV - follows with [facility] Intolerant to RENU-inhib/ARB due to hypotension and renal failure Persistent atrial fibrillation - OAC with Eliquis Carotid arterial dz: - s/p L CEA in October [address] Reddy at [facility]. Carotid art disease is being followed at the same office HTN - controlled HLD - statin - managed by PCP VILMA Abnormal ECG - Chronic RBBB DM 2 - managed by PCP BPH and chronic dysuria and hesitancy H/O GI bleed and acute anemia in early 2020 - s/p endoscopy by Dr. Rushing (May 2020) - GERD, gastritis, hiatal hernia, internal/external hemorrhoids - followed by Dr Dubon and Dr Rushing Discussion and Recomendations * Complex management * Hold anticoag and antiplatelet agents for now * Continue diuretics * Monitor labs closely MATT GUPTA MD FACP FAC CCDS Mar 14, 2022 17:34
[2022-03-14] MEDS ORDERED: FUROSEMIDE 40 MG/4 ML INJ (LASIX) IVP NR (18:00)
[2022-03-14] MEDS: RT-ALBUTEROL/IPRATROPIUM 3 ML (DUONEB) VIAL INH SCH ×2 (18:38→22:28)
[2022-03-14] MEDS: ONDANSETRON 4 MG/2 ML (SDV) Z0FRAN IV PRN (19:34)
[2022-03-14 20:51] LABS: ABG BASE EXCESS 5.2 MMOL/L (-2.5-2.5); ABG OXYGEN SATURATION 94 % (94-100); ABG PCO2 65 MMHG (35-45); ABG PO2 71 MMHG (79-93); ABG TCO2 33.5 MMOL/L (21.0-31.0)
[2022-03-14 20:54] LABS: ALLENS TEST YES-POS; INSPIRED O2 10L; PATIENT TEMP 35.9; VENTILATOR NO
--- NOTE | 2022-03-14 21:08 | Diagnostic Imaging Report ---
INDICATION: Rapid response. Pneumonia. COMPARISON: Chest radiograph from earlier this same date. FINDINGS: There is severe left thoracic pleural-parenchymal opacity with near complete whiteout. Only a tiny portion of the apical aspect of the left upper lobe is aerated today. More diffuse interstitial opacities in the right chest have progressed. IMPRESSION: 1. Further progressive severe left thoracic pleural-parenchymal opacity now results in near complete white out with only minimal apical lung aerated. 2. No pneumothorax. Dictated by: Dictated on workstation # [id number]
[2022-03-14] MEDS ORDERED: NS IV 500 ML 500 ML IV PRN (21:30)
--- NOTE | 2022-03-14 22:12 | Tele-ICU Consult ---
History of Present Illness History of Present Illness Date Seen by Provider: Mar 14, 2022 Time Seen by Provider: 22:07 History of Present Illness eICU admit note 82 yo M fell 2 days ago, [non syncopal], CXR shows multiple rib Fx and hemothorax. CT chest shows rib Fx on left 8-10, CT chest suggests hemothorax, CT head shows no bleed Pt on Xarelto which was stopped today. Pt moved to MICU after dropped SpO2 40-50% and became unresponsive, now awake and oriented with SpO2 in 90's Long Hx of CAD, A fib, PVD, Left CEA, on OAC, amiodarone at home, endovascular repair of AAA Also DM2, HTN, HLD, VILMA, Hx of GIB Allergies and Home Medications Allergies Coded Allergies: No Known Drug Allergies (Unverified , 01/19/18) Home Medications Allopurinol 100 Mg Tablet, 100 MG PO DAILY, (Reported) Amiodarone HCl 400 Mg Tablet, 400 MG PO DAILY Prescribed by: DEANNE GUEVARA on 02/15/22 1020 Atorvastatin Calcium 40 Mg Tablet, 40 MG PO HS, (Reported) Calcitriol 0.25 Mcg Capsule, 0.25 MCG PO DAILY, (Reported) Carvedilol 12.5 Mg Tablet, 12.5 MG PO BID, (Reported) Cholecalciferol (Vitamin D3) 25 Mcg Tablet, 25 MCG PO DAILY, (Reported) Clopidogrel Bisulfate 75 Mg Tablet, 75 MG PO DAILY, (Reported) Ferrous Sulfate 325 Mg (65 Mg Iron) Tablet, 325 MG PO DAILY, (Reported) Furosemide 80 Mg Tablet, 80 MG PO DAILY Prescribed by: DEANNE GUEVARA on 02/15/22 1020 Gabapentin 100 Mg Capsule, 300 MG PO BID, (Reported) TAKES 3 (100MG) CAPS Insulin Aspart 100 Unit/Ml Vial, UNIT SQ AC PRN for HYPERGLYCEMIA, (Reported) Insulin Detemir 100 Unit/Ml (3 Ml) Insuln.pen, 50 UNIT SQ BID, (Reported) Magnesium Oxide 400 Mg Magnesium Tablet, 400 MG PO DAILY, (Reported) Metolazone 5 Mg Tablet, 5 MG PO DAILY Prescribed by: DEANNE GUEVARA on 02/15/22 1020 [place]-3 Fatty Acids/Fish Oil 300 Mg-1,000 Mg Capsule, 2 EACH PO HS, (Reported) Potassium Chloride 20 Meq Tablet.er, 20 MEQ PO TID Prescribed by: DEANNE GUEVARA on 02/15/22 1020 Rivaroxaban 15 Mg Tablet, 15 MG PO DAILY, (Reported) Tamsulosin HCl 0.4 Mg Cap, 0.4 MG PO BID, (Reported) Past Medical/Social/Family Hx Patient Social History Tobacco Use?: No Smoking Status: Former Smoker Use of E-Cig and/or Vaping dev: No Substance use?: No Alcohol Use?: No Pt stated abuse/neglect: No Immunizations Up To Date Influenza Vaccine Up-to-Date: Yes; Up-to-Date First/Initial COVID19 Vaccinat: YES Second COVID19 Vaccination Edward: YES Tetanus Booster (TDap): More Than 5 Years Hepatitis A: No Hepatitis B: No TB Skin Test: Negative Date of Pneumonia Vaccine: Jan 27, 2020 Current Status Advance Directives: No Communicates: Verbally Primary Language: Azeri Preferred Spoken Language: Azeri Is interpretation needed?: No Sensory deficits: Vision impairment, Hearing impairment Implanted or Applied Medical D: None, CPAP Review of Systems Constitutional: see HPI Respiratory: dyspnea on exertion Psychiatric/Neurological: No Symptoms Reported Focused Exam Lactate Level 03/14/22 14:01: Lactic Acid Level 1.31 Height, Weight, BMI Height: 5'9.00" Weight: 276lbs. 0.0oz. 125.322394wg; 38.82 BMI Method: Exam Exam Patient acknowledged, consented, and participated in this virtual visit which was conducted using real time audio/video Vital Signs Date Time Temp Pulse Resp B/P (MAP) Pulse Ox O2 Delivery O2 Flow Rate FiO2 03/14/22 22:00 93 14 105/77 (86) 98 High Flow N/C 15.00 03/14/22 21:15 94 14 120/96 (104) 99 High Flow N/C 15.00 03/14/22 21:12 100 19 123/83 (96) 91 High Flow N/C 15.00 03/14/22 20:00 102 17 137/84 (101) 100 Nasal Cannula 4.00 03/14/22 20:00 96 Nasal Cannula 4.00 03/14/22 19:00 100 23 107/88 (94) 93 Nasal Cannula 4.00 03/14/22 19:00 99 03/14/22 18:39 99 Nasal Cannula 4.00 03/14/22 18:00 89 22 111/76 (88) 100 Nasal Cannula 4.00 03/14/22 17:45 98 22 106/79 (88) 100 Nasal Cannula 4.00 03/14/22 17:30 95 24 90/68 (75) 92 Nasal Cannula 4.00 03/14/22 17:15 101 22 120/47 (71) 100 Nasal Cannula 4.00 03/14/22 17:00 91 24 128/83 (98) 69 Nasal Cannula 4.00 03/14/22 16:55 35.7 88 96 36 03/14/22 16:45 85 17 129/73 (91) 94 Nasal Cannula 4.00 03/14/22 16:42 35.7 03/14/22 16:40 88 20 111/83 96 Room Air 03/14/22 16:30 93 21 129/97 (108) 97 Nasal Cannula 4.00 03/14/22 16:27 90 03/14/22 16:20 94 Nasal Cannula 4.00 03/14/22 16:15 35.7 124/78 (93) 03/14/22 14:42 36.3 03/14/22 13:39 36.3 83 112/78 (89) 95 Nasal Cannula 4.00 03/14/22 13:10 Nasal Cannula 3.00 03/14/22 13:05 96 Nasal Cannula 3.00 03/14/22 13:02 24 140/110 (120) 97 Room Air Height & Weight Height: 5'9.00" Weight: 276lbs. 0.0oz. 125.382314qg; 38.82 BMI Method: General Appearance: Mild Distress (Pain and respiratory), Obese HEENT: PERRL/EOMI, Pharynx Normal Neck: Full Range of Motion, Normal Inspection, Non Tender, Supple Respiratory: Crackles (Bilateral bases); No Wheezing; Other (absent BS on left, not in resp distress) Cardiovascular: Regular Rate, Rhythm, No Murmur, Irregularly Irregular Capillary Refill: Greater Than 3 Seconds Gastrointestinal: normal bowel sounds, non tender, distended (central adiposity, patient's baseline) Extremity: Pedal Edema (3+ edema to the left leg and 2+ edema to the right.), Other (Both left and right leg have dressings in place to ankle, foot and lower leg. Redness bilateral lower extremities with right greater than left) Neurologic/Psychiatric: Alert, Oriented x3 Skin: Warm/Dry, Erythema (Right greater than left lower extremity below the knee), Other (Multiple dressed wounds to bilateral lower extremities below the knee) Results Lab Laboratory Tests 03/14/22 14:01 Assessment/Plan Assessment/Plan Probable large hemothorax due to combination of Fx ribs from fall and OAC Surg to see pt, will probably reverse anti-coagulation and place drainage tube will monitor pt's resp status, SpO2, mental status continue to monitor V rate from a fib Critical Care: Critically Ill Patient Time spent with patient (mins): 30 TIARRA VARGAS MD Mar 14, 2022 22:12
[2022-03-14 22:35] LABS: BASOPHILS % (AUTO) 0 % (0-10); EOSINOPHILS % (AUTO) 0 % (0-10); HEMATOCRIT 35 % (40-54); HEMOGLOBIN 11.2 g/dL (13.3-17.7); LYMPHOCYTES # (AUTO) 0.8 10^3/uL (1.0-4.0); LYMPHOCYTES % (AUTO) 6 % (12-44); MEAN CORPUSCULAR HEMOGLOBIN 29 pg (25-34); MEAN CORPUSCULAR HGB CONC 32 g/dL (32-36); MEAN CORPUSCULAR VOLUME 92 fL (80-99); MEAN PLATELET VOLUME 9.9 fL (9.0-12.2); MONOCYTES # (AUTO) 0.9 10^3/uL (0.0-1.0); MONOCYTES % (AUTO) 8 % (0-12); NEUTROPHILS # (AUTO) 9.9 10^3/uL (1.8-7.8); NEUTROPHILS % (AUTO) 85 % (42-75); PLATELET COUNT 186 10^3/uL (130-400); WHITE BLOOD COUNT 11.6 10^3/uL (4.3-11.0)
[2022-03-14 23:31] LABS: EOSINOPHILS % (MANUAL) 2 %; LYMPHOCYTES % (MANUAL) 7 %; MONOCYTES % (MANUAL) 4 %; NEUTROPHILS % (MANUAL) 87 %; RBC MORPH NORMAL
[2022-03-15] VITALS (15 sets, daily range): BP systolic 97–131; BP diastolic 59–111
[2022-03-15] MEDS ORDERED: HUMAN PROTHROMBIN COMPLX(PCC) 500 UNIT (KCENTRA) IV ONE ×2 (00:11)
[2022-03-15] MEDS: ONDANSETRON 4 MG/2 ML (SDV) Z0FRAN IV PRN ×2 (01:04→06:31)
--- NOTE | 2022-03-15 02:14 | Tele-ICU Progress Note ---
Subjective Date Seen by a Provider: Mar 15, 2022 Time Seen by a Provider: 02:09 Subjective/Events-last exam called for drop in UO, has Crabtree catheter, made only 60 mL in last few hours, Cr 2.26 CXR left hemothorax, BNP is normal, troponin is normal will give mild fluid challange, and keep IVF at 83 mL/h Rodriguez Vargas MD Sepsis Event Evaluation Height, Weight, BMI Height: 5'9.00" Weight: 276lbs. 0.0oz. 125.768745li; 38.82 BMI Method: Focused Exam Lactate Level 03/14/22 14:01: Lactic Acid Level 1.31 Exam Exam Patient acknowledged, consented, and participated in this virtual visit which was conducted using real time audio/video Vital Signs Date Time Temp Pulse Resp B/P (MAP) Pulse Ox O2 Delivery O2 Flow Rate FiO2 03/15/22 02:00 95 23 116/92 (100) 97 High Flow N/C 8.00 03/15/22 01:36 35.9 92 20 118/89 100 High Flow N/C 8.00 03/15/22 01:00 90 16 111/75 (87) 99 High Flow N/C 8.00 03/15/22 00:40 96 03/15/22 00:10 36.1 03/15/22 00:00 96 20 97/81 (86) 96 High Flow N/C 8.00 03/14/22 23:45 94 21 106/71 (83) 92 High Flow N/C 8.00 03/14/22 23:41 36.1 99 20 89/61 100 High Flow N/C 8.00 03/14/22 23:30 102 21 89/61 (70) 98 High Flow N/C 8.00 03/14/22 23:26 35.9 97 18 98/59 98 High Flow N/C 8.00 03/14/22 23:15 101 24 98/59 (72) 96 High Flow N/C 8.00 03/14/22 23:00 100 22 97/73 (81) 98 High Flow N/C 8.00 03/14/22 22:45 101 29 108/75 (86) 90 High Flow N/C 15.00 03/14/22 22:30 90 22 109/68 (82) 99 High Flow N/C 15.00 03/14/22 22:28 100 High Flow N/C 8.00 03/14/22 22:15 90 17 113/66 (82) 98 High Flow N/C 15.00 03/14/22 22:00 93 14 105/77 (86) 98 High Flow N/C 15.00 03/14/22 21:45 96 17 106/75 (85) 98 High Flow N/C 15.00 03/14/22 21:30 95 21 115/88 (97) 100 High Flow N/C 15.00 03/14/22 21:15 94 14 120/96 (104) 99 High Flow N/C 15.00 03/14/22 21:12 100 19 123/83 (96) 91 High Flow N/C 15.00 03/14/22 20:00 102 17 137/84 (101) 100 Nasal Cannula 4.00 03/14/22 20:00 96 Nasal Cannula 4.00 03/14/22 19:00 100 23 107/88 (94) 93 Nasal Cannula 4.00 03/14/22 19:00 99 03/14/22 18:39 99 Nasal Cannula 4.00 03/14/22 18:00 89 22 111/76 (88) 100 Nasal Cannula 4.00 03/14/22 17:45 98 22 106/79 (88) 100 Nasal Cannula 4.00 03/14/22 17:30 95 24 90/68 (75) 92 Nasal Cannula 4.00 03/14/22 17:15 101 22 120/47 (71) 100 Nasal Cannula 4.00 03/14/22 17:00 91 24 128/83 (98) 69 Nasal Cannula 4.00 03/14/22 16:55 35.7 88 96 36 03/14/22 16:45 85 17 129/73 (91) 94 Nasal Cannula 4.00 03/14/22 16:42 35.7 03/14/22 16:40 88 20 111/83 96 Room Air 03/14/22 16:30 93 21 129/97 (108) 97 Nasal Cannula 4.00 03/14/22 16:27 90 03/14/22 16:20 94 Nasal Cannula 4.00 03/14/22 16:15 35.7 124/78 (93) 03/14/22 14:42 36.3 03/14/22 13:39 36.3 83 112/78 (89) 95 Nasal Cannula 4.00 03/14/22 13:10 Nasal Cannula 3.00 03/14/22 13:05 96 Nasal Cannula 3.00 03/14/22 13:02 24 140/110 (120) 97 Room Air I & O 03/15/22 07:00 Intake Total 50 ml Balance 50 ml Height & Weight Height: 5'9.00" Weight: 276lbs. 0.0oz. 125.737339wv; 38.82 BMI Method: General Appearance: Mild Distress (Pain and respiratory), Obese HEENT: PERRL/EOMI, Pharynx Normal Neck: Full Range of Motion, Normal Inspection, Non Tender, Supple Respiratory: Crackles (Bilateral bases); No Wheezing; Other (absent BS on left, not in resp distress) Cardiovascular: Regular Rate, Rhythm, No Murmur, Irregularly Irregular Capillary Refill: Greater Than 3 Seconds Gastrointestinal: non tender, soft, no organomegaly, distended (central adiposity, patient's baseline) Extremity: Pedal Edema (3+ edema to the left leg and 2+ edema to the right.), Other (Both left and right leg have dressings in place to ankle, foot and lower leg. Redness bilateral lower extremities with right greater than left) Neurologic/Psychiatric: Alert, Oriented x3 Skin: Warm/Dry, Erythema (Right greater than left lower extremity below the knee), Other (Multiple dressed wounds to bilateral lower extremities below the knee) Results Lab Laboratory Tests 03/14/22 14:01 03/14/22 22:25 Assessment/Plan Assessment/Plan suspect pre renal, already given IV Lasix, will give 500 ml normal saline then saline at 100 mL/h Critical Care: Critically Ill Patient TIARRA VARGAS MD Mar 15, 2022 02:14
[2022-03-15] MEDS ORDERED: NS IV 1000 ML 1,000 ML IV SCH (02:15)
[2022-03-15] MEDS ORDERED: NS (IVPB) 500 ML IV ONE (02:15)
[2022-03-15] MEDS ORDERED: NS IV 1000 ML 1,000 ML ONE (02:19)
[2022-03-15] MEDS: RT-ALBUTEROL/IPRATROPIUM 3 ML (DUONEB) VIAL INH SCH ×3 (02:25→10:49)
[2022-03-15] MEDS: fentaNYL INJ 100 MCG/2 ML AMP IVP PRN ×5 (04:23→11:57)
[2022-03-15 05:58] LABS: INR 1.8 (0.8-1.4); PROTHROMBIN TIME PATIENT 21.3 SEC (12.2-14.7)
[2022-03-15 05:59] LABS: BASOPHILS % (AUTO) 0 % (0-10); EOSINOPHILS % (AUTO) 0 % (0-10); HEMATOCRIT 31 % (40-54); HEMOGLOBIN 9.6 g/dL (13.3-17.7); LYMPHOCYTES # (AUTO) 1.1 10^3/uL (1.0-4.0); LYMPHOCYTES % (AUTO) 8 % (12-44); MEAN CORPUSCULAR HEMOGLOBIN 29 pg (25-34); MEAN CORPUSCULAR HGB CONC 31 g/dL (32-36); MEAN CORPUSCULAR VOLUME 93 fL (80-99); MEAN PLATELET VOLUME 10.1 fL (9.0-12.2); MONOCYTES # (AUTO) 0.8 10^3/uL (0.0-1.0); MONOCYTES % (AUTO) 6 % (0-12); NEUTROPHILS # (AUTO) 10.8 10^3/uL (1.8-7.8); NEUTROPHILS % (AUTO) 84 % (42-75); PLATELET COUNT 229 10^3/uL (130-400); WHITE BLOOD COUNT 12.8 10^3/uL (4.3-11.0)
[2022-03-15] MEDS ORDERED: POTASSIUM CL 10MEQ/50ML IVPB 50 ML IV SCH (06:00)
[2022-03-15] MEDS ORDERED: MAGNESIUM 1 GM/100 ML IVPB 100 ML IV SCH (06:00)
[2022-03-15] MEDS ORDERED: KCL 20 MEQ TAB (K-DUR) PO SCH (06:00)
[2022-03-15 06:03] LABS: ALBUMIN 2.9 GM/DL (3.2-4.5); POTASSIUM 5.2 MMOL/L (3.6-5.0)
[2022-03-15 06:04] LABS: CALCIUM 8.7 MG/DL (8.5-10.1)
[2022-03-15 06:07] LABS: BILIRUBIN,TOTAL 0.8 MG/DL (0.1-1.0)
[2022-03-15 06:09] LABS: CREATININE SERUM 2.91 MG/DL (0.60-1.30); PHOSPHORUS 6.3 MG/DL (2.3-4.7)
[2022-03-15 06:12] LABS: MAGNESIUM 1.8 MG/DL (1.6-2.4)
--- NOTE | 2022-03-15 06:40 | Progress Note ---
Standard Progress Note Progress Notes/Assess & Plan Date Seen by a Provider: Mar 15, 2022 Time Seen by a Provider: 06:39 Progress/Assessment & Plan called for oliguria despite another liter bolus of LR, will continue at 100 mL/h no sign of resp distress total time with RN 10 min TIARRA VARGAS MD Mar 15, 2022 06:40
--- NOTE | 2022-03-15 06:42 | Occ Therapy Progress Note ---
Therapy Progress Note Due to decline in medical status, OT to discharge pt. New orders will be needed when pt is medically stable. CLEVELAND OSMAN Mar 15, 2022 06:42
--- NOTE | 2022-03-15 07:16 | Physical Therapy Progress Note ---
Therapy Progress Note Due to change in medical status and transfer to ICU, PT will require new orders when patient is medically stable and able to actively participate with skilled therapy. YASMANI MEAD PT Mar 15, 2022 07:16
--- NOTE | 2022-03-15 08:50 | Diagnostic Imaging Report ---
INDICATION: Hemothorax. TECHNIQUE: Single view chest 8:21 AM. CORRELATION STUDY: 03/14/2022 FINDINGS: Extensive and progressive opacification left hemithorax. Likely underlying fluid and consolidation left lung. Also increasing infiltrate-like opacity right lung base along with small right pleural effusion. Mediastinal structures largely obscured. Underlying cardiac enlargement is not excluded and somewhat suspect. IMPRESSION: 1. Extensive and progressive opacification of the left hemithorax. Likely a combination of fluid as well as consolidation. 2. Increasing infiltrate-like opacity at the right lung base may reflect minimal infiltrate along with small effusion. Dictated by: Dictated on workstation # [id number]
[2022-03-15] MEDS ORDERED: FUROSEMIDE 40 MG/4 ML INJ (LASIX) IVP SCH (09:00)
--- NOTE | 2022-03-15 09:00 | Progress Note - Surgery ---
CARLOS WELLINGTON 03/15/22 0900: Subjective Date Seen by a Provider: Mar 15, 2022 Time Seen by a Provider: 07:30 Subjective/Events-last exam Patient had potential vaso-vagal episode overnight after attempting to stand up. Patient had reversal agents of coagulation medications yesterday evening. Jaleel sandoval was apparently disoriented some overnight. Is currently awake and oriented x3 when talking to me. States his pain is fairly well controlled, at a 4/10. He is on 8L O2 [place]. He is ususally on 3L at home. Patient had repeat CXR this morning, it has not been read yet, but left side appears to be worsening still. Patient is oliguric, has produced 35 cc for the day as of 719. Patient is waiting for his son to arrive to decide what his next steps should be. I was in the ER yesterday when the ER phsycian had advanced directives discussion with patient. At that time patient was DNR. Since then, patient has had the discussion with Nursing staff and has stated that he maybe would like to have CPR done on him. Need to have advanced directive discussion with family present. Review of Systems General: No Chills, No Night Sweats; Fatigue HEENT: No Head Aches, No Visual Changes Pulmonary: Dyspnea; No Cough Cardiovascular: Orthopnea; No: Chest Pain, Palpitations Gastrointestinal: Nausea; No: Vomiting Genitourinary: No Frequency; Other (oliguria ) Musculoskeletal: back pain (L flank); No: leg pain Neurological: Weakness; No: Numbness Focused Exam Lactate Level 03/14/22 14:01: Lactic Acid Level 1.31 Objective Exam Vital Signs Date Time Temp Pulse Resp B/P (MAP) Pulse Ox O2 Delivery O2 Flow Rate FiO2 03/15/22 08:00 93 17 109/68 (82) 100 [place] N/C 8.00 03/15/22 07:47 36.2 03/15/22 07:10 100 [place] N/C 8.00 03/15/22 07:00 90 03/15/22 07:00 92 18 110/83 (92) 96 [place] Flow N/C 8.00 03/15/22 06:00 90 15 103/72 (82) 100 [place] N/C 8.00 03/15/22 05:00 94 22 116/77 (90) 97 [place] Flow N/C 8.00 03/15/22 04:31 36.5 03/15/22 04:00 99 High Flow N/C 8.00 03/15/22 04:00 89 19 120/111 (114) 98 High Flow N/C 8.00 03/15/22 03:00 92 31 101/76 (84) 100 High [place] N/C 8.00 03/15/22 02:25 100 [place] N/C 8.00 03/15/22 02:00 95 23 116/92 (100) 97 [place] N/C 8.00 03/15/22 01:36 35.9 92 20 118/89 100 [place] N/C 8.00 03/15/22 01:00 90 16 111/75 (87) 99 [place] N/C 8.00 03/15/22 00:40 96 03/15/22 00:10 36.1 03/15/22 00:00 96 20 97/81 (86) 96 High Flow N/C 8.00 03/15/22 00:00 98 [place] N/C 8.00 03/14/22 23:45 94 21 106/71 (83) 92 High Flow N/C 8.00 03/14/22 23:41 36.1 99 20 89/61 100 [place] N/C 8.00 03/14/22 23:30 102 21 89/61 (70) 98 High Flow N/C 8.00 03/14/22 23:26 35.9 97 18 98/59 98 [place] N/C 8.00 03/14/22 23:15 101 24 98/59 (72) 96 [place] N/C 8.00 03/14/22 23:00 100 22 97/73 (81) 98 [place] N/C 8.00 03/14/22 22:45 101 29 108/75 (86) 90 [place] N/C 15.00 03/14/22 22:30 90 22 109/68 (82) 99 [place] N/C 15.00 03/14/22 22:28 100 [place] N/C 8.00 03/14/22 22:15 90 17 113/66 (82) 98 [place] N/C 15.00 03/14/22 22:00 93 14 105/77 (86) 98 [place] N/C 15.00 03/14/22 21:45 96 17 106/75 (85) 98 [place] N/C 15.00 03/14/22 21:30 95 21 115/88 (97) 100 [place] N/C 15.00 03/14/22 21:15 94 14 120/96 (104) 99 [place] N/C 15.00 03/14/22 21:12 100 19 123/83 (96) 91 [place] N/C 15.00 03/14/22 20:00 102 17 137/84 (101) 100 Nasal Cannula 4.00 03/14/22 20:00 96 Nasal Cannula 4.00 03/14/22 19:00 100 23 107/88 (94) 93 Nasal Cannula 4.00 03/14/22 19:00 99 03/14/22 18:39 99 Nasal Cannula 4.00 03/14/22 18:00 89 22 111/76 (88) 100 Nasal Cannula 4.00 03/14/22 17:45 98 22 106/79 (88) 100 Nasal Cannula 4.00 03/14/22 17:30 95 24 90/68 (75) 92 Nasal Cannula 4.00 03/14/22 17:15 101 22 120/47 (71) 100 Nasal Cannula 4.00 03/14/22 17:00 91 24 128/83 (98) 69 Nasal Cannula 4.00 03/14/22 16:55 35.7 88 96 36 03/14/22 16:45 85 17 129/73 (91) 94 Nasal Cannula 4.00 03/14/22 16:42 35.7 03/14/22 16:40 88 20 111/83 96 Room Air 03/14/22 16:30 93 21 129/97 (108) 97 Nasal Cannula 4.00 03/14/22 16:27 90 03/14/22 16:20 94 Nasal Cannula 4.00 03/14/22 16:15 35.7 124/78 (93) 03/14/22 14:42 36.3 03/14/22 13:39 36.3 83 112/78 (89) 95 Nasal Cannula 4.00 03/14/22 13:10 Nasal Cannula 3.00 03/14/22 13:05 96 Nasal Cannula 3.00 03/14/22 13:02 24 140/110 (120) 97 Room Air I & O 03/15/22 07:00 Intake Total 700 ml Output Total 35 ml Balance 665 ml Capillary Refill : Greater Than 3 Seconds General Appearance: Mild Distress (Pain and respiratory), Obese HEENT: PERRL/EOMI Neck: Non Tender, Supple Respiratory: Decreased Breath Sounds (right side); No Wheezing; Other (No BS appreciated on Left side ) Cardiovascular: No Murmur, Irregularly Irregular Gastrointestinal: non tender, soft, no organomegaly Extremity: Non Tender, No Calf Tenderness, Pedal Edema (3+ edema to the left leg and 2+ edema to the right. pitting edema above the knee posterior), Other (Both left and right leg have dressings in place to ankle, foot and lower leg. Redness bilateral lower extremities with right greater than left) Neurologic/Psychiatric: Alert, Oriented x3 Skin: Warm/Dry, Erythema (Right greater than left lower extremity below the knee) Results Lab Laboratory Tests 03/14/22 13:50: Troponin I 0.051H 03/14/22 14:01: White Blood Count 10.1, Red Blood Count 4.34, Hemoglobin 12.7L, Hematocrit 40, Mean Corpuscular Volume 93, Mean Corpuscular Hemoglobin 29, Mean Corpuscular Hemoglobin Concent 32, Red Cell Distribution Width 14.5, Platelet Count 222, Mean Platelet Volume 9.4, Immature Granulocyte % (Auto) 1, Neutrophils (%) (Auto) 79H, Lymphocytes (%) (Auto) 10L, Monocytes (%) (Auto) 8, Eosinophils (%) (Auto) 3, Basophils (%) (Auto) 0, Neutrophils # (Auto) 8.0H, Lymphocytes # (Auto) 1.0, Monocytes # (Auto) 0.8, Eosinophils # (Auto) 0.3, Basophils # (Auto) 0.0, Immature Granulocyte # (Auto) 0.1, Prothrombin Time 34.3H, INR Comment 3.3H , Activated Partial Thromboplast Time 57H, Sodium Level 136, Potassium Level 4.5, Chloride Level 91L, Carbon Dioxide Level 34H, Anion Gap 11, Blood Urea Nitrogen 43H, Creatinine 2.26H, Estimat Glomerular Filtration Rate 28, BUN/Creatinine Ratio 19, Glucose Level 123H, Lactic Acid Level 1.31, Calcium Level 9.2, Corrected Calcium 9.8, Total Bilirubin 0.7, Aspartate Amino Transf (AST/SGOT) 21, Alanine Aminotransferase (ALT/SGPT) 23, Alkaline Phosphatase 127, B-Type Natriuretic Peptide 320.0H, Total Protein 7.2, Albumin 3.3 03/14/22 20:40: Blood Gas Puncture Site RIGHT RADIAL, Blood Gas Patient Temperature 35.9, Arterial Blood pH 7.30*L, Arterial Blood Partial Pressure CO2 65H, Arterial Blood Partial Pressure O2 71L, Arterial Blood HCO3 32H, Arterial Blood Total CO2 33.5H, Arterial Blood Oxygen Saturation 94, Arterial Blood Base Excess 5.2H, Dat Test YES-POS, Blood Gas Ventilator Setting NO, Blood Gas Inspired Oxygen 10L 03/14/22 21:33: Glucometer 194H 03/14/22 22:25: White Blood Count 11.6H, Red Blood Count 3.84L, Hemoglobin 11.2L, Hematocrit 35L , Mean Corpuscular Volume 92, Mean Corpuscular Hemoglobin 29, Mean Corpuscular Hemoglobin Concent 32, Red Cell Distribution Width 14.7H, Platelet Count 186, Mean Platelet Volume 9.9, Immature Granulocyte % (Auto) 1, Neutrophils (%) (Auto) 85H, Lymphocytes (%) (Auto) 6L, Monocytes (%) (Auto) 8, Eosinophils (%) (Auto) 0, Basophils (%) (Auto) 0, Neutrophils # (Auto) 9.9H, Lymphocytes # (Auto) 0.8L, Monocytes # (Auto) 0.9, Eosinophils # (Auto) 0.0, Basophils # (Auto) 0.0, Immature Granulocyte # (Auto) 0.1, Neutrophils % (Manual) 87, Lymphocytes % (Manual) 7, Monocytes % (Manual) 4, Eosinophils % (Manual) 2, Blood Morphology Comment NORMAL 03/15/22 05:05: White Blood Count 12.8H, Red Blood Count 3.30L, Hemoglobin 9.6L, Hematocrit 31L, Mean Corpuscular Volume 93, Mean Corpuscular Hemoglobin 29, Mean Corpuscular Hemoglobin Concent 31L, Red Cell Distribution Width 14.6H, Platelet Count 229, Mean Platelet Volume 10.1, Immature Granulocyte % (Auto) 1, Neutrophils (%) (Auto) 84H, Lymphocytes (%) (Auto) 8L, Monocytes (%) (Auto) 6, Eosinophils (%) (Auto) 0, Basophils (%) (Auto) 0, Neutrophils # (Auto) 10.8H, Lymphocytes # (Auto) 1.1, Monocytes # (Auto) 0.8, Eosinophils # (Auto) 0.0, Basophils # (Auto) 0.0, Immature Granulocyte # (Auto) 0.1, Prothrombin Time 21.3H, INR Comment 1.8H , Sodium Level 136, Potassium Level 5.2H, Chloride Level 93L, Carbon Dioxide Level 26, Anion Gap 17H, Blood Urea Nitrogen 57H, Creatinine 2.91#H, Estimat Glomerular Filtration Rate 21, BUN/Creatinine Ratio 20, Glucose Level 244H, Calcium Level 8.7, Corrected Calcium 9.6, Phosphorus Level 6.3H, Magnesium Level 1.8, Total Bilirubin 0.8, Aspartate Amino Transf (AST/SGOT) 20, Alanine Aminotransferase (ALT/SGPT) 22, Alkaline Phosphatase 108, Total Protein 6.0L, Albumin 2.9L Assessment/Plan Assessment/Plan Assessment/Plan Hemothorax - worsening Left Rib Fractures ribs 8-10 Atrial Fibrillation CAD Chronic CHF CKD Stage IV - worsening Cr Uremia T2DM - insulin dependent HTN HLD Obstructive sleep apnea COPD Obesity hypoventilation syndrome Plan 03/15 - Anti-coagulation medications reversed yesterday after a non-syncopal episode. As of yesterday evening patient did not want to proceed with chest tube placement. When discussing with patient this morning, he stated he would like to wait until his son arrived to make a decision. CXR this morning has not been read yet, but to me appears to be worsening hemothorax with continual diminishing of airspace on L side. There has been confusion with patient on advanced directives. Need to have discussion today when family is present to make sure we know how aggressive patient would like his management to be moving forward. Patient's kidney function continues to worsen. Would consult Nephrology to determine need for CRRT/Dialysis. Extensive discussion was had with patient and family about options, as can be seen in the plan below. Willing to do whichever the patient and his family would like to proceed with moving forward. Until then will continue to monitor hemothorax with repeat imaging and patient's clinical condition. 03/14 - Patient is on anti-platelet and anti-coagulation medications due to severe heart history. He had episode when he stood up; most likely Vaso-Vagal and due to hypoxia - which brought him to ICU. I saw pt just before 5pm yesterday and then came back when called about the episode and new findings, talked with family for over 30 minutes tonight. I reviewed the CT myself (believe there may be layering which indicates continued bleeding) and the CXR after episode (which probably shows worsening from previous, again more active bleeding). I ordered some platelets and K-Centra to try and reverse the anticoagulation. In my discussion with family I went over options.....1) do nothing at all 2) platelets, K-centra and monitor breathing and 3) Chest tube placement. Unfortunately, I think chest tube or even just thoracentesis would just produce another site for bleeding to occur. I feel as though a more conservative approach of holding blood thinners and repeat imaging to monitor evolution vs resolution of hemothorax is the better approach at this time. The blood that is already in the chest will likely coagulate and then require the body to reabsorb the blood over time (up to a couple of months). A chest tube will only address his breathing. Chest tube will not stop bleeding, it may drain out the blood in there and therefore be less to reabsorb; but, there will still be a lot to reabsorb. Right now patient's O2 sats are stable and he does not appear in respiratory distress. The pt stated he would do whatever his family wants. His family decided to hold off on chest tube. I also talked to them about the fact that he is very sick, multiple other concurrent problems and co-morbidities. This means even little things could cause a big problem; like SC or . I personally reviewed Chest X-ray and Chest CT and case was kyler huynh with the ED physician as well as the Waiter/Waitress. MARIANA CERNA DO 03/15/22 1120: Subjective Time Seen by a Provider: 09:29 Subjective/Events-last exam Pt seen and examined, family at bedside. He is still complaining of SOB, but his saturation is 98%. He doesn't look any worse than last night. His other main complaint is he can't eat or drink because of nausea. Review of Systems General: Fatigue Pulmonary: Dyspnea; No Cough Cardiovascular: Orthopnea; No: Chest Pain, Palpitations Gastrointestinal: Nausea; No: Vomiting Genitourinary: No Frequency; Other (oliguria ) Musculoskeletal: back pain (L flank) Neurological: Weakness Objective Exam General Appearance: Mild Distress (Pain and respiratory), Obese HEENT: PERRL/EOMI Respiratory: Decreased Breath Sounds (right side); No Wheezing; Other (No BS appreciated on Left side ) Cardiovascular: No Murmur, Irregularly Irregular Gastrointestinal: non tender, soft Extremity: Pedal Edema (3+ edema to the left leg and 2+ edema to the right. pitting edema above the knee posterior), Other (Both left and right leg have dressings in place to ankle, foot and lower leg. Redness bilateral lower extremities with right greater than left) Skin: Erythema (Right greater than left lower extremity below the knee) Assessment/Plan Assessment/Plan Assessment/Plan Hemothorax - worsening Left Rib Fractures ribs 8-10 Atrial Fibrillation CAD Chronic CHF CKD Stage IV - worsening Cr Uremia T2DM - insulin dependent HTN HLD Obstructive sleep apnea COPD Obesity hypoventilation syndrome Plan Anti-coagulation medications reversed yesterday after a non-syncopal episode. As of yesterday evening patient did not want to proceed with chest tube placement. When discussing with patient and his family this morning, they still think it is best to wait on chest tube; because he is saturating fine. I reviewed CXR this morning and it is worse than yesterday; which means, increased hemothorax. Will continue to monitor pt, still no good reason to place chest tube. I discussed case with Dr. Melgoza this am. Supervisory-Addendum Brief Verification & Attestation Participated in pt care: history, MDM, physical Personally performed: exam, history, MDM, supervision of care Care discussed with: Medical Student Procedures: n/a Verification and Attestation of Medical Student E/M Service A medical student performed and documented this service. I then reviewed and verified all information documented by the medical student and made modifications to such information, when appropriate. I personally performed a physical exam, medical decision making and then discussed any differences between the notes and made revisions as necessary to create one note. Mariana Cerna , 03/15/22 , 11:20 CARLOS WELLINGTON Mar 15, 2022 09:00 MARIANA CERNA DO Mar 15, 2022 11:20
--- NOTE | 2022-03-15 09:01 | History & Physical-Hospitalist ---
History of Present Illness Date Seen 03/15/22 Time Seen by a Provider: 07:45 Attending Physician Anny Kemp PCP Admitting Physician: Jacy Melgoza MD Attending Physician: Jacy Melgoza MD Referring Physician Date of Admission Mar 14, 2022 at 15:22 Home Medications & Allergies Home Medications Reviewed patient Home Medication Reconciliation performed by pharmacy medication reconciliations electrical engineering technician and/or nursing. Patients Allergies have been reviewed. Allergies Allergies Coded Allergies No Known Drug Allergies (Unverified01/19/18) Past [id number]-[id number] Hx Patient Social History Tobacco Use?: No Smoking Status: Former Smoker Use of E-Cig and/or Vaping dev: No Substance use?: No Alcohol Use?: No Pt feels they are or have been: No Immunizations Up To Date Date of Influenza Vaccine: Jan 26, 2022 First/Initial COVID19 Vaccinat: YES Second COVID19 Vaccination Edward: YES Tetanus Booster (TDap): More Than 5 Years Hepatitis A: No Hepatitis B: No Date of Pneumonia Vaccine: Jan 27, 2020 Seasonal Allergies Seasonal Allergies: No Current Status Advance Directives: No Communicates: Verbally Primary Language: Tajik Preferred Spoken Language: Tajik Is interpretation needed?: No Sensory deficits: Vision impairment, Hearing impairment Implanted or Applied Medical D: None, CPAP Past Medical History Surgeries: Angioplasty, Coronary Stent, Gallbladder, Prostatectomy, Vascular Surgery (AAA repair - endovascular) Sleep Apnea, COPD Currently Using CPAP: Yes Atrial Fibrillation, Cardiomyopathy, Chronic Edema/Swelling, Coronary Artery Disease, Heart Attack, High Cholesterol, Hypertension, Peripheral Vascular Neuropathy Sexually Transmitted Disease: No HIV/AIDS: No Prostate Problems (cancer), Kidney Stones, Renal Failure Gastroesophageal Reflux, Gall Bladder Disease Degenerate Disk Disease, Arthritis, Chronic Back Pain Diabetes, Insulin dep Loss of Vision: Bilateral Hearing Impairment: Hard of Hearing Prostate Did You Recieve Any Treatments: Yes What Type of Treatment Did You: Chemotherapy, Surgical Intervention Recent Skin Changes Blood Disorders: No Adverse Reaction/Blood Tranf: No (N/A) Family Medical History Reviewed Nursing Family Hx AAA, Cancer (prostate, "throat", ) Physical Exam Physical Exam Vital Signs Vital Signs - First Documented 03/14/22 03/14/22 03/14/22 03/14/22 13:02 13:05 13:39 16:55 Temp 36.3 Pulse 83 Resp 24 B/P (MAP) 140/110 (120) Pulse Ox 97 O2 Delivery Room Air O2 Flow Rate 3.00 FiO2 36 Capillary Refill : Greater Than 3 Seconds Height, Weight, BMI Height: 5'9.00" Weight: 276lbs. 0.0oz. 125.623912hl; 39.37 BMI Method: Results Results/Procedures Labs Laboratory Tests 03/14/22 14:01 03/14/22 22:25 03/15/22 05:05 Patient resulted labs reviewed. JACY MELGOZA MD Mar 15, 2022 09:01
[2022-03-15] MEDS ORDERED: PROMETHAZINE INJ 25 MG/ML (PHENERGAN) AMP ONE (09:55)
[2022-03-15] MEDS ORDERED: PROMETHAZINE INJ 25 MG/ML (PHENERGAN) AMP IVP PRN (10:00)
[2022-03-15] MEDS ORDERED: LORazepam 0.5 MG (ATIVAN) TABLET PO PRN (12:30)
--- NOTE | 2022-03-15 13:56 | Discharge Summary ---
Discharge Summary Date of Admission Mar 14, 2022 at 15:22 Date of Discharge Comfort Measures/ Patient is an 82-year-old male on chronic anticoagulation with nieves ry artery disease, hypertension, hyperlipidemia, insulin-dependent diabetes, cardiomyopathy, CKD who presented to the emergency department due to weakness after a fall. He had fallen while attempting to change the tubing on his oxygen tank and fell into a chair and hit his ribs. This happened 2 days ago but upon a home health visit they noticed how weak he was and decided to send him to the emergency department for evaluation. He was found to have left-sided rib fractures in ribs 8 through 10 and a hemothorax. He was admitted for further management. He had a near syncopal episode the evening of admission and was elevated to an ICU admission. He was seen in consultation by cardiology and surgery. Surgery discussed options with the family regarding treatment of his hemothorax. They elected to not pursue chest tube placement and allow for reabsorption. He was given Kcentra and a unit of platelets. Despite this he had worsening of his chest x-ray showing near whiteout of his left lung. He had some mild hypotension overnight and was given fluid boluses which did help with his blood pressure. Despite all of this he had worsening of his baseline chronic kidney disease and renal function. I discussed the case with the patient and his daughter and the complexity of his current medical problems. I discussed the case with cardiologyand with nephrology over the phone given oliguria. I discussed with patient regarding worsening renal failure and low urine output and how if this did not improve with his improved blood pressures he may need to transfer for nephrology. Shortly after that conversation he felt the need to have a bowel movement and while on the bedpan became unresponsive. I was called and presented to bedside he remained unresponsive and was profo undly hypotensive. He was given over a liter bolus by pressure bag. Blood sugar was checked and was 270. ABG was ordered and RT was called to bedside. He was placed on a nonrebreather and in reverse Trendelenburg. Despite this his blood pressures continue to drop and he began to develop bradycardia. Son was at bedside and confirmed patient's DNR status. He was given atropine without any improvement in his heart rate. He ultimately developed asystole and time of was called at 1345. GABE GUADALUPE MD Mar 15, 2022 13:56
[2022-03-15] MEDS ORDERED: ATROPINE INJECTION 1 MG/10 ML SYR (ABBOTT) INJ ONE (14:17)
[2022-03-15] MEDS ORDERED: inSUlin ASPART (NovoLOG) 1 UNIT/0.01 ML (CHARGE PER UNIT) SC SCH (16:00)
[2022-03-15 18:40] LABS: ABG BASE EXCESS 4.2 MMOL/L (-2.5-2.5); ABG OXYGEN SATURATION 35 % (94-100); ABG PCO2 69 MMHG (35-45); ABG TCO2 33.1 MMOL/L (21.0-31.0)
[2022-03-15 18:41] LABS: ALLENS TEST POSITIVE; PATIENT TEMP 35.9; VENTILATOR NO
[2022-03-15 18:43] LABS: ABG PH 7.27 (7.37-7.43)
[2022-03-15 18:44] LABS: ABG PO2 29 MMHG (79-93)
== END 2022-03-15 16:30 | disposition expired | DRG 199 ==
LOC: EDUNIT# 13:00 → ER 13:01 → CSD 15:22 → ICU 20:51
PROVIDERS: ADMIT Family Medicine; ATTEND Family Medicine
PROC: 5A0935A Assistance with Respiratory Ventilation, Less than 24 Consecutive Hours, High Flow/Velocity Cannula (ICD-10-PCS; principal; 2022-03-14)
DX: S27.1XXA Traumatic hemothorax, initial encounter (principal); I21.A1 Myocardial infarction type 2; E66.2 Morbid (severe) obesity with alveolar hypoventilation; I42.9 Cardiomyopathy, unspecified; S22.42XA Multiple fractures of ribs, left side, initial encounter for closed fracture; N18.4 Chronic kidney disease, stage 4 (severe); I13.0 Hypertensive heart and chronic kidney disease with heart failure and stage 1 through stage 4 chronic kidney disease, or unspecified chronic kidney disease; N17.9 Acute kidney failure, unspecified; I48.19 Other persistent atrial fibrillation; Z66 Do not resuscitate; W18.30XA Fall on same level, unspecified, initial encounter; Z79.01 Long term (current) use of anticoagulants; I25.10 Atherosclerotic heart disease of native coronary artery without angina pectoris; E78.5 Hyperlipidemia, unspecified; E11.22 Type 2 diabetes mellitus with diabetic chronic kidney disease; I48.91 Unspecified atrial fibrillation; J44.9 Chronic obstructive pulmonary disease, unspecified; I50.9 Heart failure, unspecified; Z87.891 Personal history of nicotine dependence; Z79.4 Long term (current) use of insulin; Z79.899 Other long term (current) drug therapy; R09.02 Hypoxemia; E11.51 Type 2 diabetes mellitus with diabetic peripheral angiopathy without gangrene; I95.9 Hypotension, unspecified; I77.9 Disorder of arteries and arterioles, unspecified; N40.1 Benign prostatic hyperplasia with lower urinary tract symptoms; R39.11 Hesitancy of micturition; M19.90 Unspecified osteoarthritis, unspecified site; G89.29 Other chronic pain; M54.9 Dorsalgia, unspecified; Z68.39 Body mass index [BMI] 39.0-39.9, adult
CPT/HCPCS: 36415; 36600; 70450; 71045; 71250; 80053; 82805; 82947; 83605; 83735; 83880; 84100; 84484; 85007; 85025; 85027; 85610; 85730; 86850; 86900; 86901; 86920; 87040; 87081; 93005; 94640